=== PATIENT | female | born 1950 | race Caucasian/White ===

== ENCOUNTER 2016-07-06 14:47 | Inpatient (IN) | payer MEDICARE, MEDICAID ==
--- NOTE | 2016-07-06 17:25 | RAD ---
HISTORY: Cough, refusing to eat or drink COMPARISONS: May 22, 2016 VIEWS:1: Single frontal portable view of the chest at 5:07 PM FINDINGS: LINES AND TUBES: CUE WORKER shunt tubing is noted along the right CARDIOMEDIASTINAL SILHOUETTE: The cardiomediastinal silhouette is normal for portable technique. PLEURA: The costophrenic angles are sharp. No pleural abnormalities are noted. LUNG PARENCHYMA: There is patchy alveolar opacification of the right mid and lower lung and left lower lung ABDOMEN: The upper abdomen is clear. There is no subphrenic gas. BONES AND SOFT TISSUES: Soft tissue calcifications are noted in the breasts IMPRESSION: PATCHY BILATERAL AIRSPACE DISEASE SUGGESTIVE OF BILATERAL CONSOLIDATION VERSUS PULMONARY ALVEOLAR EDEMA
[2016-07-06 17:47] LABS: Hematocrit 39 % (35-47); Mean Corpuscular HGB Conc 34 g/dl (31-36); Mean Corpuscular Hemoglobin 32 pg (27-31); Mean Corpuscular Volume 97 fL (80-97); Mean Platelet Volume 9 um3 (7.4-10.4); Red Cell Distribution Width 15 % (10.5-15); White Blood Count 10.3 10^3/ul (3.5-10.8)
[2016-07-06 18:51] LABS: Albumin 3.3 g/dL (3.2-5.2); BUN/Creatinine Ratio 22.5 (8-20); C Reactive Protein 165.43 mg/L (< 5.00); Calcium 9.5 mg/dL (8.6-10.3); EGFR African American 63.1 (>60); Globulin 4.5 g/dL (2-4); Potassium 4.2 mmol/L (3.5-5.0); Total Bilirubin 0.3 mg/dL (0.2-1.0); Total Protein 7.8 g/dL (6.4-8.9)
[2016-07-06 20:18] LABS: Troponin I 0.01 ng/mL (<0.04)
[2016-07-06] MEDS ORDERED: NS 0.9% 1000 ML* 1,000 ML IV SCH (21:30)
[2016-07-06] MEDS ORDERED: Senna TAB PO PRN (21:30)
[2016-07-06] MEDS ORDERED: diPHENhydraMINE PO* 25 MG PO PRN (21:30)
[2016-07-06] MEDS ORDERED: Acetaminophen TAB* 325 MG PO PRN (21:30)
[2016-07-06] MEDS ORDERED: Levofloxacin 500 MG IVPREMIX(* 500 MG/100 ML BAG IVPB ONE (22:00)
--- NOTE | 2016-07-06 22:48 | ED ---
Rupesh Rand Aidan, scribed for Miguel Meyer MD on 07/06/16 at 1741 . 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 Her account executive healthcare reports her being less responsive than normal. Additionally, she has congestion, a productive cough, and mild facial inflammation that began early this morning. No other symptoms. Pt is developmentally delayed. - History Of Current Complaint Chief Complaint: EDGeneral Time Seen by Provider: 07/06/16 16:57 Hx Obtained From: Family/Manager Recruitment - animal caretaker supervisor Onset/Duration: Sudden Onset, Lasting Days, Still Present Timing: Constant, Hours Severity Currently: Moderate Severity Initially: Moderate Location: Negative - refusal to eat or drink Aggravating Factor(s): unknown Alleviating Factor(s): unknown Associated Signs And Symptoms: Positive: Cough - productive, Other - congestion , and mild facial swelling - Allergies/Home Medications Allergies/Adverse Reactions: Allergies Allergy/AdvReac Type Severity Reaction Status Date / Time Carbamazepine [From Tegretol] Allergy Unknown Verified 07/06/16 14:53 Reaction Details Phenytoin [From Dilantin] Allergy Unknown Verified 07/06/16 14:53 Reaction Details PMH/Surg Hx/FS Hx/Imm Hx Cardiovascular History: Reports: Hx Hypertension, Other Cardiovascular Problems/ Disorders - TITLE INVESTIGATOR Shunt Respiratory History: Reports: Hx Pneumonia GI History: Reports: Hx Gastroesophageal Reflux Disease History: Reports: Hx Chronic Renal Failure - stage 3 Comment Only: Other Problems/Disorders - hx bilateral hydronephrosis Musculoskeletal History: Reports: Other Musculoskeletal History - seizure Sensory History: Reports: Hx Cataracts, Hx Vision Problem Opthamlomology History: Reports: Hx Cataracts, Hx Vision Problem Neurological History: Reports: Hx Developmental Delay, Hx Seizures, Other Neuro Impairments/Disorders - Parkinson's Disease Denies: Hx Dementia, Hx Headaches, Hx Migraine, Hx Nerve Disease, Hx Spinal Cord Injury, Hx Transient Ischemic Attacks (TIA) Psychiatric History: Reports: Hx Anxiety, Hx Post Traumatic Stress Disorder Comment Only: Other Psychiatric Issues/Disorders - developmental delay - Surgical History Surgery Procedure, Year, and Place: TITLE INVESTIGATOR SHUNT - Immunization History Date of Tetanus Vaccine: Up to Date Infectious Disease History: No Infectious Disease History: Denies: Hx Clostridium Difficile, Hx Hepatitis, Hx Human Immunodeficiency Virus (HIV), Hx of Known/Suspected MRSA, Hx Shingles, Hx Tuberculosis, Hx Known/ Suspected VRE, Hx Known/Suspected VRSA, History Other Infectious Disease, Traveled Outside the [place] in Last 30 Days - Family History Known Family History: Negative: Diabetes - Social History Occupation: Disabled Lives: Assisted Living Alcohol Use: None Substance Use Type: Reports: None Smoking Status (MU): Never Smoked Tobacco Review of Systems Constitutional: Other - refusal to eat or drink, mild facial swelling Eyes: Negative ENT: Other - congestion Cardiovascular: Negative Positive: Cough Gastrointestinal: Negative Genitourinary: Negative Musculoskeletal: Negative Skin: Negative Neurological: Negative Psychological: Normal All Other Systems Reviewed And Are Negative: Yes Physical Exam Triage Information Reviewed: Yes Vital Signs On Initial Exam: Initial Vitals Temp Pulse Resp BP Pulse Ox 96 F 72 16 153/66 90 07/06/16 14:47 07/06/16 14:47 07/06/16 14:47 07/06/16 14:47 07/06/16 14:47 Vital Signs Reviewed: Yes Appearance: Positive: Well-Appearing, No Pain Distress Skin: Positive: Warm, Skin Color Reflects Adequate Perfusion, Dry Head/Face: Positive: Normal Head/Face Inspection Eyes: Positive: Normal ENT: Positive: Normal ENT inspection Respiratory/Lung Sounds: Positive: Breath Sounds Present. Negative: Clear to Auscultation - harsh upper respiratory sounds in lungs bilaterally Cardiovascular: Positive: RRR Abdomen Description: Positive: Nontender, Soft Bowel Sounds: Positive: Present Musculoskeletal: Positive: Normal Neurological: Positive: Normal Psychiatric: Positive: Normal, Affect/Mood Appropriate Diagnostics - Vital Signs Vital Signs Temp Pulse Resp BP Pulse Ox 07/06/16 14:47 96 F 72 16 153/66 90 - Laboratory Lab Results: Lab Results 07/06/16 07/06/16 07/06/16 Range/Units 17:26 17:26 17:26 WBC 10.3 (3.5-10.8) 10^3/ul RBC 4.00 (4.0-5.4) 10^6/ul Hgb 13.0 (12.0-16.0) g/dl Hct 39 (35-47) % MCV 97 (80-97) fL MCH 32 H (27-31) pg MCHC 34 (31-36) g/dl RDW 15 (10.5-15) % Plt Count 111 L (150-450) 10^3/ul MPV 9 (7.4-10.4) um3 Neut % (Auto) 73.0 (38-83) % Lymph % (Auto) 9.9 L (25-47) % Gaines % (Auto) 14.2 H (1-9) % Eos % (Auto) 2.6 (0-6) % Baso % (Auto) 0.3 (0-2) % Absolute Neuts (auto) 7.5 (1.5-7.7) 10^3/ul Absolute Lymphs (auto) 1.0 (1.0-4.8) 10^3/ul Absolute Monos (auto) 1.5 H (0-0.8) 10^3/ul Absolute Eos (auto) 0.3 (0-0.6) 10^3/ul Absolute Basos (auto) 0 (0-0.2) 10^3/ul Absolute Nucleated RBC 0.01 10^3/ul Nucleated RBC % 0 Sodium 131 L (133-145) mmol/L Potassium 4.2 (3.5-5.0) mmol/L Chloride 95 L (101-111) mmol/L Carbon Dioxide 29 (22-32) mmol/L Anion Gap 7 (2-11) mmol/L BUN 25 H (6-24) mg/dL Creatinine 1.11 H (0.51-0.95) mg/dL Est GFR ( Amer) 63.1 (>60) Est GFR (Non-Af Amer) 49.0 (>60) BUN/Creatinine Ratio 22.5 H (8-20) Glucose 91 (70-100) mg/dL Calcium 9.5 (8.6-10.3) mg/dL Total Bilirubin 0.30 (0.2-1.0) mg/dL AST 13 (13-39) U/L ALT 13 (7-52) U/L Alkaline Phosphatase 124 H (34-104) U/L Troponin I 0.01 (<0.04) ng/mL C-Reactive Protein 165.43 H (< 5.00) mg/L B-Natriuretic Peptide 92 ( - 100) pg/mL Total Protein 7.8 (6.4-8.9) g/dL Albumin 3.3 (3.2-5.2) g/dL Globulin 4.5 H (2-4) g/dL Albumin/Globulin Ratio 0.7 L (1-3) Procalcitonin (<0.6) ng/mL Valproic Acid 26.0 L (50-100) mcg/mL 07/06/16 Range/Units 17:26 WBC (3.5-10.8) 10^3/ul RBC (4.0-5.4) 10^6/ul Hgb (12.0-16.0) g/dl Hct (35-47) % MCV (80-97) fL MCH (27-31) pg MCHC (31-36) g/dl RDW (10.5-15) % Plt Count (150-450) 10^3/ul MPV (7.4-10.4) um3 Neut % (Auto) (38-83) % Lymph % (Auto) (25-47) % Gaines % (Auto) (1-9) % Eos % (Auto) (0-6) % Baso % (Auto) (0-2) % Absolute Neuts (auto) (1.5-7.7) 10^3/ul Absolute Lymphs (auto) (1.0-4.8) 10^3/ul Absolute Monos (auto) (0-0.8) 10^3/ul Absolute Eos (auto) (0-0.6) 10^3/ul Absolute Basos (auto) (0-0.2) 10^3/ul Absolute Nucleated RBC 10^3/ul Nucleated RBC % Sodium (133-145) mmol/L Potassium (3.5-5.0) mmol/L Chloride (101-111) mmol/L Carbon Dioxide (22-32) mmol/L Anion Gap (2-11) mmol/L BUN (6-24) mg/dL Creatinine (0.51-0.95) mg/dL Est GFR ( Amer) (>60) Est GFR (Non-Af Amer) (>60) BUN/Creatinine Ratio (8-20) Glucose (70-100) mg/dL Calcium (8.6-10.3) mg/dL Total Bilirubin (0.2-1.0) mg/dL AST (13-39) U/L ALT (7-52) U/L Alkaline Phosphatase (34-104) U/L Troponin I (<0.04) ng/mL C-Reactive Protein (< 5.00) mg/L B-Natriuretic Peptide ( - 100) pg/mL Total Protein (6.4-8.9) g/dL Albumin (3.2-5.2) g/dL Globulin (2-4) g/dL Albumin/Globulin Ratio (1-3) Procalcitonin 0.1 (<0.6) ng/mL Valproic Acid (50-100) mcg/mL Result Diagrams: 07/06/16 17:26 07/06/16 17:26 Lab Statement: Any lab studies that have been ordered have been reviewed, and results considered in the medical decision making process. - Radiology CHEST XR Xray Interpretation: Positive (See Comments) - IMPRESSION: PATCHY BILATERAL AIRSPACE DISEASE SUGGESTIVE OF BILATERAL CONSOLIDATION VERSUS PULMONARY ALVEOLAR EDEMA Radiology Interpretation Completed By: Radiologist Complex Multi-Symp Course/Dx Assessment/Plan: The patient is developmentally disabled. She refuses to eat or drink. Other symptoms include a productive cough and congestion. She is very difficult to evaluate but her CXR is clearly abnormal and her SPO2 is marginal. The hospitalists have been contacted for admission. - Diagnoses Provider Diagnoses: Pneumonia Discharge - Discharge Plan Condition: Fair Disposition: ADMITTED TO [facility] documentation as recorded by the Rupesh lyles Aidan accurately reflects the service I personally performed and the decisions made by me, Miguel Meyer MD.
[2016-07-06] MEDS: Heparin VIAL(*) 5000 UNITS/ML VIAL (FIVE THOUSAND) SUBCUT SCH (23:00)
[2016-07-06] MEDS: Divalproex Sprinkle CAP* 125 MG PO SCH (23:00)
[2016-07-06] MEDS ORDERED: Docusate CAP* 100 MG PO PRN (23:14)
--- NOTE | 2016-07-06 23:28 | HP ---
HISTORY AND PHYSICAL: DATE OF ADMISSION: 07/06/16 PRIMARY CARE PROVIDER: Shelby Wilson NP CHIEF COMPLAINT: Refusing to eat or drink. HISTORY OF PRESENT ILLNESS: Ms. Armando is a 65-year-old female with a history of severe mental retardation, seizure disorder, GERD, hypertension, and chronic kidney disease who presents to the emergency room after she refused to eat and drink on the day of admission. The staff member from her [facility] that is with her states that the patient essentially refused to eat or drink anything on the day of admission. She also noted that she sound congested. The patient has been coughing and perhaps bringing up a scant amount of mucus though the patient appears to be swallowing this back down. The patient is reportedly close to her baseline in term of her level of alertness and activity. No reported fevers have been documented. PAST MEDICAL HISTORY: 1. Mental retardation. 2. Seizure disorder. 3. GERD. 4. Osteoporosis. 5. History of CLAIMS EXAMINER shunt. 6. Hypertension. 7. CKD. 8. Glaucoma. MEDICATIONS: 1. Benadryl 25 mg p.o. q.6 hours p.r.n. itching. 2. Amlodipine 5 mg p.o. daily. 3. Senna/docusate 1 tab p.o. b.i.d. p.r.n. constipation. 4. Psyllium 1 packet p.o. b.i.d. 5. Multivitamin 1 tab p.o. daily. 6. Xalatan 1 drop to the right eye q.h.s. 7. Famotidine 20 mg p.o. daily. 8. Cosopt 1 drop to both eyes b.i.d. 9. Depakote sprinkles 125 mg p.o. b.i.d. 10. Alphagan P 1 drop to both eyes b.i.d. 11. Aspirin 81 mg p.o. daily. 12. Tylenol 650 mg p.o. q.4 hours p.r.n. pain. ALLERGIES: DILANTIN and TEGRETOL FAMILY HISTORY: Unobtainable. SOCIAL HISTORY: Unobtainable. REVIEW OF SYSTEMS: Unobtainable as the patient is nonverbal. PHYSICAL EXAMINATION GENERAL: The patient is a well-developed, middle-aged female, who is lying in the bed, in no acute distress. VITAL SIGNS: Blood pressure 153/66, pulse 72, respirations 16, temp 96, O2 sat 98% on room air. HEENT: Right cornea is somewhat opacified. Left pupil is round. Extraocular muscles are intact. Oropharynx is clear. Oral mucosa is moist. NECK: There is no submandibular, cervical, or supraclavicular adenopathy. Thyroid is not enlarged. No thyroid nodules are noted. PULMONARY: There are diffuse rhonchi in all lung borrego. CARDIAC: Normal S1, S2. Regular rate and rhythm. I do not appreciate any murmurs. There is no lower extremity edema. ABDOMEN: Bowel sounds present. Abdomen is soft, nontender, nondistended. MUSCULOSKELETAL: There is no cyanosis or clubbing of the digits. There is still active range of motion of all 4 extremities. SKIN: Warm and dry. I do not appreciate any rashes. NEURO: The patient does attempt to hit at me when I am palpating her abdomen. Additionally, when irritated by my exam, she bites at her hand. PSYCH: The patient is alert. I am unable to assess her orientation. LABORATORY DATA: Sodium 131, potassium 4.2, chloride 95, CO2 29, BUN 25, creatinine 1.11, glucose 91, calcium 9.5, albumin 0.3, AST 13, ALT 13, alk phos 124, troponin 0.01. CRP 165.43, BNP 92, albumin 3.3. WBC 10.3, hemoglobin 13.0 , hematocrit 39, platelets 111. Valproic acid level 26. Chest x-ray: Patchy bilateral airspace disease suggestive of bilateral consolidation versus pulmonary alveolar edema. ASSESSMENT AND PLAN: Ms. Armando is a 65-year-old female with history of severe mental retardation, seizure disorder, hypertension, and chronic kidney disease who presents to the emergency room with refusal to eat and drink and with congested respirations and cough. 1. Pneumonia. The patient likely has bilateral pneumonia. Congestive heart failure is a consideration; however, her BNP is normal. This seems to make congestive heart failure much less likely. I will go ahead and send a procalcitonin level, which may be another test to suggest infection over pulmonary edema. The patient unfortunately is unable to provide a sputum sample as she is noncooperative with this. I will go ahead and set a legionella and Strep pneumo urinary antigens. Blood cultures have been sent. I will go ahead and start the patient on Levaquin 500 mg IV daily, though we will need to monitor this closely given her renal function. If the patient is able to bring up a sputum sample or if it appears that she is needing NT suctioning, we will go ahead and order sputum culture at that time. I will go ahead and give the patient 1 L of normal saline. Given the concern for pneumonia ; however, we will watch her respiratory status closely for worsening. 2. Hypertension. The patient's blood pressure is under fair control. I will continue on her home dose of amlodipine and monitor her pressure. 3. Seizure disorder. I will go ahead and continue the patient on her usual dose of Depakote sprinkles. I will obtain a valproic acid level tomorrow morning, which will be a true trough level. 4. Stage 3 chronic kidney disease. The patient's creatinine has fluctuated from 1 to 2.6 over the course of the last year or so. Currently, her creatinine is better than it has been most recently. We will go ahead and follow this. Again, we will watch with the Levaquin 500 mg daily. 5. Gastroesophageal reflux disease. I will go ahead and continue her Pepcid. 6. Glaucoma. I will continue the patient's home eyedrops. 7. DVT prophylaxis. According to the Adult Thrombosis Prophylaxis Risk Factor Assessment Guide, the patient has a total risk factor score of 3 making her high risk. She will be placed on heparin 5000 units subcutaneous q.8 hours. 8. Code status is full. The patient's legal guardian is listed to be Jos Armando, although this will need to be confirmed before any significant decisions are made. TIME SPENT: 55 minutes were spent admitting this patient. CC: Shelby Wilson NP* [id number]/CPS #: [id number] MTDD
[2016-07-07] MEDS: Heparin VIAL(*) 5000 UNITS/ML VIAL (FIVE THOUSAND) SUBCUT SCH ×3 (05:53→22:13)
[2016-07-07 08:59] LABS: Hematocrit 37 % (35-47); Hemoglobin 12.4 g/dl (12.0-16.0); Mean Corpuscular HGB Conc 34 g/dl (31-36); Mean Corpuscular Hemoglobin 32 pg (27-31); Mean Corpuscular Volume 96 fL (80-97); Mean Platelet Volume 9 um3 (7.4-10.4); Red Blood Count 3.82 10^6/ul (4.0-5.4); Red Cell Distribution Width 15 % (10.5-15)
[2016-07-07] MEDS ORDERED: Dorzolamide/Timolol OPTH (NF) 10 ML BOT BOTH EYES SCH (09:00)
[2016-07-07] MEDS: amLODIPine TAB* 5 MG PO SCH (09:01)
[2016-07-07] MEDS: Aspirin Low Dose CHEW TAB* 81 MG PO SCH (09:02)
[2016-07-07] MEDS: Psyllium PAK PO SCH ×2 (09:02→22:13)
[2016-07-07] MEDS: Famotidine TAB* 20 MG PO SCH (09:02)
[2016-07-07] MEDS: Multivitamins/Minerals TAB PO SCH (09:02)
[2016-07-07 09:13] LABS: BUN/Creatinine Ratio 19.6 (8-20); Calcium 9.4 mg/dL (8.6-10.3); EGFR African American 62.4 (>60); EGFR Non-African American 48.5 (>60)
[2016-07-07] MEDS: Divalproex Sprinkle CAP* 125 MG PO SCH ×2 (09:13→22:13)
[2016-07-07 11:07] LABS: Potassium 4.7 mmol/L (3.5-5.0)
--- NOTE | 2016-07-07 11:14 | PN ---
Subjective Date of Service: 07/07/16 Interval History: Mr. Armando is unable to offer complaint but appears in NAD. Objective Active Medications: Acetaminophen (Tylenol Tab*) 650 mg PO Q4H PRN Amlodipine Besylate (Norvasc Tab*) 5 mg PO DAILY MYESHA Aspirin (Aspirin Low Dose Tab*) 81 mg PO DAILY MYESHA Brimonidine Tartrate (Alphagan 0.2%) 1 drop BOTH EYES BID MYESHA Diphenhydramine HCl (Benadryl Po*) 25 mg PO Q6H PRN Divalproex Sodium (Depakote Sprinkle Cap*) 125 mg PO BID MYESHA Docusate Sodium (Colace Cap*) 100 mg PO BID PRN Dorzolamide/Timolol (Cosopt (Nf)) 1 drop BOTH EYES BID MYESHA Famotidine (Pepcid Tab*) 20 mg PO QAM MYESHA Heparin Sodium (Porcine) (Heparin Vial(*)) 5,000 units SUBCUT Q8HR MYESHA Levofloxacin/Dextrose (Levaquin 250 Mg Ivpremx(*)) 250 mg in 50 mls @ 50 mls/ hr IVPB Q24H MYESHA Latanoprost (Xalatan 0.005%*) 1 drop RIGHT EYE QPM MYESHA Multivitamins/Minerals (Theragran/Minerals Tab*) 1 tab PO DAILY MYESHA Psyllium Hydrophilic Mucilloid (Metamucil Kailash*) 1 pkt PO BID MYESHA Senna (Senokot Tab*) 1 tab PO BID PRN Oxygen Devices in Use Now: Nasal Cannula Appearance: Female lying in bed in NAD Respiratory: Symmetrical Chest Expansion and Respiratory Effort, - - rhonchi vs referred upper airway congestion Cardiovascular: NL Sounds; No Murmurs; No JVD, No Edema Abdominal: NL Sounds; No Tenderness; No Distention Skin: No Rash or Ulcers Neurological: - - sleeping, withdraws to stimulus Result Diagrams: 07/07/16 08:35 07/07/16 08:35 Additional Lab and Data: Lab Results 07/06/16 07/06/16 07/06/16 Range/Units 17:26 17:26 17:26 WBC 10.3 (3.5-10.8) 10^3/ul RBC 4.00 (4.0-5.4) 10^6/ul Hgb 13.0 (12.0-16.0) g/dl Hct 39 (35-47) % MCV 97 (80-97) fL MCH 32 H (27-31) pg MCHC 34 (31-36) g/dl RDW 15 (10.5-15) % Plt Count 111 L (150-450) 10^3/ul MPV 9 (7.4-10.4) um3 Neut % (Auto) 73.0 (38-83) % Lymph % (Auto) 9.9 L (25-47) % Wirt % (Auto) 14.2 H (1-9) % Eos % (Auto) 2.6 (0-6) % Baso % (Auto) 0.3 (0-2) % Absolute Neuts (auto) 7.5 (1.5-7.7) 10^3/ul Absolute Lymphs (auto) 1.0 (1.0-4.8) 10^3/ul Absolute Monos (auto) 1.5 H (0-0.8) 10^3/ul Absolute Eos (auto) 0.3 (0-0.6) 10^3/ul Absolute Basos (auto) 0 (0-0.2) 10^3/ul Absolute Nucleated RBC 0.01 10^3/ul Nucleated RBC % 0 Sodium 131 L (133-145) mmol/L Potassium 4.2 (3.5-5.0) mmol/L Chloride 95 L (101-111) mmol/L Carbon Dioxide 29 (22-32) mmol/L Anion Gap 7 (2-11) mmol/L BUN 25 H (6-24) mg/dL Creatinine 1.11 H (0.51-0.95) mg/dL Est GFR ( Amer) 63.1 (>60) Est GFR (Non-Af Amer) 49.0 (>60) BUN/Creatinine Ratio 22.5 H (8-20) Glucose 91 (70-100) mg/dL Calcium 9.5 (8.6-10.3) mg/dL Total Bilirubin 0.30 (0.2-1.0) mg/dL AST 13 (13-39) U/L ALT 13 (7-52) U/L Alkaline Phosphatase 124 H (34-104) U/L Troponin I 0.01 (<0.04) ng/mL C-Reactive Protein 165.43 H (< 5.00) mg/L B-Natriuretic Peptide 92 ( - 100) pg/mL Total Protein 7.8 (6.4-8.9) g/dL Albumin 3.3 (3.2-5.2) g/dL Globulin 4.5 H (2-4) g/dL Albumin/Globulin Ratio 0.7 L (1-3) Procalcitonin (<0.6) ng/mL Valproic Acid 26.0 L (50-100) mcg/mL 07/06/16 Range/Units 17:26 WBC (3.5-10.8) 10^3/ul RBC (4.0-5.4) 10^6/ul Hgb (12.0-16.0) g/dl Hct (35-47) % MCV (80-97) fL MCH (27-31) pg MCHC (31-36) g/dl RDW (10.5-15) % Plt Count (150-450) 10^3/ul MPV (7.4-10.4) um3 Neut % (Auto) (38-83) % Lymph % (Auto) (25-47) % Wirt % (Auto) (1-9) % Eos % (Auto) (0-6) % Baso % (Auto) (0-2) % Absolute Neuts (auto) (1.5-7.7) 10^3/ul Absolute Lymphs (auto) (1.0-4.8) 10^3/ul Absolute Monos (auto) (0-0.8) 10^3/ul Absolute Eos (auto) (0-0.6) 10^3/ul Absolute Basos (auto) (0-0.2) 10^3/ul Absolute Nucleated RBC 10^3/ul Nucleated RBC % Sodium (133-145) mmol/L Potassium (3.5-5.0) mmol/L Chloride (101-111) mmol/L Carbon Dioxide (22-32) mmol/L Anion Gap (2-11) mmol/L BUN (6-24) mg/dL Creatinine (0.51-0.95) mg/dL Est GFR ( Amer) (>60) Est GFR (Non-Af Amer) (>60) BUN/Creatinine Ratio (8-20) Glucose (70-100) mg/dL Calcium (8.6-10.3) mg/dL Total Bilirubin (0.2-1.0) mg/dL AST (13-39) U/L ALT (7-52) U/L Alkaline Phosphatase (34-104) U/L Troponin I (<0.04) ng/mL C-Reactive Protein (< 5.00) mg/L B-Natriuretic Peptide ( - 100) pg/mL Total Protein (6.4-8.9) g/dL Albumin (3.2-5.2) g/dL Globulin (2-4) g/dL Albumin/Globulin Ratio (1-3) Procalcitonin 0.1 (<0.6) ng/mL Valproic Acid (50-100) mcg/mL Assess/Plan/Problems-Billing Assessment: Ms. Armando is a 65 yo female with a PMH of mental retardation who was admitted on 07/06/16 with refusal to eat and suspected pneumonia. - Patient Problems (1) Altered mental status Comment: Suspect secondary to pneumonia. Treatment as per below. House staff reports that at baseline patient typically grunts and makes noises, points at staff, and ambulates with assistance. She requires assistance to eat. (2) Pneumonia Comment: Chest xray and behavioral changes concerning for pneumonia. No leukocytosis, afebrile. Continue levaquin. (3) Seizure disorder Comment: Continue depakote sprinkles. (4) HTN (hypertension) Comment: SBP 100-160. Continue amlodipine. (5) CKD (chronic kidney disease) Comment: Stage 2. Stable. (6) DVT prophylaxis Comment: SQ heparin (7) Full code status Status and Disposition: Inpatient with expected LOS > 2 days.
[2016-07-07] MEDS: Latanoprost 0.005%* 2.5 ml BTL RIGHT EYE SCH (17:15)
[2016-07-07] MEDS: CMC:Dorzolamide/Timolol OPTH (NF) 10 ML BOT BOTH EYES SCH (22:12)
[2016-07-07] MEDS: Levofloxacin 250 MG IVPREMX(*) 250 MG/50 ML BAG IVPB SCH (23:21)
[2016-07-08] MEDS: Heparin VIAL(*) 5000 UNITS/ML VIAL (FIVE THOUSAND) SUBCUT SCH ×3 (06:10→21:18)
[2016-07-08 06:32] LABS: Hematocrit 36 % (35-47); Hemoglobin 12.4 g/dl (12.0-16.0); Mean Corpuscular HGB Conc 34 g/dl (31-36); Mean Corpuscular Hemoglobin 33 pg (27-31); Mean Corpuscular Volume 96 fL (80-97); Mean Platelet Volume 9 um3 (7.4-10.4); Red Blood Count 3.77 10^6/ul (4.0-5.4); Red Cell Distribution Width 15 % (10.5-15); White Blood Count 10.5 10^3/ul (3.5-10.8)
[2016-07-08 06:46] LABS: BUN/Creatinine Ratio 15.3 (8-20); Calcium 9.8 mg/dL (8.6-10.3); EGFR African American 44.5 (>60); EGFR Non-African American 34.6 (>60); Potassium 4.1 mmol/L (3.5-5.0)
--- NOTE | 2016-07-08 07:57 | PN ---
Subjective Date of Service: 07/08/16 Interval History: Ms. Armando is not able to offer complaint but appears in no acute distress. Objective Active Medications: Acetaminophen (Tylenol Tab*) 650 mg PO Q4H PRN Amlodipine Besylate (Norvasc Tab*) 5 mg PO DAILY MYESHA Aspirin (Aspirin Low Dose Tab*) 81 mg PO DAILY MYESHA Brimonidine Tartrate (Alphagan 0.2%) 1 drop BOTH EYES BID MYESHA Diphenhydramine HCl (Benadryl Po*) 25 mg PO Q6H PRN Divalproex Sodium (Depakote Sprinkle Cap*) 125 mg PO BID MYESHA Docusate Sodium (Colace Cap*) 100 mg PO BID PRN Dorzolamide/Timolol (Cosopt (Nf)) 1 drop BOTH EYES BID MYESHA Famotidine (Pepcid Tab*) 20 mg PO QAM MYESHA Heparin Sodium (Porcine) (Heparin Vial(*)) 5,000 units SUBCUT Q8HR MYESHA Levofloxacin/Dextrose (Levaquin 250 Mg Ivpremx(*)) 250 mg in 50 mls @ 50 mls/ hr IVPB Q24H MYESHA Latanoprost (Xalatan 0.005%*) 1 drop RIGHT EYE QPM MYESHA Multivitamins/Minerals (Theragran/Minerals Tab*) 1 tab PO DAILY MYESHA Psyllium Hydrophilic Mucilloid (Metamucil Kailash*) 1 pkt PO BID MYESHA Senna (Senokot Tab*) 1 tab PO BID PRN Vital Signs 07/07/16 07/07/16 07/07/16 11:32 15:10 20:00 Temperature 96.9 F 97.4 F Pulse Rate 82 112 Respiratory 18 20 20 Rate Blood Pressure 104/61 129/72 (mmHg) O2 Sat by Pulse 94 96 Oximetry 07/07/16 23:26 Temperature 97.7 F Pulse Rate 101 Respiratory 20 Rate Blood Pressure 135/80 (mmHg) O2 Sat by Pulse 96 Oximetry Oxygen Devices in Use Now: None Appearance: Female lying in bed in NAD Respiratory: Symmetrical Chest Expansion and Respiratory Effort, - - Coarse rhonchi bilaterally Cardiovascular: NL Sounds; No Murmurs; No JVD, No Edema Abdominal: NL Sounds; No Tenderness; No Distention Extremities: No Edema Skin: No Rash or Ulcers Neurological: - - Alert, witdraws to stimulus, arms and legs contracted, nonverbal Result Diagrams: 07/08/16 05:53 07/08/16 05:53 Additional Lab and Data: Lab Results 07/06/16 07/06/16 07/06/16 Range/Units 17:26 17:26 17:26 WBC 10.3 (3.5-10.8) 10^3/ul RBC 4.00 (4.0-5.4) 10^6/ul Hgb 13.0 (12.0-16.0) g/dl Hct 39 (35-47) % MCV 97 (80-97) fL MCH 32 H (27-31) pg MCHC 34 (31-36) g/dl RDW 15 (10.5-15) % Plt Count 111 L (150-450) 10^3/ul MPV 9 (7.4-10.4) um3 Neut % (Auto) 73.0 (38-83) % Lymph % (Auto) 9.9 L (25-47) % Woods % (Auto) 14.2 H (1-9) % Eos % (Auto) 2.6 (0-6) % Baso % (Auto) 0.3 (0-2) % Absolute Neuts (auto) 7.5 (1.5-7.7) 10^3/ul Absolute Lymphs (auto) 1.0 (1.0-4.8) 10^3/ul Absolute Monos (auto) 1.5 H (0-0.8) 10^3/ul Absolute Eos (auto) 0.3 (0-0.6) 10^3/ul Absolute Basos (auto) 0 (0-0.2) 10^3/ul Absolute Nucleated RBC 0.01 10^3/ul Nucleated RBC % 0 Sodium 131 L (133-145) mmol/L Potassium 4.2 (3.5-5.0) mmol/L Chloride 95 L (101-111) mmol/L Carbon Dioxide 29 (22-32) mmol/L Anion Gap 7 (2-11) mmol/L BUN 25 H (6-24) mg/dL Creatinine 1.11 H (0.51-0.95) mg/dL Est GFR ( Amer) 63.1 (>60) Est GFR (Non-Af Amer) 49.0 (>60) BUN/Creatinine Ratio 22.5 H (8-20) Glucose 91 (70-100) mg/dL Calcium 9.5 (8.6-10.3) mg/dL Total Bilirubin 0.30 (0.2-1.0) mg/dL AST 13 (13-39) U/L ALT 13 (7-52) U/L Alkaline Phosphatase 124 H (34-104) U/L Troponin I 0.01 (<0.04) ng/mL C-Reactive Protein 165.43 H (< 5.00) mg/L B-Natriuretic Peptide 92 ( - 100) pg/mL Total Protein 7.8 (6.4-8.9) g/dL Albumin 3.3 (3.2-5.2) g/dL Globulin 4.5 H (2-4) g/dL Albumin/Globulin Ratio 0.7 L (1-3) Procalcitonin (<0.6) ng/mL Valproic Acid 26.0 L (50-100) mcg/mL 12//16 Range/Units 17:26 WBC (3.5-10.8) 10^3/ul RBC (4.0-5.4) 10^6/ul Hgb (12.0-16.0) g/dl Hct (35-47) % MCV (80-97) fL MCH (27-31) pg MCHC (31-36) g/dl RDW (10.5-15) % Plt Count (150-450) 10^3/ul MPV (7.4-10.4) um3 Neut % (Auto) (38-83) % Lymph % (Auto) (25-47) % Woods % (Auto) (1-9) % Eos % (Auto) (0-6) % Baso % (Auto) (0-2) % Absolute Neuts (auto) (1.5-7.7) 10^3/ul Absolute Lymphs (auto) (1.0-4.8) 10^3/ul Absolute Monos (auto) (0-0.8) 10^3/ul Absolute Eos (auto) (0-0.6) 10^3/ul Absolute Basos (auto) (0-0.2) 10^3/ul Absolute Nucleated RBC 10^3/ul Nucleated RBC % Sodium (133-145) mmol/L Potassium (3.5-5.0) mmol/L Chloride (101-111) mmol/L Carbon Dioxide (22-32) mmol/L Anion Gap (2-11) mmol/L BUN (6-24) mg/dL Creatinine (0.51-0.95) mg/dL Est GFR ( Amer) (>60) Est GFR (Non-Af Amer) (>60) BUN/Creatinine Ratio (8-20) Glucose (70-100) mg/dL Calcium (8.6-10.3) mg/dL Total Bilirubin (0.2-1.0) mg/dL AST (13-39) U/L ALT (7-52) U/L Alkaline Phosphatase (34-104) U/L Troponin I (<0.04) ng/mL C-Reactive Protein (< 5.00) mg/L B-Natriuretic Peptide ( - 100) pg/mL Total Protein (6.4-8.9) g/dL Albumin (3.2-5.2) g/dL Globulin (2-4) g/dL Albumin/Globulin Ratio (1-3) Procalcitonin 0.1 (<0.6) ng/mL Valproic Acid (50-100) mcg/mL Assess/Plan/Problems-Billing Assessment: Ms. Armando is a 65 yo female with a PMH of mental retardation who was admitted on 07/06/16 with refusal to eat and suspected pneumonia. - Patient Problems (1) Altered mental status Comment: Patient seems more alert today but not back to baseline. House staff reports that at baseline patient typically grunts and makes noises, points at staff, and ambulates with assistance. She requires assistance to eat. Suspect secondary to pneumonia. Treatment as per below. (2) Pneumonia Comment: Chest xray and behavioral changes concerning for pneumonia. No leukocytosis, afebrile. Continue levaquin. (3) Seizure disorder Comment: Continue depakote sprinkles. (4) HTN (hypertension) Comment: SBP 100-160. Continue amlodipine. (5) CKD (chronic kidney disease) Comment: Stage 2. Stable. (6) DVT prophylaxis Comment: SQ heparin (7) Full code status Status and Disposition: Inpatient with expected LOS > 2 days.
[2016-07-08] MEDS: CMC:Dorzolamide/Timolol OPTH (NF) 10 ML BOT BOTH EYES SCH ×2 (09:03→21:16)
[2016-07-08] MEDS: Multivitamins/Minerals TAB PO SCH (09:04)
[2016-07-08] MEDS: Famotidine TAB* 20 MG PO SCH (09:04)
[2016-07-08] MEDS: Divalproex Sprinkle CAP* 125 MG PO SCH ×2 (09:04→21:16)
[2016-07-08] MEDS: amLODIPine TAB* 5 MG PO SCH (09:04)
[2016-07-08] MEDS: Aspirin Low Dose CHEW TAB* 81 MG PO SCH (09:04)
[2016-07-08] MEDS: Psyllium PAK PO SCH ×2 (09:05→21:16)
[2016-07-08] MEDS ORDERED: Albuterol/Ipratropium NEB.SOL* Albuterol 2.5 MG/Ipratropium 0.5 MG 3 ML INH PRN (12:12)
[2016-07-08] MEDS: Latanoprost 0.005%* 2.5 ml BTL RIGHT EYE SCH (17:09)
[2016-07-08] MEDS: Levofloxacin 250 MG IVPREMX(*) 250 MG/50 ML BAG IVPB SCH (21:18)
[2016-07-09] MEDS: Heparin VIAL(*) 5000 UNITS/ML VIAL (FIVE THOUSAND) SUBCUT SCH ×3 (06:03→22:34)
--- NOTE | 2016-07-09 08:21 | PN ---
Subjective Date of Service: 07/09/16 Interval History: Ms. Armando is unable to offer complaint but she is in no acute distress and took a bite of breakfast. However on returning a couple of hours later patient is much less responsive and more rhoncherous. Objective Active Medications: Acetaminophen (Tylenol Tab*) 650 mg PO Q4H PRN Albuterol/Ipratropium (Duoneb Neb.Erendiar*) 1 neb INH Q4H PRN Amlodipine Besylate (Norvasc Tab*) 5 mg PO DAILY MYESHA Aspirin (Aspirin Low Dose Tab*) 81 mg PO DAILY MYESHA Brimonidine Tartrate (Alphagan 0.2%) 1 drop BOTH EYES BID MYESHA Diphenhydramine HCl (Benadryl Po*) 25 mg PO Q6H PRN Divalproex Sodium (Depakote Sprinkle Cap*) 125 mg PO BID MYESHA Docusate Sodium (Colace Cap*) 100 mg PO BID PRN Dorzolamide/Timolol (Cosopt (Nf)) 1 drop BOTH EYES BID MYESHA Famotidine (Pepcid Tab*) 20 mg PO QAM MYESHA Heparin Sodium (Porcine) (Heparin Vial(*)) 5,000 units SUBCUT Q8HR MYESHA Levofloxacin/Dextrose (Levaquin 250 Mg Ivpremx(*)) 250 mg in 50 mls @ 50 mls/ hr IVPB Q24H MYESHA Latanoprost (Xalatan 0.005%*) 1 drop RIGHT EYE QPM MYESHA Multivitamins/Minerals (Theragran/Minerals Tab*) 1 tab PO DAILY MYESHA Psyllium Hydrophilic Mucilloid (Metamucil Kailash*) 1 pkt PO BID MYESHA Senna (Senokot Tab*) 1 tab PO BID PRN Vital Signs 07/08/16 07/08/16 07/08/16 12:31 15:06 16:35 Temperature 96.5 F 98.4 F Pulse Rate 78 84 Respiratory 18 16 Rate Blood Pressure 88/53 (mmHg) O2 Sat by Pulse 93 93 Oximetry 07/08/16 07/08/16 07/08/16 19:55 19:58 20:00 Temperature Pulse Rate 80 Respiratory 20 Rate Blood Pressure 130/78 (mmHg) O2 Sat by Pulse 98 94 Oximetry 07/08/16 07/08/16 07/08/16 20:19 23:36 23:37 Temperature 97.2 F 94.6 F Pulse Rate 80 83 Respiratory 16 20 Rate Blood Pressure 138/72 139/74 (mmHg) O2 Sat by Pulse 94 100 Oximetry 07/08/16 07/09/16 07/09/16 23:41 03:05 03:34 Temperature 97.5 F 96.5 F Pulse Rate 75 Respiratory Rate Blood Pressure (mmHg) O2 Sat by Pulse 91 Oximetry 07/09/16 07/09/16 03:37 06:58 Temperature 96.5 F 96.5 F Pulse Rate Respiratory Rate Blood Pressure (mmHg) O2 Sat by Pulse Oximetry Oxygen Devices in Use Now: Nasal Cannula Appearance: Female lying in bed in NAD Eyes: No Scleral Icterus Respiratory: Symmetrical Chest Expansion and Respiratory Effort, Clear to Auscultation Cardiovascular: NL Sounds; No Murmurs; No JVD, No Edema Abdominal: NL Sounds; No Tenderness; No Distention Extremities: No Edema Skin: No Rash or Ulcers Neurological: - - Alert, nonverbal, taking po intake, extremities contracted Nutrition: Taking PO's Result Diagrams: 07/08/16 05:53 07/08/16 05:53 Additional Lab and Data: Lab Results 07/06/16 07/06/16 07/06/16 Range/Units 17:26 17:26 17:26 WBC 10.3 (3.5-10.8) 10^3/ul RBC 4.00 (4.0-5.4) 10^6/ul Hgb 13.0 (12.0-16.0) g/dl Hct 39 (35-47) % MCV 97 (80-97) fL MCH 32 H (27-31) pg MCHC 34 (31-36) g/dl RDW 15 (10.5-15) % Plt Count 111 L (150-450) 10^3/ul MPV 9 (7.4-10.4) um3 Neut % (Auto) 73.0 (38-83) % Lymph % (Auto) 9.9 L (25-47) % [place] % (Auto) 14.2 H (1-9) % Eos % (Auto) 2.6 (0-6) % Baso % (Auto) 0.3 (0-2) % Absolute Neuts (auto) 7.5 (1.5-7.7) 10^3/ul Absolute Lymphs (auto) 1.0 (1.0-4.8) 10^3/ul Absolute Monos (auto) 1.5 H (0-0.8) 10^3/ul Absolute Eos (auto) 0.3 (0-0.6) 10^3/ul Absolute Basos (auto) 0 (0-0.2) 10^3/ul Absolute Nucleated RBC 0.01 10^3/ul Nucleated RBC % 0 Sodium 131 L (133-145) mmol/L Potassium 4.2 (3.5-5.0) mmol/L Chloride 95 L (101-111) mmol/L Carbon Dioxide 29 (22-32) mmol/L Anion Gap 7 (2-11) mmol/L BUN 25 H (6-24) mg/dL Creatinine 1.11 H (0.51-0.95) mg/dL Est GFR ( Amer) 63.1 (>60) Est GFR (Non-Af Amer) 49.0 (>60) BUN/Creatinine Ratio 22.5 H (8-20) Glucose 91 (70-100) mg/dL Calcium 9.5 (8.6-10.3) mg/dL Total Bilirubin 0.30 (0.2-1.0) mg/dL AST 13 (13-39) U/L ALT 13 (7-52) U/L Alkaline Phosphatase 124 H (34-104) U/L Troponin I 0.01 (<0.04) ng/mL C-Reactive Protein 165.43 H (< 5.00) mg/L B-Natriuretic Peptide 92 ( - 100) pg/mL Total Protein 7.8 (6.4-8.9) g/dL Albumin 3.3 (3.2-5.2) g/dL Globulin 4.5 H (2-4) g/dL Albumin/Globulin Ratio 0.7 L (1-3) Procalcitonin (<0.6) ng/mL Valproic Acid 26.0 L (50-100) mcg/mL 07/06/ Range/Units 17:26 WBC (3.5-10.8) 10^3/ul RBC (4.0-5.4) 10^6/ul Hgb (12.0-16.0) g/dl Hct (35-47) % MCV (80-97) fL MCH (27-31) pg MCHC (31-36) g/dl RDW (10.5-15) % Plt Count (150-450) 10^3/ul MPV (7.4-10.4) um3 Neut % (Auto) (38-83) % Lymph % (Auto) (25-47) % [place] % (Auto) (1-9) % Eos % (Auto) (0-6) % Baso % (Auto) (0-2) % Absolute Neuts (auto) (1.5-7.7) 10^3/ul Absolute Lymphs (auto) (1.0-4.8) 10^3/ul Absolute Monos (auto) (0-0.8) 10^3/ul Absolute Eos (auto) (0-0.6) 10^3/ul Absolute Basos (auto) (0-0.2) 10^3/ul Absolute Nucleated RBC 10^3/ul Nucleated RBC % Sodium (133-145) mmol/L Potassium (3.5-5.0) mmol/L Chloride (101-111) mmol/L Carbon Dioxide (22-32) mmol/L Anion Gap (2-11) mmol/L BUN (6-24) mg/dL Creatinine (0.51-0.95) mg/dL Est GFR ( Amer) (>60) Est GFR (Non-Af Amer) (>60) BUN/Creatinine Ratio (8-20) Glucose (70-100) mg/dL Calcium (8.6-10.3) mg/dL Total Bilirubin (0.2-1.0) mg/dL AST (13-39) U/L ALT (7-52) U/L Alkaline Phosphatase (34-104) U/L Troponin I (<0.04) ng/mL C-Reactive Protein (< 5.00) mg/L B-Natriuretic Peptide ( - 100) pg/mL Total Protein (6.4-8.9) g/dL Albumin (3.2-5.2) g/dL Globulin (2-4) g/dL Albumin/Globulin Ratio (1-3) Procalcitonin 0.1 (<0.6) ng/mL Valproic Acid (50-100) mcg/mL Assess/Plan/Problems-Billing Assessment: Ms. Armando is a 65 yo female with a PMH of mental retardation who was admitted on 07/06/16 with refusal to eat and suspected pneumonia. - Patient Problems (1) Altered mental status Comment: Patient initially more alert but now is now less responsive and not able to take oral intake. Concern for recurrent aspiration. Add flagyl to levaquin. NT suction as needed. Duonebs prn. NPO until able to assess swallow with speech therapy. House staff reports that at baseline patient typically grunts and makes noises, points at staff, and ambulates with assistance. She requires assistance to eat. Suspect secondary to pneumonia. Treatment as per below. (2) Pneumonia Comment: Recheck labs now. Add flagyl to levaquin. Oxygen requirements remain at 4 L NC. (3) Seizure disorder Comment: Switch to valproic acid IV. (4) HTN (hypertension) Comment: SBP 100-160. Hold amlodipine. (5) CKD (chronic kidney disease) Comment: Stage 2. Stable. (6) DVT prophylaxis Comment: SQ heparin (7) Full code status Status and Disposition: Inpatient with expected LOS > 2 days. Plan for palliative care and social welfare clerk consult for consideration of establishment of DNR with caregivers and the [facility].
[2016-07-09] MEDS: Aspirin Low Dose CHEW TAB* 81 MG PO SCH (11:02)
[2016-07-09] MEDS: amLODIPine TAB* 5 MG PO SCH (11:02)
[2016-07-09] MEDS: Psyllium PAK PO SCH (11:03)
[2016-07-09] MEDS: Famotidine TAB* 20 MG PO SCH (11:03)
[2016-07-09] MEDS: Divalproex Sprinkle CAP* 125 MG PO SCH (11:03)
[2016-07-09] MEDS: Multivitamins/Minerals TAB PO SCH (11:03)
[2016-07-09] MEDS: CMC:Dorzolamide/Timolol OPTH (NF) 10 ML BOT BOTH EYES SCH ×2 (11:11→22:34)
[2016-07-09] MEDS ORDERED: metroNIDAZOLE IV 500 MG/100ML* 500 MG/100 ML BAG IVPB SCH (12:00)
[2016-07-09] MEDS ORDERED: Valproic Acid IV(*) 100 MG/ML 5 ML VIAL (500 MG) IVPB SCH (12:00)
[2016-07-09 13:24] LABS: Hematocrit 38 % (35-47); Hemoglobin 12.8 g/dl (12.0-16.0); Mean Corpuscular HGB Conc 34 g/dl (31-36); Mean Corpuscular Hemoglobin 32 pg (27-31); Mean Corpuscular Volume 96 fL (80-97); Mean Platelet Volume 7 um3 (7.4-10.4); Red Blood Count 3.96 10^6/ul (4.0-5.4); Red Cell Distribution Width 15 % (10.5-15); White Blood Count 9.3 10^3/ul (3.5-10.8)
[2016-07-09] MEDS: Pantoprazole IV* 40 MG IV SCH (13:35)
[2016-07-09] MEDS: NS 0.9% IVPB SCH ×2 (13:36→22:34)
[2016-07-09] MEDS: VALPROIC ACID IVPB SCH ×2 (13:36→22:34)
[2016-07-09 13:40] LABS: BUN/Creatinine Ratio 17.5 (8-20); C Reactive Protein 200.32 mg/L (< 5.00); Calcium 10.3 mg/dL (8.6-10.3); EGFR African American 38.3 (>60); EGFR Non-African American 29.8 (>60); Potassium 3.8 mmol/L (3.5-5.0)
[2016-07-09] MEDS: metroNIDAZOLE IV 500 MG/100ML* 500 MG/100 ML BAG IVPB SCH (15:15)
[2016-07-09] MEDS: Latanoprost 0.005%* 2.5 ml BTL RIGHT EYE SCH (18:05)
[2016-07-10] MEDS: Levofloxacin 250 MG IVPREMX(*) 250 MG/50 ML BAG IVPB SCH ×2 (00:01→23:46)
[2016-07-10] MEDS: metroNIDAZOLE IV 500 MG/100ML* 500 MG/100 ML BAG IVPB SCH ×2 (04:45→15:10)
[2016-07-10] MEDS: Heparin VIAL(*) 5000 UNITS/ML VIAL (FIVE THOUSAND) SUBCUT SCH ×3 (04:47→23:18)
[2016-07-10 06:20] LABS: Hematocrit 37 % (35-47); Hemoglobin 12.1 g/dl (12.0-16.0); Mean Corpuscular HGB Conc 33 g/dl (31-36); Mean Corpuscular Hemoglobin 32 pg (27-31); Mean Corpuscular Volume 97 fL (80-97); Mean Platelet Volume 8 um3 (7.4-10.4); Red Blood Count 3.76 10^6/ul (4.0-5.4); Red Cell Distribution Width 15 % (10.5-15); White Blood Count 9.1 10^3/ul (3.5-10.8)
--- NOTE | 2016-07-10 06:27 | PN ---
Subjective Date of Service: 07/10/16 Interval History: Ms. Armando is non-verbal but appears to be in no acute distress. Objective Active Medications: Albuterol/Ipratropium (Duoneb Neb.Erendira*) 1 neb INH Q4H PRN Amlodipine Besylate (Norvasc Tab*) 5 mg PO DAILY MYESHA Brimonidine Tartrate (Alphagan 0.2%) 1 drop BOTH EYES BID MYESHA Dorzolamide/Timolol (Cosopt (Nf)) 1 drop BOTH EYES BID MYESHA Heparin Sodium (Porcine) (Heparin Vial(*)) 5,000 units SUBCUT Q8HR MYESHA Levofloxacin/Dextrose (Levaquin 250 Mg Ivpremx(*)) 250 mg in 50 mls @ 50 mls/ hr IVPB Q24H MYESHA Valproic Acid 125 mg/ Sodium (Chloride) 101.25 mls @ 202.5 mls/hr IVPB BID MYESHA Metronidazole/Sodium Chloride (Flagyl 500 Mg Ivpb*) 500 mg in 100 mls @ 100 mls /hr IVPB Q12H MYESHA Lactated Ringer's (Lactated Ringers 1000 Ml Bag*) 1,000 mls @ 75 mls/hr IV PER RATE MYESHA Latanoprost (Xalatan 0.005%*) 1 drop RIGHT EYE QPM MYESHA Pantoprazole Sodium (Protonix Iv*) 40 mg IV Q24H [facility] Vital Signs 07/09/16 07/09/16 07/09/16 06:58 07:31 08:00 Temperature 96.5 F 95.9 F Pulse Rate 77 Respiratory 16 16 Rate Blood Pressure 129/76 (mmHg) O2 Sat by Pulse 95 Oximetry 07/09/16 07/09/16 07/09/16 08:48 11:27 15:26 Temperature 97.8 F Pulse Rate 79 81 Respiratory 16 16 Rate Blood Pressure 149/73 (mmHg) O2 Sat by Pulse 95 97 Oximetry 07/09/16 07/09/16 07/09/16 20:00 22:40 23:35 Temperature 96.2 F Pulse Rate 81 75 Respiratory 16 20 22 Rate Blood Pressure 147/81 (mmHg) O2 Sat by Pulse 97 100 Oximetry 07/10/16 01:26 Temperature Pulse Rate Respiratory Rate Blood Pressure (mmHg) O2 Sat by Pulse 96 Oximetry Oxygen Devices in Use Now: Simple Face Mask Appearance: Female lying in bed in NAD Respiratory: Symmetrical Chest Expansion and Respiratory Effort, - - Coarse rhonchi bilaterally Cardiovascular: NL Sounds; No Murmurs; No JVD, No Edema Abdominal: NL Sounds; No Tenderness; No Distention Extremities: No Edema Skin: No Rash or Ulcers Neurological: - - Nonverbal, withdraws to stimulus, less interactive this morning, spontaneously moves all extremities, otherwise contracted Nutrition: Taking PO's Result Diagrams: 07/10/16 05:53 07/10/16 05:53 Additional Lab and Data: Lab Results 07/06/16 07/06/16 07/06/16 Range/Units 17:26 17:26 17:26 WBC 10.3 (3.5-10.8) 10^3/ul RBC 4.00 (4.0-5.4) 10^6/ul Hgb 13.0 (12.0-16.0) g/dl Hct 39 (35-47) % MCV 97 (80-97) fL MCH 32 H (27-31) pg MCHC 34 (31-36) g/dl RDW 15 (10.5-15) % Plt Count 111 L (150-450) 10^3/ul MPV 9 (7.4-10.4) um3 Neut % (Auto) 73.0 (38-83) % Lymph % (Auto) 9.9 L (25-47) % Early % (Auto) 14.2 H (1-9) % Eos % (Auto) 2.6 (0-6) % Baso % (Auto) 0.3 (0-2) % Absolute Neuts (auto) 7.5 (1.5-7.7) 10^3/ul Absolute Lymphs (auto) 1.0 (1.0-4.8) 10^3/ul Absolute Monos (auto) 1.5 H (0-0.8) 10^3/ul Absolute Eos (auto) 0.3 (0-0.6) 10^3/ul Absolute Basos (auto) 0 (0-0.2) 10^3/ul Absolute Nucleated RBC 0.01 10^3/ul Nucleated RBC % 0 Sodium 131 L (133-145) mmol/L Potassium 4.2 (3.5-5.0) mmol/L Chloride 95 L (101-111) mmol/L Carbon Dioxide 29 (22-32) mmol/L Anion Gap 7 (2-11) mmol/L BUN 25 H (6-24) mg/dL Creatinine 1.11 H (0.51-0.95) mg/dL Est GFR ( Amer) 63.1 (>60) Est GFR (Non-Af Amer) 49.0 (>60) BUN/Creatinine Ratio 22.5 H (8-20) Glucose 91 (70-100) mg/dL Calcium 9.5 (8.6-10.3) mg/dL Total Bilirubin 0.30 (0.2-1.0) mg/dL AST 13 (13-39) U/L ALT 13 (7-52) U/L Alkaline Phosphatase 124 H (34-104) U/L Troponin I 0.01 (<0.04) ng/mL C-Reactive Protein 165.43 H (< 5.00) mg/L B-Natriuretic Peptide 92 ( - 100) pg/mL Total Protein 7.8 (6.4-8.9) g/dL Albumin 3.3 (3.2-5.2) g/dL Globulin 4.5 H (2-4) g/dL Albumin/Globulin Ratio 0.7 L (1-3) Procalcitonin (<0.6) ng/mL Valproic Acid 26.0 L (50-100) mcg/mL 12/26/16 Range/Units 17:26 WBC (3.5-10.8) 10^3/ul RBC (4.0-5.4) 10^6/ul Hgb (12.0-16.0) g/dl Hct (35-47) % MCV (80-97) fL MCH (27-31) pg MCHC (31-36) g/dl RDW (10.5-15) % Plt Count (150-450) 10^3/ul MPV (7.4-10.4) um3 Neut % (Auto) (38-83) % Lymph % (Auto) (25-47) % Early % (Auto) (1-9) % Eos % (Auto) (0-6) % Baso % (Auto) (0-2) % Absolute Neuts (auto) (1.5-7.7) 10^3/ul Absolute Lymphs (auto) (1.0-4.8) 10^3/ul Absolute Monos (auto) (0-0.8) 10^3/ul Absolute Eos (auto) (0-0.6) 10^3/ul Absolute Basos (auto) (0-0.2) 10^3/ul Absolute Nucleated RBC 10^3/ul Nucleated RBC % Sodium (133-145) mmol/L Potassium (3.5-5.0) mmol/L Chloride (101-111) mmol/L Carbon Dioxide (22-32) mmol/L Anion Gap (2-11) mmol/L BUN (6-24) mg/dL Creatinine (0.51-0.95) mg/dL Est GFR ( Amer) (>60) Est GFR (Non-Af Amer) (>60) BUN/Creatinine Ratio (8-20) Glucose (70-100) mg/dL Calcium (8.6-10.3) mg/dL Total Bilirubin (0.2-1.0) mg/dL AST (13-39) U/L ALT (7-52) U/L Alkaline Phosphatase (34-104) U/L Troponin I (<0.04) ng/mL C-Reactive Protein (< 5.00) mg/L B-Natriuretic Peptide ( - 100) pg/mL Total Protein (6.4-8.9) g/dL Albumin (3.2-5.2) g/dL Globulin (2-4) g/dL Albumin/Globulin Ratio (1-3) Procalcitonin 0.1 (<0.6) ng/mL Valproic Acid (50-100) mcg/mL Assess/Plan/Problems-Billing Assessment: Ms. Armando is a 65 yo female with a PMH of mental retardation who was admitted on 07/06/16 with refusal to eat and suspected pneumonia. - Patient Problems (1) Altered mental status Comment: Intermittently more awake but not able to eat or take meds consistently. Concern for recurrent aspiration. NPO until able to assess swallow with speech therapy. House staff reports that at baseline patient typically grunts and makes noises, points at staff, and ambulates with assistance. She requires assistance to eat. (2) Pneumonia Comment: Continue flagyl and levaquin. Oxygen requirements remain at 4 L NC. (3) Dysphagia Comment: Swallow eval when patient more alert. (4) Seizure disorder Comment: Continue valproic acid IV. (5) HTN (hypertension) Comment: SBP 100-160. Hold amlodipine. (6) CKD (chronic kidney disease) Comment: Stage 2. Stable. (7) DVT prophylaxis Comment: SQ heparin (8) Full code status Status and Disposition: Inpatient with expected LOS > 2 days. Patient not responding well to treatment for aspiration pneumonia, poor to no oral intake. Plan for palliative care and social media project manager consult for consideration of establishment of DNR and overall goals of care with caregivers and the [facility].
[2016-07-10 06:34] LABS: BUN/Creatinine Ratio 19.4 (8-20); Calcium 9.8 mg/dL (8.6-10.3); EGFR African American 42.9 (>60); EGFR Non-African American 33.4 (>60); Potassium 3.6 mmol/L (3.5-5.0)
[2016-07-10] MEDS: amLODIPine TAB* 5 MG PO SCH (07:45)
[2016-07-10] MEDS: CMC:Dorzolamide/Timolol OPTH (NF) 10 ML BOT BOTH EYES SCH ×2 (08:10→23:17)
[2016-07-10] MEDS: VALPROIC ACID IVPB SCH ×2 (08:13→23:14)
[2016-07-10] MEDS: NS 0.9% IVPB SCH ×2 (08:13→23:14)
[2016-07-10] MEDS: Pantoprazole IV* 40 MG IV SCH (11:31)
[2016-07-10] MEDS: Latanoprost 0.005%* 2.5 ml BTL RIGHT EYE SCH (18:24)
[2016-07-11] MEDS: metroNIDAZOLE IV 500 MG/100ML* 500 MG/100 ML BAG IVPB SCH (03:08)
[2016-07-11] MEDS: Heparin VIAL(*) 5000 UNITS/ML VIAL (FIVE THOUSAND) SUBCUT SCH ×3 (05:37→21:20)
[2016-07-11 06:15] LABS: Hematocrit 36 % (35-47); Mean Corpuscular HGB Conc 34 g/dl (31-36); Mean Corpuscular Hemoglobin 32 pg (27-31); Mean Corpuscular Volume 96 fL (80-97); Mean Platelet Volume 8 um3 (7.4-10.4); Red Blood Count 3.72 10^6/ul (4.0-5.4); Red Cell Distribution Width 15 % (10.5-15); White Blood Count 12.7 10^3/ul (3.5-10.8)
[2016-07-11 06:42] LABS: BUN/Creatinine Ratio 20.7 (8-20); C Reactive Protein 258.37 mg/L (< 5.00); Calcium 9.7 mg/dL (8.6-10.3); EGFR African American 50.3 (>60); EGFR Non-African American 39.1 (>60); Potassium 3.6 mmol/L (3.5-5.0)
[2016-07-11] MEDS: NS 0.9% IVPB SCH ×2 (07:38→21:20)
[2016-07-11] MEDS: VALPROIC ACID IVPB SCH ×2 (07:38→21:20)
[2016-07-11] MEDS: CMC:Dorzolamide/Timolol OPTH (NF) 10 ML BOT BOTH EYES SCH ×2 (07:38→21:20)
[2016-07-11] MEDS ORDERED: Piperac/Tazob 3.375 gm in NS* 3.375 GM/100 ML BAG IVPB ONE (10:00)
[2016-07-11] MEDS ORDERED: Vancomycin(*) 750 MG in NS 0.9% 250 ML* 250 ML IVPB ONE (10:30)
--- NOTE | 2016-07-11 11:43 | PN ---
Subjective Date of Service: 07/11/16 Interval History: Ms. Armando is nonverbal and not able to offer complaint. She appears in no acute distress. Objective Active Medications: Albuterol/Ipratropium (Duoneb Neb.Erendira*) 1 neb INH Q4H PRN Brimonidine Tartrate (Alphagan 0.2%) 1 drop BOTH EYES BID MYESHA Dorzolamide/Timolol (Cosopt (Nf)) 1 drop BOTH EYES BID MYESHA Heparin Sodium (Porcine) (Heparin Vial(*)) 5,000 units SUBCUT Q8HR MYESHA Valproic Acid 125 mg/ Sodium (Chloride) 101.25 mls @ 202.5 mls/hr IVPB BID MYESHA Lactated Ringer's (Lactated Ringers 1000 Ml Bag*) 1,000 mls @ 75 mls/hr IV PER RATE MYESHA Vancomycin HCl 750 mg/ Sodium (Chloride) 250 mls @ 166.667 mls/hr IVPB ONCE ONE Latanoprost (Xalatan 0.005%*) 1 drop RIGHT EYE QPM MYESHA Pantoprazole Sodium (Protonix Iv*) 40 mg IV Q24H [facility] Vital Signs 07/10/16 07/10/16 07/10/16 15:55 19:36 19:41 Temperature 97.2 F 97.5 F Pulse Rate 93 107 Respiratory 20 16 Rate Blood Pressure 148/83 149/86 (mmHg) O2 Sat by Pulse Oximetry 07/10/16 07/10/16 07/10/16 20:00 20:59 23:54 Temperature Pulse Rate 92 82 Respiratory 20 20 20 Rate Blood Pressure 146/88 (mmHg) O2 Sat by Pulse 96 93 98 Oximetry 07/11/16 07/11/16 07/11/16 00:28 04:01 04:07 Temperature 97.1 F 96.4 F Pulse Rate 74 Respiratory 20 Rate Blood Pressure 134/81 (mmHg) O2 Sat by Pulse 96 Oximetry 07/11/16 07/11/16 07/11/16 07:32 07:41 08:00 Temperature 94.9 F Pulse Rate 66 Respiratory 16 16 Rate Blood Pressure 153/82 (mmHg) O2 Sat by Pulse 96 95 Oximetry 07/11/16 07/11/16 09:22 09:45 Temperature 96.5 F Pulse Rate 77 Respiratory 20 Rate Blood Pressure (mmHg) O2 Sat by Pulse 92 Oximetry Oxygen Devices in Use Now: Simple Face Mask Appearance: Thin female lying in bed in NAD Respiratory: Symmetrical Chest Expansion and Respiratory Effort, - - Coarse rhonchi bilaterally Cardiovascular: NL Sounds; No Murmurs; No JVD, No Edema Abdominal: NL Sounds; No Tenderness; No Distention Extremities: No Edema Skin: No Rash or Ulcers Neurological: NL Muscle Strength and Tone, - - Alert, withdraws and fights to stimulus, no facial asymmetry or focal deficit Result Diagrams: 07/11/16 05:43 07/11/16 05:43 Additional Lab and Data: Lab Results 07/06/16 07/06/16 07/06/16 Range/Units 17:26 17:26 17:26 WBC 10.3 (3.5-10.8) 10^3/ul RBC 4.00 (4.0-5.4) 10^6/ul Hgb 13.0 (12.0-16.0) g/dl Hct 39 (35-47) % MCV 97 (80-97) fL MCH 32 H (27-31) pg MCHC 34 (31-36) g/dl RDW 15 (10.5-15) % Plt Count 111 L (150-450) 10^3/ul MPV 9 (7.4-10.4) um3 Neut % (Auto) 73.0 (38-83) % Lymph % (Auto) 9.9 L (25-47) % [place] % (Auto) 14.2 H (1-9) % Eos % (Auto) 2.6 (0-6) % Baso % (Auto) 0.3 (0-2) % Absolute Neuts (auto) 7.5 (1.5-7.7) 10^3/ul Absolute Lymphs (auto) 1.0 (1.0-4.8) 10^3/ul Absolute Monos (auto) 1.5 H (0-0.8) 10^3/ul Absolute Eos (auto) 0.3 (0-0.6) 10^3/ul Absolute Basos (auto) 0 (0-0.2) 10^3/ul Absolute Nucleated RBC 0.01 10^3/ul Nucleated RBC % 0 Sodium 131 L (133-145) mmol/L Potassium 4.2 (3.5-5.0) mmol/L Chloride 95 L (101-111) mmol/L Carbon Dioxide 29 (22-32) mmol/L Anion Gap 7 (2-11) mmol/L BUN 25 H (6-24) mg/dL Creatinine 1.11 H (0.51-0.95) mg/dL Est GFR ( Amer) 63.1 (>60) Est GFR (Non-Af Amer) 49.0 (>60) BUN/Creatinine Ratio 22.5 H (8-20) Glucose 91 (70-100) mg/dL Calcium 9.5 (8.6-10.3) mg/dL Total Bilirubin 0.30 (0.2-1.0) mg/dL AST 13 (13-39) U/L ALT 13 (7-52) U/L Alkaline Phosphatase 124 H (34-104) U/L Troponin I 0.01 (<0.04) ng/mL C-Reactive Protein 165.43 H (< 5.00) mg/L B-Natriuretic Peptide 92 ( - 100) pg/mL Total Protein 7.8 (6.4-8.9) g/dL Albumin 3.3 (3.2-5.2) g/dL Globulin 4.5 H (2-4) g/dL Albumin/Globulin Ratio 0.7 L (1-3) Procalcitonin (<0.6) ng/mL Valproic Acid 26.0 L (50-100) mcg/mL //16 Range/Units 17:26 WBC (3.5-10.8) 10^3/ul RBC (4.0-5.4) 10^6/ul Hgb (12.0-16.0) g/dl Hct (35-47) % MCV (80-97) fL MCH (27-31) pg MCHC (31-36) g/dl RDW (10.5-15) % Plt Count (150-450) 10^3/ul MPV (7.4-10.4) um3 Neut % (Auto) (38-83) % Lymph % (Auto) (25-47) % [place] % (Auto) (1-9) % Eos % (Auto) (0-6) % Baso % (Auto) (0-2) % Absolute Neuts (auto) (1.5-7.7) 10^3/ul Absolute Lymphs (auto) (1.0-4.8) 10^3/ul Absolute Monos (auto) (0-0.8) 10^3/ul Absolute Eos (auto) (0-0.6) 10^3/ul Absolute Basos (auto) (0-0.2) 10^3/ul Absolute Nucleated RBC 10^3/ul Nucleated RBC % Sodium (133-145) mmol/L Potassium (3.5-5.0) mmol/L Chloride (101-111) mmol/L Carbon Dioxide (22-32) mmol/L Anion Gap (2-11) mmol/L BUN (6-24) mg/dL Creatinine (0.51-0.95) mg/dL Est GFR ( Amer) (>60) Est GFR (Non-Af Amer) (>60) BUN/Creatinine Ratio (8-20) Glucose (70-100) mg/dL Calcium (8.6-10.3) mg/dL Total Bilirubin (0.2-1.0) mg/dL AST (13-39) U/L ALT (7-52) U/L Alkaline Phosphatase (34-104) U/L Troponin I (<0.04) ng/mL C-Reactive Protein (< 5.00) mg/L B-Natriuretic Peptide ( - 100) pg/mL Total Protein (6.4-8.9) g/dL Albumin (3.2-5.2) g/dL Globulin (2-4) g/dL Albumin/Globulin Ratio (1-3) Procalcitonin 0.1 (<0.6) ng/mL Valproic Acid (50-100) mcg/mL Assess/Plan/Problems-Billing Assessment: Ms. Armando is a 65 yo female with a PMH of mental retardation who was admitted on 07/06/16 with refusal to eat and suspected pneumonia. - Patient Problems (1) Altered mental status Comment: Intermittently more awake but not able to eat or take meds. Concern for recurrent aspiration given that patient worsened immediately after eating 2 days ago. NPO until able to assess swallow with speech therapy. House staff reports that at baseline patient typically grunts and makes noises, points at staff, and ambulates with assistance. She requires assistance to eat. Also report that she has been declining in terms of independence and mobility. (2) Pneumonia Comment: New leukocytosis and worsening CRP. Switch to vanco/zosyn. Oxygen requirements range from 4-10 L NC. (3) Dysphagia Comment: Swallow eval when and if patient more alert. Attempted to place NG tube x 2 today with nursing staff. Will seeks assistance from ICU charge nurse to try to place again. If unable to place will ask GI MD to try in AM. Pt fighting and punching to avoid procedure. I do not believe that patient will tolerate NG tube as she becomes agitated and pulls and all lines/tubing. She has been noted to repeatedly remove oxygen mask despite having hands in mitts. She is also not a good candidate for PEG as PEG will not prevent aspiration of secretions. Plan for GI consult for specialty recommendations. (4) Seizure disorder Comment: Continue valproic acid IV. (5) HTN (hypertension) Comment: SBP 100-160. Hold amlodipine. (6) CKD (chronic kidney disease) Comment: Stage 2. Stable. (7) DVT prophylaxis Comment: SQ heparin (8) Full code status Status and Disposition: Inpatient with expected LOS > 2 days. Patient not responding well to treatment for aspiration pneumonia, poor to no oral intake. Plan for palliative care and psychiatric social worker consult for consideration of establishment of DNR and question of providing artificial nutrition with caregivers and the State [facility].
[2016-07-11] MEDS: NS 0.9% 1000 ML* 1,000 ML IV SCH (11:54)
[2016-07-11] MEDS: Pantoprazole IV* 40 MG IV SCH (12:22)
[2016-07-11] MEDS ORDERED: Vancomycin per Pharmacy* NOTE FOLLOW UP PRN (13:01)
[2016-07-11] MEDS: Piperac/Tazob 3.375 gm in NS* 3.375 GM/100 ML BAG IVPB SCH ×2 (14:04→22:27)
--- NOTE | 2016-07-11 14:20 | PN ---
Progress Note - Progress Note Note: ICU charge nurse at bedside for third attempt at placing NG tube today. Pt agitated during procedure, immobilized by second RN for safety. Bleeding noted from nares and oropharynx, suctioned with good effect. Plan for GI consult tomorrow for fourth attempt at NG tube placement.
[2016-07-11] MEDS: Latanoprost 0.005%* 2.5 ml BTL RIGHT EYE SCH (17:28)
[2016-07-12] MEDS ORDERED: Morphine INJ* 2 MG/ML 1 ML CARPUJECT IV PRN (02:23)
[2016-07-12] MEDS ORDERED: Morphine INJ* 2 MG/ML 1 ML CARPUJECT ONE (02:29)
--- NOTE | 2016-07-12 05:09 | PN ---
Progress Note - Progress Note Note: Paged by RN for concern for worsening discomfort and respiratory distress. Morphine 1 mg IV started. Repeat CXR showed slight improvement. On exam mild respiratory distress with coarse rhonchi b/l. Recommend continuing current course including oxymask. If she deteriorates would recommend transfer to ICU with vapotherm - not at that point currently.
[2016-07-12] MEDS: Heparin VIAL(*) 5000 UNITS/ML VIAL (FIVE THOUSAND) SUBCUT SCH ×2 (05:44→12:36)
[2016-07-12] MEDS: Piperac/Tazob 3.375 gm in NS* 3.375 GM/100 ML BAG IVPB SCH ×2 (05:44→12:36)
--- NOTE | 2016-07-12 08:22 | PN ---
Subjective Date of Service: 07/12/16 Interval History: Ms. Armando is nonverbal and unable to offer complaint. She appears in no acute distress. Objective Active Medications: Albuterol/Ipratropium (Duoneb Neb.Erendira*) 1 neb INH Q4H PRN Brimonidine Tartrate (Alphagan 0.2%) 1 drop BOTH EYES BID MYESHA Dorzolamide/Timolol (Cosopt (Nf)) 1 drop BOTH EYES BID MYESHA Heparin Sodium (Porcine) (Heparin Vial(*)) 5,000 units SUBCUT Q8HR MYESHA Valproic Acid 125 mg/ Sodium (Chloride) 101.25 mls @ 202.5 mls/hr IVPB BID MYESHA Sodium Chloride (Ns 0.9% 1000 Ml*) 1,000 mls @ 100 mls/hr IV PER RATE MYESHA Piperacillin Sod/Tazobactam Sod (Zosyn 3.375 Gm In Ns Premix*) 3.375 gm in 100 mls @ 25 mls/hr IVPB Q8H MYESHA Vancomycin HCl 750 mg/ Sodium (Chloride) 250 mls @ 166.667 mls/hr IVPB Q24H MYESHA Latanoprost (Xalatan 0.005%*) 1 drop RIGHT EYE QPM MYESHA Morphine Sulfate (Morphine Inj (Syringe)*) 1 mg IV Q4H PRN Pantoprazole Sodium (Protonix Iv*) 40 mg IV Q24H MYESHA Pharmacy Consult (Vancomycin Per Pharmacy*) 1 note FOLLOW UP . PRN Pharmacy Profile Note (Vancomycin Trough Check) 1 note FOLLOW UP 0930 ONE Vital Signs 07/11/16 07/11/16 07/11/16 09:22 09:45 11:00 Temperature 96.5 F Pulse Rate 77 Respiratory 20 Rate Blood Pressure (mmHg) O2 Sat by Pulse 92 91 Oximetry 07/11/16 07/11/16 07/11/16 11:25 16:11 16:21 Temperature 99.3 F Pulse Rate 102 85 Respiratory 24 20 Rate Blood Pressure 122/72 150/76 (mmHg) O2 Sat by Pulse 92 Oximetry 07/11/16 07/11/16 07/11/16 19:00 20:00 20:28 Temperature 99.5 F Pulse Rate 97 Respiratory 18 18 Rate Blood Pressure (mmHg) O2 Sat by Pulse 92 91 Oximetry 07/11/16 07/12/16 07/12/16 23:46 00:11 02:52 Temperature 98.5 F Pulse Rate 93 Respiratory 18 24 Rate Blood Pressure 144/80 (mmHg) O2 Sat by Pulse 94 Oximetry 07/12/16 07/12/16 07/12/16 03:52 04:17 04:25 Temperature 98 F Pulse Rate 85 Respiratory 20 18 Rate Blood Pressure 134/74 (mmHg) O2 Sat by Pulse 92 Oximetry 07/12/16 07/12/16 04:46 07:55 Temperature 98.5 F 96.9 F Pulse Rate Respiratory Rate Blood Pressure (mmHg) O2 Sat by Pulse Oximetry Oxygen Devices in Use Now: Simple Face Mask Appearance: Thin female lying in bed in NAD Respiratory: Symmetrical Chest Expansion and Respiratory Effort, - - Coarse rhonchi bilaterally Cardiovascular: NL Sounds; No Murmurs; No JVD, No Edema Abdominal: NL Sounds; No Tenderness; No Distention Extremities: No Edema Skin: No Rash or Ulcers Neurological: - - Sleeping most of day, withdraws and becomes agitated with stimuli, moves all extremities, no focal deficit observed Result Diagrams: 07/12/16 08:26 07/12/16 08:26 Additional Lab and Data: Lab Results 07/06/16 07/06/16 07/06/16 Range/Units 17:26 17:26 17:26 WBC 10.3 (3.5-10.8) 10^3/ul RBC 4.00 (4.0-5.4) 10^6/ul Hgb 13.0 (12.0-16.0) g/dl Hct 39 (35-47) % MCV 97 (80-97) fL MCH 32 H (27-31) pg MCHC 34 (31-36) g/dl RDW 15 (10.5-15) % Plt Count 111 L (150-450) 10^3/ul MPV 9 (7.4-10.4) um3 Neut % (Auto) 73.0 (38-83) % Lymph % (Auto) 9.9 L (25-47) % [place] % (Auto) 14.2 H (1-9) % Eos % (Auto) 2.6 (0-6) % Baso % (Auto) 0.3 (0-2) % Absolute Neuts (auto) 7.5 (1.5-7.7) 10^3/ul Absolute Lymphs (auto) 1.0 (1.0-4.8) 10^3/ul Absolute Monos (auto) 1.5 H (0-0.8) 10^3/ul Absolute Eos (auto) 0.3 (0-0.6) 10^3/ul Absolute Basos (auto) 0 (0-0.2) 10^3/ul Absolute Nucleated RBC 0.01 10^3/ul Nucleated RBC % 0 Sodium 131 L (133-145) mmol/L Potassium 4.2 (3.5-5.0) mmol/L Chloride 95 L (101-111) mmol/L Carbon Dioxide 29 (22-32) mmol/L Anion Gap 7 (2-11) mmol/L BUN 25 H (6-24) mg/dL Creatinine 1.11 H (0.51-0.95) mg/dL Est GFR ( Amer) 63.1 (>60) Est GFR (Non-Af Amer) 49.0 (>60) BUN/Creatinine Ratio 22.5 H (8-20) Glucose 91 (70-100) mg/dL Calcium 9.5 (8.6-10.3) mg/dL Total Bilirubin 0.30 (0.2-1.0) mg/dL AST 13 (13-39) U/L ALT 13 (7-52) U/L Alkaline Phosphatase 124 H (34-104) U/L Troponin I 0.01 (<0.04) ng/mL C-Reactive Protein 165.43 H (< 5.00) mg/L B-Natriuretic Peptide 92 ( - 100) pg/mL Total Protein 7.8 (6.4-8.9) g/dL Albumin 3.3 (3.2-5.2) g/dL Globulin 4.5 H (2-4) g/dL Albumin/Globulin Ratio 0.7 L (1-3) Procalcitonin (<0.6) ng/mL Valproic Acid 26.0 L (50-100) mcg/mL 07/06/ Range/Units 17:26 WBC (3.5-10.8) 10^3/ul RBC (4.0-5.4) 10^6/ul Hgb (12.0-16.0) g/dl Hct (35-47) % MCV (80-97) fL MCH (27-31) pg MCHC (31-36) g/dl RDW (10.5-15) % Plt Count (150-450) 10^3/ul MPV (7.4-10.4) um3 Neut % (Auto) (38-83) % Lymph % (Auto) (25-47) % [place] % (Auto) (1-9) % Eos % (Auto) (0-6) % Baso % (Auto) (0-2) % Absolute Neuts (auto) (1.5-7.7) 10^3/ul Absolute Lymphs (auto) (1.0-4.8) 10^3/ul Absolute Monos (auto) (0-0.8) 10^3/ul Absolute Eos (auto) (0-0.6) 10^3/ul Absolute Basos (auto) (0-0.2) 10^3/ul Absolute Nucleated RBC 10^3/ul Nucleated RBC % Sodium (133-145) mmol/L Potassium (3.5-5.0) mmol/L Chloride (101-111) mmol/L Carbon Dioxide (22-32) mmol/L Anion Gap (2-11) mmol/L BUN (6-24) mg/dL Creatinine (0.51-0.95) mg/dL Est GFR ( Amer) (>60) Est GFR (Non-Af Amer) (>60) BUN/Creatinine Ratio (8-20) Glucose (70-100) mg/dL Calcium (8.6-10.3) mg/dL Total Bilirubin (0.2-1.0) mg/dL AST (13-39) U/L ALT (7-52) U/L Alkaline Phosphatase (34-104) U/L Troponin I (<0.04) ng/mL C-Reactive Protein (< 5.00) mg/L B-Natriuretic Peptide ( - 100) pg/mL Total Protein (6.4-8.9) g/dL Albumin (3.2-5.2) g/dL Globulin (2-4) g/dL Albumin/Globulin Ratio (1-3) Procalcitonin 0.1 (<0.6) ng/mL Valproic Acid (50-100) mcg/mL Assess/Plan/Problems-Billing Assessment: Ms. Armando is a 65 yo female with a PMH of mental retardation who was admitted on 07/06/16 with refusal to eat and suspected pneumonia. - Patient Problems (1) Altered mental status Comment: No improvement. House staff reports that at baseline patient typically grunts and makes noises, points at staff, and ambulates with assistance. She requires assistance to eat. Also report that she has been declining in terms of independence and mobility. (2) Pneumonia Comment: Despite maximizing antibiotics, patient continues to deteriorate. Pt's O2 needs started at 15 L face mask and then decreased to 3L by the end of the day. Question if patient is having intermittent mucous plugging given variability in O2 requirements. WBC and CRP continue to rise. Procalcitonin unexpectedly < 0.1 on 07/06, recheck. Patient's prognosis is very poor. Continue vanco/zosyn. Add solumedrol and azithromycin. (3) Acute kidney failure Comment: Despite IVF, patient renal function declined today. Check echo. Follow labs closely. Continue IVF but at lower rate given cxray findings. Dose all medications renally. (4) Dysphagia Comment: Swallow eval when and if patient more alert. I suspect that patient's deterioration is related to recurrent aspiration. (5) Malnutrition Comment: Pre-albumin 6, indicating significant protein-calorie deficits. Attempted NG tube x 3 yesterday unsuccessfully. GI consulted, to see by 07/13/16 to assist with NG tube placement and feeding recommendations. (6) Seizure disorder Comment: Continue valproic acid IV. (7) HTN (hypertension) Comment: SBP 100-160. Hold amlodipine. (8) DVT prophylaxis Comment: SQ heparin (9) Full code status Status and Disposition: Inpatient with expected LOS > 2 days. Patient not responding well to treatment for aspiration pneumonia, poor to no oral intake. Plan for palliative care and mental health social worker consult for consideration of establishment of DNR and question of providing artificial nutrition with caregivers and the State [facility].
[2016-07-12] MEDS: VALPROIC ACID IVPB SCH ×2 (08:25→23:10)
[2016-07-12] MEDS: NS 0.9% IVPB SCH ×2 (08:25→23:10)
[2016-07-12] MEDS: CMC:Dorzolamide/Timolol OPTH (NF) 10 ML BOT BOTH EYES SCH ×2 (08:26→23:32)
[2016-07-12 08:35] LABS: Hematocrit 37 % (35-47); Hemoglobin 12.2 g/dl (12.0-16.0); Mean Corpuscular HGB Conc 33 g/dl (31-36); Mean Corpuscular Hemoglobin 32 pg (27-31); Mean Corpuscular Volume 97 fL (80-97); Mean Platelet Volume 7 um3 (7.4-10.4); Red Blood Count 3.78 10^6/ul (4.0-5.4); Red Cell Distribution Width 15 % (10.5-15); White Blood Count 13.1 10^3/ul (3.5-10.8)
[2016-07-12 08:50] LABS: BUN/Creatinine Ratio 18.9 (8-20); Calcium 9.5 mg/dL (8.6-10.3); EGFR African American 40.2 (>60); EGFR Non-African American 31.2 (>60); Potassium 3.7 mmol/L (3.5-5.0)
[2016-07-12] MEDS: Vancomycin(*) 750 MG in NS 0.9% 250 ML* 250 ML IVPB SCH (10:53)
[2016-07-12] MEDS: Pantoprazole IV* 40 MG IV SCH (11:21)
--- NOTE | 2016-07-12 12:20 | RAD ---
INDICATION: Hypoxia COMPARISON: Most recent chest x-ray for comparison is dated July 06, 2016 TECHNIQUE: Single AP portable view of the chest was obtained. FINDINGS: Image quality is compromised due to the relative inferiority of a portable chest x-ray. Again seen is a right ventricular peritoneal shunt with the distal tip terminating in the right upper quadrant. Similar the previous chest x-ray there is cardiomegaly. Patchy densities are seen overlying the lungs with engorgement and indistinction of the pulmonary arteries. The costophrenic angles appear adequately defined but the degree of upper right positioning is questionable. Visualized bones are normal for the patient's age. IMPRESSION: Chest x-ray findings are most consistent with cardiogenic pulmonary edema slightly worse when compared to the July 06, 2016 chest x-ray.
[2016-07-12] MEDS: methylPREDNISolone 125 MG* 2 ML VIAL IV SCH (16:44)
[2016-07-12] MEDS: NS 0.9% 1000 ML* 1,000 ML IV SCH (17:06)
[2016-07-12] MEDS: Latanoprost 0.005%* 2.5 ml BTL RIGHT EYE SCH (17:07)
--- NOTE | 2016-07-12 17:10 | PN ---
Hospitalist Progress Note . HOSPITALIST SUPERVISORY NOTE: Reviewed Case with JEREMÍAS Hannah. I saw Ms. Armando yesterday and again today. Patient is a 65 yo woman with intellectual disability, CKD, seizure disorder and GERD who presented to [facility] with refusal to eat and was dx'd with bilateral pneumonia on 07/06/16. Patient has been on broad spectrum abx and IVF for several days. She is failing to meaningfully improve. Poorly cooperating with feeding -- essentially no input x 5 days. CXR today shows bilateral pulmonary edema Oxygen requirement has varied between 15L and (currently) 3L NC. WBC recently increased Steroids added today for anti-inflammatory benefit NGT attempted x 3 without success -- patient does not cooperate and, indeed, resists these efforts. GI consulted for assistance -- will see patient by 07/13/16. Albumin preserved at admission; pre-albumin very low recently. I agree with the assessment and plan articulated by JEREMÍAS Hannah and would emphasize these points: 1. GI consulted to facilitate enteral nutrition or advise on nutrition strategy. 2. Assess cardiac output with ECHO in AM. 3. Decrease IVF to 75 cc/hr. Change to D5 1/2 NS given CXR findings. 4. Agree with IV Steroids 5. Add Azithromycin for atypical coverage 6. Reorder speech/swallow evaluation if patient can participate. 7. Agree with beginning discussions suze with involved decision makers regarding poor prognosis and the establishment of care parameters and goals if situation becomes futile and patient steadily declines despite best efforts of medical team.
[2016-07-12] MEDS: Azithromycin IV(*) 500 MG in NS 0.9% 250 ML* 250 ML IVPB SCH (17:51)
[2016-07-12] MEDS: D5W 1/2 NS 1000 ML BAG* 1,000 ML IV SCH (17:51)
--- NOTE | 2016-07-12 20:54 | CONS ---
CONSULTATION REPORT: DATE OF CONSULT: 07/12/16 REASON FOR CONSULTATION: Consideration for feeding tube placement. HISTORY OF PRESENT ILLNESS: Ms. Armando is a 65-year-old woman with a history of severe mental retardation and a seizure disorder. She was admitted on for what would appear to be an aspiration pneumonia as well as the refusal to eat. The patient has been treated with antibiotics and supplemental oxygen. She has been refusing to eat reported by the nurses. Attempts at NG tube placement was performed by nursing staff and the patient was not cooperative with her shaking her head and refusing to allow an NG tube placement. In the last 24 hours, the patient's respiratory status has declined as well. She has had poor FiO2 and is now on 15 L on facemask. She is on vancomycin and Zosyn. PHYSICAL EXAMINATION: The patient is poorly responsive, somewhat tachypneic, lying in bed with oxygenated face mask. She is not pale. Cardiac exam reveals a tachycardic rate. Abdomen does not appear to demonstrate any tenderness or mass. Temperature is 96.9 rectally. IMPRESSION: A 65-year-old woman with severe mental retardation with probable aspiration pneumonia with deteriorating respiratory status and refusal for NG tube placement. Her current respiratory status is a contraindication to trying to place another NG tube especially with the physiologic stress that would do. Also ethically, I am not quite comfortable restraining the patient which would be required to put an NG tube. A PEG tube placement was also contemplated although again given her refusal to eat, the ethics of that would be questionable. Additionally, PEG tube insertion has inherent surgical risks such as aspiration, hemorrhage. Given her tendency to pull out tubes, she would likely need to be restrained for several weeks to prevent her from pulling out the PEG tube which could cause peritonitis. Certainly given her current respiratory status, she would not be able to handle conscious sedation or general anesthesia for that to be done. At this point, I will keep her n.p.o. as you are doing IV fluids and try to control the pneumonia. If that stabilizes , then we can reassess nutritional support. [id number]/[facility] #: [id number] RYLIE
[2016-07-13] MEDS: Heparin VIAL(*) 5000 UNITS/ML VIAL (FIVE THOUSAND) SUBCUT SCH ×3 (00:15→13:56)
[2016-07-13] MEDS: Piperac/Tazob 3.375 gm in NS* 3.375 GM/100 ML BAG IVPB SCH ×3 (00:16→13:56)
[2016-07-13 06:10] LABS: Hematocrit 33 % (35-47); Hemoglobin 11.1 g/dl (12.0-16.0); Mean Corpuscular HGB Conc 33 g/dl (31-36); Mean Corpuscular Hemoglobin 32 pg (27-31); Mean Corpuscular Volume 97 fL (80-97); Mean Platelet Volume 7 um3 (7.4-10.4); Red Blood Count 3.46 10^6/ul (4.0-5.4); Red Cell Distribution Width 15 % (10.5-15); White Blood Count 8.6 10^3/ul (3.5-10.8)
[2016-07-13 06:38] LABS: BUN/Creatinine Ratio 22.1 (8-20); C Reactive Protein 184.21 mg/L (< 5.00); Calcium 9.2 mg/dL (8.6-10.3); EGFR African American 43.2 (>60); EGFR Non-African American 33.6 (>60); Potassium 3.5 mmol/L (3.5-5.0)
[2016-07-13] MEDS: methylPREDNISolone 125 MG* 2 ML VIAL IV SCH (07:21)
[2016-07-13] MEDS: CMC:Dorzolamide/Timolol OPTH (NF) 10 ML BOT BOTH EYES SCH ×2 (07:21→22:48)
[2016-07-13] MEDS: NS 0.9% IVPB SCH ×2 (07:21→22:48)
[2016-07-13] MEDS: VALPROIC ACID IVPB SCH ×2 (07:21→22:48)
[2016-07-13] MEDS: Pantoprazole IV* 40 MG IV SCH (10:06)
[2016-07-13] MEDS: Vancomycin(*) 750 MG in NS 0.9% 250 ML* 250 ML IVPB SCH (10:06)
--- NOTE | 2016-07-13 10:33 | CONSULT ---
Palliative / Hospice Consult Ordering Provider: Huma Hannah - Subjective Code Status: Full Code Advance Directives Location: No Advance Directives - History or Present Illness History or Present Illness: Darby Armando is a 65 yo woman with PMH severe MR, seizure d/o, osteoporosis, [employer] shunt, GERD, CKD, HTn, glaucoma who was admitted 07/07 after refusing food and drink and was diagnosed with steven pneumonia, likely from aspiration. She has been treated with IV antbx and has continued to have little to no PO intake, was non-cooperative with NG tube placement, and has at times had high O2 needs ( up to 15LPM), prompting a palliative care consult for input on goals and plans. Her behavior has not been at baseline, she has been less interactive than usual. Pt is currently full code status. If her O2 needs continue to increase she may need ICU placement for vapotherm or even intubation, though she is not at that point currently. GI has been consulted regarding her nutritional status. At the time of my bedside evaluation, pt was alert, appeared distressed as evidenced by mild agitation, moving around in bed, shaking her head back and forth, and an anxious facial expression. Her hands are in mitts to deter her from pulling out IV lines. She is wearing an oxymask for oxygenation but is trying to push it off her face. My attempts to soothe her were unsuccessful. No [facility] aides are at the bedside. Lab Values: Abnormal Lab Results 07/12/16 07/13/16 07/13/16 08:26 05:15 05:15 WBC 8.6 RBC 3.46 L Hgb 11.1 L Hct 33 L MCV 97 MCH 32 H MCHC 33 RDW 15 Plt Count 203 MPV 7 L Neut % (Auto) 91.3 H Lymph % (Auto) 6.8 L [place] % (Auto) 1.7 Eos % (Auto) 0 Baso % (Auto) 0.2 Absolute Neuts (auto) 7.8 H Absolute Lymphs (auto) 0.6 L Absolute Monos (auto) 0.1 Absolute Eos (auto) 0 Absolute Basos (auto) 0 Absolute Nucleated RBC 0 Nucleated RBC % 0 Sodium 144 Potassium 3.5 Chloride 109 Carbon Dioxide 25 Anion Gap 10 BUN 34 H Creatinine 1.54 H Est GFR ( Amer) 43.2 Est GFR (Non-Af Amer) 33.6 BUN/Creatinine Ratio 22.1 H Glucose 134 H Calcium 9.2 C-Reactive Protein 184.21 H Procalcitonin 0.5 Laboratory Last Values WBC 8.6 10^3/ul (3.5-10.8) 07/13/16 05:15 RBC 3.46 10^6/ul (4.0-5.4) L 07/13/16 05:15 Hgb 11.1 g/dl (12.0-16.0) L 07/13/16 05:15 Hct 33 % (35-47) L 07/13/16 05:15 MCV 97 fL (80-97) 07/13/16 05:15 MCH 32 pg (27-31) H 07/13/16 05:15 MCHC 33 g/dl (31-36) 07/13/16 05:15 RDW 15 % (10.5-15) 07/13/16 05:15 Plt Count 203 10^3/ul (150-450) 07/13/16 05:15 MPV 7 um3 (7.4-10.4) L 07/13/16 05:15 Neut % (Auto) 91.3 % (38-83) H 07/13/16 05:15 Lymph % (Auto) 6.8 % (25-47) L 07/13/16 05:15 [place] % (Auto) 1.7 % (1-9) 07/13/16 05:15 Eos % (Auto) 0 % (0-6) 07/13/16 05:15 Baso % (Auto) 0.2 % (0-2) 07/13/16 05:15 Absolute Neuts (auto) 7.8 10^3/ul (1.5-7.7) H 07/13/16 05:15 Absolute Lymphs (auto) 0.6 10^3/ul (1.0-4.8) L 07/13/16 05:15 Absolute Monos (auto) 0.1 10^3/ul (0-0.8) 07/13/16 05:15 Absolute Eos (auto) 0 10^3/ul (0-0.6) 07/13/16 05:15 Absolute Basos (auto) 0 10^3/ul (0-0.2) 07/13/16 05:15 Absolute Nucleated RBC 0 10^3/ul 07/13/16 05:15 Nucleated RBC % 0 07/13/16 05:15 Sodium 144 mmol/L (133-145) 07/13/16 05:15 Potassium 3.5 mmol/L (3.5-5.0) 07/13/16 05:15 Chloride 109 mmol/L (101-111) 07/13/16 05:15 Carbon Dioxide 25 mmol/L (22-32) 07/13/16 05:15 Anion Gap 10 mmol/L (2-11) 07/13/16 05:15 BUN 34 mg/dL (6-24) H 07/13/16 05:15 Creatinine 1.54 mg/dL (0.51-0.95) H 07/13/16 05:15 Est GFR ( Amer) 43.2 (>60) 07/13/16 05:15 Est GFR (Non-Af Amer) 33.6 (>60) 07/13/16 05:15 BUN/Creatinine Ratio 22.1 (8-20) H 07/13/16 05:15 Glucose 134 mg/dL (70-100) H 07/13/16 05:15 POC Glucose (mg/dL) 97 mg/dL (74-106) 07/12/16 07:47 Calcium 9.2 mg/dL (8.6-10.3) 07/13/16 05:15 Total Bilirubin 0.30 mg/dL (0.2-1.0) 07/06/16 17:26 AST 13 U/L (13-39) 07/06/16 17:26 ALT 13 U/L (7-52) 07/06/16 17:26 Alkaline Phosphatase 124 U/L (34-104) H 07/06/16 17:26 Troponin I 0.01 ng/mL (<0.04) 07/06/16 17:26 C-Reactive Protein 184.21 mg/L (< 5.00) H 07/13/16 05:15 B-Natriuretic Peptide 107 pg/mL (-100) H 07/12/16 08:26 Total Protein 7.8 g/dL (6.4-8.9) 07/06/16 17:26 Albumin 3.3 g/dL (3.2-5.2) 07/06/16 17:26 Globulin 4.5 g/dL (2-4) H 07/06/16 17:26 Albumin/Globulin Ratio 0.7 (1-3) L 07/06/16 17:26 Prealbumin 6 mg/dL (18-38) L 07/10/16 05:53 Procalcitonin 0.5 ng/mL (<0.6) 07/12/16 08:26 Valproic Acid 22.0 mcg/mL (50-100) L 07/07/16 08:35 Influenza A (Rapid) Negative (Negative) 07/06/16 22:33 Influenza B (Rapid) Negative (Negative) 07/06/16 22:33 - Objective Active Medications: Albuterol/Ipratropium (Duoneb Neb.Erendira*) 1 neb INH Q4H PRN PRN Reason: SOB/WHEEZING Last Admin: 07/08/16 12:28 Dose: 1 neb Brimonidine Tartrate (Alphagan 0.2%) 1 drop BOTH EYES BID [facility] Last Admin: 07/13/16 07:21 Dose: 1 drop Dorzolamide/Timolol (Cosopt (Nf)) 1 drop BOTH EYES BID MYESHA PRN Reason: Protocol Last Admin: 07/13/16 07:21 Dose: 1 drop Heparin Sodium (Porcine) (Heparin Vial(*)) 5,000 units SUBCUT Q8HR [facility] Last Admin: 07/13/16 05:17 Dose: 5,000 units Valproic Acid 125 mg/ Sodium (Chloride) 101.25 mls @ 202.5 mls/hr IVPB BID [facility] Last Admin: 07/13/16 07:21 Dose: 202.5 mls/hr Piperacillin Sod/Tazobactam Sod (Zosyn 3.375 Gm In Ns Premix*) 3.375 gm in 100 mls @ 25 mls/hr IVPB Q8H [facility] Last Admin: 07/13/16 05:17 Dose: 25 mls/hr Vancomycin HCl 750 mg/ Sodium (Chloride) 250 mls @ 166.667 mls/hr IVPB Q24H [facility] Last Admin: 07/13/16 10:06 Dose: 166.667 mls/hr Azithromycin 500 mg/ Sodium (Chloride) 250 mls @ 250 mls/hr IVPB Q24H [facility] Last Admin: 07/12/16 17:51 Dose: 250 mls/hr Dextrose/Sodium Chloride (D5w 1/2 Ns 1000 Ml Bag*) 1,000 mls @ 75 mls/hr IV PER RATE [facility] Last Admin: 07/12/16 17:51 Dose: 75 mls/hr Latanoprost (Xalatan 0.005%*) 1 drop RIGHT EYE QPM [facility] Last Admin: 07/12/16 17:07 Dose: 1 drop Methylprednisolone Sodium Succinate (Solu-Medrol*) 60 mg IV DAILY [facility] Last Admin: 07/13/16 07:21 Dose: 60 mg Morphine Sulfate (Morphine Inj (Syringe)*) 1 mg IV Q4H PRN PRN Reason: PAIN - MILD Last Admin: 07/12/16 02:52 Dose: 1 mg Pantoprazole Sodium (Protonix Iv*) 40 mg IV Q24H [facility] Last Admin: 07/13/16 10:06 Dose: 40 mg Pharmacy Consult (Vancomycin Per Pharmacy*) 1 note FOLLOW UP . PRN PRN Reason: PER PROTOCOL Pharmacy Profile Note (Vancomycin Trough Check) 1 note FOLLOW UP 929 ONE Stop: 07/14/16 09:31 Vital Signs: Vital Signs: Temp Pulse Resp BP Pulse Ox 97.1 F 63 22 142/55 94 07/13/16 08:10 07/13/16 08:58 07/13/16 09:27 07/13/16 07:37 07/13/16 08:58 Patient Weight: Weight 92 lb 1.6 oz Intake and Output: Intake & Output 07/11/16 07/12/16 07/13/16 07/14/16 06:59 06:59 06:59 06:59 Intake Total 1984.5 4052 1156 Output Total 2950 1800 2020 Balance -965.5 2252 -864 Weight 92 lb 1.6 oz Intake: IV Fluids 1382.5 3494 585 ABX - LEVOFLOXACIN 50 ABX - ZOSYN 100 115 D5W 1/2 NS 263 LR 604 126 NS (0.9%) 3268 92 depacon 728.5 115 IVPB 602 558 571 ABX - FLAGYL 100 ABX - VANCOMYCIN 250 265 ABX - ZOSYN 201 LR 400 NS (0.9%) 207 depacon 102 101 105 Oral 0 0 0 Output: Urine 200 0 Haile 2750 1800 2000 Residual 20 16 Fr 20 Other: # Bowel Movements 0 0 0 Estimated Stool Amount Small ADLs: Meal Record Start: 07/06/16 22: 04 Freq: DAILY@0900,1400,1800 Status: Active Document 07/07/16 09:00 [id number] (Rec: 07/07/16 09:22 [id number] MED-C09) Document 07/07/16 13:48 [id number] (Rec: 07/07/16 13:48 [id number] MED-C09) Document 07/07/16 18:00 [id number] (Rec: 07/07/16 21:36 [id number] MED-C09) Document 07/08/16 08:49 [id number] (Rec: 07/08/16 08:53 [id number] MED-C09) Document 07/08/16 14:00 [id number] (Rec: 07/08/16 14:15 [id number] MED-C09) Document 07/08/16 18:00 [id number] (Rec: 07/08/16 20:24 [id number] MED-C11) Document 07/09/16 08:48 [id number] (Rec: 07/09/16 08:48 [id number] MED-C11) Document 07/09/16 13:25 [id number] (Rec: 07/09/16 13:25 [id number] MED-C11) Document 07/09/16 18:00 [id number] (Rec: 07/09/16 21:21 TRJ1070 MED-C09) Document 07/10/16 09:00 [id number] (Rec: 07/10/16 09:57 [id number] MED-C11) Document 07/10/16 14:00 [id number] (Rec: 07/10/16 14:22 [id number] MED-C11) Document 07/10/16 18:00 [id number] (Rec: 07/10/16 18:43 [id number] MED-C11) Document 07/11/16 09:00 [id number] (Rec: 07/11/16 09:15 BGS0544 MED-C11) Document 07/11/16 14:00 BTR4399 (Rec: 07/11/16 14:05 [id number] MED-C09) Document 07/11/16 18:00 NHE0639 (Rec: 07/11/16 18:08 [id number] MED-C11) Document 07/12/16 09:00 [id number] (Rec: 07/12/16 09:05 ONO2508 MED-C09) Document 07/12/16 13:12 MEZ1465 (Rec: 07/12/16 13:13 [id number] MED-C09) Document 07/12/16 18:00 IYE0688 (Rec: 07/12/16 18:36 [id number] MED-C09) Document 07/13/16 09:00 [id number] (Rec: 07/13/16 09:36 [id number] MED-C11) Intake and Output Start: 07/06/16 22: 04 Freq: DAILY@0600,1400,2200 Status: Active Document 07/07/16 06:00 [id number] (Rec: 07/07/16 06:02 [id number] MED-C26) Document 07/07/16 13:48 [id number] (Rec: 07/07/16 13:48 [id number] MED-C09) Document 07/07/16 22:00 PZK0494 (Rec: 07/07/16 22:33 UWH0491 MED-C09) Document 07/08/16 05:28 [id number] (Rec: 07/08/16 05:28 AFW0627 MED-C26) Document 07/08/16 09:50 [id number] (Rec: 07/08/16 09:50 [id number] MED-C09) Document 07/08/16 22:00 [id number] (Rec: 07/08/16 22:18 FOK1182 MED-C11) Document 07/09/16 06:00 MKI8351 (Rec: 07/09/16 06:10 PQA1741 MED-C26) Document 07/09/16 12:03 DDI6994 (Rec: 07/09/16 12:03 [id number] MED-C11) Document 07/09/16 22:00 VBW6197 (Rec: 07/09/16 22:42 [id number] MED-C09) Document 07/10/16 05:42 TSL1433 (Rec: 07/10/16 05:42 [id number] MED-C26) Document 07/10/16 10:59 [id number] (Rec: 07/10/16 10:59 TUW1096 MED-C11) Document 12/30/16 22:00 [id number] (Rec: 07/10/16 22:06 PSJ1029 MED-C09) Document 07/11/16 06:00 [id number] (Rec: 07/11/16 06:39 [id number] MEDL-C01) Document 07/11/16 14:00 [id number] (Rec: 07/11/16 14:47 TUA1289 MED-C09) Document 07/11/16 22:00 [id number] (Rec: 07/11/16 22:11 [id number] MED-C11) Document 07/12/16 06:00 [id number] (Rec: 07/12/16 06:09 [id number] MEDL-C01) Document 07/12/16 09:45 [id number] (Rec: 07/12/16 09:46 [id number] MED-C09) Document 07/12/16 21:04 [id number] (Rec: 07/12/16 21:05 IOR0975 MED-C09) Document 07/13/16 06:00 [id number] (Rec: 07/13/16 06:05 [id number] MEDL-C01) General Impression: Middle aged woman who appears older than chronological age, lying in bed in mild emotional distress. Eyes: No Scleral Icterus Cardiovascular: NL Sounds; No Murmurs; No JVD, RRR, No Edema Respiratory: - - Rhonchi throughout anterior chest Extremities: No Edema Neurological: - - Assessment Assessment: 65 yo woman with PMH severe MR admitted with aspiration pneumonia, refusing food and drink. She may be turning the corner towards improvement at this point but that remains to be seen. Much will depend on whether she is able to safely eat and drink, and whether she chooses again to take PO. She is a poor candidate for feeding tube as she would have to be in restraints to be able to maintain it and this is ethically repugnant. As is often seen in this population of the aging, severely mentally retarded, if pt survives this acute she will likely continue to be at risk for recurrent aspiration, subsequent pneumonia and hospitalization. In my opinion, the most compassionate approach at this time would be to give a Do Not Resuscitate/Do Not Intubate order, and allow pleasure feedings taking appropriate precautions as determined by speech pathology, despite the risk of aspiration. This would presumedly allow her to return to her home at the [facility] and enjoy her familiar surroundings and friends for the best quality of life available to her. If, either during this admission or in the future, she experiences a terminal event she could be kept comfortable and allowed to with dignity. Heroic measures such as CPR and intubation would not likely provide more benefit than risk at this point. - Plan Consult Plan (MU): Palliative Plan: Will not plan to continue to follow pt but will be happy to see her again if asked. Thank you for the referral. - Time On Unit Date of Evaluation: 07/13/16 Hospice Consult Time in: 10:10 Hospice Consult Time Out: 10:35 Hospice Consult Time Total: 25
[2016-07-13 11:12] LABS: Albumin 2.5 g/dL (3.2-5.2)
--- NOTE | 2016-07-13 13:40 | PN ---
Subjective Date of Service: 07/13/16 Interval History: Patient seen and examined at bedside. Ms. Armando is nonverbal and unable to offer complaint. Pt appears to be comfortable and in no acute distress at this time. Per NSG staff Pt continues to refuse to eat. Family History: Unchanged from Admission Social History: Unchanged from Admission Past Medical History: Unchanged from Admission Objective Active Medications: Albuterol/Ipratropium (Duoneb Neb.Erendira*) 1 neb INH Q4H PRN Reason: SOB/WHEEZING Brimonidine Tartrate (Alphagan 0.2%) 1 drop BOTH EYES BID MYESHA Dorzolamide/Timolol (Cosopt (Nf)) 1 drop BOTH EYES BID MYESHA Reason: Protocol Heparin Sodium (Porcine) (Heparin Vial(*)) 5,000 units SUBCUT Q8HR [facility] Valproic Acid 125 mg/ Sodium (Chloride) 101.25 mls @ 202.5 mls/hr IVPB BID MYESHA Piperacillin Sod/Tazobactam Sod (Zosyn 3.375 Gm In Ns Premix*) 3.375 gm in 100 mls @ 25 mls/hr IVPB Q8H [facility] Vancomycin HCl 750 mg/ Sodium (Chloride) 250 mls @ 166.667 mls/hr IVPB Q24H [facility] Azithromycin 500 mg/ Sodium (Chloride) 250 mls @ 250 mls/hr IVPB Q24H [facility] Dextrose/Sodium Chloride (D5w 1/2 Ns 1000 Ml Bag*) 1,000 mls @ 75 mls/hr IV PER RATE [facility] Latanoprost (Xalatan 0.005%*) 1 drop RIGHT EYE QPM MYES[facility] Methylprednisolone Sodium Succinate (Solu-Medrol*) 60 mg IV DAILY MYES[facility] Morphine Sulfate (Morphine Inj (Syringe)*) 1 mg IV Q4H PRN Reason: PAIN - MILD Pantoprazole Sodium (Protonix Iv*) 40 mg IV Q24H [facility] Pharmacy Consult (Vancomycin Per Pharmacy*) 1 note FOLLOW UP . PRN Reason: PER PROTOCOL Pharmacy Profile Note (Vancomycin Trough Check) 1 note FOLLOW UP 09 ONEStop: 07/14/16 09:31 Vital Signs 07/12/16 07/12/16 07/12/16 15:51 15:59 20:00 Temperature 97.4 F Pulse Rate 74 Respiratory 20 20 Rate Blood Pressure 130/62 (mmHg) O2 Sat by Pulse 96 96 Oximetry 07/13/16 07/13/16 07/13/16 00:14 00:54 01:50 Temperature 97.8 F Pulse Rate 70 83 Respiratory 20 20 Rate Blood Pressure 152/69 (mmHg) O2 Sat by Pulse 96 93 Oximetry 07/13/16 07/13/16 07/13/16 07:37 08:10 08:58 Temperature 97.1 F Pulse Rate 63 63 Respiratory 16 22 Rate Blood Pressure 142/55 (mmHg) O2 Sat by Pulse 99 94 Oximetry 07/13/16 09:27 Temperature Pulse Rate Respiratory 22 Rate Blood Pressure (mmHg) O2 Sat by Pulse Oximetry Oxygen Devices in Use Now: Simple Face Mask Appearance: NAD, laying in bed. Eyes: No Scleral Icterus, PERRLA Respiratory: Symmetrical Chest Expansion and Respiratory Effort, - - Rhonchi Cardiovascular: NL Sounds; No Murmurs; No JVD, RRR Abdominal: NL Sounds; No Tenderness; No Distention Extremities: No Edema Skin: No Rash or Ulcers Neurological: - - Sleeping most of the day, withdraws and becomes agitiates with stimuli. Able to move all extremities. Lines/Tubes/Other Access: Clean, Dry and Intact Peripheral IV - site benign. Result Diagrams: 07/13/16 05:15 07/13/16 05:15 Assess/Plan/Problems-Billing Assessment: Ms. Armando is a 65 yo female with a PMH of mental retardation who was admitted on 07/06/16 with refusal to eat and suspected pneumonia. - Patient Problems (1) Altered mental status Code(s): R41.82 - ALTERED MENTAL STATUS, UNSPECIFIED SNOMED Code(s): 454864583 Comment: No improvement. House staff reports that at baseline patient typically grunts and makes noises, points at staff, and ambulates with assistance. She requires assistance to eat. Also report that she has been declining in terms of independence and mobility. (2) Pneumonia Code(s): J18.9 - PNEUMONIA, UNSPECIFIED ORGANISM SNOMED Code(s): 764756956 Comment: Despite maximizing antibiotics, patient continues to deteriorate. Pt 's O2 needs started at 15 L face mask and then decreased to 3L by the end of the day. Today, Pt has needed 2-3L via Oximask. Question if patient is having intermittent mucous plugging given variability in O2 requirements. WBC and CRP continue to rise. Procalcitonin unexpectedly < 0.1 on 07/06, recheck 07/12 0.5. Patient's prognosis is very poor. Continue vanco, zosyn, solumedrol and azithromycin. (3) Acute kidney injury Code(s): N17.9 - ACUTE KIDNEY FAILURE, UNSPECIFIED SNOMED Code(s): 30381869 Comment: on CKD3. Renal function is slowly improving. Will continue to follow labs closely. Continue IVF. All medications will be dosed renally. Echo pending. (4) Dysphagia Code(s): R13.10 - DYSPHAGIA, UNSPECIFIED SNOMED Code(s): 39409454 Comment: Swallow eval when and if patient more alert. I suspect that patient 's deterioration is related to recurrent aspiration. (5) Malnutrition Code(s): E46 - UNSPECIFIED PROTEIN-CALORIE MALNUTRITION SNOMED Code(s): 4081532 Comment: Pre-albumin 6, indicating significant protein-calorie deficits. Attempted NG tube x 3 unsuccessfully. GI consulted, they feel that her current respiratory status is a contraindictaion for NG tube placement and feeding are not recommended at this time. (6) Seizure disorder Code(s): G40.909 - EPILEPSY, UNSP, NOT INTRACTABLE, WITHOUT STATUS EPILEPTICUS SNOMED Code(s): 240637572 Comment: Continue valproic acid IV. (7) HTN (hypertension) Code(s): I10 - ESSENTIAL (PRIMARY) HYPERTENSION SNOMED Code(s): 51034669 Comment: SBP 100-160. Hold amlodipine. (8) DVT prophylaxis Code(s): TZZ8081 - SNOMED Code(s): 588069998 Comment: SQ heparin (9) Full code status Code(s): Z78.9 - OTHER SPECIFIED HEALTH STATUS SNOMED Code(s): 475583560 Status and Disposition: Inpatient with expected LOS > 2 days. Patient not responding well to treatment for aspiration pneumonia, poor to no oral intake. Plan for palliative care and clinical social worker consult for consideration of establishment of DNR and question of providing artificial nutrition with caregivers and the [facility].
[2016-07-13] MEDS: Azithromycin IV(*) 500 MG in NS 0.9% 250 ML* 250 ML IVPB SCH ×2 (17:34→18:31)
[2016-07-13] MEDS: Latanoprost 0.005%* 2.5 ml BTL RIGHT EYE SCH (18:31)
[2016-07-13] MEDS: D5W 1/2 NS 1000 ML BAG* 1,000 ML IV SCH (21:46)
[2016-07-14 04:57] LABS: EGFR African American 47.1 (>60); EGFR Non-African American 36.6 (>60)
[2016-07-14] MEDS: Heparin VIAL(*) 5000 UNITS/ML VIAL (FIVE THOUSAND) SUBCUT SCH ×4 (05:44→22:49)
[2016-07-14] MEDS: Piperac/Tazob 3.375 gm in NS* 3.375 GM/100 ML BAG IVPB SCH ×4 (05:44→22:49)
[2016-07-14] MEDS ORDERED: Vancomycin Trough Check NOTE FOLLOW UP ONE (09:30)
[2016-07-14] MEDS: VALPROIC ACID IVPB SCH ×2 (09:56→21:57)
[2016-07-14] MEDS: NS 0.9% IVPB SCH ×2 (09:56→21:57)
[2016-07-14] MEDS: CMC:Dorzolamide/Timolol OPTH (NF) 10 ML BOT BOTH EYES SCH ×2 (09:57→21:57)
[2016-07-14] MEDS: methylPREDNISolone 125 MG* 2 ML VIAL IV SCH (10:00)
[2016-07-14] MEDS: Vancomycin(*) 750 MG in NS 0.9% 250 ML* 250 ML IVPB SCH (10:50)
--- NOTE | 2016-07-14 11:41 | PN ---
Subjective Date of Service: 07/14/16 Interval History: Patient seen and examined at bedside. Pt is non-verbal and unable to communicate her needs. Pt appears to be comfortable at this time and in no acute distress. Per NS staff, Pt was able to eat some applesauce earlier today without difficulty. Pt is more alert today, but continues to get agitated when she is touched. Pt has a moist cough. Family History: Unchanged from Admission Social History: Unchanged from Admission Past Medical History: Unchanged from Admission Objective Active Medications: Albuterol/Ipratropium (Duoneb Neb.Erendira*) 1 neb INH Q4H PRN Reason: SOB/WHEEZING Brimonidine Tartrate (Alphagan 0.2%) 1 drop BOTH EYES BID MYES[facility] Dorzolamide/Timolol (Cosopt (Nf)) 1 drop BOTH EYES BID MYESHA Reason: Protocol Heparin Sodium (Porcine) (Heparin Vial(*)) 5,000 units SUBCUT Q8HR [facility] Valproic Acid 125 mg/ Sodium (Chloride) 101.25 mls @ 202.5 mls/hr IVPB BID MY[facility] Piperacillin Sod/Tazobactam Sod (Zosyn 3.375 Gm In Ns Premix*) 3.375 gm in 100 mls @ 25 mls/hr IVPB Q8H [facility] Vancomycin HCl 750 mg/ Sodium (Chloride) 250 mls @ 166.667 mls/hr IVPB Q24H [facility] Dextrose/Sodium Chloride (D5w 1/2 Ns 1000 Ml Bag*) 1,000 mls @ 75 mls/hr IV PER RATE MYES[facility] Azithromycin 500 mg/ Sodium (Chloride) 250 mls @ 250 mls/hr IVPB 1830 MYESHA Dextrose 1,000 ml/ Amino Acids 1,000 ml/ Fat Emulsion Intravenous 500 ml/ Sodium Chloride 100 meq/ Potassium Chloride 50 meq/ Potassium Phosphate 15 mmole / Calcium Gluconate 15 meq/ Magnesium Sulfate 10 meq/ Multivitamins 10 ml/ Trace Metals 1 ml/Phytonadione / Sodium Acetate / Insulin Human Regular / Famotidine / Nutrition ( Parenteral) 2,600.721 mls @ 108.422 mls/hr IV 1700 MYESHA Latanoprost (Xalatan 0.005%*) 1 drop RIGHT EYE QPM [facility] Methylprednisolone Sodium Succinate (Solu-Medrol*) 60 mg IV DAILY [facility] Morphine Sulfate (Morphine Inj (Syringe)*) 1 mg IV Q4H PRN Reason: PAIN - MILD Pantoprazole Sodium (Protonix Iv*) 40 mg IV Q24H [facility] Pharmacy Consult (Vancomycin Per Pharmacy*) 1 note FOLLOW UP . PRN Vital Signs 07/13/16 07/13/16 07/13/16 16:14 20:00 23:58 Temperature Pulse Rate 68 51 Respiratory 24 24 20 Rate Blood Pressure 148/67 139/66 (mmHg) O2 Sat by Pulse 95 99 99 Oximetry 07/14/16 07/14/16 07/14/16 00:04 03:36 07:41 Temperature 98.5 F 97.2 F Pulse Rate 57 56 Respiratory 20 15 Rate Blood Pressure 144/59 (mmHg) O2 Sat by Pulse 91 Oximetry 07/14/16 11:12 Temperature Pulse Rate Respiratory 20 Rate Blood Pressure (mmHg) O2 Sat by Pulse Oximetry Oxygen Devices in Use Now: Simple Face Mask Appearance: NAD, laying in bed. Neck: NL Appearance and Movements; NL JVP, Trachea Midline Respiratory: Symmetrical Chest Expansion and Respiratory Effort, - - Lung sounds with rhonchi throughout Cardiovascular: NL Sounds; No Murmurs; No JVD, RRR Abdominal: NL Sounds; No Tenderness; No Distention Extremities: No Edema Skin: No Rash or Ulcers Neurological: - - Non-verbal. Lines/Tubes/Other Access: Clean, Dry and Intact Peripheral IV - site benign. Result Diagrams: 07/13/16 05:15 07/14/16 04:36 Assess/Plan/Problems-Billing Assessment: Ms. Armando is a 65 yo female with a PMH of mental retardation who was admitted on 07/06/16 with refusal to eat and suspected pneumonia. - Patient Problems (1) Altered mental status Code(s): R41.82 - ALTERED MENTAL STATUS, UNSPECIFIED SNOMED Code(s): 539635475 Comment: Pt with slow improvement, more alert today. House staff reports that at baseline patient typically grunts and makes noises, points at staff, and ambulates with assistance. She requires assistance to eat. Also report that she has been declining in terms of independence and mobility. (2) Pneumonia Code(s): J18.9 - PNEUMONIA, UNSPECIFIED ORGANISM SNOMED Code(s): 322093617 Comment: Despite maximizing antibiotics, patient continues to deteriorate. Pt 's O2 are improving, Pt needing 2-3L via Oximask. Question if patient is having intermittent mucous plugging given variability in O2 requirements. WBC and CRP improving. Procalcitonin unexpectedly < 0.1 on 07/06, recheck 07/12 0.5. Patient's prognosis is very poor. Continue vanco, zosyn, solumedrol and azithromycin. Will ask Pulmonology to consult on the Pt. (3) Acute kidney injury Code(s): N17.9 - ACUTE KIDNEY FAILURE, UNSPECIFIED SNOMED Code(s): 47840965 Comment: on CKD3. Renal function is slowly improving. Will continue to follow labs closely. Continue IVF. All medications will be dosed renally. Echo pending. (4) Dysphagia Code(s): R13.10 - DYSPHAGIA, UNSPECIFIED SNOMED Code(s): 87441822 Comment: Swallow eval completed yesterday, Pt will need a video swallow study. Video swallow study pending for later today. Plan to start PPN later today, if Pt is unable to take PO. I suspect that patient's deterioration is related to recurrent aspiration. (5) Malnutrition Code(s): E46 - UNSPECIFIED PROTEIN-CALORIE MALNUTRITION SNOMED Code(s): 9945334 Comment: Pre-albumin 6, indicating significant protein-calorie deficits. Attempted NG tube x 3 unsuccessfully. GI consulted, they feel that her current respiratory status is a contraindictaion for NG tube placement and feeding are not recommended at this time. Will start PPN later today, if Pt is unable to pass swallow eval today. (6) Seizure disorder Code(s): G40.909 - EPILEPSY, UNSP, NOT INTRACTABLE, WITHOUT STATUS EPILEPTICUS SNOMED Code(s): 533581777 Comment: Continue valproic acid IV. (7) HTN (hypertension) Code(s): I10 - ESSENTIAL (PRIMARY) HYPERTENSION SNOMED Code(s): 10468387 Comment: SBP 100-160. Hold amlodipine. (8) DVT prophylaxis Code(s): CMI7981 - SNOMED Code(s): 187215005 Comment: SQ heparin (9) Full code status Code(s): Z78.9 - OTHER SPECIFIED HEALTH STATUS SNOMED Code(s): 664229051 Status and Disposition: Inpatient with expected LOS > 2 days. Patient not responding well to treatment for aspiration pneumonia, poor to no oral intake. Plan for palliative care and social insurance specialist consult for consideration of establishment of DNR and question of providing artificial nutrition with caregivers and the State of [place].
[2016-07-14] MEDS: Pantoprazole IV* 40 MG IV SCH (12:48)
--- NOTE | 2016-07-14 13:58 | RAD ---
HISTORY: Pneumonia, evaluate for aspiration COMPARISONS: None TECHNIQUE: A videofluoroscopic evaluation of swallow was performed in conjunction with speech therapy. Barium laced liquids of varying consistency were administered under fluoroscopic observation. Total fluoroscopy time is 20 seconds. FINDINGS: ORAL PHASE: Normal transfer PHARYNGEAL PHASE: Normal propulsion ASPIRATION/PENETRATION: There is no aspiration or penetration. OTHER FINDINGS: None. IMPRESSION: NO ASPIRATION OR PENETRATION.. PLEASE SEE THE SPEECH THERAPIST REPORT FOR FURTHER INFORMATION CPT II Codes: 6045F
--- NOTE | 2016-07-14 15:47 | ECHO ---
Patient: NERIS VERDE [facility] Rec#: [id number] : 1950 Date: 07/14/2016 Age: 65y Height: 149.86 cm / 59.0 in Weight: 41.73 kg / 92.0 lbs Sex: F BSA: 1.33 Room#: 404 Admit Date#: 07/06/2016 Type: Inpatient Referring: Ihsan Dao MD Reading: Dain Williamson MD Robotype Operator: Shelby Tristan RDCS CC: Shelby Wilson NP Transthoracic Echocardiogram Indication: CHF BP: 144/59 HR: 59 Rhythm: Bradycardia Findings History: Severe mental retardation,seizure disorder,GERD,s/p SUPPLIER MANAGER shunt placement,HTN,CKD,osteporosis. Technical Comments: The study quality is good. Completed at 1500. Left Ventricle: The left ventricular chamber size is normal. There is no left ventricular hypertrophy. Global left ventricular wall motion and contractility are within normal limits. There is normal left ventricular systolic function. The estimated ejection fraction is 60-65%. The patient was unable to perform a Valsalva maneuver. Left Atrium: The left atrial chamber size is normal. Right Ventricle: The right ventricular cavity size is normal. The right ventricular global systolic function is normal. Right Atrium: The right atrial cavity size is normal. Aortic Valve: The aortic valve is trileaflet. There is mild to moderate aortic regurgitation. There is no evidence of aortic stenosis. Mitral Valve: The mitral valve leaflets are mildly thickened. There is mild to moderate mitral regurgitation. The mitral regurgitant jet is eccentric. There is no evidence of mitral stenosis. Tricuspid Valve: The tricuspid valve leaflets are normal. There is mild tricuspid regurgitation. There is evidence of mild pulmonary hypertension. There is no tricuspid stenosis. Pulmonic Valve: The pulmonic valve appears normal. There is mild pulmonic regurgitation. There is no pulmonic stenosis. Pericardium: The pericardium appears normal. Aorta: There is no dilatation of the ascending aorta. There is no dilatation of the aortic arch. There is no dilation of the aortic root. Pulmonary Artery: The main pulmonary artery appears normal. Venous: The venous system is not well visualized. Conclusions There is normal left ventricular systolic function. The estimated ejection fraction is 60-65%. There is mild tricuspid regurgitation. There is evidence of mild pulmonary hypertension. There is mild to moderate aortic regurgitation, at most. There is mild to moderate mitral regurgitation, at most. No reports of prior studies offered for comparison. Measurements Name Value Normal Range RVIDd (AP) 2D 1.5 cm (0.9 - 2.6) RVDdMajor (2D) 2.4 cm (2.2 - 4.4) RAd ISD 4CH 4.4 cm (3.4 - 4.9) RA (A4C)W 2.8 cm (2.9 - 4.6) IVSd (2D) 1 cm (0.6 - 1) LVPWd (2D) 0.8 cm (0.6 - 1) LVIDd (2D) 3.3 cm (3.6 - 5.4) LVIDs (2D) 1.9 cm - LV FS (2D) 42 % (25 - 45) Aortic Annulus 1.6 cm (1.4 - 2.6) Ao root diameter (2D) 3.2 cm (2.1 - 3.5) Ascending Ao 3 cm (2.1 - 3.4) Aortic arch 1.8 cm (1.8 - 3.4) LA dimension (AP) 2D 2.3 cm (2.3 - 3.8) LAd ISD 4CH 4.4 cm (2.9 - 5.3) LA ISD 4CH W 3.1 cm (2.5 - 4.5) Name Value Normal Range LA ESV SP 4CH (A/L) 36 ml - LA ESV SP 2CH (A/L) 23 ml - LA ESV BP (A/L) 30 ml - LA ESV BP (A/L) index 22.68 ml/m2 - LA ESV SP 4CH (MOD) 36 ml - LA ESV SP 2CH (MOD) 22 ml - Name Value Normal Range MV E-wave Vmax 1 m/sec - MV deceleration time 148 msec - MV A-wave Vmax 0.8 m/sec - MV E:A ratio 1 ratio - LV septal e' Vmax 0.07 m/sec - LV lateral e' Vmax 0.09 m/sec - LV E:e' septal ratio 14.29 ratio - LV E:e' lateral ratio 11.11 ratio - Name Value Normal Range AV Vmax 1.2 m/sec - AV VTI 30.9 cm - AV peak gradient 5.42 mmHg - AV mean gradient 2.38 mmHg - LVOT Vmax 1 m/sec - LVOT VTI 24.1 cm - LVOT peak gradient 3.71 mmHg - LVOT mean gradient 1.63 mmHg - AR PHT 400 msec - AR peak gradient 89.82 mmHg - Name Value Normal Range TR Vmax 3 m/sec - TR peak gradient 36 mmHg - RAP 8 mmHg - RVSP 44 mmHg - Name Value Normal Range PV Vmax 0.7 m/sec - PV peak gradient 1.83 mmHg -
[2016-07-14] MEDS ORDERED: [UNRECOGNIZED DRUG - OTHER] IV SCH ×12 (17:00)
[2016-07-14] MEDS ORDERED: D10W IV SCH ×12 (17:00)
[2016-07-14] MEDS ORDERED: AMINO ACID INFUSION IV SCH ×12 (17:00)
[2016-07-14] MEDS ORDERED: TPN IV SCH ×12 (17:00)
[2016-07-14] MEDS: Azithromycin IV(*) 500 MG in NS 0.9% 250 ML* 250 ML IVPB SCH (17:15)
[2016-07-14] MEDS: D5W 1/2 NS 1000 ML BAG* 1,000 ML IV SCH (17:15)
[2016-07-14] MEDS: Latanoprost 0.005%* 2.5 ml BTL RIGHT EYE SCH (17:15)
--- NOTE | 2016-07-14 19:18 | PN ---
Hospitalist Progress Note Pt was able to pass a swallowing eval today and is tolerating a pureed diet with honey thick liquids. Will hold on starting PPN at this time. Had a long discussion over the phone with Pt's brother Jos Armando, he would like to move forward with making his sister a DNR/DNI. Paper work completed to proceed forward with getting approval for making Ms. Armando a DNR/ DNI.
--- NOTE | 2016-07-14 23:25 | CONS ---
PULMONARY CONSULTATION REPORT: DATE OF CONSULT: 07/14/16 CONSULTATION REQUESTED BY: Lorraine Robertson NP REASON FOR CONSULTATION: Evaluation of hypoxemia and aspiration pneumonia. HISTORY OF PRESENT ILLNESS: The patient is a 65-year-old female with severe mental retardation, seizure disorder, who was brought in to the emergency room for evaluation of refusal to eat or drink. The patient is not able to provide any history given her mental status. History was obtained from the patient's caregiver, review of medical records, and inpatient care team. As per records, the patient was refusing to eat and drink prior to the admission. The patient also appeared to be congested. The patient has been coughing and bringing up scant amounts of mucus. No fevers have been documented in the [facility]. The patient otherwise did not have any altered mental status that has changed from her baseline. Pulmonary consultation was requested for recommendations regarding hypoxemia and management of aspiration pneumonia. The patient during her current hospitalization has required high FiO2 up to 15 L/min. Her O2 status has been fluctuant. This morning, she has been needing 3 L of O2 supplementation. She has also been requiring significant suctioning. The patient when examined by me was having suctioning performed at bedside with thick secretions being suctioned out. The patient has been refusing NG tube placements and has not been cooperative to feeding. She did have swallow evaluation today and video fluoroscopy did not demonstrate acute aspiration. She is currently being maintained on IV hydration and some fluids and some oral feeds. She tolerated feeds last night. O2 requirements have improved since admission. GI consultation was also requested for possible PEG tube placement, which was not considered given the patient's underlying condition. A palliative care consultation was also noted. PAST MEDICAL HISTORY: 1. Mental retardation. 2. Seizure disorder. 3. GERD. 4. Osteoporosis. 5. History of FIELD HEALTH OFFICER shunt. 6. Hypertension. 7. CKD. 8. Glaucoma. MEDICATIONS: 1. Benadryl. 2. Amlodipine. 3. Senna/docusate. 4. Psyllium. 5. Multivitamin. 6. Xalatan. 7. Famotidine. 8. Cosopt. 9. Depakote. 10. Alphagan. 11. Aspirin. 12. Tylenol. ALLERGIES: DILANTIN and TEGRETOL. FAMILY HISTORY: Noncontributory to current complaint. SOCIAL HISTORY: Unobtainable. REVIEW OF SYSTEMS: Unobtainable as the patient is nonverbal. PHYSICAL EXAM: General: The patient in bed, in no apparent distress. She is severely contracted. Vital Signs: Temperature 96.8, pulse 62 beats per minute , respiratory rate 16 per minute, O2 sat 93% on 3 L, blood pressure 172/65. HEENT: Pupils equal, reactive to light, mucous membranes moist. Neck: Supple. Respiratory: Scattered rhonchi bilaterally. Cardiovascular: S1, S2 present. Regular. No murmurs, gallops, or rubs. Abdomen: Soft, nontender, nondistended. Bowel sounds present. Musculoskeletal: Normal range of motion. Skin: No rash, no cyanosis. Neurologic: Limited due to the patient's inability to cooperate. DIAGNOSTIC STUDIES/LAB DATA: WBC count 8.6, hemoglobin 11.1, hematocrit 33.0, platelets count 203. Sodium 144, potassium 3.5, chloride 109, bicarb 25, BUN 36, creatinine 1.43, CRP 184.21, BNP 107, procalcitonin 0.5. A chest x-ray was personally reviewed by me. Bilateral airspace opacities and poor inspiratory effort. IMPRESSION AND RECOMMENDATION: 65-year-old female with severe mental retardation, admitted with failure to thrive and suspected pneumonia. The patient with difficulty clearing secretions due to absence of strong cough reflex. Suspect thick mucus secretions and mucus plugging resulting in hypoxemia. Video fluoroscopy did not reveal acute aspiration; however, given her underlying condition, she is definitely at high risk for aspiration pneumonia. Continue with broad spectrum antibiotics. Continue with O2 supplementation. Would recommend Mucomyst and bronchodilators to help thin secretions. The patient will benefit from deep suctioning and chest PTs. She is cooperative. I agree with palliative care consultation. Thank you for allowing me to participate in the care of your patient. Will follow up with you. [id number]/[facility] #: [id number] MTDD
[2016-07-15] MEDS: Heparin VIAL(*) 5000 UNITS/ML VIAL (FIVE THOUSAND) SUBCUT SCH ×3 (05:26→23:02)
[2016-07-15] MEDS: Piperac/Tazob 3.375 gm in NS* 3.375 GM/100 ML BAG IVPB SCH ×3 (05:27→23:34)
[2016-07-15 08:01] LABS: Hematocrit 31 % (35-47); Hemoglobin 10.3 g/dl (12.0-16.0); Mean Corpuscular HGB Conc 33 g/dl (31-36); Mean Corpuscular Hemoglobin 32 pg (27-31); Mean Corpuscular Volume 97 fL (80-97); Mean Platelet Volume 8 um3 (7.4-10.4); Red Cell Distribution Width 15 % (10.5-15); White Blood Count 8.9 10^3/ul (3.5-10.8)
[2016-07-15 08:27] LABS: BUN/Creatinine Ratio 25.2 (8-20); C Reactive Protein 41.88 mg/L (< 5.00); Calcium 8.7 mg/dL (8.6-10.3); EGFR Non-African American 43.6 (>60); Potassium 2.8 mmol/L (3.5-5.0)
--- NOTE | 2016-07-15 08:33 | PN ---
Subjective Date of Service: 07/15/16 Interval History: Patient seen and examined at bedside. Pt is non-verbal and unable to communicate. Pt is alert and awake in bed, she appears to be comfortable, but gets agitated when touched. Per NSG staff Pt had a low temperature overnight and was placed under the bairhugger. Pt was able to tolerate dinner. Family History: Unchanged from Admission Social History: Unchanged from Admission Past Medical History: Unchanged from Admission Objective Active Medications: Albuterol/Ipratropium (Duoneb Neb.Erendira*) 1 neb INH Q4H PRN Reason: SOB/WHEEZING Brimonidine Tartrate (Alphagan 0.2%) 1 drop BOTH EYES BID MYESHA Dorzolamide/Timolol (Cosopt (Nf)) 1 drop BOTH EYES BID MYESHA Heparin Sodium (Porcine) (Heparin Vial(*)) 5,000 units SUBCUT Q8HR MYESHA Valproic Acid 125 mg/ Sodium (Chloride) 101.25 mls @ 202.5 mls/hr IVPB BID MYESHA Piperacillin Sod/Tazobactam Sod (Zosyn 3.375 Gm In Ns Premix*) 3.375 gm in 100 mls @ 25 mls/hr IVPB Q8H MYESHA Vancomycin HCl 750 mg/ Sodium (Chloride) 250 mls @ 166.667 mls/hr IVPB Q24H MYESHA Dextrose/Sodium Chloride (D5w 1/2 Ns 1000 Ml Bag*) 1,000 mls @ 75 mls/hr IV PER RATE MYESHA Azithromycin 500 mg/ Sodium (Chloride) 250 mls @ 250 mls/hr IVPB 1830 MYESHA Latanoprost (Xalatan 0.005%*) 1 drop RIGHT EYE QPM MYESHA Methylprednisolone Sodium Succinate (Solu-Medrol*) 60 mg IV DAILY MYESHA Morphine Sulfate (Morphine Inj (Syringe)*) 1 mg IV Q4H PRN Reason: PAIN - MILD Pantoprazole Sodium (Protonix Iv*) 40 mg IV Q24H MYESHA Pharmacy Consult (Vancomycin Per Pharmacy*) 1 note FOLLOW UP . PRN Vital Signs 07/14/16 07/14/16 07/14/16 11:12 15:30 15:52 Temperature 96.0 F 96.8 F Pulse Rate 62 Respiratory 20 16 Rate Blood Pressure 172/65 (mmHg) O2 Sat by Pulse Oximetry 07/14/16 07/14/16 07/14/16 18:32 20:00 23:10 Temperature Pulse Rate 70 Respiratory 18 20 Rate Blood Pressure (mmHg) O2 Sat by Pulse 91 91 94 Oximetry 07/15/16 07/15/16 07/15/16 01:17 01:40 07:23 Temperature 95.2 F Pulse Rate 50 50 48 Respiratory 20 16 22 Rate Blood Pressure 150/57 140/85 (mmHg) O2 Sat by Pulse 95 98 Oximetry 07/15/16 08:02 Temperature 97.4 F Pulse Rate Respiratory Rate Blood Pressure (mmHg) O2 Sat by Pulse Oximetry Oxygen Devices in Use Now: Simple Face Mask Appearance: NAD, laying in bed. Eyes: No Scleral Icterus, PERRLA Ears/Nose/Mouth/Throat: NL Teeth, Lips, Gums, Mucous Membranes Moist Neck: NL Appearance and Movements; NL JVP, Trachea Midline Respiratory: Symmetrical Chest Expansion and Respiratory Effort, - - Rhonchi throughout Cardiovascular: NL Sounds; No Murmurs; No JVD, RRR Abdominal: NL Sounds; No Tenderness; No Distention - Bowel sounds present. Extremities: No Edema Neurological: - - Alert and Non-verbal. Lines/Tubes/Other Access: Clean, Dry and Intact Peripheral IV - site benign. Nutrition: Taking PO's Result Diagrams: 07/15/16 06:54 07/14/16 04:36 Additional Lab and Data: Assess/Plan/Problems-Billing Assessment: Ms. Armando is a 65 yo female with a PMH of mental retardation who was admitted on 07/06/16 with refusal to eat and suspected pneumonia. - Patient Problems (1) Altered mental status Code(s): R41.82 - ALTERED MENTAL STATUS, UNSPECIFIED SNOMED Code(s): 547920597 Comment: Pt with slow improvement, more alert today. House staff reports that at baseline patient typically grunts and makes noises, points at staff, and ambulates with assistance. She requires assistance to eat. Also report that she has been declining in terms of independence and mobility. (2) Pneumonia Code(s): J18.9 - PNEUMONIA, UNSPECIFIED ORGANISM SNOMED Code(s): 222087424 Comment: Despite maximizing antibiotics, patient continues to deteriorate. Pt 's O2 are improving, Pt needing 2-3L via Oximask. Suspect patient is having intermittent mucous plugging given variability in O2 requirements. WBC and CRP improving. Procalcitonin unexpectedly < 0.1 on 07/06, recheck 07/12 0.5. Patient's prognosis is very poor. Continue vanco, zosyn, solumedrol and azithromycin. Appreciate Pulmonology input. Will start Mucomyst, NT suctioning and chest PT. (3) Acute kidney injury Code(s): N17.9 - ACUTE KIDNEY FAILURE, UNSPECIFIED SNOMED Code(s): 02574695 Comment: on CKD3. Renal function is slowly improving. Will continue to follow labs closely. Continue IVF. All medications will be dosed renally. Echo shows EF 60-65%, and mild pulmonary HTN. (4) Dysphagia Code(s): R13.10 - DYSPHAGIA, UNSPECIFIED SNOMED Code(s): 17660281 Comment: Video swallow study completed 07/14. Pt able to pass swallow eval, will need pureed - honey thick liquids. (5) Malnutrition Code(s): E46 - UNSPECIFIED PROTEIN-CALORIE MALNUTRITION SNOMED Code(s): 5878182 Comment: Pre-albumin 6, indicating significant protein-calorie deficits. GI consulted, they feel that her current respiratory status is a contraindictaion for NG tube placement and feeding are not recommended at this time. Pt is able to pass swallow yesterday and is able to eat. (6) Seizure disorder Code(s): G40.909 - EPILEPSY, UNSP, NOT INTRACTABLE, WITHOUT STATUS EPILEPTICUS SNOMED Code(s): 727424741 Comment: Continue valproic acid IV. (7) HTN (hypertension) Code(s): I10 - ESSENTIAL (PRIMARY) HYPERTENSION SNOMED Code(s): 45492100 Comment: SBP 100-160. Hold amlodipine. (8) DVT prophylaxis Code(s): BEI8405 - SNOMED Code(s): 587290415 Comment: SQ heparin (9) Full code status Code(s): Z78.9 - OTHER SPECIFIED HEALTH STATUS SNOMED Code(s): 274055737 Status and Disposition: Inpatient with expected LOS > 2 days. Patient not responding well to treatment for aspiration pneumonia, poor to no oral intake. Plan for palliative care and social media editor consult for consideration of establishment of DNR and question of providing artificial nutrition with caregivers and the [facility].
[2016-07-15] MEDS: methylPREDNISolone 125 MG* 2 ML VIAL IV SCH (09:48)
[2016-07-15] MEDS: VALPROIC ACID IVPB SCH ×2 (09:49→22:43)
[2016-07-15] MEDS: CMC:Dorzolamide/Timolol OPTH (NF) 10 ML BOT BOTH EYES SCH ×2 (09:49→22:54)
[2016-07-15] MEDS: NS 0.9% IVPB SCH ×2 (09:49→22:43)
[2016-07-15] MEDS: Pantoprazole IV* 40 MG IV SCH (11:01)
[2016-07-15] MEDS: Vancomycin(*) 750 MG in NS 0.9% 250 ML* 250 ML IVPB SCH (11:01)
[2016-07-15 11:40] LABS: Magnesium 1.7 mg/dL (1.9-2.7)
[2016-07-15] MEDS ORDERED: Magnesium Sulfate 2 GM IV* 2 GM/50 ML BAG IVPB ONE (12:46)
[2016-07-15] MEDS: [UNRECOGNIZED DRUG - OTHER] INH SCH ×2 (14:34→19:53)
[2016-07-15] MEDS: Albuterol 2.5 MG/3 ML NEB.SOL* (0.083%) INH SCH ×2 (14:34→19:52)
[2016-07-15] MEDS: KCL 20 MEQ/100 ML IVPREMIX* 20 MEQ/100 ML BAG IV SCH ×3 (15:24→22:28)
[2016-07-15] MEDS ORDERED: NS 0.9% 250 ML* 250 ML ONE (17:31)
[2016-07-15] MEDS: Latanoprost 0.005%* 2.5 ml BTL RIGHT EYE SCH (17:36)
--- NOTE | 2016-07-15 18:29 | PN ---
Progress Note - Progress Note Note: Pulm consult f/u note 07/15/15. Pt seen and examined at bedside. Pt is non- verbal. No acute events o/n. Active Medications Generic Name Dose Route Start Last Admin Trade Name Freq PRN Reason Stop Dose Admin Acetylcysteine 400 mg 07/15/16 13:00 07/15/16 14:34 Mucomyst Inhalation Erendira* INH 400 mg [id number] AWAKE MYESHA Administration Albuterol 2.5 mg 07/15/16 13:00 07/15/16 14:34 Ventolin 2.5 Mg/3 Ml Neb.Erendira* INH 2.5 mg [id number] AWAKE MYESHA Administration Albuterol/Ipratropium 1 neb 07/08/16 12:12 07/08/16 12:28 Duoneb Neb.Erendira* INH 1 neb Q4H PRN Administration SOB/WHEEZING Brimonidine Tartrate 1 drop 07/07/16 09:00 07/15/16 09:49 Alphagan 0.2% BOTH EYES 1 drop BID MYESHA Administration Dorzolamide/Timolol 1 drop 07/07/16 21:00 07/15/16 09:49 Cosopt (Nf) BOTH EYES 1 drop BID MYESHA Administration Protocol Heparin Sodium (Porcine) 5,000 units 07/06/16 22:00 07/15/16 15:25 Heparin Vial(*) SUBCUT 5,000 units Q8HR MYESHA Administration Valproic Acid 125 mg/ Sodium 101.25 mls @ 202.5 mls/hr 07/09/16 12:00 09:49 Chloride IVPB 202.5 mls/hr BID MYESHA Administration Piperacillin Sod/Tazobactam Sod 3.375 gm in 100 mls @ 25 mls/hr 07/11/16 14: 00 07/15/16 15:25 Zosyn 3.375 Gm In Ns Premix* IVPB 25 mls/hr Q8H MYESHA Administration Vancomycin HCl 750 mg/ Sodium 250 mls @ 166.667 mls/hr 07/12/16 10:00 11:01 Chloride IVPB 166.667 mls/hr Q24H MYESHA Administration Dextrose/Sodium Chloride 1,000 mls @ 75 mls/hr 07/12/16 18:00 07/14/16 17:15 D5w 1/2 Ns 1000 Ml Bag* IV 75 mls/hr PER RATE MYESHA Administration Azithromycin 500 mg/ Sodium 250 mls @ 250 mls/hr 07/13/16 18:30 07/14/16 17: 15 Chloride IVPB 250 mls/hr 1830 MYESHA Administration Potassium Chloride 20 meq in 100 mls @ 50 mls/hr 07/15/16 12:00 07/15/16 17: 33 Potassium Chloride 20 Meq/100 Ml Ivpremix* IV 07/15/16 19:59 50 mls/hr Q2H MYESHA Administration Latanoprost 1 drop 07/07/16 18:00 07/15/16 17:36 Xalatan 0.005%* RIGHT EYE Not Given QPM MYESHA Methylprednisolone Sodium Succinate 60 mg 07/12/16 15:53 07/15/16 09:48 Solu-Medrol* IV 60 mg DAILY MYESHA Administration Morphine Sulfate 1 mg 07/12/16 02:23 07/12/16 02:52 Morphine Inj (Syringe)* IV 1 mg Q4H PRN Administration PAIN - MILD Pantoprazole Sodium 40 mg 07/09/16 12:00 07/15/16 11:01 Protonix Iv* IV 40 mg Q24H MYESHA Administration Pharmacy Consult 1 note 07/11/16 13:01 Vancomycin Per Pharmacy* FOLLOW UP . PRN PER PROTOCOL Vital Signs Temp Pulse Resp BP Pulse Ox 97.8 F 57 20 157/78 99 07/15/16 15:56 07/15/16 15:56 07/15/16 15:56 07/15/16 15:56 07/15/16 15:56 Gen: Pt in NAD HEENT: No Scleral Icterus, PERRLA, Mucous Membranes Moist Neck: NL Appearance and Movements; NL JVP, Trachea Midline Respiratory: Symmetrical Chest Expansion and Respiratory Effort, Rhonchi throughout Cardiovascular: NL Sounds; No Murmurs; No JVD, RRR Abdominal: NL Sounds; No Tenderness; No Distention, Bowel sounds present. Extremities: No Edema Neurological: Alert and Non-verbal. Laboratory Results - last 24 hr 07/15/16 07/15/16 06:54 06:54 WBC 8.9 RBC 3.20 L Hgb 10.3 L Hct 31 L MCV 97 MCH 32 H MCHC 33 RDW 15 Plt Count 251 MPV 8 Neut % (Auto) 70.9 Lymph % (Auto) 16.6 L Greene % (Auto) 12.2 H Eos % (Auto) 0.1 Baso % (Auto) 0.2 Absolute Neuts (auto) 6.3 Absolute Lymphs (auto) 1.5 Absolute Monos (auto) 1.1 H Absolute Eos (auto) 0 Absolute Basos (auto) 0 Absolute Nucleated RBC 0 Nucleated RBC % 0 Sodium 143 Potassium 2.8 L Chloride 112 H Carbon Dioxide 25 Anion Gap 6 BUN 31 H Creatinine 1.23 H Est GFR ( Amer) 56.0 Est GFR (Non-Af Amer) 43.6 BUN/Creatinine Ratio 25.2 H Glucose 104 H Calcium 8.7 Magnesium 1.7 L C-Reactive Protein 41.88 H Pt is a 65 yo female with a PMH of mental retardation who was admitted on with refusal to eat and suspected pneumonia. Pt being treated for hypoxic resp failure likely secondary to aspiration, mucus plugging in setting of poor cough reflux and decreased ability in clearing secretions Other issue that was being addressed is poor oral intake and inability to maintain nutritional status Pts O2 requirements are improved even though she is still needing O2 supplementation Given her underlying condition she continues to be at risk for future deterioration Agressive measures like Intubation or bronchoscopy will be temporary only and would only cause harm and prolong suffering in her case In my opinion given her cognitive disability to follow instructions and lack of cooperation with therapy it would be ongoing challenge to maintain stable resp status and she definitely is at high risk for worsening pulmonary status and recurrence of resp failure even though she appears to be improved slightly at this time Goal should be to continue with conservative and comfort measures and avoid aggressive measures like intubation and mechanical ventilation Dileep/w Cheryl Pardo
[2016-07-15] MEDS: Acetylcysteine ORAL SOL* 200 MG/ML VIAL INH SCH (20:12)
[2016-07-15] MEDS: Azithromycin IV(*) 500 MG in NS 0.9% 250 ML* 250 ML IVPB SCH (20:39)
[2016-07-15] MEDS ORDERED: KCL 20 MEQ/100 ML IVPREMIX* 20 MEQ/100 ML BAG ONE (22:25)
[2016-07-16] MEDS: Acetylcysteine ORAL SOL* 200 MG/ML VIAL INH SCH ×4 (00:26→19:18)
[2016-07-16] MEDS: Albuterol 2.5 MG/3 ML NEB.SOL* (0.083%) INH SCH ×4 (00:26→19:18)
[2016-07-16] MEDS ORDERED: KCL 20 MEQ/100 ML IVPREMIX* 20 MEQ/100 ML BAG ONE (00:54)
[2016-07-16] MEDS: KCL 20 MEQ/100 ML IVPREMIX* 20 MEQ/100 ML BAG IV SCH (00:55)
[2016-07-16] MEDS: Piperac/Tazob 3.375 gm in NS* 3.375 GM/100 ML BAG IVPB SCH ×3 (05:53→23:26)
[2016-07-16] MEDS: Heparin VIAL(*) 5000 UNITS/ML VIAL (FIVE THOUSAND) SUBCUT SCH ×3 (05:53→20:48)
[2016-07-16 07:03] LABS: BUN/Creatinine Ratio 20.2 (8-20); Calcium 6.9 mg/dL (8.6-10.3); EGFR Non-African American 52.9 (>60); Potassium 3.5 mmol/L (3.5-5.0)
--- NOTE | 2016-07-16 07:44 | PN ---
Subjective Date of Service: 07/16/16 Interval History: Patient seen and examined at bedside. Per NSG staff Pt has been eating well. Pt was noted to have bradycardia by NS staff this morning. Pt is non-verbal and unable to communicate her needs. She is signing this morning that she is hungry. Family History: Unchanged from Admission Social History: Unchanged from Admission Past Medical History: Unchanged from Admission Objective Active Medications: Acetylcysteine (Mucomyst Erendira*) 400 mg INH [id number] AWAKE [facility] Albuterol (Ventolin 2.5 Mg/3 Ml Neb.Erendira*) 2.5 mg INH [id number] AWAKE [facility] Albuterol/Ipratropium (Duoneb Neb.Erendira*) 1 neb INH Q4H PRN Reason: SOB/WHEEZING Brimonidine Tartrate (Alphagan 0.2%) 1 drop BOTH EYES BID [facility] Dorzolamide/Timolol (Cosopt (Nf)) 1 drop BOTH EYES BID [facility] Reason: Protocol Heparin Sodium (Porcine) (Heparin Vial(*)) 5,000 units SUBCUT Q8HR [facility] Valproic Acid 125 mg/ Sodium (Chloride) 101.25 mls @ 202.5 mls/hr IVPB BID [facility] Piperacillin Sod/Tazobactam Sod (Zosyn 3.375 Gm In Ns Premix*) 3.375 gm in 100 mls @ 25 mls/hr IVPB Q8H [facility] Vancomycin HCl 750 mg/ Sodium (Chloride) 250 mls @ 166.667 mls/hr IVPB Q24H [facility] Dextrose/Sodium Chloride (D5w 1/2 Ns 1000 Ml Bag*) 1,000 mls @ 75 mls/hr IV PER RATE [facility] Azithromycin 500 mg/ Sodium (Chloride) 250 mls @ 250 mls/hr IVPB 1830 [facility] Latanoprost (Xalatan 0.005%*) 1 drop RIGHT EYE QPM [facility] Methylprednisolone Sodium Succinate (Solu-Medrol*) 60 mg IV DAILY [facility] Morphine Sulfate (Morphine Inj (Syringe)*) 1 mg IV Q4H PRN Reason: PAIN - MILD Pantoprazole Sodium (Protonix Iv*) 40 mg IV Q24H [facility] Pharmacy Consult (Vancomycin Per Pharmacy*) 1 note FOLLOW UP . PRNL Vital Signs 07/15/16 07/15/16 07/15/16 08:00 08:02 11:30 Temperature 97.4 F 97.6 F Pulse Rate Respiratory 20 Rate Blood Pressure (mmHg) O2 Sat by Pulse 94 Oximetry 07/15/16 07/15/16 07/15/16 12:30 14:36 14:45 Temperature 97.1 F Pulse Rate 55 62 Respiratory 22 22 Rate Blood Pressure (mmHg) O2 Sat by Pulse 100 95 Oximetry 07/15/16 07/15/16 07/15/16 15:56 20:00 23:17 Temperature 97.8 F Pulse Rate 57 96 49 Respiratory 20 18 15 Rate Blood Pressure 157/78 (mmHg) O2 Sat by Pulse 99 95 100 Oximetry 07/16/16 07/16/16 07/16/16 00:22 07:00 07:32 Temperature 97.7 F 96.1 F Pulse Rate 48 37 Respiratory 15 16 Rate Blood Pressure 160/75 143/64 143/64 (mmHg) O2 Sat by Pulse 96 99 Oximetry Oxygen Devices in Use Now: Simple Face Mask - 4L Appearance: NAD, laying in bed. Ears/Nose/Mouth/Throat: Mucous Membranes Moist Neck: NL Appearance and Movements; NL JVP, Trachea Midline Respiratory: Symmetrical Chest Expansion and Respiratory Effort, - - Lung sounds with rhonchi throughout. Cardiovascular: NL Sounds; No Murmurs; No JVD, RRR Abdominal: NL Sounds; No Tenderness; No Distention Extremities: No Edema Skin: No Rash or Ulcers Neurological: - - Non-verbal Lines/Tubes/Other Access: Clean, Dry and Intact Peripheral IV - site benign. Nutrition: Taking PO's Result Diagrams: 07/15/16 06:54 07/16/16 06:03 Additional Lab and Data: Assess/Plan/Problems-Billing Assessment: Ms. Armando is a 65 yo female with a PMH of mental retardation who was admitted on 07/06/16 with refusal to eat and suspected pneumonia. - Patient Problems (1) Altered mental status Code(s): R41.82 - ALTERED MENTAL STATUS, UNSPECIFIED SNOMED Code(s): 825226115 Comment: Pt with slow improvement, more alert today. House staff reports that at baseline patient typically grunts and makes noises, points at staff, and ambulates with assistance. She requires assistance to eat. Also report that she has been declining in terms of independence and mobility. (2) Pneumonia Code(s): J18.9 - PNEUMONIA, UNSPECIFIED ORGANISM SNOMED Code(s): 806381690 Comment: Despite maximizing antibiotics, patient continues to deteriorate. PT has hypoxic respiratory failure. Pt's O2 are improving, Pt needing 2-4L via Oximask. Suspect patient is having intermittent mucous plugging given variability in O2 requirements. WBC and CRP improving. Patient's prognosis is very poor. Continue vanco, zosyn, solumedrol and azithromycin. Appreciate Pulmonology input. Continue Mucomyst, NT suctioning and chest PT. (3) Acute kidney injury Code(s): N17.9 - ACUTE KIDNEY FAILURE, UNSPECIFIED SNOMED Code(s): 93043921 Comment: on CKD3. Renal function is slowly improving. Will continue to follow labs closely. Continue IVF. All medications will be dosed renally. Echo shows EF 60-65%, and mild pulmonary HTN. (4) Dysphagia Code(s): R13.10 - DYSPHAGIA, UNSPECIFIED SNOMED Code(s): 94301079 Comment: Video swallow study completed 07/14. Pt able to pass swallow eval, will need pureed food - honey thick liquids. (5) Malnutrition Code(s): E46 - UNSPECIFIED PROTEIN-CALORIE MALNUTRITION SNOMED Code(s): 5682562 Comment: Pre-albumin 6, indicating significant protein-calorie deficits. GI consulted, they feel that her current respiratory status is a contraindictaion for NG tube placement and feeding are not recommended at this time. Pt is able to pass swallow study and is able to eat. (6) Seizure disorder Code(s): G40.909 - EPILEPSY, UNSP, NOT INTRACTABLE, WITHOUT STATUS EPILEPTICUS SNOMED Code(s): 886727016 Comment: Continue valproic acid IV. (7) HTN (hypertension) Code(s): I10 - ESSENTIAL (PRIMARY) HYPERTENSION SNOMED Code(s): 92251738 Comment: SBP 100-160. Hold amlodipine. (8) DVT prophylaxis Code(s): QYD8837 - SNOMED Code(s): 781293629 Comment: SQ heparin (9) Full code status Code(s): Z78.9 - OTHER SPECIFIED HEALTH STATUS SNOMED Code(s): 892806678 Status and Disposition: Inpatient with expected LOS > 2 days. Patient not responding well to treatment for aspiration pneumonia, poor to no oral intake. Plan for palliative care and manager social consult for consideration of establishment of DNR and question of providing artificial nutrition with caregivers and the State of [place].
[2016-07-16] MEDS ORDERED: NS 0.9% 250 ML* 250 ML ONE (09:05)
[2016-07-16] MEDS ORDERED: NS 0.9% 100 ML* 100 ML ONE (09:05)
[2016-07-16] MEDS: CMC:Dorzolamide/Timolol OPTH (NF) 10 ML BOT BOTH EYES SCH ×2 (09:12→20:46)
[2016-07-16] MEDS: methylPREDNISolone 125 MG* 2 ML VIAL IV SCH (09:12)
[2016-07-16] MEDS: VALPROIC ACID IVPB SCH ×2 (09:13→20:45)
[2016-07-16] MEDS: NS 0.9% IVPB SCH ×2 (09:13→20:45)
[2016-07-16] MEDS: Vancomycin(*) 750 MG in NS 0.9% 250 ML* 250 ML IVPB SCH (09:13)
[2016-07-16] MEDS: Pantoprazole IV* 40 MG IV SCH (11:29)
[2016-07-16] MEDS: D5W 1/2 NS 1000 ML BAG* 1,000 ML IV SCH (11:30)
[2016-07-16] MEDS ORDERED: Vancomycin(*) 1,000 MG in NS 0.9% 250 ML* 250 ML IVPB SCH ×2 (11:33→21:00)
[2016-07-16] MEDS: Azithromycin IV(*) 500 MG in NS 0.9% 250 ML* 250 ML IVPB SCH (18:37)
[2016-07-16] MEDS ORDERED: D5W 1/2 NS 1000 ML BAG* 1,000 ML IV SCH (20:06)
[2016-07-16] MEDS: Latanoprost 0.005%* 2.5 ml BTL RIGHT EYE SCH (20:45)
[2016-07-17] MEDS: Albuterol 2.5 MG/3 ML NEB.SOL* (0.083%) INH SCH ×4 (01:11→19:12)
[2016-07-17] MEDS: Acetylcysteine ORAL SOL* 200 MG/ML VIAL INH SCH ×4 (01:11→19:12)
[2016-07-17] MEDS: Piperac/Tazob 3.375 gm in NS* 3.375 GM/100 ML BAG IVPB SCH ×2 (05:10→15:01)
[2016-07-17] MEDS: Heparin VIAL(*) 5000 UNITS/ML VIAL (FIVE THOUSAND) SUBCUT SCH ×3 (05:11→20:17)
[2016-07-17 06:38] LABS: Hematocrit 31 % (35-47); Hemoglobin 9.9 g/dl (12.0-16.0); Mean Corpuscular HGB Conc 32 g/dl (31-36); Mean Corpuscular Hemoglobin 32 pg (27-31); Mean Corpuscular Volume 98 fL (80-97); Mean Platelet Volume 8 um3 (7.4-10.4); Red Blood Count 3.14 10^6/ul (4.0-5.4); Red Cell Distribution Width 15 % (10.5-15)
[2016-07-17 06:52] LABS: BUN/Creatinine Ratio 15.4 (8-20); Calcium 8.3 mg/dL (8.6-10.3); EGFR Non-African American 52.9 (>60); Potassium 3.1 mmol/L (3.5-5.0)
--- NOTE | 2016-07-17 08:46 | PN ---
Subjective Date of Service: 07/17/16 Interval History: Patient seen and examined at bedside. Pt is non-verbal and unable to communicate needs. Pt appears to be comfortable in bed. Pt continues to be bradycardic with rate in the 40's. Pt continues to require O2 via Oximask. Family History: Unchanged from Admission Social History: Unchanged from Admission Past Medical History: Unchanged from Admission Objective Active Medications: Acetylcysteine (Mucomyst Erendira*) 400 mg INH [id number] AWAKE [facility] Albuterol (Ventolin 2.5 Mg/3 Ml Neb.Erendira*) 2.5 mg INH [id number] AWAKE [facility] Albuterol/Ipratropium (Duoneb Neb.Erendira*) 1 neb INH Q4H PRN Reason: SOB/WHEEZING Brimonidine Tartrate (Alphagan 0.2%) 1 drop BOTH EYES BID MY[facility] Heparin Sodium (Porcine) (Heparin Vial(*)) 5,000 units SUBCUT Q8HR [facility] Valproic Acid 125 mg/ Sodium (Chloride) 101.25 mls @ 202.5 mls/hr IVPB BID [facility] Piperacillin Sod/Tazobactam Sod (Zosyn 3.375 Gm In Ns Premix*) 3.375 gm in 100 mls @ 25 mls/hr IVPB Q8H [facility] Azithromycin 500 mg/ Sodium (Chloride) 250 mls @ 250 mls/hr IVPB 1830 [facility] Vancomycin HCl 1,000 mg/ (Sodium Chloride) 250 mls @ 166.667 mls/hr IVPB Q24H [facility] Latanoprost (Xalatan 0.005%*) 1 drop RIGHT EYE QPM [facility] Methylprednisolone Sodium Succinate (Solu-Medrol*) 60 mg IV DAILY [facility] Morphine Sulfate (Morphine Inj (Syringe)*) 1 mg IV Q4H PRN Reason: PAIN - MILD Pantoprazole Sodium (Protonix Iv*) 40 mg IV Q24H [facility] Pharmacy Consult (Vancomycin Per Pharmacy*) 1 note FOLLOW UP . Reason: PER PROTOCOL Pharmacy Profile Note (Vancomycin Trough Check) 1 note FOLLOW UP ONCE ONE Stop : 07/18/16 20:31 Vital Signs 07/16/16 07/16/16 07/16/16 13:59 15:14 15:20 Temperature 97.9 F Pulse Rate 58 62 Respiratory 22 16 Rate Blood Pressure 148/72 (mmHg) O2 Sat by Pulse 100 98 Oximetry 07/16/16 07/16/16 07/16/16 19:39 20:00 20:40 Temperature Pulse Rate 67 70 49 Respiratory 22 20 20 Rate Blood Pressure 137/67 (mmHg) O2 Sat by Pulse 96 98 100 Oximetry 07/16/16 07/16/16 07/17/16 20:50 21:40 01:05 Temperature 96.7 F 96 F Pulse Rate 114 Respiratory 22 20 Rate Blood Pressure (mmHg) O2 Sat by Pulse 94 98 Oximetry 07/17/16 07/17/16 07/17/16 01:23 07:19 07:30 Temperature Pulse Rate 41 49 Respiratory 16 16 Rate Blood Pressure 178/84 180/112 (mmHg) O2 Sat by Pulse 94 100 Oximetry 07/17/16 08:33 Temperature 97.3 F Pulse Rate Respiratory Rate Blood Pressure 148/62 (mmHg) O2 Sat by Pulse Oximetry Oxygen Devices in Use Now: Simple Face Mask - 2-4L Appearance: NAD, laying in bed. Ears/Nose/Mouth/Throat: Mucous Membranes Moist Neck: NL Appearance and Movements; NL JVP, Trachea Midline Respiratory: Symmetrical Chest Expansion and Respiratory Effort, - - Lung sounds with rhonchi throughout. Cardiovascular: RRR - , shreya Abdominal: NL Sounds; No Tenderness; No Distention Extremities: No Edema Skin: No Rash or Ulcers Neurological: - - Non-verbal Lines/Tubes/Other Access: Clean, Dry and Intact Peripheral IV - x 2 site benign. Nutrition: Taking PO's Result Diagrams: 07/17/16 05:33 07/17/16 05:33 Additional Lab and Data: Assess/Plan/Problems-Billing Assessment: Ms. Armando is a 65 yo female with a PMH of mental retardation who was admitted on 07/06/16 with refusal to eat and suspected pneumonia. - Patient Problems (1) Pneumonia Code(s): J18.9 - PNEUMONIA, UNSPECIFIED ORGANISM SNOMED Code(s): 367411003 Comment: Patient continues to have slow improvement. Pt with hypoxic respiratory failure, requiring O2 supplements. Pt's O2 sats are improving, Pt needing 2-4L via Oximask. Suspect patient is having intermittent mucous plugging given variability in O2 requirements. Patient's prognosis is very poor. Will discontinue ABX. Continue solumedrol. Appreciate Pulmonology input. Continue Mucomyst, NT suctioning and chest PT. (2) Bradycardia Code(s): R00.1 - BRADYCARDIA, UNSPECIFIED SNOMED Code(s): 89550833 Comment: HR high 30's to 50's since yesterday. Will stop Timolol eye drops and see if this helps. (3) Electrolyte abnormality Code(s): E87.8 - OTH DISORDERS OF ELECTROLYTE AND FLUID BALANCE, NEC SNOMED Code(s): 678669482 Comment: - Hypokalemia / received replacement on 07/15, resolved yesterday. Pt again with K 3.1, will give replacement today. - Hypomagnesium / received replacement on 07/15, resolved yesterday. Will recheck again today since she is hypokalemic, as replace if needed. - Recheck labs in the AM. (4) Acute kidney injury Code(s): N17.9 - ACUTE KIDNEY FAILURE, UNSPECIFIED SNOMED Code(s): 35274933 Comment: on CKD3. Renal function stable. Will continue to follow labs closely. All medications will be dosed renally. Echo shows EF 60-65%, and mild pulmonary HTN. (5) Altered mental status Code(s): R41.82 - ALTERED MENTAL STATUS, UNSPECIFIED SNOMED Code(s): 955461027 Comment: Pt with slow improvement, continues to be more alert. House staff reports that at baseline patient typically grunts and makes noises, points at staff, and ambulates with assistance. She requires assistance to eat. Also report that she has been declining in terms of independence and mobility. (6) Dysphagia Code(s): R13.10 - DYSPHAGIA, UNSPECIFIED SNOMED Code(s): 47091969 Comment: Video swallow study completed 07/14. Pt able to pass swallow eval, will need pureed food - honey thick liquids. (7) Malnutrition Code(s): E46 - UNSPECIFIED PROTEIN-CALORIE MALNUTRITION SNOMED Code(s): 3654323 Comment: Pre-albumin 6, indicating significant protein-calorie deficits. GI consulted, they feel that her current respiratory status is a contraindictaion for NG tube placement and feeding are not recommended at this time. Pt is able to pass swallow study and is able to eat. (8) Seizure disorder Code(s): G40.909 - EPILEPSY, UNSP, NOT INTRACTABLE, WITHOUT STATUS EPILEPTICUS SNOMED Code(s): 466869823 Comment: Switch valproic acid IV to depakote sprinkles. (9) HTN (hypertension) Code(s): I10 - ESSENTIAL (PRIMARY) HYPERTENSION SNOMED Code(s): 99374922 Comment: SBP 100-160. Resume amlodipine. (10) DVT prophylaxis Code(s): UHL1713 - SNOMED Code(s): 483574392 Comment: SQ heparin (11) Full code status Code(s): Z78.9 - OTHER SPECIFIED HEALTH STATUS SNOMED Code(s): 411350672 Status and Disposition: Inpatient with expected LOS > 2 days. Patient not responding well to treatment for aspiration pneumonia, poor to no oral intake. Plan for palliative care and social insurance specialist consult for consideration of establishment of DNR and question of providing artificial nutrition with caregivers and the State of [place].
[2016-07-17] MEDS: NS 0.9% IVPB SCH (09:21)
[2016-07-17] MEDS: VALPROIC ACID IVPB SCH (09:21)
[2016-07-17] MEDS: methylPREDNISolone 125 MG* 2 ML VIAL IV SCH (09:21)
[2016-07-17 10:07] LABS: Magnesium 1.8 mg/dL (1.9-2.7)
[2016-07-17] MEDS: KCL 20 MEQ/100 ML IVPREMIX* 20 MEQ/100 ML BAG IV SCH ×3 (10:31→20:13)
[2016-07-17] MEDS ORDERED: Magnesium Sulfate 2 GM IV* 2 GM/50 ML BAG IVPB ONE (10:38)
[2016-07-17] MEDS: Pantoprazole IV* 40 MG IV SCH (13:04)
[2016-07-17] MEDS: Latanoprost 0.005%* 2.5 ml BTL RIGHT EYE SCH (17:24)
[2016-07-17] MEDS ORDERED: KCL 20 MEQ/100 ML IVPREMIX* 20 MEQ/100 ML BAG ONE (19:57)
[2016-07-17] MEDS: Divalproex Sprinkle CAP* 125 MG PO SCH (20:17)
[2016-07-18] MEDS: Albuterol 2.5 MG/3 ML NEB.SOL* (0.083%) INH SCH ×4 (01:00→19:29)
[2016-07-18] MEDS: Acetylcysteine ORAL SOL* 200 MG/ML VIAL INH SCH ×4 (01:00→19:29)
[2016-07-18] MEDS: Heparin VIAL(*) 5000 UNITS/ML VIAL (FIVE THOUSAND) SUBCUT SCH ×3 (06:33→21:01)
[2016-07-18 09:16] LABS: BUN/Creatinine Ratio 12.9 (8-20); Calcium 9.1 mg/dL (8.6-10.3); EGFR African American 70.3 (>60); EGFR Non-African American 54.7 (>60); Magnesium 2.2 mg/dL (1.9-2.7); Potassium 3.6 mmol/L (3.5-5.0)
[2016-07-18] MEDS: amLODIPine TAB* 5 MG PO SCH (09:39)
[2016-07-18] MEDS: methylPREDNISolone 125 MG* 2 ML VIAL IV SCH (09:39)
[2016-07-18] MEDS: Famotidine TAB* 20 MG PO SCH (09:39)
[2016-07-18] MEDS: Divalproex Sprinkle CAP* 125 MG PO SCH ×2 (09:40→20:59)
--- NOTE | 2016-07-18 16:39 | PN ---
Subjective Date of Service: 07/18/16 Interval History: Non verbal Nursing noted patient eating more today 93% on RA with facemask off Family History: Unchanged from Admission Social History: Unchanged from Admission Past Medical History: Unchanged from Admission Objective Active Medications: Acetylcysteine (Mucomyst Erendira*) 400 mg INH [id number] AWAKE [facility] Last Admin: 07/18/16 14:11 Dose: 400 mg Albuterol (Ventolin 2.5 Mg/3 Ml Neb.Erendira*) 2.5 mg INH RT.[id number] AWAKE [facility] Last Admin: 07/18/16 14:11 Dose: 2.5 mg Albuterol/Ipratropium (Duoneb Neb.Erendira*) 1 neb INH Q4H PRN PRN Reason: SOB/WHEEZING Last Admin: 07/08/16 12:28 Dose: 1 neb Amlodipine Besylate (Norvasc Tab*) 5 mg PO DAILY [facility] Last Admin: 07/18/16 09:39 Dose: 5 mg Brimonidine Tartrate (Alphagan 0.2%) 1 drop BOTH EYES BID [facility] Last Admin: 07/18/16 09:39 Dose: 1 drop Divalproex Sodium (Depakote Sprinkle Cap*) 125 mg PO BID [facility] Last Admin: 07/18/16 09:40 Dose: 125 mg Famotidine (Pepcid Tab*) 20 mg PO DAILY [facility] Last Admin: 07/18/16 09:39 Dose: 20 mg Heparin Sodium (Porcine) (Heparin Vial(*)) 5,000 units SUBCUT Q8HR [facility] Last Admin: 07/18/16 15:04 Dose: 5,000 units Latanoprost (Xalatan 0.005%*) 1 drop RIGHT EYE QPM [facility] Last Admin: 07/17/16 17:24 Dose: 1 drop Methylprednisolone Sodium Succinate (Solu-Medrol*) 60 mg IV DAILY [facility] Last Admin: 07/18/16 09:39 Dose: 60 mg Vital Signs 07/17/16 07/17/16 07/17/16 19:13 20:00 23:54 Temperature 97.0 F Pulse Rate 57 55 Respiratory 22 20 20 Rate Blood Pressure 152/66 (mmHg) O2 Sat by Pulse 95 97 99 Oximetry 07/18/16 07/18/16 07/18/16 07:26 08:00 08:32 Temperature 97.0 F Pulse Rate 51 57 Respiratory 16 20 20 Rate Blood Pressure 180/74 (mmHg) O2 Sat by Pulse 100 98 97 Oximetry 07/18/16 07/18/16 14:17 15:10 Temperature Pulse Rate 57 53 Respiratory 20 20 Rate Blood Pressure 115/70 (mmHg) O2 Sat by Pulse 97 98 Oximetry Oxygen Devices in Use Now: None - 93%RA Appearance: lying flat, NAD Eyes: No Scleral Icterus Ears/Nose/Mouth/Throat: Mucous Membranes Moist Neck: NL Appearance and Movements; NL JVP Respiratory: Symmetrical Chest Expansion and Respiratory Effort, - - diffuse rhonchi Cardiovascular: RRR Abdominal: NL Sounds; No Tenderness; No Distention, No Hepatosplenomegaly Extremities: No Edema Neurological: - - AOx0, non verbal Result Diagrams: 07/17/16 05:33 07/18/16 08:51 Additional Lab and Data: Assess/Plan/Problems-Billing Assessment: Ms. Armando is a 65 yo female with a PMH of mental retardation who was admitted on 07/06/16 with refusal to eat and suspected pneumonia. - Patient Problems (1) Pneumonia Comment: Improving slowly. Room air oxygenation 93% Patient's prognosis remains very poor. completed 7 days zosyn Continue solumedrol IV. Will need taper on discharge Appreciate Pulmonology input. Continue Mucomyst, NT suctioning and chest PT. (2) Bradycardia Comment: 50's for last 24 hrs. Improved with discontinuation of timolol eye drops and clinical improvement from PNA (3) Acute kidney injury Status: Resolved (4) Dysphagia Comment: Video swallow study completed 07/14. Pt able to pass swallow eval, will need pureed food - honey thick liquids. (5) Malnutrition Comment: Pre-albumin 6, indicating significant protein-calorie deficits. GI consulted and feel current respiratory status is a contraindictaion for NG tube placement and feeding are not recommended at this time. Pt is able to pass swallow study and is able to eat. Oral intake increasing (6) Seizure disorder Comment: Switch valproic acid IV to depakote sprinkles. (7) HTN (hypertension) Comment: c/w amlodipine. (8) DVT prophylaxis Comment: SQ heparin (9) DNR (do not resuscitate)
[2016-07-18] MEDS: Latanoprost 0.005%* 2.5 ml BTL RIGHT EYE SCH (18:15)
[2016-07-18] MEDS ORDERED: Vancomycin Trough Check NOTE FOLLOW UP ONE (20:30)
[2016-07-19] MEDS: Acetylcysteine ORAL SOL* 200 MG/ML VIAL INH SCH ×4 (01:00→21:09)
[2016-07-19] MEDS: Albuterol 2.5 MG/3 ML NEB.SOL* (0.083%) INH SCH ×4 (01:00→21:12)
[2016-07-19] MEDS: Heparin VIAL(*) 5000 UNITS/ML VIAL (FIVE THOUSAND) SUBCUT SCH ×3 (07:17→20:25)
[2016-07-19] MEDS: amLODIPine TAB* 5 MG PO SCH (08:54)
[2016-07-19] MEDS: Divalproex Sprinkle CAP* 125 MG PO SCH ×2 (08:54→20:33)
[2016-07-19] MEDS: Famotidine TAB* 20 MG PO SCH (08:54)
[2016-07-19] MEDS: methylPREDNISolone 125 MG* 2 ML VIAL IV SCH (08:58)
[2016-07-19] MEDS: Latanoprost 0.005%* 2.5 ml BTL RIGHT EYE SCH (17:36)
--- NOTE | 2016-07-19 18:22 | PN ---
Subjective Date of Service: 07/19/16 Interval History: Seen and examined On RA 99% Was noted to be bradycardic to the 30s today now resolved unable to make needs known Family History: Unchanged from Admission Social History: Unchanged from Admission Past Medical History: Unchanged from Admission Objective Active Medications: Acetylcysteine (Mucomyst Erendira*) 400 mg INH [id number] AWAKE [facility] Last Admin: 07/19/16 14:10 Dose: 400 mg Albuterol (Ventolin 2.5 Mg/3 Ml Neb.Erendira*) 2.5 mg INH [id number] AWAKE [facility] Last Admin: 07/19/16 14:10 Dose: 2.5 mg Albuterol/Ipratropium (Duoneb Neb.Erendira*) 1 neb INH Q4H PRN PRN Reason: SOB/WHEEZING Last Admin: 07/08/16 12:28 Dose: 1 neb Amlodipine Besylate (Norvasc Tab*) 5 mg PO DAILY [facility] Last Admin: 07/19/16 08:54 Dose: 5 mg Brimonidine Tartrate (Alphagan 0.2%) 1 drop BOTH EYES BID [facility] Last Admin: 07/19/16 08:59 Dose: 1 drop Divalproex Sodium (Depakote Sprinkle Cap*) 125 mg PO BID [facility] Last Admin: 07/19/16 08:54 Dose: 125 mg Famotidine (Pepcid Tab*) 20 mg PO DAILY [facility] Last Admin: 07/19/16 08:54 Dose: 20 mg Heparin Sodium (Porcine) (Heparin Vial(*)) 5,000 units SUBCUT Q8HR [facility] Last Admin: 07/19/16 13:48 Dose: 5,000 units Latanoprost (Xalatan 0.005%*) 1 drop RIGHT EYE QPM [facility] Last Admin: 07/19/16 17:36 Dose: 1 drop Vital Signs 07/18/16 07/18/16 07/18/16 19:30 20:00 23:36 Pulse Rate 62 55 Respiratory 22 20 Rate Blood Pressure 151/99 (mmHg) O2 Sat by Pulse 95 97 100 Oximetry 07/19/16 07/19/16 07/19/16 07:51 08:00 08:22 Pulse Rate 61 55 Respiratory 16 20 20 Rate Blood Pressure 163/74 (mmHg) O2 Sat by Pulse 100 94 100 Oximetry 07/19/16 07/19/16 14:13 15:30 Pulse Rate 44 57 Respiratory 20 20 Rate Blood Pressure 119/66 (mmHg) O2 Sat by Pulse 100 Oximetry Oxygen Devices in Use Now: None - 93%RA Appearance: lying flat, NAD Eyes: No Scleral Icterus, PERRLA Ears/Nose/Mouth/Throat: NL Teeth, Lips, Gums, Mucous Membranes Moist Neck: NL Appearance and Movements; NL JVP Respiratory: Symmetrical Chest Expansion and Respiratory Effort, - - rhonchi but improving Cardiovascular: RRR Extremities: No Edema Neurological: - - AOx0 Result Diagrams: 07/17/16 05:33 07/18/16 08:51 Additional Lab and Data: Assess/Plan/Problems-Billing Assessment: Ms. Armando is a 65 yo female with a PMH of mental retardation who was admitted on 07/06/16 with refusal to eat and suspected pneumonia. - Patient Problems (1) Pneumonia Comment: Improving slowly. Room air oxygenation 98% Patient's prognosis remains very poor. completed 7 days zosyn Continue solumedrol IV. Will need taper on discharge Appreciate Pulmonology input. Continue Mucomyst, NT suctioning and chest PT. (2) Bradycardia Comment: 50's for last 24 hrs with 1 episode to the 30s briefly. Improved with discontinuation of timolol eye drops and clinical improvement from PNA (3) Acute kidney injury Status: Resolved (4) Dysphagia Comment: Video swallow study completed 07/14. Pt able to pass swallow eval, will need pureed food - honey thick liquids. (5) Malnutrition Comment: Pre-albumin 6, indicating significant protein-calorie deficits. GI consulted and feel current respiratory status is a contraindictaion for NG tube placement and feeding are not recommended at this time. Pt is able to pass swallow study and is able to eat. Oral intake increasing (6) Seizure disorder Comment: Switch valproic acid IV to depakote sprinkles. (7) HTN (hypertension) Comment: c/w amlodipine. (8) DVT prophylaxis Comment: SQ heparin (9) DNR (do not resuscitate) Status and Disposition: .
[2016-07-20] MEDS: Albuterol 2.5 MG/3 ML NEB.SOL* (0.083%) INH SCH ×4 (01:00→20:15)
[2016-07-20] MEDS: Acetylcysteine ORAL SOL* 200 MG/ML VIAL INH SCH ×4 (01:00→20:14)
[2016-07-20] MEDS: Heparin VIAL(*) 5000 UNITS/ML VIAL (FIVE THOUSAND) SUBCUT SCH ×3 (05:09→20:07)
[2016-07-20 05:51] LABS: Hematocrit 36 % (35-47); Hemoglobin 11.9 g/dl (12.0-16.0); Mean Corpuscular HGB Conc 33 g/dl (31-36); Mean Corpuscular Hemoglobin 32 pg (27-31); Mean Corpuscular Volume 98 fL (80-97); Mean Platelet Volume 9 um3 (7.4-10.4); Red Blood Count 3.68 10^6/ul (4.0-5.4); Red Cell Distribution Width 15 % (10.5-15); White Blood Count 22.4 10^3/ul (3.5-10.8)
[2016-07-20 05:54] LABS: Comments Flag Yes
[2016-07-20 06:08] LABS: BUN/Creatinine Ratio 22.7 (8-20); Calcium 9.6 mg/dL (8.6-10.3); EGFR African American 51.6 (>60); EGFR Non-African American 40.1 (>60)
[2016-07-20] MEDS: Divalproex Sprinkle CAP* 125 MG PO SCH ×2 (09:38→20:10)
[2016-07-20] MEDS: amLODIPine TAB* 5 MG PO SCH (09:38)
[2016-07-20] MEDS: Famotidine TAB* 20 MG PO SCH (09:38)
--- NOTE | 2016-07-20 10:08 | CONSULT ---
Palliative / Hospice Consult - Subjective Code Status: DNR Advance Directives Location: No Advance Directives - History or Present Illness Lab Values: Abnormal Lab Results 07/20/16 07/20/16 04:55 04:55 WBC 22.4 H RBC 3.68 L Hgb 11.9 L Hct 36 MCV 98 H MCH 32 H MCHC 33 RDW 15 Plt Count 400 MPV 9 Neut % (Auto) 84.7 H Lymph % (Auto) 6.9 L [place] % (Auto) 7.9 Eos % (Auto) 0.1 Baso % (Auto) 0.4 Absolute Neuts (auto) 19.0 H Absolute Lymphs (auto) 1.6 Absolute Monos (auto) 1.8 H Absolute Eos (auto) 0 Absolute Basos (auto) 0.1 Absolute Nucleated RBC 0.01 Nucleated RBC % 0.1 Sodium 138 Potassium 4.0 Chloride 106 Carbon Dioxide 22 Anion Gap 10 BUN 30 H Creatinine 1.32 H Est GFR ( Amer) 51.6 Est GFR (Non-Af Amer) 40.1 BUN/Creatinine Ratio 22.7 H Glucose 71 Calcium 9.6 Laboratory Last Values WBC 22.4 10^3/ul (3.5-10.8) H 07/20/16 04:55 RBC 3.68 10^6/ul (4.0-5.4) L 07/20/16 04:55 Hgb 11.9 g/dl (12.0-16.0) L 07/20/16 04:55 Hct 36 % (35-47) 07/20/16 04:55 MCV 98 fL (80-97) H 07/20/16 04:55 MCH 32 pg (27-31) H 07/20/16 04:55 MCHC 33 g/dl (31-36) 07/20/16 04:55 RDW 15 % (10.5-15) 07/20/16 04:55 Plt Count 400 10^3/ul (150-450) 07/20/16 04:55 MPV 9 um3 (7.4-10.4) 07/20/16 04:55 Neut % (Auto) 84.7 % (38-83) H 07/20/16 04:55 Lymph % (Auto) 6.9 % (25-47) L 07/20/16 04:55 [place] % (Auto) 7.9 % (1-9) 07/20/16 04:55 Eos % (Auto) 0.1 % (0-6) 07/20/16 04:55 Baso % (Auto) 0.4 % (0-2) 07/20/16 04:55 Absolute Neuts (auto) 19.0 10^3/ul (1.5-7.7) H 07/20/16 04:55 Absolute Lymphs (auto) 1.6 10^3/ul (1.0-4.8) 07/20/16 04:55 Absolute Monos (auto) 1.8 10^3/ul (0-0.8) H 07/20/16 04:55 Absolute Eos (auto) 0 10^3/ul (0-0.6) 07/20/16 04:55 Absolute Basos (auto) 0.1 10^3/ul (0-0.2) 07/20/16 04:55 Absolute Nucleated RBC 0.01 10^3/ul 07/20/16 04:55 Nucleated RBC % 0.1 07/20/16 04:55 Sodium 138 mmol/L (133-145) 07/20/16 04:55 Potassium 4.0 mmol/L (3.5-5.0) 07/20/16 04:55 Chloride 106 mmol/L (101-111) 07/20/16 04:55 Carbon Dioxide 22 mmol/L (22-32) 07/20/16 04:55 Anion Gap 10 mmol/L (2-11) 07/20/16 04:55 BUN 30 mg/dL (6-24) H 07/20/16 04:55 Creatinine 1.32 mg/dL (0.51-0.95) H 07/20/16 04:55 Est GFR ( Amer) 51.6 (>60) 07/20/16 04:55 Est GFR (Non-Af Amer) 40.1 (>60) 07/20/16 04:55 BUN/Creatinine Ratio 22.7 (8-20) H 07/20/16 04:55 Glucose 71 mg/dL (70-100) 07/20/16 04:55 POC Glucose (mg/dL) 97 mg/dL (74-106) 07/12/16 07:47 Calcium 9.6 mg/dL (8.6-10.3) 07/20/16 04:55 Magnesium 2.2 mg/dL (1.9-2.7) 07/18/16 08:51 Total Bilirubin 0.30 mg/dL (0.2-1.0) 07/06/16 17:26 AST 13 U/L (13-39) 07/06/16 17:26 ALT 13 U/L (7-52) 07/06/16 17:26 Alkaline Phosphatase 124 U/L (34-104) H 07/06/16 17:26 Troponin I 0.01 ng/mL (<0.04) 07/06/16 17:26 C-Reactive Protein 41.88 mg/L (< 5.00) H 07/15/16 06:54 B-Natriuretic Peptide 107 pg/mL (-100) H 07/12/16 08:26 Total Protein 7.8 g/dL (6.4-8.9) 07/06/16 17:26 Albumin 2.5 g/dL (3.2-5.2) L 07/13/16 05:15 Globulin 4.5 g/dL (2-4) H 07/06/16 17:26 Albumin/Globulin Ratio 0.7 (1-3) L 07/06/16 17:26 Prealbumin 6 mg/dL (18-38) L 07/10/16 05:53 Procalcitonin 0.5 ng/mL (<0.6) 07/12/16 08:26 Vancomycin Trough 25.9 mcg/mL 07/16/16 13:58 Valproic Acid 22.0 mcg/mL (50-100) L 07/07/16 08:35 Influenza A (Rapid) Negative (Negative) 07/06/16 22:33 Influenza B (Rapid) Negative (Negative) 07/06/16 22:33 - Objective Active Medications: Acetylcysteine (Mucomyst Erendira*) 400 mg INH [id number] AWAKE MYESHA Last Admin: 07/20/16 07:04 Dose: 400 mg Albuterol (Ventolin 2.5 Mg/3 Ml Neb.Erendira*) 2.5 mg INH [id number] AWAKE MYESHA Last Admin: 07/20/16 07:04 Dose: 2.5 mg Albuterol/Ipratropium (Duoneb Neb.Erendira*) 1 neb INH Q4H PRN PRN Reason: SOB/WHEEZING Last Admin: 07/08/16 12:28 Dose: 1 neb Amlodipine Besylate (Norvasc Tab*) 5 mg PO DAILY [facility] Last Admin: 07/20/16 09:38 Dose: 5 mg Brimonidine Tartrate (Alphagan 0.2%) 1 drop BOTH EYES BID [facility] Last Admin: 07/20/16 09:38 Dose: 1 drop Divalproex Sodium (Depakote Sprinkle Cap*) 125 mg PO BID [facility] Last Admin: 07/20/16 09:38 Dose: 125 mg Famotidine (Pepcid Tab*) 20 mg PO DAILY [facility] Last Admin: 07/20/16 09:38 Dose: 20 mg Heparin Sodium (Porcine) (Heparin Vial(*)) 5,000 units SUBCUT Q8HR [facility] Last Admin: 07/20/16 05:09 Dose: 5,000 units Latanoprost (Xalatan 0.005%*) 1 drop RIGHT EYE QPM [facility] Last Admin: 07/19/16 17:36 Dose: 1 drop Vital Signs: Vital Signs: Temp Pulse Resp BP Pulse Ox 97.1 F 77 18 126/92 97 07/20/16 03:46 07/20/16 07:39 07/20/16 07:39 07/20/16 07:39 07/20/16 07:08 Patient Weight: Weight 41.776 kg Intake and Output: Intake & Output 07/18/16 07/19/16 07/20/16 07/21/16 06:59 06:59 06:59 06:59 Intake Total 200 240 210 0 Output Total 1 Balance 199 240 210 0 Intake: IV Fluids 100 0 D5W 1/2 NS 0 KCL in Sterile Water 100 NS (0.9%) 0 Oral 100 240 210 0 Output: Straight Cath 1 Other: Estimated Void Medium Large Small # Bowel Movements 1 1 1 Estimated Stool Amount Small Small Small # Voids 1 1 0 ADLs: Meal Record Start: 07/06/16 22: 04 Freq: DAILY@0900,1400,1800 Status: Active Document 07/07/16 09:00 [id number] (Rec: 07/07/16 09:22 LVU5835 MED-C09) Document 12/27/16 13:48 RAG0769 (Rec: 07/07/16 13:48 LCW0998 MED-C09) Document 07/07/16 18:00 FIB9774 (Rec: 07/07/16 21:36 BYT4390 MED-C09) Document 07/08/16 08:49 NUR0021 (Rec: 07/08/16 08:53 MCS1084 MED-C09) Document 07/08/16 14:00 CEB6696 (Rec: 07/08/16 14:15 LUP0237 MED-C09) Document 07/08/16 18:00 PDK5425 (Rec: 07/08/16 20:24 OZV8316 MED-C11) Document 07/09/16 08:48 XHW8686 (Rec: 07/09/16 08:48 ICG7922 MED-C11) Document 07/09/16 13:25 CBV5034 (Rec: 07/09/16 13:25 TUS9468 MED-C11) Document 07/09/16 18:00 KXG1461 (Rec: 07/09/16 21:21 KLS8522 MED-C09) Document 07/10/16 09:00 LLQ1446 (Rec: 07/10/16 09:57 NLE6139 MED-C11) Document 07/10/16 14:00 DTG2215 (Rec: 07/10/16 14:22 AIK7854 MED-C11) Document 07/10/16 18:00 SFI1552 (Rec: 07/10/16 18:43 WDK0464 MED-C11) Document 07/11/16 09:00 GWE6399 (Rec: 07/11/16 09:15 RYI5358 MED-C11) Document 07/11/16 14:00 EMG8719 (Rec: 07/11/16 14:05 UVH6240 MED-C09) Document 07/11/16 18:00 UJN1205 (Rec: 07/11/16 18:08 SZE9731 MED-C11) Document 07/12/16 09:00 TRE3687 (Rec: 07/12/16 09:05 VNF4699 MED-C09) Document 07/12/16 13:12 EOF9950 (Rec: 07/12/16 13:13 WMQ5994 MED-C09) Document 07/12/16 18:00 XQL7899 (Rec: 07/12/16 18:36 QEA3598 MED-C09) Document 07/13/16 09:00 AOZ3762 (Rec: 07/13/16 09:36 DCK7265 MED-C11) Document 07/13/16 14:00 KDX4298 (Rec: 07/13/16 14:16 TZE5993 MED-C11) Document 07/13/16 18:00 XLE0706 (Rec: 07/13/16 22:43 LIV5055 MED-C11) Document 07/14/16 08:23 YGT8709 (Rec: 07/14/16 08:23 GUN1427 MED-C11) Document 07/14/16 13:36 MCI0376 (Rec: 07/14/16 13:37 ZPV8253 MED-C09) Document 07/14/16 18:17 SIX5239 (Rec: 07/14/16 18:17 OFO8252 MED-L05) Document 07/15/16 09:00 IYH1515 (Rec: 07/15/16 10:53 VUU8580 MED-C11) Document 07/15/16 13:52 QQB0616 (Rec: 07/15/16 13:52 LTU2660 MED-C11) Document 07/15/16 18:00 XIE4058 (Rec: 07/15/16 18:29 ZTM7604 MED-C09) Document 07/16/16 09:00 CWT4608 (Rec: 07/16/16 09:10 UFH3555 MED-C09) Document 07/16/16 14:00 RRR4888 (Rec: 07/16/16 14:19 GFT3602 MED-C11) Document 07/16/16 17:26 RPN5889 (Rec: 07/16/16 17:26 SOD5628 MED-C11) Document 07/17/16 09:00 IDH3852 (Rec: 07/17/16 10:06 JEP6448 MED-C09) Document 07/17/16 14:00 VAS8267 (Rec: 07/17/16 14:38 SND1462 MED-C11) Document 07/17/16 17:58 RRV4353 (Rec: 07/17/16 18:10 IKP2302 MED-C11) Document 07/18/16 09:00 NNT5687 (Rec: 07/18/16 09:20 YFF0928 MED-C09) Document 07/18/16 13:09 QNG9899 (Rec: 07/18/16 13:10 IVI8579 MED-C09) Document 07/18/16 18:00 OYK0830 (Rec: 07/18/16 18:12 OHN7095 MED-C04) Document 07/19/16 09:00 JKJ9437 (Rec: 07/19/16 09:08 DOH3667 MED-C11) Document 07/19/16 12:31 DFD3129 (Rec: 07/19/16 12:31 UXW4091 MED-C11) Document 07/19/16 18:00 ZMK8316 (Rec: 07/19/16 20:02 PIV2968 MED-C11) Document 07/20/16 08:38 IBW5887 (Rec: 07/20/16 08:38 QVS0663 MED-C09) Intake and Output Start: 07/06/16 22: 04 Freq: DAILY@0600,1400,2200 Status: Active Document 07/07/16 06:00 TEU7298 (Rec: 07/07/16 06:02 SND7993 MED-C26) Document 07/07/16 13:48 TZG3816 (Rec: 07/07/16 13:48 SNQ3401 MED-C09) Document 07/07/16 22:00 VCW7188 (Rec: 07/07/16 22:33 DRG4646 MED-C09) Document 07/08/16 05:28 CEA8002 (Rec: 07/08/16 05:28 VHP9656 MED-C26) Document 07/08/16 09:50 DKK6599 (Rec: 07/08/16 09:50 OQE6145 MED-C09) Document 07/08/16 22:00 BKG9671 (Rec: 07/08/16 22:18 TVL0293 MED-C11) Document 07/09/16 06:00 JTS2204 (Rec: 07/09/16 06:10 RYO7774 MED-C26) Document 07/09/16 12:03 OCH1238 (Rec: 07/09/16 12:03 LGP7022 MED-C11) Document 07/09/16 22:00 VPU0376 (Rec: 07/09/16 22:42 XIA5562 MED-C09) Document 07/10/16 05:42 AWB0773 (Rec: 07/10/16 05:42 LRG6837 MED-C26) Document 07/10/16 10:59 SNG4948 (Rec: 07/10/16 10:59 LHX3608 MED-C11) Document 07/10/16 22:00 GBA9128 (Rec: 07/10/16 22:06 TCK9076 MED-C09) Document 07/11/16 06:00 UXA4210 (Rec: 07/11/16 06:39 KLG6698 MEDL-C01) Document 07/11/16 14:00 ZTC7931 (Rec: 07/11/16 14:47 DLP8556 MED-C09) Document 07/11/16 22:00 LZU2541 (Rec: 07/11/16 22:11 FKY4820 MED-C11) Document 07/12/16 06:00 HQJ4799 (Rec: 07/12/16 06:09 VWN0174 MEDL-C01) Document 07/12/16 09:45 UEX5744 (Rec: 07/12/16 09:46 RBC9704 MED-C09) Document 07/12/16 21:04 MRG7276 (Rec: 07/12/16 21:05 SWI6567 MED-C09) Document 07/13/16 06:00 UXD3021 (Rec: 07/13/16 06:05 JPT1456 MEDL-C01) Document 07/13/16 10:42 VZU1291 (Rec: 07/13/16 10:43 JIX5383 MED-C11) Document 07/13/16 22:00 CZE9535 (Rec: 07/13/16 22:45 EFF5173 MED-C11) Document 07/14/16 06:00 VTW3561 (Rec: 07/14/16 06:06 GHN6320 MEDL-C01) Document 07/14/16 08:48 XZH0132 (Rec: 07/14/16 08:48 CYM0426 MED-C11) Document 07/14/16 22:00 FVT2392 (Rec: 07/14/16 22:05 VBI6000 MED-C11) Document 07/15/16 06:00 MIT1652 (Rec: 07/15/16 06:02 YYY2823 MEDL-C01) Document 07/15/16 13:53 VER6092 (Rec: 07/15/16 13:53 WTA9566 MED-C11) Document 07/15/16 21:40 SYC6226 (Rec: 07/15/16 21:40 ZJP1770 MED-C09) Document 07/16/16 05:21 ZNY1625 (Rec: 07/16/16 05:24 CKW5962 MED-C42) Document 07/16/16 14:00 ROI8699 (Rec: 07/16/16 14:19 UDF8624 MED-C11) Document 07/16/16 22:00 OFR4327 (Rec: 07/16/16 22:38 AMR7151 MEDL-C01) Document 07/17/16 06:00 YSK7602 (Rec: 07/17/16 06:23 LGY7540 MEDL-C01) Document 07/17/16 14:00 YKE4073 (Rec: 07/17/16 14:38 YCQ0038 MED-C11) Document 07/17/16 22:00 ITN4546 (Rec: 07/18/16 04:15 SFL0735 MED-C13) Document 07/18/16 06:00 CLQ0772 (Rec: 07/18/16 06:28 EXC9713 MEDL-C01) Document 07/18/16 10:27 FKX3524 (Rec: 07/18/16 10:28 XON2078 MED-C09) Document 07/18/16 22:00 AEU8874 (Rec: 07/18/16 22:45 SNG8894 MED-C04) Document 07/19/16 04:41 KVR7059 (Rec: 07/19/16 04:41 ROG7611 MED-C04) Document 07/19/16 10:28 FRR4658 (Rec: 07/19/16 10:29 QCH3577 MED-C11) Document 07/19/16 22:00 ANA4142 (Rec: 07/19/16 22:30 EBM7807 MED-C11) Document 07/20/16 06:00 GSC6917 (Rec: 07/20/16 06:00 DKQ9708 MED-C26) Eyes: No Scleral Icterus, PERRLA Ears/Nose/Mouth/Throat: NL Teeth, Lips, Gums, Mucous Membranes Moist Neck: NL Appearance and Movements; NL JVP Cardiovascular: RRR Abdominal: NL Sounds; No Tenderness; No Distention, No Hepatosplenomegaly Extremities: No Edema Neurological: - - AOx0
[2016-07-20] MEDS: Latanoprost 0.005%* 2.5 ml BTL RIGHT EYE SCH (18:36)
[2016-07-21] MEDS: Acetylcysteine ORAL SOL* 200 MG/ML VIAL INH SCH ×2 (01:52→08:34)
[2016-07-21] MEDS: Albuterol 2.5 MG/3 ML NEB.SOL* (0.083%) INH SCH ×2 (01:53→08:34)
[2016-07-21] MEDS: Heparin VIAL(*) 5000 UNITS/ML VIAL (FIVE THOUSAND) SUBCUT SCH (06:30)
--- NOTE | 2016-07-21 09:58 | DS ---
CC: Shelby Wilson NP DISCHARGE SUMMARY: DATE OF ADMISSION: 07/06/16 DATE OF DISCHARGE: 07/20/16 PRIMARY CARE PROVIDER: Shelby Wilson NP. PRIMARY DIAGNOSIS: Pneumonia. SECONDARY DIAGNOSES: Include 1. History of seizure disorder. 2. Severe intellectual disability. 3. GERD. 4. Osteoporosis. 5. Hypertension. 6. CKD. 7. Glaucoma. 8. DNR status. 9. Bradycardia. 10. Acute kidney injury. 11. Dysphagia. 12. Malnutrition. MEDICATIONS AT DISCHARGE: Resume all prior medications and orders: EXCEPT - cox catheter has been discontinued 1. Levaquin 750 mg daily for 7 additional days. 2. Alphagan 0.2% one drop both eyes twice daily. 3. Tylenol 650 mg every 4 hours as needed for pain or fever. 4. Senna-docusate one tab twice daily as needed for constipation. 5. Benadryl 25 mg every 6 hours as needed for sleep or pruritus. 6. Depakote sprinkles 125 mg twice daily. 7. Cosopt one drop both eyes twice daily. 8. Amlodipine 5 mg daily. 9. Metamucil one packet twice daily. 10. Multivitamin one tab daily. 11. Aspirin 81 mg daily. 12. Latanoprost 0.005% one drop right eye in the evening. 13. Pepcid 20 mg daily. 14. Albuterol ipratropium nebulizer inhaled every 4 hours as needed for shortness of breath or wheezing. CONSULTATIONS OBTAINED DURING THE HOSPITAL STAY: Gastroenterology, Pulmonology. PERTINENT IMAGING PERFORMED DURING HOSPITAL STAY: 1. Chest x-ray on presentation: Patchy bilateral airspace disease suggestive of bilateral consolidation versus pulmonary alveolar edema. 2. Chest x-ray performed 6 days later. Impression: Chest x-ray findings are most consistent with cardiac pulmonary edema, slightly worse when compared to July 06, 2016. 3. Radio fluoroscopic swallow evaluation. Impression: No aspiration on penetration. DIET ON DISCHARGE: Includes a regular diet with pureed texture and honey thickened liquids. HISTORY OF PRESENT ILLNESS AND HOSPITAL COURSE: This is a 65-year-old female with past medical history as outlined in the history of present illness. On the day of admission, she presented to the hospital with anorexia as well as audible pulmonary congestion and cough. There was concern for pneumonia based on admission chest x- ray and symptoms. She was notably hypothermic on the through the . She was treated with 7 days of Zosyn. She now developed a leukocytosis prior to discharge; however, developed leukocytosis in the middle of her hospital stay, around the of the New Year as well as on the day of discharge in the absence of other abnormal vital signs. She was treated with up to 7 liters OxiMask during the course of her hospital stay, was sating 96% on room air on the day of discharge. She was noted to desaturate upon getting up to the chair into the high 70s, although not witnessed by this author. In the setting of desaturation with movement, it was recommended that she maintain 3 liters nasal cannula at all times, to be reevaluated at followups for continued need of oxygen supplemental therapy. Her appetite increased, although it was certainly not voracious on the day of discharge. She was seen by Gastroenterology who declined to place a feeding tube as they did not think it was indicated at that time. In conjunction with social work and her care providers, the patient was made DNR , but not DNI, during the course of this hospital stay. In the setting up increased leukocytosis on the day of discharge in the absence of fever or hypothermia, and in the setting of improving respiratory function, the patient will be discharged with 7 additional days of Levaquin. No other changes to the patient's home medications. The patient is at great risk for recurrent pneumonia. Her prognosis remains guarded. [id number]/[facility] #: [id number] MTDD
[2016-07-21] MEDS: amLODIPine TAB* 5 MG PO SCH (10:20)
[2016-07-21] MEDS: Divalproex Sprinkle CAP* 125 MG PO SCH (10:21)
[2016-07-21] MEDS: Famotidine TAB* 20 MG PO SCH (10:21)
[2016-07-21 10:24] VITALS: BP 142/73
== END 2016-07-21 11:10 | DRG 177 ==
LOC: ED 14:47 → MED 21:27 → OBSVTOIN 07-07 09:16
PROVIDERS: ADMIT Hospitalist; ATTEND Internal Medicine
DX: J69.0 Pneumonitis due to inhalation of food and vomit (principal); J96.91 Respiratory failure, unspecified with hypoxia; N17.9 Acute kidney failure, unspecified; E46 Unspecified protein-calorie malnutrition; G20 Parkinson's disease; R13.10 Dysphagia, unspecified; I27.2 Other secondary pulmonary hypertension; E83.42 Hypomagnesemia; R68.0 Hypothermia, not associated with low environmental temperature; D72.829 Elevated white blood cell count, unspecified; Z66 Do not resuscitate; G40.909 Epilepsy, unspecified, not intractable, without status epilepticus; F79 Unspecified intellectual disabilities; K21.9 Gastro-esophageal reflux disease without esophagitis; M81.0 Age-related osteoporosis without current pathological fracture; I12.9 Hypertensive chronic kidney disease with stage 1 through stage 4 chronic kidney disease, or unspecified chronic kidney disease; H40.9 Unspecified glaucoma; R00.1 Bradycardia, unspecified; Z79.82 Long term (current) use of aspirin; Z88.8 Allergy status to other drugs, medicaments and biological substances; N18.3 Chronic kidney disease, stage 3 (moderate); F41.9 Anxiety disorder, unspecified; F43.10 Post-traumatic stress disorder, unspecified; H26.9 Unspecified cataract; R45.1 Restlessness and agitation; E87.6 Hypokalemia; R62.7 Adult failure to thrive
CPT/HCPCS: 36415; 71010; 74230; 80048; 80053; 80164; 80202; 82040; 82565; 83735; 83880; 84134; 84145; 84484; 84520; 85025; 85027; 86140; 87040; 87502; 87641; 87899; 93306; 94640; 94667; 94668; 94760; A9270-GY; G0378; G8996-GN-CL; G8996-GN-CN; G8997-GN-CL; G8998-GN-CL; G8998-GN-CN; J0456; J0610; J1644; J1956; J2270; J2543; J2930; J3370; J3475; J3480

== ENCOUNTER 2016-07-28 17:50 | Observation (INO) | payer MEDICARE, MEDICAID ==
[2016-07-28 20:15] LABS: Hematocrit 32 % (35-47); Hemoglobin 10.5 g/dl (12.0-16.0); Mean Corpuscular HGB Conc 33 g/dl (31-36); Mean Corpuscular Hemoglobin 33 pg (27-31); Mean Corpuscular Volume 99 fL (80-97); Mean Platelet Volume 10 um3 (7.4-10.4); Red Blood Count 3.17 10^6/ul (4.0-5.4); Red Cell Distribution Width 15 % (10.5-15); White Blood Count 10.5 10^3/ul (3.5-10.8)
[2016-07-28 20:18] LABS: Add Diff/Slide Review? Slide Review Added; Comments Flag Yes
[2016-07-28 20:27] LABS: BUN/Creatinine Ratio 17.6 (8-20); Calcium 9.2 mg/dL (8.6-10.3); EGFR African American 35.6 (>60); EGFR Non-African American 27.7 (>60); Globulin 4.3 g/dL (2-4); Potassium 3.2 mmol/L (3.5-5.0); Total Bilirubin 0.3 mg/dL (0.2-1.0); Total Protein 7.3 g/dL (6.4-8.9)
--- NOTE | 2016-07-28 20:29 | RAD ---
INDICATION: Chest pain COMPARISON: Multiple previous chest x-rays, most recently dated July 12, 2016. TECHNIQUE: Single AP portable view of the chest was obtained. FINDINGS: Image quality is compromised due to the relative inferiority of a portable chest x-ray. Unchanged from the previous radiograph is a ventriculoperitoneal shunt overlying the right hemithorax terminating in the right upper abdomen. The heart is mildly enlarged similar to the previous radiograph. The pulmonary vasculature appears to be indistinct and mildly engorged. The lungs are grossly clear. There is no evidence of a large pleural effusion. Visualized bones are normal for the patient's age. IMPRESSION: Chest x-ray findings are consistent with cardiogenic pulmonary edema similar in appearance to the most recent chest x-ray dated July 12, 2016.
[2016-07-28 20:30] LABS: Troponin I 0.02 ng/mL (<0.04)
[2016-07-28] MEDS ORDERED: Ondansetron INJ* 2 MG/ML VIAL IV PRN (22:09)
[2016-07-28] MEDS ORDERED: Acetaminophen TAB* 325 MG PO PRN (22:09)
[2016-07-28] MEDS ORDERED: NS 0.9% 1000 ML* 1,000 ML IV SCH (22:15)
[2016-07-28] MEDS ORDERED: Albuterol/Ipratropium NEB.SOL* Albuterol 2.5 MG/Ipratropium 0.5 MG 3 ML INH PRN (22:16)
[2016-07-28] MEDS ORDERED: diPHENhydraMINE PO* 25 MG PO PRN (22:16)
[2016-07-28] MEDS ORDERED: Senna/Docusate (NF) TAB PO PRN (22:16)
[2016-07-28] MEDS ORDERED: Senna TAB PO PRN (22:22)
[2016-07-28] MEDS ORDERED: Docusate CAP* 100 MG PO PRN (22:22)
[2016-07-28] MEDS ORDERED: Potassium Chloride LIQUID* 20 MEQ PACKET PO ONE (22:26)
[2016-07-28] MEDS ORDERED: Levofloxacin 500 MG IVPREMIX(* 500 MG/100 ML BAG IVPB SCH (23:00)
[2016-07-28] MEDS ORDERED: metroNIDAZOLE IV 500 MG/100ML* 500 MG/100 ML BAG IVPB SCH (23:00)
[2016-07-29] MEDS: Clindamycin 600 MG IVPREMIX(* 600 MG/50 ML SDV IV SCH ×2 (00:18→06:19)
[2016-07-29] MEDS: Lactobacillus Acidophilu (GG)* 1 CAP CAP PO SCH ×2 (00:22→10:12)
--- NOTE | 2016-07-29 01:51 | HP ---
HISTORY AND PHYSICAL: DATE OF ADMISSION: 07/28/16 PRIMARY CARE PROVIDER: FRANSISCO Tolliver ATTENDING PHYSICIAN WHILE IN THE HOSPITAL: Phan Ellis MD * (Report dictated by Kelby Walker NP) CHIEF COMPLAINT: Unresponsive. HISTORY OF PRESENT ILLNESS: I would like to preface this report by saying that the patient had a significant amount of underlying intellectual development delay. She is really unable to give much history. Most of the H and P was in discussion with the patient's aide who is there for the event. Ms. Armando is a 65-year-old female patient. She has significant intellectual delay. She has a history of seizures, GERD, osteoporosis, hypertension, CKD, glaucoma, history of bradycardia, malnutrition, and dysphagia. She comes in today. She was eating lunch and the aide does state that she was off her oxygen. The aide said that she was doing fine and at the beginning of lunch, she was at her baseline, she was acting her normal self, and the aide had stepped away to care to another issue and when she came back, the patient was on the ground. She had vomited and there were staff members surrounding her and they initiated CPR. By the time she got to the ER, she was back to her baseline. The aide said that to her knowledge, there has been no reports of nausea, vomiting, or diarrhea. No cough. There has been no obvious signs of tachypnea, shortness of breath, and no fevers. But there was concerns because she was unresponsive. They started CPR and the hospitalist service was asked to evaluate for admission. It was also noted that she appeared to be in a little bit of worsening emtuv-ly-wcqobrb kidney failure. In addition to this, the chest x- ray was concerning for possible worsening fluid on the left lung. The hospital service was asked to evaluate for admission. PAST MEDICAL HISTORY: She has had: 1. History of seizures. 2. GERD. 3. Osteoporosis. 4. Hypertension. 5. CKD. 6. Glaucoma. 7. Bradycardia. 8. Malnutrition. 9. Aphagia. 10. Intellectual developmental delay. PAST SURGICAL HISTORY: She has had a [employer] shunt. HOME MEDICATIONS: Include: 1. Depakote 125 mg p.o. b.i.d. 2. Alphagan 1 drop both eyes b.i.d. 3. Aspirin 81 mg daily. 4. DuoNeb 1 neb inhale every 4 hours as needed. 5. Tylenol 650 mg p.o. every 4 hours as needed. 6. Senna 1 tablet p.o. b.i.d. as needed. 7. Metamucil 1 pack p.o. b.i.d. 8. Multivitamin 1 tablet daily. 9. Latanoprost 1 drop right eye q.p.m. 10. Pepcid 20 mg daily. 11. Cosopt 1 drop both eyes b.i.d. 12. Benadryl 25 mg p.o. every 6 hours as needed. 13. Norvasc 5 mg daily. ALLERGIES TO MEDICATIONS: Include: 1. TEGRETOL. 2. DILANTIN. FAMILY HISTORY: Unable to be obtained. SOCIAL HISTORY: Unable to be obtained. REVIEW OF SYSTEMS: Unable to be obtained because of the patient's underlying intellectual developmental delay. PHYSICAL EXAMINATION GENERAL: At this time, Mrs. Armando is a 65-year-old female patient. She does not appear to be in any acute distress. She is sitting in the ER stretcher. VITAL SIGNS: Blood pressure 134/74, pulse 80, respirations 16, O2 sat 91% and her O2 sat now is 94%, and temperature is 96.6. HEENT: Head is atraumatic. Eyes: Sclerae is anicteric and not pale. NECK: Supple. Throat: Oral mucosa appears to be moist. No oropharyngeal erythema. LUNGS: She had crackles noted in the left upper lobe. She had equal diaphragmatic expansion. HEART: Sounds S1 and S2. Regular rate and rhythm. No murmurs, rubs, or gallops. ABDOMEN: Soft, flat, and nontender. Bowel sounds present. EXTREMITIES: She is contracted, but she is moving all 4 extremities grossly. Distal CSM checks are intact. Pulses are 2+ throughout. No peripheral edema. NEUROLOGIC: She is alert to herself only. She has no gross focal deficits. No fascial drooping. SKIN: Intact. DIAGNOSTIC STUDIES/LAB DATA: Labs today reveal WBC of 10.5, RBC of 3.17, hemoglobin 10.5, hematocrit 32, and platelet count 265. INR 1.30 and PTT of 30.4. Sodium 132, potassium 3.2, chloride 96, bicarb 28, BUN 32, creatinine 1.82 and baseline of 1.3, glucose 90, lactic 3.0, and calcium 9.2. Total bili 0.3, AST 30, ALT 19, and alkaline phos 111. CK of 21 and CK-MB 2.5. Troponin 0.02. BMP 48. Albumin 3.0. She had a chest x-ray obtained today and on my review, the patient does appear to have on the chest x-ray that appears to be possible fluid patchiness on the left upper lobe. Radiology read as chest x-ray findings consistent with cardiogenic pulmonary edema similar to appearance of most recent x-ray on July 12. Old medical records reviewed. ASSESSMENT AND PLAN: Ms. Armando is a 65-year-old female patient coming into the ER today with complaints of altered mental status, question of syncope. She will be admitted on observation status for: 1. Syncope: I suspect that probably what happened here is she was offered O2. She probably became hypoxic and may have fainted and then became unresponsive and CPR was initiated. I do think minimally though she should be placed on telemetry. I will repeat her troponin now. This will be a 3-hour troponin and we will go ahead and check orthostatics and she needs to be on the O2 at all times. 2. Question of pulmonary edema on chest x-ray: Again, she may have aspirated.I am going to put her on clindamycin. I have ordered a probiotic and we will continue with these antibiotics for at least a total of 10 days. I know she was just on antibiotics, but again she did vomit during this episode and she may have certainly aspirated causing today's chest x-rays findings. She is not hypoxic. We will continue to monitor her. 3. History of intellectual developmental delay: Continue supportive care. 4. Hypokalemia: Will go ahead and replace this. 5. Seizures: She will be on seizure precautions. 6. Gastroesophageal reflux disease: Continue PPI therapy. 7. Osteoporosis: Continue meds as prescribed. 8. Hypertension: Continue her amlodipine. 9. Chronic kidney disease, obobv-xi-dclkkbe renal failure: We are going to go head and check a FENa. In addition to this, we will go ahead and place her on normal saline at 75 per L. 10. Glaucoma: Continue meds as prescribed. 11. History of bradycardia: She will be on telemetry. Her heart rate is stable now. 12. Malnutrition and dysphagia: She can follow with her primary. Will continue with a regular diet and a honey-thickened diet and pureed diet. 13. DVT prophylaxis: She will be placed on heparin subcu. 14. Code status: She is a DNR. 15. Fluids, electrolytes, and nutrition: Again, we will go ahead and put her on a honey-thickened diet and pureed diet. TIME SPENT: Time spent on the admission was approximately 60 minutes; greater than half the time was spent [id number] with the patient obtaining my history and physical, the other half time is spent going over the plan of care with the patient and implementing plan of care. I discussed the plan of care with my attending, Dr. Ellis. He is in agreement. KELBY WALKER NP CC: Shelby Wilson, FRANSISCO * [id number]/[facility] #: [id number] MTDDileep
[2016-07-29 04:46] LABS: Hematocrit 28 % (35-47); Hemoglobin 9.7 g/dl (12.0-16.0); Mean Corpuscular HGB Conc 35 g/dl (31-36); Mean Corpuscular Hemoglobin 33 pg (27-31); Mean Corpuscular Volume 97 fL (80-97); Mean Platelet Volume 9 um3 (7.4-10.4); Red Blood Count 2.89 10^6/ul (4.0-5.4); Red Cell Distribution Width 15 % (10.5-15)
[2016-07-29 05:02] LABS: EGFR African American 43.5 (>60); EGFR Non-African American 33.9 (>60); Potassium 4.1 mmol/L (3.5-5.0)
[2016-07-29 05:04] LABS: Troponin I 0.01 ng/mL (<0.04)
[2016-07-29] MEDS ORDERED: Heparin VIAL(*) 5000 UNITS/ML VIAL (FIVE THOUSAND) SUBCUT SCH (06:00)
[2016-07-29] MEDS ORDERED: Famotidine TAB* 20 MG PO SCH (09:00)
[2016-07-29] MEDS ORDERED: Psyllium PAK PO SCH (09:00)
[2016-07-29] MEDS ORDERED: Multivitamins/Minerals TAB PO SCH (09:00)
[2016-07-29] MEDS ORDERED: Aspirin Low Dose CHEW TAB* 81 MG PO SCH (09:00)
[2016-07-29] MEDS ORDERED: Divalproex Sprinkle CAP* 125 MG PO SCH (09:00)
[2016-07-29] MEDS ORDERED: amLODIPine TAB* 5 MG PO SCH (09:00)
[2016-07-29] MEDS ORDERED: CMCS: Dorzolamide/Timolol OPTH (NF) 10 ML BOT BOTH EYES SCH (09:00)
[2016-07-29 12:59] VITALS: BP 93/51
--- NOTE | 2016-07-29 13:07 | PN ---
Subjective Date of Service: 07/29/16 Interval History: Patient seen and examined at bedside. Per Sandra and Tobi, [facility] staff members, patient is at her baseline. Nursing reports she ate her breakfast without difficulty. No increased oxygen needs. I spoke with Margo at the [facility], who feels that the patient did not have a syncopal episode, but rather she had a choking episode. She reports that she is ready to receive the patient back today. I also reported that we have not yet obtained a UA due to patient incontinence but reported that there is little suspicion for UTI; she agrees. Case also reviewed with Dr. Charles. Family History: Unchanged from Admission Social History: Unchanged from Admission Past Medical History: Unchanged from Admission Objective Active Medications: Acetaminophen (Tylenol Tab*) 650 mg PO Q4H PRN PRN Reason: FEVER/PAIN Albuterol/Ipratropium (Duoneb Neb.Erendira*) 1 neb INH Q4H PRN PRN Reason: SOB/WHEEZING Amlodipine Besylate (Norvasc Tab*) 5 mg PO DAILY [facility] Last Admin: 07/29/16 10:13 Dose: 5 mg Aspirin (Aspirin Low Dose Tab*) 81 mg PO DAILY [facility] Last Admin: 07/29/16 10:13 Dose: 81 mg Brimonidine Tartrate (Alphagan 0.2%) 1 drop BOTH EYES BID [facility] Last Admin: 07/29/16 10:14 Dose: 1 drop Diphenhydramine HCl (Benadryl Po*) 25 mg PO Q6H PRN PRN Reason: ITCHING Divalproex Sodium (Depakote Sprinkle Cap*) 125 mg PO BID [facility] Last Admin: 07/29/16 10:13 Dose: 125 mg Docusate Sodium (Colace Cap*) 100 mg PO BID PRN PRN Reason: CONSTIPATION Dorzolamide/Timolol (Cosopt (Nf)) 1 drop BOTH EYES BID [facility] PRN Reason: Protocol Last Admin: 07/29/16 10:14 Dose: 1 drop Famotidine (Pepcid Tab*) 20 mg PO QAM [facility] Last Admin: 07/29/16 10:13 Dose: 20 mg Heparin Sodium (Porcine) (Heparin Vial(*)) 5,000 units SUBCUT Q8HR [facility] Last Admin: 07/29/16 06:16 Dose: 5,000 units Sodium Chloride (Ns 0.9% 1000 Ml*) 1,000 mls @ 100 mls/hr IV PER RATE [facility] Last Admin: 07/28/16 23:40 Dose: 100 mls/hr Clindamycin HCl/Dextrose (Cleocin 600 Mg Ivpremix(*) Sdv) 600 mg in 50 mls @ 100 mls/hr IV Q8H [facility] Last Admin: 07/29/16 06:19 Dose: 100 mls/hr Lactobacillus Rhamnosus (Culturelle*) 1 cap PO BID [facility] Last Admin: 07/29/16 10:12 Dose: 1 cap Latanoprost (Xalatan 0.005%*) 1 drop RIGHT EYE QPM [facility] Multivitamins/Minerals (Theragran/Minerals Tab*) 1 tab PO DAILY [facility] Last Admin: 07/29/16 10:13 Dose: 1 tab Ondansetron HCl (Zofran Inj*) 4 mg IV Q6H PRN PRN Reason: NAUSEA Psyllium Hydrophilic Mucilloid (Metamucil Kailash*) 1 pkt PO BID [facility] Last Admin: 07/29/16 10:11 Dose: 1 pkt Senna (Senokot Tab*) 1 tab PO BID PRN PRN Reason: CONSTIPATION Vital Signs 07/28/16 07/28/16 07/29/16 22:30 23:49 04:27 Temperature 97.4 F 98.2 F Pulse Rate 79 81 85 Respiratory 20 16 Rate Blood Pressure 126/90 149/56 131/71 (mmHg) O2 Sat by Pulse 100 100 100 Oximetry 07/29/16 07/29/16 07/29/16 04:38 07:49 07:52 Temperature 98.1 F Pulse Rate 82 80 Respiratory 16 Rate Blood Pressure 116/64 (mmHg) O2 Sat by Pulse 97 97 Oximetry 07/29/16 07/29/16 09:10 12:03 Temperature 98.4 F Pulse Rate 76 Respiratory 16 Rate Blood Pressure 93/51 (mmHg) O2 Sat by Pulse 98 98 Oximetry Oxygen Devices in Use Now: None - 97%RA Appearance: Lying in bed, intermittently sleeping, in NAD Ears/Nose/Mouth/Throat: Mucous Membranes Moist Neck: NL Appearance and Movements; NL JVP, Trachea Midline Respiratory: Symmetrical Chest Expansion and Respiratory Effort, Clear to Auscultation - scattered rhonchi throughout, coarse breath sounds Cardiovascular: NL Sounds; No Murmurs; No JVD, RRR Abdominal: NL Sounds; No Tenderness; No Distention Extremities: No Edema Neurological: - - Alert, oriented x 0 Lines/Tubes/Other Access: Clean, Dry and Intact Peripheral IV Nutrition: Taking PO's Result Diagrams: 07/29/16 04:31 07/29/16 04:32 Microbiology and Other Data: Microbiology 07/28/16 22:50 Nasal Screen MRSA (PCR)(PIEDAD) - Final Nasal Mrsa Negative Assess/Plan/Problems-Billing Assessment: Ms. Armando is a 65 yo female with a PMH of mental retardation who was admitted on 07/28/16 after what appears to be a choking/aspiration episode. - Patient Problems (1) Choking episode Code(s): R09.89 - OTH SYMPTOMS AND SIGNS INVOLVING THE CIRC AND RESP SYSTEMS Comment: - Questionable aspiration at mealtime - pt has been afebrile, no leukocytosis or hypoxia, 97% RA - Unclear picture of the precipitating event - it appears the patient may have choked, and CPR was performed, even though she is DNR and apparently had a pulse. - Obtain speech eval prior to discharge - Discussed the patient with Margo at [facility] [place], who witnessed the event. She feels the patient choked, given that the patient responded positively once she cleared her airway and received O2. She is ready to receive the patient. - Discussed plan with Margo to send home Augmentin prescription in the event that patient shows s/s of developing pneumonia; she will start Rx if patient becomes symptomatic. (2) Acute kidney failure Comment: - Acute on chronic - Suspect pre-renal causes, unable to calculate FENa at this time - Avoid nephrotoxic medications - Renally dose medications (3) CKD (chronic kidney disease) Code(s): N18.9 - CHRONIC KIDNEY DISEASE, UNSPECIFIED Comment: - With acute kidney injury, now improving. - History of Stage 2 CKD (4) Seizure disorder Code(s): G40.909 - EPILEPSY, UNSP, NOT INTRACTABLE, WITHOUT STATUS EPILEPTICUS Comment: - Stable, continue Depakote sprinkles. - Seizure precautions (5) HTN (hypertension) Code(s): I10 - ESSENTIAL (PRIMARY) HYPERTENSION Comment: - Normotensive. Continue amlodipine. (6) DVT prophylaxis Code(s): HKQ4249 - Comment: - SQ heparin (7) DNR (do not resuscitate) Status and Disposition: OBV admit. D/c to home.
[2016-07-29] MEDS ORDERED: Latanoprost 0.005%* 2.5 ml BTL RIGHT EYE SCH (18:00)
--- NOTE | 2016-07-30 01:37 | DS ---
MEDICINE DISCHARGE SUMMARY: DATE OF ADMISSION: 07/28/16 DATE OF DISCHARGE: 07/29/16 PRIMARY CARE PHYSICIAN: Shelby Wilson NP PROVIDER: Júnior Amaya NP ATTENDING PHYSICIAN: Dr. Danika Erickson*(as dictated by Júnior Amaya NP). PRIMARY DISCHARGE DIAGNOSES: 1. Aspiration. 2. Question aspiration pneumonia. SECONDARY DISCHARGE DIAGNOSES: 1. History of seizures. 2. Gastroesophageal reflux disease. 3. Osteoporosis. 4. Hypertension. 5. Chronic kidney disease. 6. Glaucoma. 7. Bradycardia. 8. Malnutrition. 9. Aphagia. 10. Intellectual development delay. 11. History of WAX BLENDER shunt. MEDICATIONS AT DISCHARGE: 1. Depakote Sprinkle 125 mg b.i.d. 2. Alphagan eyedrops 1 drop both eyes b.i.d. 3. Aspirin 81 mg daily. 4. DuoNeb 1 nebulizer q.4 hours p.r.n. 5. Tylenol 650 mg q.4 hours p.r.n. 6. Senna-S 1 tab b.i.d. p.r.n. 7. Psyllium 1 packet b.i.d. 8. Multivitamin 1 tab daily. 9. Latanoprost 0.005% one drop right eye q.p.m. 10. Famotidine 20 mg q.a.m. 11. Cosopt eyedrops 1 drop both eyes b.i.d. 12. Benadryl 25 mg q.6 hours p.r.n. 13. Amlodipine 5 mg daily. 14. Augmentin 500 mg b.i.d. This is a new medication. I did discuss this medication with Margo at the [facility], who will hold off on utilizing when the patient shows signs and symptoms of pneumonia. DIAGNOSTIC TESTING DURING PATIENT'S STAY: Chest x-ray. Impression: Chest x- ray findings are consistent with cardiogenic pulmonary edema similar in appearance to the most recent chest x-ray dated 07/12/16. HOSPITAL COURSE OF STAY: For full details, please refer to the H and P provided by Kelby Walker. In summary, Ms. Armando is a 65-year-old female with a past medical history as stated above, who presented to the ED for evaluation of an unresponsive episode at the [facility]. Per the H and P, it was reported that the patient was eating lunch and her aide had stepped away to care for another patient or attend to an issue and when she came back, the patient was on the ground. It was noted that the patient had vomited and apparently the staff had initiated CPR, although the [facility] staff told her that the patient did have a pulse during this whole time. It also appears that the patient had hypoxic episode at time, but then rebounded and returned to her baseline by the time she got to the ER. The patient was initially admitted for what was thought to be syncope; however, in discussion with Margo at the [facility], it appears that the patient may have had a hypoxic episode secondary to choking, which is what she feels may have happened as she was there yesterday. It does not appear to have been a syncopal episode. The patient did respond when her airway was attended to and she was able to receive oxygen. In any case, the patient had no fevers while she was here. No further episodes of syncope. Her telemetry shows sinus rhythm in the 70s and 80s with no arrhythmias. We were unable to obtain full orthostatic vital signs as the patient does not stand; however, with position changes, there was no significant change to her blood pressure or heart rate. The patient was able to tolerate breakfast here in the hospital with supervision; however, given the concern expressed by the [facility] staff that she may have aspirated again, I did order a speech evaluation in order to ensure that the patient is safe with her current dietary recommendations and it was recommended that the patient maintain her current baseline diet of pureed, solids, and honey- thickened liquids. No new concerns were expressed. The patient was recently here earlier this month and in late June for pneumonia and this was a consistent finding with her previous admission. A barium swallow was done during her previous admission back on July 14, which showed no aspiration or penetration. In regards to the cardiogenic pulmonary edema seen on the x-ray, this is unchanged from the previous x-ray or looks to be roughly unchanged by my own review. Additionally, the patient does not have an elevated BNP, does not have increased oxygen needs, and shows no increased work of breathing. Her blood pressures are relatively soft and I am hesitant to start her on diuretics at this time. Additionally, there is no major change to her respiratory function. She recently had an echocardiogram following the previous x-ray that showed this pulmonary edema and appearance from her echocardiogram from July 13 that the patient has normal systolic function with an EF of 60% to 65%. The echo also showed mild pulmonary hypertension, mild tricuspid regurgitation, and [id number] aortic regurgitation and mitral regurgitation. Again, the patient is at her baseline, is tolerating pureed and honey-thickened solids and liquids respectively. The patient has been afebrile and shows no signs of leukocytosis. I did review the signs and symptoms of fever, cough, increased work of breathing, increased respiratory rate, tachycardia, changes in mental status, lethargy with the [facility] staff in the event that the patient does start to develop a pneumonia following this most recent choking event. They were able to verbalize understanding of this. This was also written down for discharge instructions in the event that she starts to show signs and symptoms of pneumonia, they have been instructed to fill her Augmentin prescription and to start that medication as soon as possible and follow up with the patient's PCP. Her Augmentin has been renally dosed as her creatinine clearance was 23 when calculated with a Cockroft-Gault formula. Again, the patient's case was reviewed with Margo, who is one of the workers at the [facility] in charge of her care as well as with Dr. Mica Charles and they were both in agreement with the current plan. CONCERNS AT DISCHARGE: The patient will be discharged to the [facility] on 07/29/16 with the plan to follow up with her PCP within the next 7 to 10 days. DIET: Continue regular diet with pureed, solids, and honey-thickened liquids. ACTIVITY: As tolerated. CONDITION: Stable. DISPOSITION: To home. TIME SPENT: Time spent on this discharge was approximately 45 minutes. Again, this is only a brief summary of the patient's hospital course of stay. For full details, please refer to the full H and P and medical record. If you have any further questions, please feel free to contact me at [phone]. JÚNIOR AMAYA NP CC: Shelby Wilson NP; Dr. Mica Charles, [employer] Consultant of the [facility] * [id number]/[facility] #: [id number] RYLIE
== END 2016-07-29 15:15 ==
LOC: ED 17:50 → MEDTELE 22:06
PROVIDERS: ADMIT Internal Medicine; ATTEND Internal Medicine
DX: T17.920A Food in respiratory tract, part unspecified causing asphyxiation, initial encounter (principal); X58.XXXA Exposure to other specified factors, initial encounter; Y92.129 Unspecified place in nursing home as the place of occurrence of the external cause; F81.9 Developmental disorder of scholastic skills, unspecified; E87.6 Hypokalemia; N17.9 Acute kidney failure, unspecified; G40.909 Epilepsy, unspecified, not intractable, without status epilepticus; K21.9 Gastro-esophageal reflux disease without esophagitis; I12.9 Hypertensive chronic kidney disease with stage 1 through stage 4 chronic kidney disease, or unspecified chronic kidney disease; N18.9 Chronic kidney disease, unspecified; R13.10 Dysphagia, unspecified; M81.0 Age-related osteoporosis without current pathological fracture; E46 Unspecified protein-calorie malnutrition; R13.0 Aphagia; Z79.82 Long term (current) use of aspirin; Z79.899 Other long term (current) drug therapy; Z88.8 Allergy status to other drugs, medicaments and biological substances; J81.1 Chronic pulmonary edema
CPT/HCPCS: 36415; 71010; 80048; 80053; 82550; 82553; 83605; 83874; 83880; 84484; 85025; 85610; 85730; 87040; 87641; 94760; 96361; 96372; 96374; 99283; A9270-GY; G0378; G8996-GN-CL; G8997-GN-CL; G8998-GN-CL; J1644

== ENCOUNTER 2016-08-26 14:10 | Inpatient (IN) | payer MEDICARE, MEDICAID ==
[2016-08-26] MEDS ORDERED: NS 0.9% 1000 ML* 1,000 ML IV SCH ×2 (15:45→18:00)
[2016-08-26 16:08] LABS: Hematocrit 34 % (35-47); Hemoglobin 11.6 g/dl (12.0-16.0); Mean Corpuscular HGB Conc 34 g/dl (31-36); Mean Corpuscular Hemoglobin 34 pg (27-31); Mean Corpuscular Volume 98 fL (80-97); Mean Platelet Volume 10 um3 (7.4-10.4); Red Blood Count 3.46 10^6/ul (4.0-5.4); Red Cell Distribution Width 16 % (10.5-15); White Blood Count 10.4 10^3/ul (3.5-10.8)
[2016-08-26 16:12] LABS: Comments Flag Yes
[2016-08-26 16:26] LABS: Ammonia 46 mol/L (16-53)
--- NOTE | 2016-08-26 16:26 | RAD ---
INDICATION: Altered mental status COMPARISON: July 28, 2016 TECHNIQUE: An AP portable view obtained at 1600 hours is submitted. FINDINGS: Bones/Soft Tissues: There are no acute bony findings. Cardiomediastinal: The cardiomediastinal silhouette is normal. Lungs: There is mild interstitial prominence perhaps related to interstitial edema. There is mild interval improvement. There is more focal interstitial change in the left lung base. Left basilar infiltrate is not excluded. Pleura: There are no pleural effusions. There is resolution of pleural fluid in the minor fissure on the right. Other: None IMPRESSION: SUSPECT MILD INTERSTITIAL EDEMA WITH INTERVAL IMPROVEMENT
[2016-08-26 16:28] LABS: Albumin 3.3 g/dL (3.2-5.2); BUN/Creatinine Ratio 18.4 (8-20); C Reactive Protein 72.99 mg/L (< 5.00); EGFR African American 25.4 (>60); EGFR Non-African American 19.8 (>60); Globulin 4.6 g/dL (2-4); Potassium 3.8 mmol/L (3.5-5.0); Total Bilirubin 0.3 mg/dL (0.2-1.0); Total Protein 7.9 g/dL (6.4-8.9)
[2016-08-26 16:31] LABS: B Type Natriuretic Peptide 84 pg/mL
[2016-08-26 16:59] LABS: TSH (Thyroid Stimulating Horm) 3.63 mcIU/mL (0.34-5.60)
[2016-08-26] MEDS ORDERED: Senna TAB PO PRN (17:52)
[2016-08-26] MEDS ORDERED: Albuterol HFA INHALER* 8 gm MDI INH PRN (17:52)
--- NOTE | 2016-08-26 17:56 | ED ---
Monet Rand Janilya, scribed for Leon Littlejohn MD on 08/26/16 at 1527 . Altered Mental Status - HPI Summary HPI Summary: A 65 y/o female was brought to [facility] by her caregiver c/o a "slow decline" for the past couple months. Normally, the pt used to be more active. She used to ambulate a few months ago, but recently, she has been spending more time sitting. Pt's caregiver states that also in the past couple days, pt has gotten progressively unresponsive to stimuli. In addition, the caregiver reports lack of appetite and low temperature of 95 F. A few days ago, pt has tried to induce regurgitation with no success. PMHx pneumonia, AMS - History Of Current Complaint Chief Complaint: EDAltMentalStatus Stated Complaint: BRUISING ON LT SIDE/LOW TEMP Time Seen by Provider: 08/26/16 15:21 Hx Obtained From: Family/Electrical Maintenance Supervisor Hx From Patient Unobtainable Due To: Altered Mental Status Timing: Constant, Lasting Weeks Severity Initially: Moderate Severity Currently: Moderate Aggravating Factor(s): Nothing Alleviating Factor(s): Nothing Associated Signs And Symptoms: Positive: Weakness - Risk Factors Cardiac Risk Factors: Negative CVA Risk Factor: Negative - Allergies/Home Medications Allergies/Adverse Reactions: Allergies Allergy/AdvReac Type Severity Reaction Status Date / Time Carbamazepine [From Tegretol] Allergy Unknown Verified 08/26/16 14:14 Reaction Details Phenytoin [From Dilantin] Allergy Unknown Verified 08/26/16 14:14 Reaction Details Home Medications: Home Medications Albuterol HFA INHALER* [Ventolin HFA Inhaler*] 1 puff INH Q6H PRN 08/26/16 [ History Confirmed 08/26/16] Nystatin TOP POWDER* 1 applic TOPICAL BID 08/26/16 [History Confirmed 08/26/16] PMH/Surg Hx/FS Hx/Imm Hx Cardiovascular History: Reports: Hx Hypertension, Other Cardiovascular Problems/ Disorders - ORDER PROCESSING CLERK 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 Respiratory History: Reports: Hx Pneumonia GI History: Reports: Hx Gastroesophageal Reflux Disease History: Reports: Hx Chronic Renal Failure - stage 3 Comment Only: Other Problems/Disorders - hx bilateral hydronephrosis Musculoskeletal History: Reports: Hx Osteoporosis, Other Musculoskeletal History - Contracted Sensory History: Reports: Hx Cataracts, Hx Glaucoma, Hx Vision Problem Opthamlomology History: Reports: Hx Cataracts, Hx Glaucoma, Hx Vision Problem Neurological History: Reports: Hx Developmental Delay, Hx Seizures, Other Neuro Impairments/Disorders - Parkinson's Disease Denies: Hx Dementia, Hx Headaches, Hx Migraine, Hx Nerve Disease, Hx Spinal Cord Injury, Hx Transient Ischemic Attacks (TIA) Psychiatric History: Reports: Hx Anxiety, Hx Post Traumatic Stress Disorder, Other Psychiatric Issues/Disorders - developmental delay - Surgical History Surgery Procedure, Year, and Place: ORDER PROCESSING CLERK SHUNT - Immunization History Date of Tetanus Vaccine: Up to Date Infectious Disease History: No Infectious Disease History: Reports: Hx of Known/Suspected MRSA Denies: Hx Clostridium Difficile, Hx Hepatitis, Hx Human Immunodeficiency Virus (HIV), Hx Shingles, Hx Tuberculosis, Hx Known/Suspected VRE, Hx Known/ Suspected VRSA, History Other Infectious Disease, Traveled Outside the [place] in Last 30 Days - Family History Known Family History: Positive: Unknown - The patient is a poor historian. Negative: Diabetes - Social History Alcohol Use: None Substance Use Type: Reports: None Smoking Status (MU): Never Smoked Tobacco Review of Systems Constitutional: Other - lack of appetite Negative: Fever - low temperature Positive: Decreased ROM Positive: Weakness All Other Systems Reviewed And Are Negative: Yes Physical Exam Triage Information Reviewed: Yes Vital Signs On Initial Exam: Initial Vitals Temp Pulse Resp BP Pulse Ox 95.0 F 51 18 121/60 99 08/26/16 14:14 08/26/16 14:14 08/26/16 14:14 08/26/16 14:14 08/26/16 14:14 Vital Signs Reviewed: Yes Appearance: Positive: Well-Appearing, No Pain Distress Skin: Positive: Warm, Skin Color Reflects Adequate Perfusion, Dry Head/Face: Positive: Normal Head/Face Inspection, Other - mucous membranes dry Eyes: Positive: EOMI, DEYA ENT: Positive: Normal ENT inspection Neck: Positive: Supple, Nontender Respiratory/Lung Sounds: Positive: Breath Sounds Present, Rhonchi - bilaterally Cardiovascular: Positive: RRR Abdomen Description: Positive: Nontender, Soft Bowel Sounds: Positive: Present Musculoskeletal: Positive: Normal, Strength/ROM Intact Neurological: Positive: Normal, Sensory/Motor Intact, Alert, Oriented to Person Place, Time Psychiatric: Positive: Other - Non-verbal, non-responsive to voice - [place] Coma Scale Coma Scale Total: 10 Diagnostics - Vital Signs Vital Signs Temp Pulse Resp BP Pulse Ox 08/26/16 14:14 95.0 F 51 18 121/60 99 - Laboratory Lab Results: Lab Results 08/26/16 08/26/16 08/26/16 Range/Units 15:56 15:56 15:56 WBC 10.4 (3.5-10.8) 10^3/ul RBC 3.46 L (4.0-5.4) 10^6/ul Hgb 11.6 L (12.0-16.0) g/dl Hct 34 L (35-47) % MCV 98 H (80-97) fL MCH 34 H (27-31) pg MCHC 34 (31-36) g/dl RDW 16 H (10.5-15) % Plt Count 43 L (150-450) 10^3/ul MPV 10 (7.4-10.4) um3 Neut % (Auto) 86.2 H (38-83) % Lymph % (Auto) 7.9 L (25-47) % [place] % (Auto) 3.8 (1-9) % Eos % (Auto) 1.6 (0-6) % Baso % (Auto) 0.5 (0-2) % Absolute Neuts (auto) 8.9 H (1.5-7.7) 10^3/ul Absolute Lymphs (auto) 0.8 L (1.0-4.8) 10^3/ul Absolute Monos (auto) 0.4 (0-0.8) 10^3/ul Absolute Eos (auto) 0.2 (0-0.6) 10^3/ul Absolute Basos (auto) 0.1 (0-0.2) 10^3/ul Absolute Nucleated RBC 0.02 10^3/ul Nucleated RBC % 0.2 INR (Anticoag Therapy) 1.02 (0.89-1.11) APTT 40.8 H (26.0-36.3) seconds Fibrinogen Pending D-Dimer, Quantitative Pending Sodium 130 L (133-145) mmol/L Potassium 3.8 (3.5-5.0) mmol/L Chloride 97 L (101-111) mmol/L Carbon Dioxide 24 (22-32) mmol/L Anion Gap 9 (2-11) mmol/L BUN 45 H (6-24) mg/dL Creatinine 2.44 H (0.51-0.95) mg/dL Est GFR ( Amer) 25.4 (>60) Est GFR (Non-Af Amer) 19.8 (>60) BUN/Creatinine Ratio 18.4 (8-20) Glucose 101 H (70-100) mg/dL Lactic Acid (0.5-2.0) mmol/L Calcium 10.0 (8.6-10.3) mg/dL Total Bilirubin 0.30 (0.2-1.0) mg/dL AST 12 L (13-39) U/L ALT 12 (7-52) U/L Alkaline Phosphatase 122 H (34-104) U/L Ammonia (16-53) mol/L Total Creatine Kinase 19 (10-223) U/L CK-MB (CK-2) 7.1 H (0.6-6.3) ng/mL Troponin I 0.00 (<0.04) ng/mL C-Reactive Protein 72.99 H (< 5.00) mg/L B-Natriuretic Peptide ( - 100) pg/mL Total Protein 7.9 (6.4-8.9) g/dL Albumin 3.3 (3.2-5.2) g/dL Globulin 4.6 H (2-4) g/dL Albumin/Globulin Ratio 0.7 L (1-3) Lipase 24 (11.0-82.0) U/L TSH 3.63 (0.34-5.60) mcIU/mL 08/26/16 08/26/16 Range/Units 15:56 15:56 WBC (3.5-10.8) 10^3/ul RBC (4.0-5.4) 10^6/ul Hgb (12.0-16.0) g/dl Hct (35-47) % MCV (80-97) fL MCH (27-31) pg MCHC (31-36) g/dl RDW (10.5-15) % Plt Count (150-450) 10^3/ul MPV (7.4-10.4) um3 Neut % (Auto) (38-83) % Lymph % (Auto) (25-47) % [place] % (Auto) (1-9) % Eos % (Auto) (0-6) % Baso % (Auto) (0-2) % Absolute Neuts (auto) (1.5-7.7) 10^3/ul Absolute Lymphs (auto) (1.0-4.8) 10^3/ul Absolute Monos (auto) (0-0.8) 10^3/ul Absolute Eos (auto) (0-0.6) 10^3/ul Absolute Basos (auto) (0-0.2) 10^3/ul Absolute Nucleated RBC 10^3/ul Nucleated RBC % INR (Anticoag Therapy) (0.89-1.11) APTT (26.0-36.3) seconds Fibrinogen D-Dimer, Quantitative Sodium (133-145) mmol/L Potassium (3.5-5.0) mmol/L Chloride (101-111) mmol/L Carbon Dioxide (22-32) mmol/L Anion Gap (2-11) mmol/L BUN (6-24) mg/dL Creatinine (0.51-0.95) mg/dL Est GFR ( Amer) (>60) Est GFR (Non-Af Amer) (>60) BUN/Creatinine Ratio (8-20) Glucose (70-100) mg/dL Lactic Acid 1.8 (0.5-2.0) mmol/L Calcium (8.6-10.3) mg/dL Total Bilirubin (0.2-1.0) mg/dL AST (13-39) U/L ALT (7-52) U/L Alkaline Phosphatase (34-104) U/L Ammonia 46 (16-53) mol/L Total Creatine Kinase (10-223) U/L CK-MB (CK-2) (0.6-6.3) ng/mL Troponin I (<0.04) ng/mL C-Reactive Protein (< 5.00) mg/L B-Natriuretic Peptide 84 ( - 100) pg/mL Total Protein (6.4-8.9) g/dL Albumin (3.2-5.2) g/dL Globulin (2-4) g/dL Albumin/Globulin Ratio (1-3) Lipase (11.0-82.0) U/L TSH (0.34-5.60) mcIU/mL Result Diagrams: 08/26/16 15:56 08/26/16 15:56 Lab Statement: Any lab studies that have been ordered have been reviewed, and results considered in the medical decision making process. - Radiology CXR Xray Interpretation: Positive (See Comments) - IMPRESSION: SUSPECT MILD INTERSTITIAL EDEMA WITH INTERVAL IMPROVEMENT Radiology Interpretation Completed By: Radiologist - EKG 1431 Cardiac Rate: Bradycardia - 55 bpm EKG Rhythm: Sinus Bradycardia Ectopy: None Altered Mental Statu Course/Dx - Course Assessment/Plan: ADMIT HOSPITALIST STABLE. - Diagnoses Discharge Diagnoses: Altered mental state, Dehydration - Provider Notifications Discussed Care Of Patient With: Dr. Oliva (hospitalist) at 1706: agrees to evaluate pt for admission. Discharge - Discharge Plan Condition: Stable Disposition: ADMITTED TO [facility] Referrals: Shelby Babcock NP [Primary Care Provider] - The documentation as recorded by the Monet lyles Janilya accurately reflects the service I personally performed and the decisions made by me, Leon Littlejohn MD.
[2016-08-26 18:25] LABS: Urine Bacteria 1+ (Absent); Urine Bilirubin Negative (Negative); Urine Glucose Negative (Negative); Urine Nitrite Positive (Negative)
[2016-08-26] MEDS ORDERED: Docusate CAP* 100 MG PO PRN (18:27)
[2016-08-26 18:29] LABS: Fibrinogen 538 mg/dL (110.8-404.3)
[2016-08-26] MEDS: Latanoprost 0.005%* 2.5 ml BTL RIGHT EYE SCH (19:46)
[2016-08-26] MEDS: cefTRIAXone VIAL(*) 1,000 MG in NS 0.9% 50 ML* 50 ML IVPB SCH (19:46)
[2016-08-26] MEDS: metroNIDAZOLE IV 500 MG/100ML* 500 MG/100 ML BAG IVPB SCH (20:18)
[2016-08-26] MEDS: Divalproex Sprinkle CAP* 125 MG PO SCH (21:10)
[2016-08-26] MEDS: Nystatin TOP POWDER* 15 GM BTL TOPICAL SCH (21:10)
[2016-08-26] MEDS: Psyllium PAK PO SCH (21:11)
[2016-08-27] MEDS ORDERED: NS 0.9% 1000 ML* 1,000 ML IV ONE (00:15)
[2016-08-27] MEDS: NS 0.9% 1000 ML* 1,000 ML IV SCH ×2 (01:00→11:56)
[2016-08-27] MEDS: metroNIDAZOLE IV 500 MG/100ML* 500 MG/100 ML BAG IVPB SCH ×3 (03:38→19:44)
--- NOTE | 2016-08-27 04:07 | HP ---
HISTORY AND PHYSICAL: DATE OF ADMISSION: 08/26/16 PRIMARY CARE PROVIDER: Shelby Wilson NP. CHIEF COMPLAINT: Easy bruisability and generalized weakness. HISTORY OF PRESENT ILLNESS: Darby Armando is a 65-year-old female with a history of seizures and mental retardation who is a [facility] resident for most of her life and who was brought in to the hospital after the staff noted that she had multiple bruises on her back and her extremities that have been developing over the past couple of days. The patient also was noted to be less interactive and eating less. The patient was noted to have thrombocytopenia, which is a progression of thrombocytopenia that was noted on lab work on 08/21/16. The patient also has acute renal failure, most likely due to dehydration. She is going to be admitted to the medical floor. PAST MEDICAL HISTORY: 1. Mental retardation. 2. Seizure disorder. 3. Gastroesophageal reflux disease. 4. Osteoporosis. 5. History of [employer] shunt. 6. Hypertension. 7. Chronic kidney disease, stage III, with creatinine of 1.5 to 1.7 at baseline. 8. History of glaucoma in the right eye. 9. History of dysphagia. The patient is on modified diet of nectar-thick liquids and pureed solids. 10. History of bradycardia. 11. History of malnutrition. MEDICATIONS: Include: 1. Nystatin topical powder b.i.d. p.r.n. 2. Senna-S one tablet b.i.d. p.r.n. 3. Cosopt eye drops one drop to both eyes b.i.d. 4. Depakote sprinkles 125 mg b.i.d. 5. Alphagan eye drops 0.2%, one drop to both eyes b.i.d. 6. Albuterol inhaler one puff every 6 hours p.r.n. 7. Benadryl 25 mg every 6 hours p.r.n. 8. Metamucil pack, one packet b.i.d. 9. Multivitamin one tablet daily. 10. Xalatan eye drops 0.005%, one drop right eye q.p.m. 11. Pepcid 20 mg p.o. daily. 12. Aspirin 81 mg daily. 13. Amlodipine 5 mg daily. ALLERGIES: Include CARBAMAZEPINE and PHENYTOIN. FAMILY HISTORY: Unobtainable from this nonverbal patient. SOCIAL HISTORY: The patient is a [facility] resident. She has a history of mental retardation. As per camper assembler who is present in the patient's room, the patient apparently walked in the past, but she has not walked for at least several months now and she is wheelchair dependent. Her surrogate is her brother, Jos Armando. REVIEW OF SYSTEMS: Please see history of present illness. Otherwise unobtainable from the patient who is nonverbal. PHYSICAL EXAMINATION GENERAL: The patient is a 65-year-old female who is alert and awake. The patient is nonverbal. She cannot follow commands. VITAL SIGNS: Blood pressure of 150/98, heart rate of 59 and regular, respiratory rate 17, oxygen saturation 92% on room air, and temperature 95. HEENT: The right cornea is cloudy with poorly visualized pupil. The left pupil is round, reactive to light. Oropharynx clear. Mucosa moist. NECK: Supple. No JVD. No bruit bilaterally. RESPIRATORY: Scant rhonchi in bilateral upper lobe on auscultation. Otherwise clear. CARDIOVASCULAR: Regular rate and rhythm. No murmur. ABDOMEN: Slightly distended, tympanic to percussion. Soft, non-tender. Bowel sounds are present in all 4 quadrants. EXTREMITIES: There is no edema. +2 pulses bilaterally. No clubbing or cyanosis. NEUROLOGIC: The patient is nonverbal. She does not appear to have any focal neurological deficits. She moves all her extremities spontaneously. The face is symmetrical. SKIN: On evaluation of the skin, the patient has multiple ecchymotic areas that appear to be 1- to 2-days old. They are in the posterior right chest as well as scattered ecchymotic areas throughout her bilateral upper and lower extremities. There is no ecchymosis or petechiae noted on evaluation of the oropharynx. LABORATORY DATA AND STUDIES PERFORMED: Today shows lactic acid of 1.8, sodium 130, potassium 2.8, chloride 97, carbon dioxide 24, BUN 45, creatinine 2.44. Liver function tests were unremarkable apart from slight elevation of alkaline phosphatase at 122. C-reactive protein was 72. Troponin zero. TSH 3.6. CBC: White blood cell count 10.4, hemoglobin 11.6, hematocrit 34, and platelets 43. They appeared to have been lower on 08/21/16 at 82. Prior to that, the patient did not have thrombocytopenia in the recent past. The patient's coagulation studies showed fibrinogen level high at 538. D-dimer is pending at the time of dictation. PTT 40, INR 1.02. Portable chest x-ray was read by the radiologist as "suspect mild interstitial edema with interval improvement." EKG read by myself showed sinus bradycardia with a heart rate of less than 60 beats per minute and baseline motion artifact. There were no ischemic changes noted. ASSESSMENT AND PLAN: Darby Armando is a 65-year-old female with a history of chronic dysphagia, mental retardation, recurrent aspirations, status post [employer] shunt, and seizures who presents with poor appetite, decreased responsiveness, and easy bruisability. 1. The patient's easy bruisability is most likely due to thrombocytopenia. The patient was hospitalized twice in July 2016 and it may be HIT related. Her prolonged PTT was initially suggestive or made DIC possibility on differential, but subsequent fibrinogen level that was elevated most likely rules it out. At this point, antiplatelet antibodies were sent out from the lab. The patient is not going to be placed on heparin or heparin-related products. At this point, no obvious bleeding was noted. 2.In regards to the patient's history of recurrent aspiration; at this point, the patient does not appear to have an infiltrate, but she is hypothermic and thrombocytopenia which could be due to sepsis. At this point, blood cultures were obtained. Urinalysis is still pending. I will place her empirically on ceftriaxone and Flagyl. I will also place her on a modified diet with pureed solids and nectar-thick liquids, and obtain another swallow evaluation in the morning. 3.The patient's acute renal failure is most likely due to dehydration. Intravenous fluids are going to be instituted. 4.In regards to the patient's seizure disorder, her Depakote is going to be continued and Depakote level is going to be obtained from the ED labs today. 5.The patient's code status is do not resuscitate, but she is okay to be intubated. I attempted to contact the patient's brother, Jos, who is the healthcare proxy and I was unable to get in touch with him today. For the next 24 hours, her DNR is valid. 6.For DVT prophylaxis, the patient is going to be placed on sequential compression devices; and, due to thrombocytopenia, anticoagulation is contraindicated. TIME SPENT: Approximately 72 minutes were spent on admission of this patient, more than half that time was spent [id number] with the patient doing the evaluation and history and physical taking. CC: Shelby Wilson NP * [id number]/[facility] #: [id number] RYLIE
[2016-08-27 05:57] LABS: Hematocrit 30 % (35-47); Hemoglobin 10.1 g/dl (12.0-16.0); Mean Corpuscular HGB Conc 34 g/dl (31-36); Mean Corpuscular Hemoglobin 33 pg (27-31); Mean Corpuscular Volume 98 fL (80-97); Mean Platelet Volume 9 um3 (7.4-10.4); Red Blood Count 3.04 10^6/ul (4.0-5.4); Red Cell Distribution Width 16 % (10.5-15); White Blood Count 13.1 10^3/ul (3.5-10.8)
[2016-08-27 05:58] LABS: Comments Flag Yes
[2016-08-27 06:09] LABS: BUN/Creatinine Ratio 18.1 (8-20); Calcium 8.7 mg/dL (8.6-10.3); EGFR African American 28.5 (>60); EGFR Non-African American 22.1 (>60)
[2016-08-27] MEDS ORDERED: Aspirin Low Dose CHEW TAB* 81 MG PO SCH (09:00)
[2016-08-27 09:17] LABS: Total Bilirubin 0.2 mg/dL (0.2-1.0)
[2016-08-27] MEDS: Divalproex Sprinkle CAP* 125 MG PO SCH ×2 (09:34→20:20)
[2016-08-27] MEDS: Multivitamins/Minerals TAB PO SCH (09:38)
[2016-08-27] MEDS: Famotidine TAB* 20 MG PO SCH (09:38)
[2016-08-27] MEDS: Nystatin TOP POWDER* 15 GM BTL TOPICAL SCH ×2 (09:39→20:21)
[2016-08-27] MEDS: Psyllium PAK PO SCH ×2 (09:39→20:22)
--- NOTE | 2016-08-27 09:58 | CONSULT ---
Consultation - Reason for Consultation Reason for Consultation: thrombocytopenia Ordering Provider: Paz Castellon Chief Complaint: bruising History of Present Illness: History obtained from chart review and speaking with aide from Lalit 65 yo F w PMH of seizures and severe developmental delay presenting with bruising. This is the third hospitalization in one month for Darby. She was most recently discharged on July 29 after a questionable aspiration event. She was discharged with a prescription for Augmentin to be taken only if she showed signs/symptoms of PNA. According to the aide it was never used and it is not on her MAR. On discharge she had normal platelets. Labs were done as an outpatient on the 21 of August for unclear reasons. This revealed a platelet count of 82k with a normal hemoglobin but rising renal function. Around the same time she was noted to have increased bruising on her left side. This progressed and so she was brought to the ER. Per the aide she is also less responsive and refusing to eat. She was hypothermic and hypotensive on admission and started on fluids and flagyl to cover aspiration PNA. Her urinalysis returned today abnormal and antibiotics for this were started. On admission she was noted to have leukocytosis with a left shift, mild anemia ( though close to her baseline) and marked thrombocytopenia at 43 which has fallen to 32 this am. She is also in acute on chronic renal failure. We are being consulted for the thrombocytopenia and for a question of HIT. Allergies/Medications Medication: Home Medications Medication Instructions Recorded Confirmed Type Brimonidine 0.2 % * [Alphagan P 1 drop BOTH EYES BID 05/17/14 08/26/16 History 0.2% *] Aspirin Low Dose CHEW TAB* 81 mg PO DAILY 06/30/15 08/26/16 History [Aspirin Low Dose TAB*] Latanoprost 0.005% OPTH (NF) 1 drop RIGHT EYE QPM 06/30/15 08/26/16 History [Xalatan 0.005% OPTH*] Divalproex Sprinkle CAP* [Depakote 125 mg PO BID 08/19/15 08/26/16 History Sprinkle CAP*] Multivitamins/Minerals TAB* 1 tab PO DAILY 08/19/15 08/26/16 History [Theragran/minerals TAB*] Psyllium KAILASH* [Metamucil KAILASH*] 1 pkt PO BID 01/14/16 08/26/16 History Famotidine TAB* [Pepcid 20 MG TAB*] 20 mg PO QAM 02/13/16 08/26/16 History Sennosides-Docusate Sodium 1 tab PO BID PRN 02/13/16 08/26/16 History [Senna-S 8.6-50 mg] diPHENhydraMINE PO* [Benadryl PO*] 25 mg PO Q6H PRN 02/13/16 08/26/16 History Dorzolamide/Timolol OPTH (NF) 1 drop BOTH EYES BID 07/06/16 08/26/16 History [Cosopt (NF)] amLODIPine TAB* [Norvasc TAB*] 5 mg PO DAILY 07/06/16 08/26/16 History Albuterol HFA INHALER* [Ventolin 1 puff INH Q6H PRN 08/26/16 08/26/16 History HFA Inhaler*] Nystatin TOP POWDER* 1 applic TOPICAL BID 08/26/16 08/26/16 History Albuterol (Ventolin Hfa Inhaler*) 1 puff INH Q6H PRN PRN Reason: SHORTNESS OF BREATH Brimonidine Tartrate (Alphagan 0.2%) 1 drop BOTH EYES BID [facility] Last Admin: 08/27/16 09:37 Dose: 1 drop Divalproex Sodium (Depakote Sprinkle Cap*) 125 mg PO BID [facility] Last Admin: 08/27/16 09:34 Dose: Not Given Docusate Sodium (Colace Cap*) 100 mg PO BID PRN PRN Reason: CONSTIPATION Famotidine (Pepcid Tab*) 20 mg PO QAM [facility] Last Admin: 08/27/16 09:38 Dose: Not Given Ceftriaxone Sodium 1,000 mg/ (Sodium Chloride) 50 mls @ 200 mls/hr IVPB Q24H [facility] Last Admin: 08/26/16 19:46 Dose: 200 mls/hr Metronidazole/Sodium Chloride (Flagyl 500 Mg Ivpb*) 500 mg in 100 mls @ 100 mls /hr IVPB Q8H [facility] Last Admin: 08/27/16 03:38 Dose: 100 mls/hr Sodium Chloride (Ns 0.9% 1000 Ml*) 1,000 mls @ 200 mls/hr IV PER RATE [facility] Last Admin: 08/27/16 01:00 Dose: 200 mls/hr Latanoprost (Xalatan 0.005%*) 1 drop RIGHT EYE QPM [facility] Last Admin: 08/26/16 19:46 Dose: 1 drop Multivitamins/Minerals (Theragran/Minerals Tab*) 1 tab PO DAILY [facility] Last Admin: 08/27/16 09:38 Dose: Not Given Nystatin (Nystatin Top Powder*) 1 applic TOPICAL BID [facility] Last Admin: 08/27/16 09:39 Dose: 1 applic Psyllium Hydrophilic Mucilloid (Metamucil Kailash*) 1 pkt PO BID [facility] Last Admin: 08/27/16 09:39 Dose: Not Given Senna (Senokot Tab*) 1 tab PO BID PRN PRN Reason: CONSTIPATION Allergies/Adverse Reactions: Allergies Allergy/AdvReac Type Severity Reaction Status Date / Time Carbamazepine [From Tegretol] Allergy Unknown Verified 08/26/16 14:14 Reaction Details Phenytoin [From Dilantin] Allergy Unknown Verified 08/26/16 14:14 Reaction Details History - Past Medical History Other History: seizures. [employer] shunt. developmental delay. aspiration PNAs. CKD. osteoporosis - Family History Other Family History: unable to provide - Social History Other Social History: lives at [facility], full care Review of Systems - Review of Systems General Comments: unable to provide Physical Exam - Physical Exam Physical Examination: Vital Signs Temp Pulse Resp BP Pulse Ox 97.6 F 98 18 103/62 94 08/27/16 07:33 08/27/16 07:33 08/27/16 07:33 08/27/16 07:33 08/27/16 07:33 nonverbal, sitting up in NAD will not open eyes op appears dry rhonchorous bs s1 s2 nl soft, no obvious tenderness contracted with no edema scattered ecchymoses, mainly left flank Results - Lab Results Lab Results: 08/27/16 08/27/16 05:42 05:42 WBC 13.1 H RBC 3.04 L Hgb 10.1 L Hct 30 L MCV 98 H MCH 33 H MCHC 34 RDW 16 H Plt Count 32 L MPV 9 Neut % (Auto) 91.5 H Lymph % (Auto) 3.4 L Kaufman % (Auto) 4.2 Eos % (Auto) 0.7 Baso % (Auto) 0.2 Absolute Neuts (auto) 12.0 H Absolute Lymphs (auto) 0.5 L Absolute Monos (auto) 0.5 Absolute Eos (auto) 0.1 Absolute Basos (auto) 0 Absolute Nucleated RBC 0.01 Nucleated RBC % 0.1 Sodium 138 D Potassium 4.0 Chloride 108 Carbon Dioxide 20 L Anion Gap 10 BUN 40 H Creatinine 2.21 H Est GFR ( Amer) 28.5 Est GFR (Non-Af Amer) 22.1 BUN/Creatinine Ratio 18.1 Glucose 74 Calcium 8.7 Total Bilirubin 0.20 smear:toxic appearing granulations in left shifted neutrophils, no schistocytes , occ large platelets Assessment and Plan Impression: 65 yo F w CRI, seizures and severe developmental delay presenting with bruising and thrombocytopenia but found to be hypothermic and hypotensive with likely sepsis from a urinary tract infection. I suspect that her thrombocytopenia is from bone marrow suppression related to her infection. There are no schistocytes on smear nor is there elevated LDH, essentially ruling out TTP. Though HIT is a remote possibility, I think this is much less likely and with her marked thrombocytopenia I would not start arixtra. I would hold her aspirin until her platelet count is >75k, particularly with her renal insufficiency. Thank you for this consultation and we will continue to follow with you.
--- NOTE | 2016-08-27 11:23 | RAD ---
Indication: Assess for hydronephrosis. Comparison: January 24, 2016 renal ultrasound. Technique: Renal ultrasound. Report: 8.6 x 4.3 x 4.3 cm RIGHT kidney demonstrates normal cortical thickness and echogenicity. No focal renal lesions or conspicuous stones. Mild to moderate hydronephrosis is new compared with the prior exam. 7.2 x 3.5 x 4.1 cm moderately atrophic LEFT kidney demonstrates normal cortical echogenicity. No focal renal lesions or conspicuous stones. Moderate LEFT hydronephrosis is new compared with the prior exam. LEFT pleural effusion noted. IMPRESSION: Bilateral hydronephrosis new compared with the January 24, 2016 exam.
--- NOTE | 2016-08-27 12:47 | PN ---
Subjective Date of Service: 08/27/16 Interval History: Pt was noted to be more lethargic today. Objective Active Medications: Albuterol (Ventolin Hfa Inhaler*) 1 puff INH Q6H PRN PRN Reason: SHORTNESS OF BREATH Brimonidine Tartrate (Alphagan 0.2%) 1 drop BOTH EYES BID [facility] Last Admin: 08/27/16 09:37 Dose: 1 drop Divalproex Sodium (Depakote Sprinkle Cap*) 125 mg PO BID [facility] Last Admin: 08/27/16 09:34 Dose: Not Given Docusate Sodium (Colace Cap*) 100 mg PO BID PRN PRN Reason: CONSTIPATION Famotidine (Pepcid Tab*) 20 mg PO QAM [facility] Last Admin: 08/27/16 09:38 Dose: Not Given Ceftriaxone Sodium 1,000 mg/ (Sodium Chloride) 50 mls @ 200 mls/hr IVPB Q24H [facility] Last Admin: 08/26/16 19:46 Dose: 200 mls/hr Metronidazole/Sodium Chloride (Flagyl 500 Mg Ivpb*) 500 mg in 100 mls @ 100 mls /hr IVPB Q8H [facility] Last Admin: 08/27/16 11:56 Dose: 100 mls/hr Sodium Chloride (Ns 0.9% 1000 Ml*) 1,000 mls @ 200 mls/hr IV PER RATE [facility] Last Admin: 08/27/16 11:56 Dose: 200 mls/hr Latanoprost (Xalatan 0.005%*) 1 drop RIGHT EYE QPM [facility] Last Admin: 08/26/16 19:46 Dose: 1 drop Multivitamins/Minerals (Theragran/Minerals Tab*) 1 tab PO DAILY [facility] Last Admin: 08/27/16 09:38 Dose: Not Given Nystatin (Nystatin Top Powder*) 1 applic TOPICAL BID [facility] Last Admin: 08/27/16 09:39 Dose: 1 applic Psyllium Hydrophilic Mucilloid (Metamucil Kailash*) 1 pkt PO BID [facility] Last Admin: 08/27/16 09:39 Dose: Not Given Senna (Senokot Tab*) 1 tab PO BID PRN PRN Reason: CONSTIPATION Vital Signs 08/26/16 08/26/16 08/26/16 18:46 19:02 20:00 Temperature 95 F 94.7 F Pulse Rate 59 51 Respiratory 17 18 18 Rate Blood Pressure 150/98 139/92 (mmHg) O2 Sat by Pulse 95 Oximetry 08/26/16 08/26/16 08/26/16 21:50 22:14 23:45 Temperature 96.4 F Pulse Rate 62 Respiratory 18 20 Rate Blood Pressure 72/36 (mmHg) O2 Sat by Pulse 90 Oximetry 08/27/16 08/27/16 08/27/16 00:57 02:30 02:39 Temperature 100.8 F Pulse Rate 93 Respiratory 20 Rate Blood Pressure 92/52 82/40 (mmHg) O2 Sat by Pulse 94 Oximetry 08/27/16 08/27/16 08/27/16 03:21 04:18 05:20 Temperature 98.0 F 99.2 F Pulse Rate 104 88 105 Respiratory 24 22 20 Rate Blood Pressure 108/45 83/50 105/66 (mmHg) O2 Sat by Pulse 96 93 91 Oximetry 08/27/16 08/27/16 08/27/16 07:33 08:00 10:04 Temperature 97.6 F 96.4 F Pulse Rate 98 Respiratory 18 18 Rate Blood Pressure 103/62 (mmHg) O2 Sat by Pulse 94 Oximetry Oxygen Devices in Use Now: Nasal Cannula - at 3 l Appearance: 65 yo F, wakes up to voice, nonverbal, unable to follow commands Eyes: No Scleral Icterus, - - R cornea cloudy Ears/Nose/Mouth/Throat: NL Teeth, Lips, Gums, Mucous Membranes Moist Neck: NL Appearance and Movements; NL JVP, Trachea Midline Respiratory: Symmetrical Chest Expansion and Respiratory Effort, - - rhonchi at b/l upper lung borrego, strong cough Cardiovascular: NL Sounds; No Murmurs; No JVD, RRR Abdominal: NL Sounds; No Tenderness; No Distention Lymphatic: No Cervical Adenopathy Extremities: No Clubbing, Cyanosis, - - trace b/l arm edema Skin: No Nodules or Sclerosis, - - large area of ecchymoses on left upper back, scattered small eccymoses on extremities. Neurological: - - no focal weakness noted, nonverbal Result Diagrams: 08/27/16 05:42 08/27/16 05:42 Additional Lab and Data: Lab Results 08/26/16 08/26/16 08/26/16 Range/Units 15:56 15:56 15:56 WBC 10.4 (3.5-10.8) 10^3/ul RBC 3.46 L (4.0-5.4) 10^6/ul Hgb 11.6 L (12.0-16.0) g/dl Hct 34 L (35-47) % MCV 98 H (80-97) fL MCH 34 H (27-31) pg MCHC 34 (31-36) g/dl RDW 16 H (10.5-15) % Plt Count 43 L (150-450) 10^3/ul MPV 10 (7.4-10.4) um3 Neut % (Auto) 86.2 H (38-83) % Lymph % (Auto) 7.9 L (25-47) % Banks % (Auto) 3.8 (1-9) % Eos % (Auto) 1.6 (0-6) % Baso % (Auto) 0.5 (0-2) % Absolute Neuts (auto) 8.9 H (1.5-7.7) 10^3/ul Absolute Lymphs (auto) 0.8 L (1.0-4.8) 10^3/ul Absolute Monos (auto) 0.4 (0-0.8) 10^3/ul Absolute Eos (auto) 0.2 (0-0.6) 10^3/ul Absolute Basos (auto) 0.1 (0-0.2) 10^3/ul Absolute Nucleated RBC 0.02 10^3/ul Nucleated RBC % 0.2 INR (Anticoag Therapy) 1.02 (0.89-1.11) APTT 40.8 H (26.0-36.3) seconds Fibrinogen Pending D-Dimer, Quantitative Pending Sodium 130 L (133-145) mmol/L Potassium 3.8 (3.5-5.0) mmol/L Chloride 97 L (101-111) mmol/L Carbon Dioxide 24 (22-32) mmol/L Anion Gap 9 (2-11) mmol/L BUN 45 H (6-24) mg/dL Creatinine 2.44 H (0.51-0.95) mg/dL Est GFR ( Amer) 25.4 (>60) Est GFR (Non-Af Amer) 19.8 (>60) BUN/Creatinine Ratio 18.4 (8-20) Glucose 101 H (70-100) mg/dL Lactic Acid (0.5-2.0) mmol/L Calcium 10.0 (8.6-10.3) mg/dL Total Bilirubin 0.30 (0.2-1.0) mg/dL AST 12 L (13-39) U/L ALT 12 (7-52) U/L Alkaline Phosphatase 122 H (34-104) U/L Ammonia (16-53) mol/L Total Creatine Kinase 19 (10-223) U/L CK-MB (CK-2) 7.1 H (0.6-6.3) ng/mL Troponin I 0.00 (<0.04) ng/mL C-Reactive Protein 72.99 H (< 5.00) mg/L B-Natriuretic Peptide ( - 100) pg/mL Total Protein 7.9 (6.4-8.9) g/dL Albumin 3.3 (3.2-5.2) g/dL Globulin 4.6 H (2-4) g/dL Albumin/Globulin Ratio 0.7 L (1-3) Lipase 24 (11.0-82.0) U/L TSH 3.63 (0.34-5.60) mcIU/mL 08/26/16 08/26/16 Range/Units 15:56 15:56 WBC (3.5-10.8) 10^3/ul RBC (4.0-5.4) 10^6/ul Hgb (12.0-16.0) g/dl Hct (35-47) % MCV (80-97) fL MCH (27-31) pg MCHC (31-36) g/dl RDW (10.5-15) % Plt Count (150-450) 10^3/ul MPV (7.4-10.4) um3 Neut % (Auto) (38-83) % Lymph % (Auto) (25-47) % Banks % (Auto) (1-9) % Eos % (Auto) (0-6) % Baso % (Auto) (0-2) % Absolute Neuts (auto) (1.5-7.7) 10^3/ul Absolute Lymphs (auto) (1.0-4.8) 10^3/ul Absolute Monos (auto) (0-0.8) 10^3/ul Absolute Eos (auto) (0-0.6) 10^3/ul Absolute Basos (auto) (0-0.2) 10^3/ul Absolute Nucleated RBC 10^3/ul Nucleated RBC % INR (Anticoag Therapy) (0.89-1.11) APTT (26.0-36.3) seconds Fibrinogen D-Dimer, Quantitative Sodium (133-145) mmol/L Potassium (3.5-5.0) mmol/L Chloride (101-111) mmol/L Carbon Dioxide (22-32) mmol/L Anion Gap (2-11) mmol/L BUN (6-24) mg/dL Creatinine (0.51-0.95) mg/dL Est GFR ( Amer) (>60) Est GFR (Non-Af Amer) (>60) BUN/Creatinine Ratio (8-20) Glucose (70-100) mg/dL Lactic Acid 1.8 (0.5-2.0) mmol/L Calcium (8.6-10.3) mg/dL Total Bilirubin (0.2-1.0) mg/dL AST (13-39) U/L ALT (7-52) U/L Alkaline Phosphatase (34-104) U/L Ammonia 46 (16-53) mol/L Total Creatine Kinase (10-223) U/L CK-MB (CK-2) (0.6-6.3) ng/mL Troponin I (<0.04) ng/mL C-Reactive Protein (< 5.00) mg/L B-Natriuretic Peptide 84 ( - 100) pg/mL Total Protein (6.4-8.9) g/dL Albumin (3.2-5.2) g/dL Globulin (2-4) g/dL Albumin/Globulin Ratio (1-3) Lipase (11.0-82.0) U/L TSH (0.34-5.60) mcIU/mL Microbiology and Other Data: Microbiology 08/26/16 22:20 Nasal Screen MRSA (PCR)([facility]AD) - Final Nasal Mrsa Positive Assess/Plan/Problems-Billing Assessment: 65 yo F, [facility] resident , with h/o mental retardation, baseline dysphagia and recurrent aspirations, CKD stage 3, seizure disorder presents with decreased responsiveness and easy bruisability. Was noted to have UTI and thrombocytopenia - Patient Problems (1) UTI (urinary tract infection) Comment: Urine cx pending. H/o MRSA and Corynobacterium in 2016. Cont Ceftriaxone, will add Vancomycin for now. Severe Sepsis present on the day of admission. Pt met two Q SOFA criteria ( with decreased mentation and low SBP's) . (2) Dysphagia Comment: cont modified diet. Swallow eval pending cont Ceftriaxone and Flagyl for possible aspiration (3) Acute kidney failure Comment: Acute on chronic due to severe sepsis , dehydration and urinary retention. Pt was noted to have b/l hydronephrosis on US and Haile inserted yielded 800 ml post void residual on 08/27/16. improving. will repeat renal US in aM to confirm resolution of hydro. (4) Altered mental status Comment: suspect toxic metabolic encephalopathy due to severe sepsis. (5) Thrombocytopenia Comment: appreciate Dr. Mcneill's consult. suspect due to sepsis. PFT antibodies pending. No heparin products to be used Transfusion of PLTs indicated if bleeding noted. (6) DVT prophylaxis Comment: SCD's (7) DNR (do not resuscitate) Comment: But OK to intubate Status and Disposition: inpatient
[2016-08-27] MEDS ORDERED: Vancomycin per Pharmacy* NOTE FOLLOW UP PRN (13:32)
[2016-08-27] MEDS ORDERED: Vancomycin(*) 1,000 MG in NS 0.9% 250 ML* 250 ML IVPB ONE (14:00)
[2016-08-27] MEDS: cefTRIAXone VIAL(*) 1,000 MG in NS 0.9% 50 ML* 50 ML IVPB SCH (18:24)
[2016-08-27] MEDS: Latanoprost 0.005%* 2.5 ml BTL RIGHT EYE SCH (18:24)
[2016-08-28] MEDS: metroNIDAZOLE IV 500 MG/100ML* 500 MG/100 ML BAG IVPB SCH ×4 (03:17→19:43)
[2016-08-28] MEDS ORDERED: Vancomycin Random Level* NOTE FOLLOW UP ONE ×2 (06:00)
[2016-08-28 06:43] LABS: Comments Flag Yes; Hematocrit 31 % (35-47); Hemoglobin 10.2 g/dl (12.0-16.0); Mean Corpuscular HGB Conc 33 g/dl (31-36); Mean Corpuscular Hemoglobin 33 pg (27-31); Mean Corpuscular Volume 99 fL (80-97); Mean Platelet Volume 9 um3 (7.4-10.4); Red Blood Count 3.12 10^6/ul (4.0-5.4); Red Cell Distribution Width 16 % (10.5-15); White Blood Count 15.5 10^3/ul (3.5-10.8)
[2016-08-28 07:13] LABS: BUN/Creatinine Ratio 15.3 (8-20); Calcium 9.2 mg/dL (8.6-10.3); EGFR African American 32.7 (>60); EGFR Non-African American 25.4 (>60); Potassium 3.9 mmol/L (3.5-5.0)
[2016-08-28 07:14] LABS: Vancomycin Random 13.4 mcg/mL
[2016-08-28] MEDS: Nystatin TOP POWDER* 15 GM BTL TOPICAL SCH ×2 (08:45→19:52)
--- NOTE | 2016-08-28 09:08 | PN ---
Subjective Date of Service: 08/28/16 Interval History: Patient seen this morning. Nursing reports she refused her medications this morning. Also, was hypothermic again overnight so pinky black replaced. She is non-verbal, laying in bed, appears comfortable. Family History: Unchanged from Admission Social History: Unchanged from Admission Past Medical History: Unchanged from Admission Objective Active Medications: Albuterol (Ventolin Hfa Inhaler*) 1 puff INH Q6H PRN Brimonidine Tartrate (Alphagan 0.2%) 1 drop BOTH EYES BID MYESHA Divalproex Sodium (Depakote Sprinkle Cap*) 125 mg PO BID MYESHA Docusate Sodium (Colace Cap*) 100 mg PO BID PRN Famotidine (Pepcid Tab*) 20 mg PO QAM MYESHA Ceftriaxone Sodium 1,000 mg/ (Sodium Chloride) 50 mls @ 200 mls/hr IVPB Q24H MYESHA Metronidazole/Sodium Chloride (Flagyl 500 Mg Ivpb*) 500 mg in 100 mls @ 100 mls /hr IVPB Q8H MYESHA Sodium Chloride (Ns 0.9% 1000 Ml*) 1,000 mls @ 100 mls/hr IV PER RATE MYESHA Vancomycin HCl 1,000 mg/ (Sodium Chloride) 250 mls @ 166.667 mls/hr IVPB ONCE ONE Latanoprost (Xalatan 0.005%*) 1 drop RIGHT EYE QPM MYESHA Multivitamins/Minerals (Theragran/Minerals Tab*) 1 tab PO DAILY MYESHA Nystatin (Nystatin Top Powder*) 1 applic TOPICAL BID MYESHA Pharmacy Consult (Vancomycin Per Pharmacy*) 1 note FOLLOW UP . PRN Psyllium Hydrophilic Mucilloid (Metamucil Kailash*) 1 pkt PO BID MYESHA Senna (Senokot Tab*) 1 tab PO BID PRN Vital Signs 08/27/16 08/27/16 08/27/16 10:04 14:18 14:25 Temperature 96.4 F 96.3 F Pulse Rate 74 Respiratory 16 Rate Blood Pressure 98/56 (mmHg) O2 Sat by Pulse 100 Oximetry 08/27/16 08/27/16 08/27/16 19:31 20:00 20:34 Temperature 96.8 F Pulse Rate 75 Respiratory 16 16 Rate Blood Pressure 121/56 (mmHg) O2 Sat by Pulse 98 Oximetry 08/28/16 08/28/16 08/28/16 00:10 01:12 04:21 Temperature 97.9 F 97.2 F Pulse Rate 73 85 Respiratory 16 16 Rate Blood Pressure 119/60 115/73 (mmHg) O2 Sat by Pulse 92 93 Oximetry 08/28/16 07:36 Temperature 95.9 F Pulse Rate 85 Respiratory 18 Rate Blood Pressure 136/71 (mmHg) O2 Sat by Pulse 93 Oximetry Oxygen Devices in Use Now: None Appearance: Middle-aged, F, laying in bed in NAD, pinky hugger in place Eyes: No Scleral Icterus Ears/Nose/Mouth/Throat: - - Dry MM Neck: NL Appearance and Movements; NL JVP Respiratory: Symmetrical Chest Expansion and Respiratory Effort, - - Rattling transmitted from upper airways, lungs appear relatively clear Cardiovascular: NL Sounds; No Murmurs; No JVD, RRR Abdominal: NL Sounds; No Tenderness; No Distention Lymphatic: No Cervical Adenopathy Extremities: No Edema Skin: - - Scattered ecchymoses Neurological: - - Alert, non-verbal Result Diagrams: 08/28/16 06:17 08/28/16 06:18 Assess/Plan/Problems-Billing Assessment: 65 yo F, [facility] resident , with h/o mental retardation, baseline dysphagia and recurrent aspirations, CKD stage 3, seizure disorder presents with decreased responsiveness and easy bruisability. Was noted to have UTI and thrombocytopenia - Patient Problems (1) UTI (urinary tract infection) Current Visit: No Comment: Urine cx growing E. Coli. H/o MRSA and Corynobacterium in 2016. Continue Vanc/CTX/Flagyl for now with WBC trending up and persistent hypothermia. Monitor culture data. (2) Acute kidney failure Current Visit: No Comment: Acute on chronic due to severe sepsis, dehydration and urinary retention. Pt was noted to have b/l hydronephrosis on US and Haile inserted yielded 800 ml post void residual on 08/27/16. Continues to improve, repeat renal US pending. (3) Dysphagia Current Visit: No Comment: cont modified diet. Swallow eval pending (patient declined on 08/27) cont Ceftriaxone and Flagyl for possible aspiration (4) Thrombocytopenia Current Visit: Yes Comment: appreciate Dr. Mcneill's consult. suspect due to sepsis. PFT antibodies pending. No heparin products to be used Transfusion of PLTs indicated if bleeding noted. (5) Altered mental status Current Visit: No Comment: suspect toxic metabolic encephalopathy due to severe sepsis. (6) DVT prophylaxis Current Visit: No Comment: SCD's (7) DNR (do not resuscitate) Current Visit: No Comment: But OK to intubate Status and Disposition: inpatient
[2016-08-28] MEDS ORDERED: Vancomycin(*) 1,000 MG in NS 0.9% 250 ML* 250 ML IVPB ONE (10:30)
--- NOTE | 2016-08-28 11:05 | RAD ---
Indication: Limited renal ultrasound suggested to assess for decrease in hydronephrosis. Comparison: August 27, 2016 Technique: Renal ultrasound. Report: 8.7 x 4.4 x 4.0 cm RIGHT kidney. 7.1 x 3.9 x 4.0 cm LEFT kidney. Resolution of bilateral hydronephrosis compared with the exam of one day prior. 1.1 cm cortical medullary cyst at the superior pole of the LEFT kidney noted. IMPRESSION: Resolution of bilateral hydronephrosis compared with the exam of one day prior.
[2016-08-28] MEDS: Divalproex Sprinkle CAP* 125 MG PO SCH (11:13)
[2016-08-28] MEDS: Psyllium PAK PO SCH ×2 (11:14→21:42)
[2016-08-28] MEDS: Multivitamins/Minerals TAB PO SCH (11:14)
[2016-08-28] MEDS: Famotidine TAB* 20 MG PO SCH (11:14)
[2016-08-28] MEDS: NS 0.9% 1000 ML* 1,000 ML IV SCH (16:26)
[2016-08-28 17:40] LABS: Heparin PF4 Ab Reactivity 6 % (<20); Heparin PF4 Antibody Interp Negative (Negative)
[2016-08-28] MEDS: Latanoprost 0.005%* 2.5 ml BTL RIGHT EYE SCH (18:26)
[2016-08-28] MEDS: cefTRIAXone VIAL(*) 1,000 MG in NS 0.9% 50 ML* 50 ML IVPB SCH (18:26)
[2016-08-28] MEDS: NS 0.9% IVPB SCH (21:20)
[2016-08-28] MEDS: VALPROIC ACID IVPB SCH (21:20)
[2016-08-29] MEDS: metroNIDAZOLE IV 500 MG/100ML* 500 MG/100 ML BAG IVPB SCH ×3 (03:16→20:17)
[2016-08-29] MEDS: NS 0.9% 1000 ML* 1,000 ML IV SCH (05:10)
[2016-08-29 07:34] LABS: Hematocrit 29 % (35-47); Hemoglobin 9.7 g/dl (12.0-16.0); Mean Corpuscular HGB Conc 34 g/dl (31-36); Mean Corpuscular Hemoglobin 33 pg (27-31); Mean Corpuscular Volume 99 fL (80-97); Mean Platelet Volume 9 um3 (7.4-10.4); Red Blood Count 2.92 10^6/ul (4.0-5.4); Red Cell Distribution Width 16 % (10.5-15); White Blood Count 11.6 10^3/ul (3.5-10.8)
[2016-08-29 07:35] LABS: Comments Flag Yes
[2016-08-29 07:47] LABS: BUN/Creatinine Ratio 12.7 (8-20); Calcium 9.1 mg/dL (8.6-10.3); EGFR African American 29.9 (>60); EGFR Non-African American 23.2 (>60); Potassium 3.8 mmol/L (3.5-5.0)
[2016-08-29 08:03] LABS: Vancomycin Random 21.5 mcg/mL
--- NOTE | 2016-08-29 09:36 | PN ---
Subjective Date of Service: 08/29/16 Interval History: Patient seen this morning. Was hypoxic and now is on oxymask. Still somewhat lethargic today although opens eyes to voice. Has not been eating. Family History: Unchanged from Admission Social History: Unchanged from Admission Past Medical History: Unchanged from Admission Objective Active Medications: Albuterol (Ventolin Hfa Inhaler*) 1 puff INH Q6H PRN Brimonidine Tartrate (Alphagan 0.2%) 1 drop BOTH EYES BID MYESHA Docusate Sodium (Colace Cap*) 100 mg PO BID PRN Famotidine (Pepcid Tab*) 20 mg PO QAM MYESHA Ceftriaxone Sodium 1,000 mg/ (Sodium Chloride) 50 mls @ 200 mls/hr IVPB Q24H MYESHA Metronidazole/Sodium Chloride (Flagyl 500 Mg Ivpb*) 500 mg in 100 mls @ 100 mls /hr IVPB Q8H MYESHA Sodium Chloride (Ns 0.9% 1000 Ml*) 1,000 mls @ 100 mls/hr IV PER RATE MYESHA Valproic Acid 125 mg/ Sodium (Chloride) 101.25 mls @ 210 mls/hr IVPB BID MYESHA Latanoprost (Xalatan 0.005%*) 1 drop RIGHT EYE QPM MYESHA Multivitamins/Minerals (Theragran/Minerals Tab*) 1 tab PO DAILY MYESHA Nystatin (Nystatin Top Powder*) 1 applic TOPICAL BID MYESHA Psyllium Hydrophilic Mucilloid (Metamucil Kailash*) 1 pkt PO BID MYESHA Senna (Senokot Tab*) 1 tab PO BID PRN Vital Signs 08/28/16 08/28/16 08/28/16 11:47 15:37 19:33 Temperature 97.7 F 98.6 F 97.5 F Pulse Rate 94 84 Respiratory 20 21 Rate Blood Pressure 124/55 127/65 (mmHg) O2 Sat by Pulse 92 91 Oximetry 08/28/16 08/28/16 08/29/16 20:00 23:50 00:25 Temperature 97.3 F Pulse Rate 61 Respiratory 21 16 Rate Blood Pressure 95/58 115/60 (mmHg) O2 Sat by Pulse 96 Oximetry 08/29/16 08/29/16 08/29/16 03:24 03:49 08:34 Temperature 98.2 F 97.8 F 97.0 F Pulse Rate 82 94 Respiratory 16 22 Rate Blood Pressure 118/67 125/62 (mmHg) O2 Sat by Pulse 90 89 Oximetry Oxygen Devices in Use Now: Simple Face Mask Appearance: Middle-aged, F, laying in bed in NAD Eyes: No Scleral Icterus Ears/Nose/Mouth/Throat: - - Dry MM Neck: NL Appearance and Movements; NL JVP Respiratory: Symmetrical Chest Expansion and Respiratory Effort, - - Ronchorus throughout, difficult to tell what is transmitted from upper airways Cardiovascular: NL Sounds; No Murmurs; No JVD, RRR Abdominal: NL Sounds; No Tenderness; No Distention Lymphatic: No Cervical Adenopathy Extremities: - - Mild hand edema Neurological: - - Lethargic, opens eyes to voice, resists movement Result Diagrams: 08/29/16 07:08 08/29/16 07:08 Assess/Plan/Problems-Billing Assessment: 65 yo F, [facility] resident , with h/o mental retardation, baseline dysphagia and recurrent aspirations, CKD stage 3, seizure disorder presents with decreased responsiveness and easy bruisability. Was noted to have UTI and thrombocytopenia - Patient Problems (1) UTI (urinary tract infection) Current Visit: No Comment: Urine cx growing E. Coli. Continue CTX. Monitor culture data. (2) Acute kidney failure Current Visit: No Comment: Acute on chronic due to severe sepsis, dehydration and urinary retention. Pt was noted to have b/l hydronephrosis on US and Haile inserted yielded 800 ml post void residual on 08/27/16, repeat US shows resolution of hydro Creatinine up a bit today, continue to monitor. Continue IVF at 100 cc/hr, will switch to LR (3) Dysphagia Current Visit: No Comment: Cough, hypoxia. Cont modified diet. Swallow eval pending (patient continues to decline) cont Ceftriaxone and Flagyl for possible aspiration Will get CXR, monitor O2 closely, check flu swab (4) Thrombocytopenia Current Visit: Yes Comment: Appreciate Dr. Silva's consult, platelets improving suspect due to sepsis. PFT antibodies negative No heparin products to be used Transfusion of PLTs indicated if bleeding noted. (5) Altered mental status Current Visit: No Comment: suspect toxic metabolic encephalopathy due to severe sepsis. Very slow to improve. Has not been taking much PO. Patient has been hospitalized multiple times this year already for recurrent PNA, now UTI. Consider PC consult if this persists. (6) DVT prophylaxis Current Visit: No Comment: SCD's (7) DNR (do not resuscitate) Current Visit: No Comment: But OK to intubate Status and Disposition: inpatient
--- NOTE | 2016-08-29 10:10 | RAD ---
HISTORY: Hypoxia COMPARISONS: August 26, 2016 VIEWS:1: Single frontal portable view of the chest at 9:50 AM FINDINGS: LINES AND TUBES: AP shunt tubing is noted overlying the right hemithorax and hemiabdomen CARDIOMEDIASTINAL SILHOUETTE: The cardiomediastinal silhouette is normal for portable technique. PLEURA: The costophrenic angles are sharp. No pleural abnormalities are noted. LUNG PARENCHYMA: There is progressive confluent alveolar opacification of the lower lungs bilaterally ABDOMEN: The upper abdomen is clear. There is no subphrenic gas. BONES AND SOFT TISSUES: No bone or soft tissue abnormalities are noted. IMPRESSION: PROGRESSIVE BIBASILAR CONSOLIDATION
[2016-08-29] MEDS ORDERED: NS 0.9% 100 ML* 100 ML ONE (10:31)
[2016-08-29] MEDS: Famotidine TAB* 20 MG PO SCH (10:33)
[2016-08-29] MEDS: Psyllium PAK PO SCH ×2 (10:33→20:22)
[2016-08-29] MEDS: Multivitamins/Minerals TAB PO SCH (10:33)
[2016-08-29] MEDS: NS 0.9% IVPB SCH ×2 (10:44→21:31)
[2016-08-29] MEDS: VALPROIC ACID IVPB SCH ×2 (10:44→21:31)
[2016-08-29] MEDS: Nystatin TOP POWDER* 15 GM BTL TOPICAL SCH ×2 (10:44→20:22)
[2016-08-29] MEDS ORDERED: Vancomycin(*) 750 MG in NS 0.9% 250 ML* 250 ML IVPB SCH (12:00)
[2016-08-29] MEDS: cefTRIAXone VIAL(*) 1,000 MG in NS 0.9% 50 ML* 50 ML IVPB SCH (17:52)
[2016-08-29] MEDS: Latanoprost 0.005%* 2.5 ml BTL RIGHT EYE SCH (17:52)
[2016-08-30] MEDS: metroNIDAZOLE IV 500 MG/100ML* 500 MG/100 ML BAG IVPB SCH ×3 (03:09→19:57)
[2016-08-30 06:58] LABS: Hematocrit 32 % (35-47); Hemoglobin 10.4 g/dl (12.0-16.0); Mean Corpuscular HGB Conc 33 g/dl (31-36); Mean Corpuscular Hemoglobin 33 pg (27-31); Mean Corpuscular Volume 100 fL (80-97); Mean Platelet Volume 8 um3 (7.4-10.4); Red Blood Count 3.15 10^6/ul (4.0-5.4); Red Cell Distribution Width 16 % (10.5-15)
[2016-08-30 07:04] LABS: Comments Flag Yes
[2016-08-30 07:12] LABS: BUN/Creatinine Ratio 13.5 (8-20); Calcium 9.1 mg/dL (8.6-10.3); EGFR African American 33.3 (>60); EGFR Non-African American 25.9 (>60); Potassium 3.6 mmol/L (3.5-5.0)
--- NOTE | 2016-08-30 09:18 | PN ---
Subjective Date of Service: 08/30/16 Interval History: Patient seen this morning. Laying in bed, appears comfortable, breathing seems easier and quieter. More combative today which is closer to her baseline. Family History: Unchanged from Admission Social History: Unchanged from Admission Past Medical History: Unchanged from Admission Objective Active Medications: Albuterol (Ventolin Hfa Inhaler*) 1 puff INH Q6H PRN Brimonidine Tartrate (Alphagan 0.2%) 1 drop BOTH EYES BID MYESHA Docusate Sodium (Colace Cap*) 100 mg PO BID PRN Famotidine (Pepcid Tab*) 20 mg PO QAM MYESHA Ceftriaxone Sodium 1,000 mg/ (Sodium Chloride) 50 mls @ 200 mls/hr IVPB Q24H MYESHA Metronidazole/Sodium Chloride (Flagyl 500 Mg Ivpb*) 500 mg in 100 mls @ 100 mls /hr IVPB Q8H MYESHA Valproic Acid 125 mg/ Sodium (Chloride) 101.25 mls @ 210 mls/hr IVPB BID MYESHA Lactated Ringer's (Lactated Ringers 1000 Ml Bag*) 1,000 mls @ 75 mls/hr IV PER RATE MYESHA Latanoprost (Xalatan 0.005%*) 1 drop RIGHT EYE QPM MYESHA Multivitamins/Minerals (Theragran/Minerals Tab*) 1 tab PO DAILY MYESHA Nystatin (Nystatin Top Powder*) 1 applic TOPICAL BID MYESHA Psyllium Hydrophilic Mucilloid (Metamucil Kailash*) 1 pkt PO BID MYESHA Senna (Senokot Tab*) 1 tab PO BID PRN Vital Signs 08/29/16 08/29/16 08/29/16 11:37 15:30 15:39 Temperature 96.2 F 98.6 F Pulse Rate 65 73 Respiratory 18 12 Rate Blood Pressure 114/60 113/64 (mmHg) O2 Sat by Pulse 99 Oximetry 08/29/16 08/29/16 08/29/16 19:00 19:19 20:00 Temperature 98.2 F Pulse Rate 88 Respiratory 16 16 Rate Blood Pressure 134/62 (mmHg) O2 Sat by Pulse 94 Oximetry 08/29/16 08/30/16 23:09 04:48 Temperature 96.6 F Pulse Rate 73 88 Respiratory 14 20 Rate Blood Pressure 124/68 (mmHg) O2 Sat by Pulse 100 97 Oximetry Oxygen Devices in Use Now: Simple Face Mask Appearance: Middle-aged, F, laying in bed in NAD Eyes: No Scleral Icterus Ears/Nose/Mouth/Throat: - - Dry MM Neck: NL Appearance and Movements; NL JVP Respiratory: Symmetrical Chest Expansion and Respiratory Effort, - - Less ronchorous, inspiratory sounds are clear Cardiovascular: NL Sounds; No Murmurs; No JVD Abdominal: NL Sounds; No Tenderness; No Distention Lymphatic: No Cervical Adenopathy Extremities: - - Improvment in hand edema Neurological: - - Responds to voice, combative to movement Result Diagrams: 08/30/16 06:17 08/30/16 06:17 Microbiology and Other Data: Assess/Plan/Problems-Billing Assessment: 65 yo F, [facility] resident , with h/o mental retardation, baseline dysphagia and recurrent aspirations, CKD stage 3, seizure disorder presents with decreased responsiveness and easy bruisability. Was noted to have UTI and thrombocytopenia, ?component of aspiration PNA as well - Patient Problems (1) UTI (urinary tract infection) Current Visit: No Comment: Urine cx growing E. Coli. Continue CTX (Day 5) (2) Acute kidney failure Current Visit: No Comment: Acute on chronic due to severe sepsis, dehydration and urinary retention. Pt was noted to have b/l hydronephrosis on US and Haile inserted yielded 800 ml post void residual on 08/27/16, repeat US shows resolution of hydro Creatinine down a bit today, continue LR (3) Dysphagia Current Visit: No Comment: Cough, hypoxia. Cont modified diet. Swallow eval pending (patient continues to decline) CXR seemed a bit worse with progressive infiltrates, cont Ceftriaxone and Flagyl for possible aspiration Flu -ve (4) Thrombocytopenia Current Visit: Yes Comment: Appreciate Dr. Silva's consult, platelets improving suspect due to sepsis. PFT antibodies negative No heparin products to be used Transfusion of PLTs indicated if bleeding noted. (5) Altered mental status Current Visit: No Comment: suspect toxic metabolic encephalopathy due to severe sepsis. Maybe showing some signs of improvement today. Has not been taking much PO. Patient has been hospitalized multiple times this year already for recurrent PNA, now UTI. Consider PC consult if this persists. (6) DVT prophylaxis Current Visit: No Comment: SCD's (7) DNR (do not resuscitate) Current Visit: No Comment: But OK to intubate Status and Disposition: inpatient
[2016-08-30] MEDS: Nystatin TOP POWDER* 15 GM BTL TOPICAL SCH ×2 (09:35→19:59)
[2016-08-30] MEDS: VALPROIC ACID IVPB SCH ×2 (09:35→21:30)
[2016-08-30] MEDS: NS 0.9% IVPB SCH ×2 (09:35→21:30)
[2016-08-30] MEDS: Multivitamins/Minerals TAB PO SCH (09:36)
[2016-08-30] MEDS: Famotidine TAB* 20 MG PO SCH (09:36)
[2016-08-30] MEDS: Psyllium PAK PO SCH ×2 (09:37→19:59)
[2016-08-30] MEDS: cefTRIAXone VIAL(*) 1,000 MG in NS 0.9% 50 ML* 50 ML IVPB SCH (17:59)
[2016-08-30] MEDS: Latanoprost 0.005%* 2.5 ml BTL RIGHT EYE SCH (17:59)
[2016-08-31] MEDS: metroNIDAZOLE IV 500 MG/100ML* 500 MG/100 ML BAG IVPB SCH ×3 (03:07→20:06)
[2016-08-31 07:45] LABS: BUN/Creatinine Ratio 14.2 (8-20); Calcium 9.1 mg/dL (8.6-10.3); EGFR African American 33.9 (>60); EGFR Non-African American 26.4 (>60); Potassium 3.5 mmol/L (3.5-5.0)
[2016-08-31] MEDS ORDERED: NS 0.9% 100 ML* 100 ML ONE (09:32)
--- NOTE | 2016-08-31 09:40 | PN ---
Subjective Date of Service: 08/31/16 Interval History: Patient seen this morning. Has required small amount of O2 on and off overnight. Also bairhugger. This morning she is awakens to voice. Is a bit combative but was cooperative when I gave her some food from a spoon. No fever or chills. Family History: Unchanged from Admission Social History: Unchanged from Admission Past Medical History: Unchanged from Admission Objective Active Medications: Albuterol (Ventolin Hfa Inhaler*) 1 puff INH Q6H PRN Brimonidine Tartrate (Alphagan 0.2%) 1 drop BOTH EYES BID MYESHA Docusate Sodium (Colace Cap*) 100 mg PO BID PRN Famotidine (Pepcid Tab*) 20 mg PO QAM MYESHA Ceftriaxone Sodium 1,000 mg/ (Sodium Chloride) 50 mls @ 200 mls/hr IVPB Q24H MYESHA Metronidazole/Sodium Chloride (Flagyl 500 Mg Ivpb*) 500 mg in 100 mls @ 100 mls /hr IVPB Q8H MYESHA Valproic Acid 125 mg/ Sodium (Chloride) 101.25 mls @ 210 mls/hr IVPB BID MYESHA Lactated Ringer's (Lactated Ringers 1000 Ml Bag*) 1,000 mls @ 75 mls/hr IV PER RATE MYESHA Latanoprost (Xalatan 0.005%*) 1 drop RIGHT EYE QPM MYESHA Multivitamins/Minerals (Theragran/Minerals Tab*) 1 tab PO DAILY MYESHA Nystatin (Nystatin Top Powder*) 1 applic TOPICAL BID MYESHA Psyllium Hydrophilic Mucilloid (Metamucil Kailash*) 1 pkt PO BID MYESHA Senna (Senokot Tab*) 1 tab PO BID PRN Vital Signs 08/30/16 08/30/16 08/30/16 15:08 20:00 23:20 Temperature 95.9 F 96.2 F Pulse Rate 71 72 Respiratory 20 16 15 Rate Blood Pressure 145/65 101/54 (mmHg) O2 Sat by Pulse 100 97 Oximetry 08/31/16 08/31/16 08/31/16 03:06 03:17 03:39 Temperature 99.8 F 99.2 F 99.2 F Pulse Rate 101 91 Respiratory Rate Blood Pressure 125/60 (mmHg) O2 Sat by Pulse Oximetry 08/31/16 08/31/16 08/31/16 04:27 04:46 08:06 Temperature 98.2 F 96.8 F Pulse Rate 84 75 71 Respiratory 18 14 Rate Blood Pressure 127/62 (mmHg) O2 Sat by Pulse 94 96 97 Oximetry Oxygen Devices in Use Now: None Appearance: Middle-aged, F, laying in bed in NAD Eyes: No Scleral Icterus Ears/Nose/Mouth/Throat: - - Dry MM Neck: NL Appearance and Movements; NL JVP Respiratory: Symmetrical Chest Expansion and Respiratory Effort, - - Improvement in ronchi Cardiovascular: NL Sounds; No Murmurs; No JVD, RRR Abdominal: NL Sounds; No Tenderness; No Distention Lymphatic: No Cervical Adenopathy Extremities: No Edema Neurological: - - Lethargic but awakens to voice, mildly combative Result Diagrams: 08/30/16 06:17 08/31/16 07:04 Microbiology and Other Data: Assess/Plan/Problems-Billing Assessment: 65 yo F, [facility] resident , with h/o mental retardation, baseline dysphagia and recurrent aspirations, CKD stage 3, seizure disorder presents with decreased responsiveness and easy bruisability. Was noted to have UTI and thrombocytopenia, ?component of aspiration PNA as well - Patient Problems (1) UTI (urinary tract infection) Current Visit: No Comment: Urine cx growing E. Coli. Continue CTX (Day 6) Still requiring bairhugger at times (2) Acute kidney failure Current Visit: No Comment: Acute on chronic due to severe sepsis, dehydration and urinary retention. Pt was noted to have b/l hydronephrosis on US and Haile inserted yielded 800 ml post void residual on 08/27/16, repeat US shows resolution of hydro Creatinine stable/slightly down, continue LR until PO picks up (3) Dysphagia Current Visit: No Comment: Cough, hypoxia. Cont modified diet. Swallow eval pending CXR seemed a bit worse with progressive infiltrates, cont Ceftriaxone and Flagyl for possible aspiration Flu -ve (4) Thrombocytopenia Current Visit: Yes Comment: Appreciate Dr. Silva's consult, platelets improving suspect due to sepsis. PFT antibodies negative No heparin products to be used Transfusion of PLTs indicated if bleeding noted. (5) Altered mental status Current Visit: No Comment: suspect toxic metabolic encephalopathy due to severe sepsis. Taking some PO this morning, hopefully this will continue. Patient has been hospitalized multiple times this year already for recurrent PNA , now UTI. Consider PC consult pending improvement in lethargy/PO intake. (6) DVT prophylaxis Current Visit: No Comment: SCD's (7) DNR (do not resuscitate) Current Visit: No Comment: But OK to intubate Status and Disposition: inpatient
[2016-08-31] MEDS: Psyllium PAK PO SCH ×2 (09:41→21:05)
[2016-08-31] MEDS: NS 0.9% IVPB SCH ×2 (09:41→22:18)
[2016-08-31] MEDS: VALPROIC ACID IVPB SCH ×2 (09:41→22:18)
[2016-08-31] MEDS: Famotidine TAB* 20 MG PO SCH (09:41)
[2016-08-31] MEDS: Multivitamins/Minerals TAB PO SCH (09:42)
[2016-08-31] MEDS: Nystatin TOP POWDER* 15 GM BTL TOPICAL SCH ×2 (10:29→21:05)
[2016-08-31] MEDS: Latanoprost 0.005%* 2.5 ml BTL RIGHT EYE SCH (18:11)
[2016-08-31] MEDS: cefTRIAXone VIAL(*) 1,000 MG in NS 0.9% 50 ML* 50 ML IVPB SCH (18:11)
[2016-09-01] MEDS: metroNIDAZOLE IV 500 MG/100ML* 500 MG/100 ML BAG IVPB SCH ×3 (03:22→19:40)
[2016-09-01 06:06] LABS: Hematocrit 27 % (35-47); Mean Corpuscular HGB Conc 34 g/dl (31-36); Mean Corpuscular Hemoglobin 34 pg (27-31); Mean Corpuscular Volume 99 fL (80-97); Mean Platelet Volume 8 um3 (7.4-10.4); Red Blood Count 2.68 10^6/ul (4.0-5.4); Red Cell Distribution Width 16 % (10.5-15); White Blood Count 7.6 10^3/ul (3.5-10.8)
[2016-09-01 06:25] LABS: BUN/Creatinine Ratio 13.4 (8-20); Calcium 8.6 mg/dL (8.6-10.3); EGFR Non-African American 29.6 (>60); Potassium 3.1 mmol/L (3.5-5.0)
[2016-09-01] MEDS: Famotidine TAB* 20 MG PO SCH (09:02)
[2016-09-01] MEDS: NS 0.9% IVPB SCH ×2 (09:12→22:05)
[2016-09-01] MEDS: VALPROIC ACID IVPB SCH ×2 (09:12→22:05)
[2016-09-01] MEDS: Nystatin TOP POWDER* 15 GM BTL TOPICAL SCH ×2 (09:16→22:08)
[2016-09-01] MEDS: Multivitamins/Minerals TAB PO SCH (09:16)
[2016-09-01] MEDS: Psyllium PAK PO SCH ×2 (09:16→21:44)
--- NOTE | 2016-09-01 09:44 | PN ---
Subjective Date of Service: 09/01/16 Interval History: Patient seen this morning. Was asleep, woke to touch and was thrashing in bed a bit. Did not eat much today. Seemed to do OK with PO yesterday AM but I'm not sure it was documented appropriately. Family History: Unchanged from Admission Social History: Unchanged from Admission Past Medical History: Unchanged from Admission Objective Active Medications: Albuterol (Ventolin Hfa Inhaler*) 1 puff INH Q6H PRN Brimonidine Tartrate (Alphagan 0.2%) 1 drop BOTH EYES BID MYESHA Docusate Sodium (Colace Cap*) 100 mg PO BID PRN Famotidine (Pepcid Tab*) 20 mg PO QAM MYESHA Ceftriaxone Sodium 1,000 mg/ (Sodium Chloride) 50 mls @ 200 mls/hr IVPB Q24H MYESHA Metronidazole/Sodium Chloride (Flagyl 500 Mg Ivpb*) 500 mg in 100 mls @ 100 mls /hr IVPB Q8H MYESHA Valproic Acid 125 mg/ Sodium (Chloride) 101.25 mls @ 210 mls/hr IVPB BID MYESHA Lactated Ringer's (Lactated Ringers 1000 Ml Bag*) 1,000 mls @ 75 mls/hr IV PER RATE MYESHA Latanoprost (Xalatan 0.005%*) 1 drop RIGHT EYE QPM MYESHA Multivitamins/Minerals (Theragran/Minerals Tab*) 1 tab PO DAILY MYESHA Nystatin (Nystatin Top Powder*) 1 applic TOPICAL BID MYESHA Psyllium Hydrophilic Mucilloid (Metamucil Kailash*) 1 pkt PO BID MYESHA Senna (Senokot Tab*) 1 tab PO BID PRN Vital Signs 08/31/16 08/31/16 08/31/16 09:50 15:35 15:50 Temperature 97.7 F 97.1 F Pulse Rate 73 75 Respiratory 21 20 Rate Blood Pressure 116/57 (mmHg) O2 Sat by Pulse 95 96 Oximetry 08/31/16 08/31/16 08/31/16 19:27 20:00 23:31 Temperature 97.1 F 97.7 F Pulse Rate 69 Respiratory 18 16 Rate Blood Pressure 121/50 (mmHg) O2 Sat by Pulse 100 Oximetry 09/01/16 09/01/16 09/01/16 03:37 05:25 07:27 Temperature 97.9 F 97.2 F Pulse Rate 20 82 Respiratory 69 16 Rate Blood Pressure 127/70 (mmHg) O2 Sat by Pulse 92 97 Oximetry 09/01/16 08:20 Temperature Pulse Rate Respiratory 18 Rate Blood Pressure (mmHg) O2 Sat by Pulse Oximetry Oxygen Devices in Use Now: Nasal Cannula - 1L Appearance: Middle-aged, F, laying in bed in NAD Eyes: No Scleral Icterus Ears/Nose/Mouth/Throat: - - Dry MM Neck: NL Appearance and Movements; NL JVP Respiratory: Symmetrical Chest Expansion and Respiratory Effort, - - slightly diminshed in bases, otherwise clear Cardiovascular: NL Sounds; No Murmurs; No JVD, RRR Abdominal: NL Sounds; No Tenderness; No Distention Lymphatic: No Cervical Adenopathy Extremities: No Edema Neurological: - - Lethargic, mildly combative when attempt movement Result Diagrams: 09/01/16 05:41 09/01/16 05:41 Microbiology and Other Data: Assess/Plan/Problems-Billing Assessment: 65 yo F, [facility] resident , with h/o mental retardation, baseline dysphagia and recurrent aspirations, CKD stage 3, seizure disorder presents with decreased responsiveness and easy bruisability. Was noted to have UTI and thrombocytopenia, ?component of aspiration PNA as well - Patient Problems (1) UTI (urinary tract infection) Current Visit: No Comment: Urine cx growing E. Coli. Continue CTX (Day 7) Off bairhugger (2) Acute kidney failure Current Visit: No Comment: Acute on chronic due to severe sepsis, dehydration and urinary retention. Pt was noted to have b/l hydronephrosis on US and Haile inserted yielded 800 ml post void residual on 08/27/16, repeat US shows resolution of hydro Creatinine trending down, continue LR until PO picks up (3) Dysphagia Current Visit: No Comment: Cough, hypoxia. Appreciate [facility] eval, cont modified diet. CXR seemed a bit worse with progressive infiltrates, cont Ceftriaxone and Flagyl for possible aspiration Flu -ve (4) Thrombocytopenia Current Visit: Yes Comment: Appreciate Dr. Silva's consult, platelets improving suspect due to sepsis. PFT antibodies negative No need to trend further (5) Altered mental status Current Visit: No Comment: suspect toxic metabolic encephalopathy due to severe sepsis. Still not taking PO consistently. Patient has been hospitalized multiple times this year already for recurrent PNA, now UTI. Consider PC consult pending improvement in lethargy/PO intake. (6) DVT prophylaxis Current Visit: No Comment: SCD's (7) DNR (do not resuscitate) Current Visit: No Comment: But OK to intubate Status and Disposition: inpatient
[2016-09-01] MEDS ORDERED: Vancomycin Trough Check NOTE FOLLOW UP ONE (12:00)
[2016-09-01] MEDS: KCL 20 MEQ/100 ML IVPREMIX* 20 MEQ/100 ML BAG IV SCH ×3 (14:25→23:47)
[2016-09-01 15:05] LABS: PCO2 Arterial 35 mmHg (35-45)
[2016-09-01] MEDS: Latanoprost 0.005%* 2.5 ml BTL RIGHT EYE SCH (17:52)
[2016-09-01] MEDS: cefTRIAXone VIAL(*) 1,000 MG in NS 0.9% 50 ML* 50 ML IVPB SCH (19:20)
--- NOTE | 2016-09-01 22:58 | CONS ---
PALLIATIVE CARE CONSULT REPORT: DATE OF CONSULT: 09/01/16 PRIMARY CARE PROVIDER: Shelby Wilson NP REQUESTING PHYSICIAN FOR CONSULT: Nam Mo MD HISTORY OF PRESENT ILLNESS: This is a 65-year-old female with a past medical history of recurrent aspiration with profound intellectual and developmental disability and CKD, who presented to the emergency room on the with weakness on admission. The patient was admitted on the , she was found to have thrombocytopenia, which was thought to have contributed to her significant amount of ecchymosis. She was seen by Hematology. She was also found to have urinary retention with urinary tract infection with worsening of her renal failure. The patient had a Haile placed. It did show that she had bilateral hydronephrosis. Her thrombocytopenia was thought to be secondary to her sepsis. Dr. Mo has been managing her with antibiotics. However, the concern with her presentation here is that she has been more lethargic with depressed mental status and not as interactive as she has been in the past and also now her unwillingness to eat any food. Yesterday, she was able to take in some p.o. However, prior to that, she was not taking any p.o. and today she was spitting out food the staff tried to feed her. According to the staff, she sleeps all day and night. She does wake to eat and will stay awake, but then goes back to sleep. I spoke with her primary, Shelby Wilson NP, who had seen her on the 21 of August. It did not feel like she was herself and told me that she was less responsive normally. She is very alert and gets agitated when she is examined. It seems that with her recurrent admissions, she continues to deteriorate and has not seemed to come back to her baseline cognitive state. I have put in a call to the [facility] staff to get more information regarding her nutritional status prior to this admission. I am waiting to hear back from them. It is also noted that she has not been ambulating over the past few months and seems to be more diminished in her mental status. On my encounter, the patient is awake and she seems slightly agitated but then falls back asleep easily, no verbal interaction and unable to follow any commands. PAST MEDICAL HISTORY: This is her fifth admission since January of 2016. In January of 2016, she was admitted for urinary tract infection, acute kidney injury. February of 2016, aspiration pneumonia and UTI. In July of 2016, she was admitted with aspiration pneumonia, was sent home, and is on chronic 3 L oxygen via nasal cannula for her chronic lung disease secondary to recurrent aspiration pneumonia. At that time, the patient was made DNR but has remained full intubation. She was again admitted in July 2016 for a choking event and now this admission. 1. CKD. 2. Chronic lung disease, on continuous oxygen 2 L. 3. Profound intellectual and developmental disability. 4. Seizure disorder. 5. GERD. 6. Osteoporosis. 7. 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 8. Hypertension. 9. History of glaucoma in the right eye. 10. History of dysphagia. The patient is on modified diet of nectar-thick liquids and pureed solids. 11. History of bradycardia. 12. History of malnutrition. MEDICATIONS: Inpatient hospitalization: 1. Albuterol 1 puff every 6 hours as needed. 2. Brimonidine 0.2% one drop both eyes. 3. Colace 100 mg p.o. b.i.d. p.r.n. 4. Famotidine 20 mg p.o. q.a.m. 5. Lactated Ringer's 75 mL an hour. 6. Latanoprost 1 drop right eye in the evening. 7. Multivitamin daily. 8. Nystatin topical powder twice a day to affected areas. 9. Metamucil 1 packet p.o. b.i.d. 10. Ceftriaxone 1 g daily. 11. Senna 1 tab p.o. b.i.d. 12. Valproic acid 125 mg IV b.i.d. 13. Flagyl 500 mg IV q.8 hours. ALLERGIES: CARBAMAZEPINE and PHENYTOIN. FAMILY HISTORY: Unable to obtain. SOCIAL HISTORY: As mentioned, the patient resides at [facility]'s residential home. No history of tobacco, alcohol, or illicit drug use. Her brother, Jos Armando, is her legal guardian, [phone]. She is wheelchair bound and has not ambulated for several months now. REVIEW OF SYSTEMS: Unable to obtain. PHYSICAL EXAM: Vitals: Temp 98.1, pulse rate 61, respiratory rate 16, oxygen saturation 97% on room air, blood pressure 122/64. General: The patient is sleeping, does awake to tactile and verbal stimuli and then falls asleep quickly. Frail female, who appears older than her stated age. HEENT: Neck supple. Oropharynx: Mucous membranes are moist. Pupils are equal and reactive. Cardiac: Regular rate and rhythm. No murmurs, rubs, or gallops. Respiratory: Diminished breath sounds, bilateral rhonchi. No increased work of breathing. Abdomen: Soft, nontender. Extremities: No clubbing, cyanosis, or edema. +1 DPs. Neurologic: Unable to follow any commands. LABORATORY DATA: White count 7.6, hemoglobin 9, hematocrit 27, platelets 129. Sodium 144, potassium 3.1, chloride 114, bicarb 22, BUN 23, creatinine 1.72, albumin on admission was 3.3, ammonia 46. TSH 3.63. Valproic acid is 30. Flu was negative. Urine culture positive for E. coli. ASSESSMENT AND PLAN: This is a 65-year-old female with past medical history of profound intellectual disability with recurrent admissions for urinary tract infections with chronic kidney disease and recurrent aspiration pneumonia, who presents to the emergency room and has been admitted for the fifth time since January of 2016 for altered mental status, found to have urinary retention, urinary tract infection, and acute on chronic kidney injury. Palliative care consultation services were requested for her failure to improve in her mental status and cognition, to be alert enough to be back to her baseline per the staff and to also have willingness to take any p.o. Her p.o. intake has been minimal to zero. It appears only yesterday on the was when she took any p.o. at all and now the staff states that she spits it out. It is a question if it is intentional or not. Her primary care had felt that she has deteriorated over the past few months. I spoke with her brother, Jos Armando, who is her legal guardian. He was under the impression that the patient was a DNR/DNI. He does not want her to go through intubation and he has noticed decline with her as well. He has seen her recently. He could not give me the exact date but it has been in the past year. He stated that he was going to get his commercial real estate attorney involved as he was upset that the objection for her intubation had happened as he was unaware of this. I am still waiting to get more information based back on the [facility]'s response to her nutritional intake at home and if she has been deteriorating prior to this admission. I am concerned about her continued deterioration and not really ever getting back to her baseline over these past several months with her CKD, her recurrent aspiration, her recurrent urinary tract infections, and urinary retention, and her limited ability to take p.o. appears that she is deteriorating and DNR/DNI would be an extraordinary burden for her and would not reverse any of these comorbidities. The question remains that the patient has significant amount of weight loss and decline in her mental status that she may even be an eligible candidate for hospice is not clear at this time though. I do think revisiting her advance care planning for her DNR/DNI is appropriate and I have put in a consult to Mahsa from Social Work to help facilitate this as well. Thank you for this consultation. I will follow along with you. PATIENT TIME: Greater than 100 minutes was spent doing this consultation, more than half the time was spent in direct patient contact. CC: Shelby Wilson NP* [id number]/[facility] #: [id number] RYLIE
[2016-09-02] MEDS: metroNIDAZOLE IV 500 MG/100ML* 500 MG/100 ML BAG IVPB SCH (04:22)
[2016-09-02 06:46] LABS: BUN/Creatinine Ratio 12.3 (8-20); Calcium 8.8 mg/dL (8.6-10.3); EGFR Non-African American 35.7 (>60); Potassium 3.7 mmol/L (3.5-5.0)
[2016-09-02] MEDS: Psyllium PAK PO SCH ×2 (08:20→21:36)
[2016-09-02] MEDS: Multivitamins/Minerals TAB PO SCH (08:20)
[2016-09-02] MEDS: Famotidine TAB* 20 MG PO SCH (08:22)
[2016-09-02] MEDS: VALPROIC ACID IVPB SCH ×2 (08:27→21:36)
[2016-09-02] MEDS: Nystatin TOP POWDER* 15 GM BTL TOPICAL SCH ×3 (08:27→23:10)
[2016-09-02] MEDS: NS 0.9% IVPB SCH ×2 (08:27→21:36)
--- NOTE | 2016-09-02 09:50 | PN ---
Subjective Date of Service: 09/02/16 Interval History: Patient seen this morning. Much more alert than previous days. Had about 10 bites of food so far this morning. Seems closer to her baseline. Family History: Unchanged from Admission Social History: Unchanged from Admission Past Medical History: Unchanged from Admission Objective Active Medications: Albuterol (Ventolin Hfa Inhaler*) 1 puff INH Q6H PRN Brimonidine Tartrate (Alphagan 0.2%) 1 drop BOTH EYES BID MYESHA Docusate Sodium (Colace Cap*) 100 mg PO BID PRN Famotidine (Pepcid Tab*) 20 mg PO QAM MYESHA Valproic Acid 125 mg/ Sodium (Chloride) 101.25 mls @ 210 mls/hr IVPB BID MYESHA Lactated Ringer's (Lactated Ringers 1000 Ml Bag*) 1,000 mls @ 75 mls/hr IV PER RATE MYESHA Latanoprost (Xalatan 0.005%*) 1 drop RIGHT EYE QPM MYESHA Multivitamins/Minerals (Theragran/Minerals Tab*) 1 tab PO DAILY MYESHA Nystatin (Nystatin Top Powder*) 1 applic TOPICAL BID MYESHA Psyllium Hydrophilic Mucilloid (Metamucil Kailash*) 1 pkt PO BID MYESHA Senna (Senokot Tab*) 1 tab PO BID PRN Vital Signs 09/01/16 09/01/16 09/01/16 17:03 20:00 23:57 Temperature 98.1 F 97.9 F Pulse Rate 61 63 Respiratory 16 16 15 Rate Blood Pressure 122/64 120/96 (mmHg) O2 Sat by Pulse 97 98 Oximetry 09/02/16 09/02/16 09/02/16 04:40 07:28 07:59 Temperature 97.6 F Pulse Rate 70 69 Respiratory 18 18 16 Rate Blood Pressure 138/70 (mmHg) O2 Sat by Pulse 95 98 Oximetry Oxygen Devices in Use Now: None Appearance: Middle-aged, F, laying in bed in NAD Eyes: No Scleral Icterus Ears/Nose/Mouth/Throat: - - Dry MM Neck: NL Appearance and Movements; NL JVP Respiratory: Symmetrical Chest Expansion and Respiratory Effort, Clear to Auscultation Cardiovascular: NL Sounds; No Murmurs; No JVD, RRR Abdominal: NL Sounds; No Tenderness; No Distention Lymphatic: No Cervical Adenopathy Extremities: No Edema Neurological: - - Non-verbal, alert, restless Result Diagrams: 09/01/16 05:41 09/02/16 05:33 Additional Lab and Data: Lab Results 08/26/16 08/26/16 08/26/16 Range/Units 15:56 15:56 15:56 WBC 10.4 (3.5-10.8) 10^3/ul RBC 3.46 L (4.0-5.4) 10^6/ul Hgb 11.6 L (12.0-16.0) g/dl Hct 34 L (35-47) % MCV 98 H (80-97) fL MCH 34 H (27-31) pg MCHC 34 (31-36) g/dl RDW 16 H (10.5-15) % Plt Count 43 L (150-450) 10^3/ul MPV 10 (7.4-10.4) um3 Neut % (Auto) 86.2 H (38-83) % Lymph % (Auto) 7.9 L (25-47) % [place] % (Auto) 3.8 (1-9) % Eos % (Auto) 1.6 (0-6) % Baso % (Auto) 0.5 (0-2) % Absolute Neuts (auto) 8.9 H (1.5-7.7) 10^3/ul Absolute Lymphs (auto) 0.8 L (1.0-4.8) 10^3/ul Absolute Monos (auto) 0.4 (0-0.8) 10^3/ul Absolute Eos (auto) 0.2 (0-0.6) 10^3/ul Absolute Basos (auto) 0.1 (0-0.2) 10^3/ul Absolute Nucleated RBC 0.02 10^3/ul Nucleated RBC % 0.2 INR (Anticoag Therapy) 1.02 (0.89-1.11) APTT 40.8 H (26.0-36.3) seconds Fibrinogen Pending D-Dimer, Quantitative Pending Sodium 130 L (133-145) mmol/L Potassium 3.8 (3.5-5.0) mmol/L Chloride 97 L (101-111) mmol/L Carbon Dioxide 24 (22-32) mmol/L Anion Gap 9 (2-11) mmol/L BUN 45 H (6-24) mg/dL Creatinine 2.44 H (0.51-0.95) mg/dL Est GFR ( Amer) 25.4 (>60) Est GFR (Non-Af Amer) 19.8 (>60) BUN/Creatinine Ratio 18.4 (8-20) Glucose 101 H (70-100) mg/dL Lactic Acid (0.5-2.0) mmol/L Calcium 10.0 (8.6-10.3) mg/dL Total Bilirubin 0.30 (0.2-1.0) mg/dL AST 12 L (13-39) U/L ALT 12 (7-52) U/L Alkaline Phosphatase 122 H (34-104) U/L Ammonia (16-53) mol/L Total Creatine Kinase 19 (10-223) U/L CK-MB (CK-2) 7.1 H (0.6-6.3) ng/mL Troponin I 0.00 (<0.04) ng/mL C-Reactive Protein 72.99 H (< 5.00) mg/L B-Natriuretic Peptide ( - 100) pg/mL Total Protein 7.9 (6.4-8.9) g/dL Albumin 3.3 (3.2-5.2) g/dL Globulin 4.6 H (2-4) g/dL Albumin/Globulin Ratio 0.7 L (1-3) Lipase 24 (11.0-82.0) U/L TSH 3.63 (0.34-5.60) mcIU/mL 08/26/16 08/26/16 Range/Units 15:56 15:56 WBC (3.5-10.8) 10^3/ul RBC (4.0-5.4) 10^6/ul Hgb (12.0-16.0) g/dl Hct (35-47) % MCV (80-97) fL MCH (27-31) pg MCHC (31-36) g/dl RDW (10.5-15) % Plt Count (150-450) 10^3/ul MPV (7.4-10.4) um3 Neut % (Auto) (38-83) % Lymph % (Auto) (25-47) % [place] % (Auto) (1-9) % Eos % (Auto) (0-6) % Baso % (Auto) (0-2) % Absolute Neuts (auto) (1.5-7.7) 10^3/ul Absolute Lymphs (auto) (1.0-4.8) 10^3/ul Absolute Monos (auto) (0-0.8) 10^3/ul Absolute Eos (auto) (0-0.6) 10^3/ul Absolute Basos (auto) (0-0.2) 10^3/ul Absolute Nucleated RBC 10^3/ul Nucleated RBC % INR (Anticoag Therapy) (0.89-1.11) APTT (26.0-36.3) seconds Fibrinogen D-Dimer, Quantitative Sodium (133-145) mmol/L Potassium (3.5-5.0) mmol/L Chloride (101-111) mmol/L Carbon Dioxide (22-32) mmol/L Anion Gap (2-11) mmol/L BUN (6-24) mg/dL Creatinine (0.51-0.95) mg/dL Est GFR ( Amer) (>60) Est GFR (Non-Af Amer) (>60) BUN/Creatinine Ratio (8-20) Glucose (70-100) mg/dL Lactic Acid 1.8 (0.5-2.0) mmol/L Calcium (8.6-10.3) mg/dL Total Bilirubin (0.2-1.0) mg/dL AST (13-39) U/L ALT (7-52) U/L Alkaline Phosphatase (34-104) U/L Ammonia 46 (16-53) mol/L Total Creatine Kinase (10-223) U/L CK-MB (CK-2) (0.6-6.3) ng/mL Troponin I (<0.04) ng/mL C-Reactive Protein (< 5.00) mg/L B-Natriuretic Peptide 84 ( - 100) pg/mL Total Protein (6.4-8.9) g/dL Albumin (3.2-5.2) g/dL Globulin (2-4) g/dL Albumin/Globulin Ratio (1-3) Lipase (11.0-82.0) U/L TSH (0.34-5.60) mcIU/mL Microbiology and Other Data: Assess/Plan/Problems-Billing Assessment: 65 yo F, [facility] resident , with h/o mental retardation, baseline dysphagia and recurrent aspirations, CKD stage 3, seizure disorder presents with decreased responsiveness and easy bruisability. Was noted to have UTI and thrombocytopenia, ?component of aspiration PNA as well - Patient Problems (1) UTI (urinary tract infection) Current Visit: No Comment: Urine cx growing E. Coli. Completed 7 days of CTX Off bairhugger (2) Acute kidney failure Current Visit: No Comment: Acute on chronic due to severe sepsis, dehydration and urinary retention. Pt was noted to have b/l hydronephrosis on US and Haile inserted yielded 800 ml post void residual on 08/27/16, repeat US shows resolution of hydro Creatinine trending down, will stop LR and see if patient is able to take more PO (3) Dysphagia Current Visit: No Comment: Cough, hypoxia. Appreciate [employer]CTURNIST PH[employer]ICIAN eval, cont modified diet. Completed 7 days of Ceftriaxone and Flagyl for aspiration PNA Flu -ve (4) Thrombocytopenia Current Visit: Yes Comment: Appreciate Dr. Silva's consult, platelets improving suspect due to sepsis. PFT antibodies negative No need to trend further (5) Altered mental status Current Visit: No Comment: suspect toxic metabolic encephalopathy due to severe sepsis, hopefully improving. Patient has been hospitalized multiple times this year already for recurrent PNA, now UTI. Appreciate Palliative Care consult. May possibly qualify for hospice. (6) DVT prophylaxis Current Visit: No Comment: SCD's (7) DNR (do not resuscitate) Current Visit: No Comment: Appreciate PC consult. Will speak with brother today to discuss DNI. Status and Disposition: inpatient
[2016-09-02] MEDS: Latanoprost 0.005%* 2.5 ml BTL RIGHT EYE SCH (17:30)
[2016-09-03] MEDS: VALPROIC ACID IVPB SCH ×2 (08:53→21:16)
[2016-09-03] MEDS: Multivitamins/Minerals TAB PO SCH (08:53)
[2016-09-03] MEDS: NS 0.9% IVPB SCH ×2 (08:53→21:16)
[2016-09-03] MEDS: Psyllium PAK PO SCH ×2 (08:53→21:16)
[2016-09-03] MEDS: Famotidine TAB* 20 MG PO SCH (08:53)
[2016-09-03] MEDS: Nystatin TOP POWDER* 15 GM BTL TOPICAL SCH ×2 (08:55→21:12)
--- NOTE | 2016-09-03 09:09 | PN ---
Subjective Date of Service: 09/03/16 Interval History: Patient seen this morning. More alert, siting up in bed, eyes open. Rocking back and forth. Apparently has been spitting out food this morning but nursing was under the impression she did well with food last night but this is not documented in meal record. Called brother yesterday but could not get in touch with him, left VM, will try again today. Family History: Unchanged from Admission Social History: Unchanged from Admission Past Medical History: Unchanged from Admission Objective Active Medications: Albuterol (Ventolin Hfa Inhaler*) 1 puff INH Q6H PRN Brimonidine Tartrate (Alphagan 0.2%) 1 drop BOTH EYES BID MYESHA Docusate Sodium (Colace Cap*) 100 mg PO BID PRN Famotidine (Pepcid Tab*) 20 mg PO QAM MYESHA Valproic Acid 125 mg/ Sodium (Chloride) 101.25 mls @ 210 mls/hr IVPB BID MYESHA Latanoprost (Xalatan 0.005%*) 1 drop RIGHT EYE QPM MYESHA Multivitamins/Minerals (Theragran/Minerals Tab*) 1 tab PO DAILY MYESHA Nystatin (Nystatin Top Powder*) 1 applic TOPICAL BID MYESHA Psyllium Hydrophilic Mucilloid (Metamucil Kailash*) 1 pkt PO BID MYESHA Senna (Senokot Tab*) 1 tab PO BID PRN Vital Signs 09/02/16 09/02/16 09/02/16 15:00 15:24 16:00 Temperature 96.3 F Pulse Rate 59 55 Respiratory 12 Rate Blood Pressure 135/54 135/54 (mmHg) O2 Sat by Pulse 97 Oximetry 09/02/16 09/02/16 09/03/16 20:00 23:30 00:45 Temperature 97.2 F 96.3 F Pulse Rate 51 50 Respiratory 15 16 15 Rate Blood Pressure 101/48 103/58 (mmHg) O2 Sat by Pulse 98 98 Oximetry 09/03/16 09/03/16 09/03/16 04:01 04:27 05:03 Temperature 94.4 F Pulse Rate 51 47 Respiratory 16 Rate Blood Pressure 85/68 (mmHg) O2 Sat by Pulse 99 97 Oximetry 09/03/16 09/03/16 05:19 07:30 Temperature 97.3 F 96.6 F Pulse Rate 50 Respiratory 16 Rate Blood Pressure 105/70 121/70 (mmHg) O2 Sat by Pulse 97 Oximetry Oxygen Devices in Use Now: None Appearance: Middle-aged, F, laying in bed in NAD Eyes: No Scleral Icterus Ears/Nose/Mouth/Throat: Mucous Membranes Moist Neck: NL Appearance and Movements; NL JVP Respiratory: Symmetrical Chest Expansion and Respiratory Effort, Clear to Auscultation Cardiovascular: NL Sounds; No Murmurs; No JVD, RRR Abdominal: NL Sounds; No Tenderness; No Distention Lymphatic: No Cervical Adenopathy Extremities: No Edema Neurological: - - Alert, non-verbal Result Diagrams: 09/01/16 05:41 09/02/16 05:33 Additional Lab and Data: Lab Results 08/26/16 08/26/16 08/26/16 Range/Units 15:56 15:56 15:56 WBC 10.4 (3.5-10.8) 10^3/ul RBC 3.46 L (4.0-5.4) 10^6/ul Hgb 11.6 L (12.0-16.0) g/dl Hct 34 L (35-47) % MCV 98 H (80-97) fL MCH 34 H (27-31) pg MCHC 34 (31-36) g/dl RDW 16 H (10.5-15) % Plt Count 43 L (150-450) 10^3/ul MPV 10 (7.4-10.4) um3 Neut % (Auto) 86.2 H (38-83) % Lymph % (Auto) 7.9 L (25-47) % [place] % (Auto) 3.8 (1-9) % Eos % (Auto) 1.6 (0-6) % Baso % (Auto) 0.5 (0-2) % Absolute Neuts (auto) 8.9 H (1.5-7.7) 10^3/ul Absolute Lymphs (auto) 0.8 L (1.0-4.8) 10^3/ul Absolute Monos (auto) 0.4 (0-0.8) 10^3/ul Absolute Eos (auto) 0.2 (0-0.6) 10^3/ul Absolute Basos (auto) 0.1 (0-0.2) 10^3/ul Absolute Nucleated RBC 0.02 10^3/ul Nucleated RBC % 0.2 INR (Anticoag Therapy) 1.02 (0.89-1.11) APTT 40.8 H (26.0-36.3) seconds Fibrinogen Pending D-Dimer, Quantitative Pending Sodium 130 L (133-145) mmol/L Potassium 3.8 (3.5-5.0) mmol/L Chloride 97 L (101-111) mmol/L Carbon Dioxide 24 (22-32) mmol/L Anion Gap 9 (2-11) mmol/L BUN 45 H (6-24) mg/dL Creatinine 2.44 H (0.51-0.95) mg/dL Est GFR ( Amer) 25.4 (>60) Est GFR (Non-Af Amer) 19.8 (>60) BUN/Creatinine Ratio 18.4 (8-20) Glucose 101 H (70-100) mg/dL Lactic Acid (0.5-2.0) mmol/L Calcium 10.0 (8.6-10.3) mg/dL Total Bilirubin 0.30 (0.2-1.0) mg/dL AST 12 L (13-39) U/L ALT 12 (7-52) U/L Alkaline Phosphatase 122 H (34-104) U/L Ammonia (16-53) mol/L Total Creatine Kinase 19 (10-223) U/L CK-MB (CK-2) 7.1 H (0.6-6.3) ng/mL Troponin I 0.00 (<0.04) ng/mL C-Reactive Protein 72.99 H (< 5.00) mg/L B-Natriuretic Peptide ( - 100) pg/mL Total Protein 7.9 (6.4-8.9) g/dL Albumin 3.3 (3.2-5.2) g/dL Globulin 4.6 H (2-4) g/dL Albumin/Globulin Ratio 0.7 L (1-3) Lipase 24 (11.0-82.0) U/L TSH 3.63 (0.34-5.60) mcIU/mL 08/26/16 08/26/16 Range/Units 15:56 15:56 WBC (3.5-10.8) 10^3/ul RBC (4.0-5.4) 10^6/ul Hgb (12.0-16.0) g/dl Hct (35-47) % MCV (80-97) fL MCH (27-31) pg MCHC (31-36) g/dl RDW (10.5-15) % Plt Count (150-450) 10^3/ul MPV (7.4-10.4) um3 Neut % (Auto) (38-83) % Lymph % (Auto) (25-47) % [place] % (Auto) (1-9) % Eos % (Auto) (0-6) % Baso % (Auto) (0-2) % Absolute Neuts (auto) (1.5-7.7) 10^3/ul Absolute Lymphs (auto) (1.0-4.8) 10^3/ul Absolute Monos (auto) (0-0.8) 10^3/ul Absolute Eos (auto) (0-0.6) 10^3/ul Absolute Basos (auto) (0-0.2) 10^3/ul Absolute Nucleated RBC 10^3/ul Nucleated RBC % INR (Anticoag Therapy) (0.89-1.11) APTT (26.0-36.3) seconds Fibrinogen D-Dimer, Quantitative Sodium (133-145) mmol/L Potassium (3.5-5.0) mmol/L Chloride (101-111) mmol/L Carbon Dioxide (22-32) mmol/L Anion Gap (2-11) mmol/L BUN (6-24) mg/dL Creatinine (0.51-0.95) mg/dL Est GFR ( Amer) (>60) Est GFR (Non-Af Amer) (>60) BUN/Creatinine Ratio (8-20) Glucose (70-100) mg/dL Lactic Acid 1.8 (0.5-2.0) mmol/L Calcium (8.6-10.3) mg/dL Total Bilirubin (0.2-1.0) mg/dL AST (13-39) U/L ALT (7-52) U/L Alkaline Phosphatase (34-104) U/L Ammonia 46 (16-53) mol/L Total Creatine Kinase (10-223) U/L CK-MB (CK-2) (0.6-6.3) ng/mL Troponin I (<0.04) ng/mL C-Reactive Protein (< 5.00) mg/L B-Natriuretic Peptide 84 ( - 100) pg/mL Total Protein (6.4-8.9) g/dL Albumin (3.2-5.2) g/dL Globulin (2-4) g/dL Albumin/Globulin Ratio (1-3) Lipase (11.0-82.0) U/L TSH (0.34-5.60) mcIU/mL Microbiology and Other Data: Assess/Plan/Problems-Billing Assessment: 65 yo F, [facility] resident , with h/o mental retardation, baseline dysphagia and recurrent aspirations, CKD stage 3, seizure disorder presents with decreased responsiveness and easy bruisability. Was noted to have UTI and thrombocytopenia, ?component of aspiration PNA as well - Patient Problems (1) UTI (urinary tract infection) Current Visit: No Comment: Urine cx growing E. Coli. Completed 7 days of CTX (2) Acute kidney failure Current Visit: No Comment: Acute on chronic due to severe sepsis, dehydration and urinary retention. Pt was noted to have b/l hydronephrosis on US and Haile inserted yielded 800 ml post void residual on 08/27/16, repeat US shows resolution of hydro Creatinine trending down, off LR, BMP pending (3) Dysphagia Current Visit: No Comment: Cough, hypoxia. Appreciate [employer] PILOT eval, cont modified diet. Completed 7 days of Ceftriaxone and Flagyl for aspiration PNA Flu -ve (4) Thrombocytopenia Current Visit: Yes Comment: Appreciate Dr. Silva's consult, platelets improving suspect due to sepsis. PFT antibodies negative No need to trend further (5) Altered mental status Current Visit: No Comment: suspect toxic metabolic encephalopathy due to severe sepsis, seems to be improving although PO intake is not great. Patient has been hospitalized multiple times this year already for recurrent PNA, now UTI. Appreciate Palliative Care consult. May possibly qualify for hospice. (6) DVT prophylaxis Current Visit: No Comment: SCD's (7) DNR (do not resuscitate) Current Visit: No Comment: Appreciate PC consult. Will call brother again today to discuss DNI. Status and Disposition: inpatient
[2016-09-03 12:18] LABS: BUN/Creatinine Ratio 11.3 (8-20); Calcium 9.2 mg/dL (8.6-10.3); EGFR African American 47.5 (>60); EGFR Non-African American 36.9 (>60); Potassium 3.8 mmol/L (3.5-5.0)
--- NOTE | 2016-09-03 15:40 | PN ---
Progress Note - Progress Note Note: Palliative Care Follow up Note: Patient took in 10% of breakfast and 0% of lunch. On arrival patient awakes easily and shakes her head back and forth. I did attempt to feed her and she took a few bites. Have since asked the staff to try feeding her more. I spoke with Michael Armando, her legal guardian and he stated that he would not want her to have a feeding tube. I also spoke with Diego Sheth from [facility]. My concern with her decline over the past two months that she would not be a good candidate for intubation, with her significant decline in performance status she may not be able to be successfully extubated. Regarding the feeding tube, still awaiting to hear back more from the [facility] staff. If she is showing decline at home with poor intake then this may be her generalized decline with her comorbidities. If she is tolerating PO at home without significant weight loss then its possible that her lack of PO intake is related to her acute infections. However then it may be worthwhile pursuing a feeding tube. Once we have all appropriate information, I think having a meeting with [facility], [facility] and Michael Armando is appopriate to all come to a consensus in making the right decision on behalf of Darby.
[2016-09-03] MEDS: Latanoprost 0.005%* 2.5 ml BTL RIGHT EYE SCH (18:19)
[2016-09-04] MEDS: Nystatin TOP POWDER* 15 GM BTL TOPICAL SCH ×2 (07:14→21:10)
[2016-09-04] MEDS: NS 0.9% IVPB SCH ×2 (08:56→21:09)
[2016-09-04] MEDS: VALPROIC ACID IVPB SCH ×2 (08:56→21:09)
[2016-09-04] MEDS: Psyllium PAK PO SCH ×2 (10:01→21:09)
[2016-09-04] MEDS: Multivitamins/Minerals TAB PO SCH (10:01)
[2016-09-04] MEDS: Famotidine TAB* 20 MG PO SCH (10:01)
--- NOTE | 2016-09-04 17:08 | PN ---
Subjective Date of Service: 09/04/16 Interval History: Non-verbal, little interaction with examiner. Family History: Unchanged from Admission Social History: Unchanged from Admission Past Medical History: Unchanged from Admission Objective Active Medications: Albuterol (Ventolin Hfa Inhaler*) 1 puff INH Q6H PRN PRN Reason: SHORTNESS OF BREATH Brimonidine Tartrate (Alphagan 0.2%) 1 drop BOTH EYES BID [facility] Last Admin: 09/04/16 10:01 Dose: 1 drop Docusate Sodium (Colace Cap*) 100 mg PO BID PRN PRN Reason: CONSTIPATION Famotidine (Pepcid Tab*) 20 mg PO QAM [facility] Last Admin: 09/04/16 10:01 Dose: 20 mg Valproic Acid 125 mg/ Sodium (Chloride) 101.25 mls @ 210 mls/hr IVPB BID [facility] Last Admin: 09/04/16 08:56 Dose: 210 mls/hr Latanoprost (Xalatan 0.005%*) 1 drop RIGHT EYE QPM [facility] Last Admin: 09/03/16 18:19 Dose: 1 drop Multivitamins/Minerals (Theragran/Minerals Tab*) 1 tab PO DAILY [facility] Last Admin: 09/04/16 10:01 Dose: 1 tab Nystatin (Nystatin Top Powder*) 1 applic TOPICAL BID [facility] Last Admin: 09/04/16 07:14 Dose: Not Given Psyllium Hydrophilic Mucilloid (Metamucil Kailash*) 1 pkt PO BID [facility] Last Admin: 09/04/16 10:01 Dose: 1 pkt Senna (Senokot Tab*) 1 tab PO BID PRN PRN Reason: CONSTIPATION Vital Signs 09/03/16 09/03/16 09/03/16 17:30 20:00 23:42 Temperature 97.3 F 97.6 F Pulse Rate 61 55 Respiratory 16 16 16 Rate Blood Pressure 106/57 (mmHg) O2 Sat by Pulse 100 Oximetry 09/04/16 09/04/16 09/04/16 02:16 07:32 08:00 Temperature 96.6 F Pulse Rate 60 103 Respiratory 16 16 16 Rate Blood Pressure 106/61 (mmHg) O2 Sat by Pulse 99 Oximetry Oxygen Devices in Use Now: None Appearance: Initially she was lying quietly on her R side with her blanket over her head. I spoke to her and she startled. I uncovered her head and introduced myself. She started some rocking motions, did not speak or look at me. Eyes: No Scleral Icterus Ears/Nose/Mouth/Throat: Clear Oropharnyx, Mucous Membranes Moist Neck: NL Appearance and Movements; NL JVP, No Thyroid Enlargement, Masses Respiratory: Symmetrical Chest Expansion and Respiratory Effort, Clear to Auscultation Cardiovascular: NL Sounds; No Murmurs; No JVD, RRR, No Edema, - Skin: No Rash or Ulcers, No Nodules or Sclerosis, - Neurological: - - R hip and knee very flexed. Non-verbal. No tremor. Result Diagrams: 09/01/16 05:41 09/03/16 11:43 Additional Lab and Data: Lab Results 08/26/16 08/26/16 08/26/16 Range/Units 15:56 15:56 15:56 WBC 10.4 (3.5-10.8) 10^3/ul RBC 3.46 L (4.0-5.4) 10^6/ul Hgb 11.6 L (12.0-16.0) g/dl Hct 34 L (35-47) % MCV 98 H (80-97) fL MCH 34 H (27-31) pg MCHC 34 (31-36) g/dl RDW 16 H (10.5-15) % Plt Count 43 L (150-450) 10^3/ul MPV 10 (7.4-10.4) um3 Neut % (Auto) 86.2 H (38-83) % Lymph % (Auto) 7.9 L (25-47) % [place] % (Auto) 3.8 (1-9) % Eos % (Auto) 1.6 (0-6) % Baso % (Auto) 0.5 (0-2) % Absolute Neuts (auto) 8.9 H (1.5-7.7) 10^3/ul Absolute Lymphs (auto) 0.8 L (1.0-4.8) 10^3/ul Absolute Monos (auto) 0.4 (0-0.8) 10^3/ul Absolute Eos (auto) 0.2 (0-0.6) 10^3/ul Absolute Basos (auto) 0.1 (0-0.2) 10^3/ul Absolute Nucleated RBC 0.02 10^3/ul Nucleated RBC % 0.2 INR (Anticoag Therapy) 1.02 (0.89-1.11) APTT 40.8 H (26.0-36.3) seconds Fibrinogen Pending D-Dimer, Quantitative Pending Sodium 130 L (133-145) mmol/L Potassium 3.8 (3.5-5.0) mmol/L Chloride 97 L (101-111) mmol/L Carbon Dioxide 24 (22-32) mmol/L Anion Gap 9 (2-11) mmol/L BUN 45 H (6-24) mg/dL Creatinine 2.44 H (0.51-0.95) mg/dL Est GFR ( Amer) 25.4 (>60) Est GFR (Non-Af Amer) 19.8 (>60) BUN/Creatinine Ratio 18.4 (8-20) Glucose 101 H (70-100) mg/dL Lactic Acid (0.5-2.0) mmol/L Calcium 10.0 (8.6-10.3) mg/dL Total Bilirubin 0.30 (0.2-1.0) mg/dL AST 12 L (13-39) U/L ALT 12 (7-52) U/L Alkaline Phosphatase 122 H (34-104) U/L Ammonia (16-53) mol/L Total Creatine Kinase 19 (10-223) U/L CK-MB (CK-2) 7.1 H (0.6-6.3) ng/mL Troponin I 0.00 (<0.04) ng/mL C-Reactive Protein 72.99 H (< 5.00) mg/L B-Natriuretic Peptide ( - 100) pg/mL Total Protein 7.9 (6.4-8.9) g/dL Albumin 3.3 (3.2-5.2) g/dL Globulin 4.6 H (2-4) g/dL Albumin/Globulin Ratio 0.7 L (1-3) Lipase 24 (11.0-82.0) U/L TSH 3.63 (0.34-5.60) mcIU/mL 08/26/16 08/26/16 Range/Units 15:56 15:56 WBC (3.5-10.8) 10^3/ul RBC (4.0-5.4) 10^6/ul Hgb (12.0-16.0) g/dl Hct (35-47) % MCV (80-97) fL MCH (27-31) pg MCHC (31-36) g/dl RDW (10.5-15) % Plt Count (150-450) 10^3/ul MPV (7.4-10.4) um3 Neut % (Auto) (38-83) % Lymph % (Auto) (25-47) % [place] % (Auto) (1-9) % Eos % (Auto) (0-6) % Baso % (Auto) (0-2) % Absolute Neuts (auto) (1.5-7.7) 10^3/ul Absolute Lymphs (auto) (1.0-4.8) 10^3/ul Absolute Monos (auto) (0-0.8) 10^3/ul Absolute Eos (auto) (0-0.6) 10^3/ul Absolute Basos (auto) (0-0.2) 10^3/ul Absolute Nucleated RBC 10^3/ul Nucleated RBC % INR (Anticoag Therapy) (0.89-1.11) APTT (26.0-36.3) seconds Fibrinogen D-Dimer, Quantitative Sodium (133-145) mmol/L Potassium (3.5-5.0) mmol/L Chloride (101-111) mmol/L Carbon Dioxide (22-32) mmol/L Anion Gap (2-11) mmol/L BUN (6-24) mg/dL Creatinine (0.51-0.95) mg/dL Est GFR ( Amer) (>60) Est GFR (Non-Af Amer) (>60) BUN/Creatinine Ratio (8-20) Glucose (70-100) mg/dL Lactic Acid 1.8 (0.5-2.0) mmol/L Calcium (8.6-10.3) mg/dL Total Bilirubin (0.2-1.0) mg/dL AST (13-39) U/L ALT (7-52) U/L Alkaline Phosphatase (34-104) U/L Ammonia 46 (16-53) mol/L Total Creatine Kinase (10-223) U/L CK-MB (CK-2) (0.6-6.3) ng/mL Troponin I (<0.04) ng/mL C-Reactive Protein (< 5.00) mg/L B-Natriuretic Peptide 84 ( - 100) pg/mL Total Protein (6.4-8.9) g/dL Albumin (3.2-5.2) g/dL Globulin (2-4) g/dL Albumin/Globulin Ratio (1-3) Lipase (11.0-82.0) U/L TSH (0.34-5.60) mcIU/mL Microbiology and Other Data: Assess/Plan/Problems-Billing Assessment: 65 yo F, [facility] resident , with h/o mental retardation, baseline dysphagia and recurrent aspirations, CKD stage 3, seizure disorder presents with decreased responsiveness and easy bruisability. Was noted to have UTI and thrombocytopenia, ?component of aspiration PNA as well - Patient Problems (1) Mental retardation Current Visit: No Status: Chronic Code(s): F79 - UNSPECIFIED INTELLECTUAL DISABILITIES SNOMED Code(s): 18038958 Comment: Profoundly delayed. (2) HTN (hypertension) Current Visit: No Status: Chronic Priority: Medium Code(s): I10 - ESSENTIAL (PRIMARY) HYPERTENSION SNOMED Code(s): 52743818 Comment: Amlodipine d/c'd. (3) Malnutrition Current Visit: No Status: Acute Code(s): E46 - UNSPECIFIED PROTEIN-CALORIE MALNUTRITION SNOMED Code(s): 2750305 Comment: If her intake continues at about 10% or less for each meal, I don't think calorie counts would be needed. (4) TITLE I MATH TUTOR (ventriculoperitoneal) shunt status Current Visit: No Status: Chronic Comment: Shunt ending in left lateral ventricle noted CT scan 02/2015. (5) Seizure disorder Current Visit: No Status: Chronic Priority: Medium Code(s): G40.909 - EPILEPSY, UNSP, NOT INTRACTABLE, WITHOUT STATUS EPILEPTICUS SNOMED Code(s): 911447506 Comment: - Stable, continue IV valprooic acid. - Seizure precautions Status and Disposition: inpatient
[2016-09-04] MEDS: Latanoprost 0.005%* 2.5 ml BTL RIGHT EYE SCH (18:48)
[2016-09-05] MEDS: NS 0.9% IVPB SCH ×2 (09:18→20:28)
[2016-09-05] MEDS: VALPROIC ACID IVPB SCH ×2 (09:18→20:28)
[2016-09-05] MEDS: Nystatin TOP POWDER* 15 GM BTL TOPICAL SCH ×2 (09:18→20:40)
[2016-09-05] MEDS: Multivitamins/Minerals TAB PO SCH (09:18)
[2016-09-05] MEDS: Famotidine TAB* 20 MG PO SCH (09:18)
[2016-09-05] MEDS: Psyllium PAK PO SCH ×2 (09:18→20:33)
--- NOTE | 2016-09-05 13:52 | PN ---
Subjective Date of Service: 09/05/16 Interval History: Patient not able to make her needs known. Family History: Unchanged from Admission Social History: Unchanged from Admission Past Medical History: Unchanged from Admission Objective Active Medications: Albuterol (Ventolin Hfa Inhaler*) 1 puff INH Q6H PRN PRN Reason: SHORTNESS OF BREATH Brimonidine Tartrate (Alphagan 0.2%) 1 drop BOTH EYES BID [facility] Last Admin: 09/05/16 09:18 Dose: 1 drop Docusate Sodium (Colace Cap*) 100 mg PO BID PRN PRN Reason: CONSTIPATION Famotidine (Pepcid Tab*) 20 mg PO QAM [facility] Last Admin: 09/05/16 09:18 Dose: 20 mg Valproic Acid 125 mg/ Sodium (Chloride) 101.25 mls @ 210 mls/hr IVPB BID [facility] Last Admin: 09/05/16 09:18 Dose: 210 mls/hr Latanoprost (Xalatan 0.005%*) 1 drop RIGHT EYE QPM [facility] Last Admin: 09/04/16 18:48 Dose: Not Given Multivitamins/Minerals (Theragran/Minerals Tab*) 1 tab PO DAILY [facility] Last Admin: 09/05/16 09:18 Dose: 1 tab Nystatin (Nystatin Top Powder*) 1 applic TOPICAL BID [facility] Last Admin: 09/05/16 09:18 Dose: 1 applic Psyllium Hydrophilic Mucilloid (Metamucil Kailash*) 1 pkt PO BID [facility] Last Admin: 09/05/16 09:18 Dose: 1 pkt Senna (Senokot Tab*) 1 tab PO BID PRN PRN Reason: CONSTIPATION Vital Signs 09/04/16 09/04/16 09/04/16 15:30 21:51 23:42 Temperature 97.6 F Pulse Rate 65 67 Respiratory 16 16 16 Rate Blood Pressure 128/60 146/70 (mmHg) O2 Sat by Pulse 99 88 Oximetry 09/05/16 08:13 Temperature 97.3 F Pulse Rate 66 Respiratory 16 Rate Blood Pressure 138/80 (mmHg) O2 Sat by Pulse 100 Oximetry Oxygen Devices in Use Now: None Appearance: Alert, partly up in bed. She startles when awoken. Eyes: No Scleral Icterus Extremities: No Edema, No Clubbing, Cyanosis, - Skin: No Rash or Ulcers, No Nodules or Sclerosis, - Neurological: - - In position. Thrashes head and arms when awoken. Non- verbal. Brief eye contact. Result Diagrams: 09/01/16 05:41 09/03/16 11:43 Additional Lab and Data: Lab Results 08/26/16 08/26/16 08/26/16 Range/Units 15:56 15:56 15:56 WBC 10.4 (3.5-10.8) 10^3/ul RBC 3.46 L (4.0-5.4) 10^6/ul Hgb 11.6 L (12.0-16.0) g/dl Hct 34 L (35-47) % MCV 98 H (80-97) fL MCH 34 H (27-31) pg MCHC 34 (31-36) g/dl RDW 16 H (10.5-15) % Plt Count 43 L (150-450) 10^3/ul MPV 10 (7.4-10.4) um3 Neut % (Auto) 86.2 H (38-83) % Lymph % (Auto) 7.9 L (25-47) % [place] % (Auto) 3.8 (1-9) % Eos % (Auto) 1.6 (0-6) % Baso % (Auto) 0.5 (0-2) % Absolute Neuts (auto) 8.9 H (1.5-7.7) 10^3/ul Absolute Lymphs (auto) 0.8 L (1.0-4.8) 10^3/ul Absolute Monos (auto) 0.4 (0-0.8) 10^3/ul Absolute Eos (auto) 0.2 (0-0.6) 10^3/ul Absolute Basos (auto) 0.1 (0-0.2) 10^3/ul Absolute Nucleated RBC 0.02 10^3/ul Nucleated RBC % 0.2 INR (Anticoag Therapy) 1.02 (0.89-1.11) APTT 40.8 H (26.0-36.3) seconds Fibrinogen Pending D-Dimer, Quantitative Pending Sodium 130 L (133-145) mmol/L Potassium 3.8 (3.5-5.0) mmol/L Chloride 97 L (101-111) mmol/L Carbon Dioxide 24 (22-32) mmol/L Anion Gap 9 (2-11) mmol/L BUN 45 H (6-24) mg/dL Creatinine 2.44 H (0.51-0.95) mg/dL Est GFR ( Amer) 25.4 (>60) Est GFR (Non-Af Amer) 19.8 (>60) BUN/Creatinine Ratio 18.4 (8-20) Glucose 101 H (70-100) mg/dL Lactic Acid (0.5-2.0) mmol/L Calcium 10.0 (8.6-10.3) mg/dL Total Bilirubin 0.30 (0.2-1.0) mg/dL AST 12 L (13-39) U/L ALT 12 (7-52) U/L Alkaline Phosphatase 122 H (34-104) U/L Ammonia (16-53) mol/L Total Creatine Kinase 19 (10-223) U/L CK-MB (CK-2) 7.1 H (0.6-6.3) ng/mL Troponin I 0.00 (<0.04) ng/mL C-Reactive Protein 72.99 H (< 5.00) mg/L B-Natriuretic Peptide ( - 100) pg/mL Total Protein 7.9 (6.4-8.9) g/dL Albumin 3.3 (3.2-5.2) g/dL Globulin 4.6 H (2-4) g/dL Albumin/Globulin Ratio 0.7 L (1-3) Lipase 24 (11.0-82.0) U/L TSH 3.63 (0.34-5.60) mcIU/mL 08/26/16 08/26/16 Range/Units 15:56 15:56 WBC (3.5-10.8) 10^3/ul RBC (4.0-5.4) 10^6/ul Hgb (12.0-16.0) g/dl Hct (35-47) % MCV (80-97) fL MCH (27-31) pg MCHC (31-36) g/dl RDW (10.5-15) % Plt Count (150-450) 10^3/ul MPV (7.4-10.4) um3 Neut % (Auto) (38-83) % Lymph % (Auto) (25-47) % [place] % (Auto) (1-9) % Eos % (Auto) (0-6) % Baso % (Auto) (0-2) % Absolute Neuts (auto) (1.5-7.7) 10^3/ul Absolute Lymphs (auto) (1.0-4.8) 10^3/ul Absolute Monos (auto) (0-0.8) 10^3/ul Absolute Eos (auto) (0-0.6) 10^3/ul Absolute Basos (auto) (0-0.2) 10^3/ul Absolute Nucleated RBC 10^3/ul Nucleated RBC % INR (Anticoag Therapy) (0.89-1.11) APTT (26.0-36.3) seconds Fibrinogen D-Dimer, Quantitative Sodium (133-145) mmol/L Potassium (3.5-5.0) mmol/L Chloride (101-111) mmol/L Carbon Dioxide (22-32) mmol/L Anion Gap (2-11) mmol/L BUN (6-24) mg/dL Creatinine (0.51-0.95) mg/dL Est GFR ( Amer) (>60) Est GFR (Non-Af Amer) (>60) BUN/Creatinine Ratio (8-20) Glucose (70-100) mg/dL Lactic Acid 1.8 (0.5-2.0) mmol/L Calcium (8.6-10.3) mg/dL Total Bilirubin (0.2-1.0) mg/dL AST (13-39) U/L ALT (7-52) U/L Alkaline Phosphatase (34-104) U/L Ammonia 46 (16-53) mol/L Total Creatine Kinase (10-223) U/L CK-MB (CK-2) (0.6-6.3) ng/mL Troponin I (<0.04) ng/mL C-Reactive Protein (< 5.00) mg/L B-Natriuretic Peptide 84 ( - 100) pg/mL Total Protein (6.4-8.9) g/dL Albumin (3.2-5.2) g/dL Globulin (2-4) g/dL Albumin/Globulin Ratio (1-3) Lipase (11.0-82.0) U/L TSH (0.34-5.60) mcIU/mL Microbiology and Other Data: Assess/Plan/Problems-Billing Assessment: 65 yo F, [facility] resident , with h/o mental retardation, baseline dysphagia and recurrent aspirations, CKD stage 3, seizure disorder presents with decreased responsiveness and easy bruisability. Was noted to have UTI and thrombocytopenia, ?component of aspiration PNA as well - Patient Problems (1) Mental retardation Current Visit: No Status: Chronic Code(s): F79 - UNSPECIFIED INTELLECTUAL DISABILITIES SNOMED Code(s): 49341677 Comment: Profoundly delayed. (2) HTN (hypertension) Current Visit: No Status: Chronic Priority: Medium Code(s): I10 - ESSENTIAL (PRIMARY) HYPERTENSION SNOMED Code(s): 99113821 Comment: Amlodipine d/c'd. (3) Malnutrition Current Visit: No Status: Acute Code(s): E46 - UNSPECIFIED PROTEIN-CALORIE MALNUTRITION SNOMED Code(s): 5894461 Comment: Calorie counts ordered, BMP and prealbumin 09/06. (4) CUSTODIAL LABORER (ventriculoperitoneal) shunt status Current Visit: No Status: Chronic Comment: Shunt ending in left lateral ventricle noted CT scan 02/2015. (5) Seizure disorder Current Visit: No Status: Chronic Priority: Medium Code(s): G40.909 - EPILEPSY, UNSP, NOT INTRACTABLE, WITHOUT STATUS EPILEPTICUS SNOMED Code(s): 651561204 Comment: - Stable, continue IV valprooic acid. - Seizure precautions Status and Disposition: inpatient
[2016-09-05] MEDS: Latanoprost 0.005%* 2.5 ml BTL RIGHT EYE SCH (18:01)
[2016-09-06 08:06] LABS: BUN/Creatinine Ratio 8.8 (8-20); Calcium 9.8 mg/dL (8.6-10.3); EGFR African American 49.5 (>60); EGFR Non-African American 38.5 (>60); Potassium 3.7 mmol/L (3.5-5.0)
[2016-09-06] MEDS: Multivitamins/Minerals TAB PO SCH (09:27)
[2016-09-06] MEDS: NS 0.9% IVPB SCH ×2 (09:28→21:12)
[2016-09-06] MEDS: Famotidine TAB* 20 MG PO SCH (09:28)
[2016-09-06] MEDS: VALPROIC ACID IVPB SCH ×2 (09:28→21:12)
[2016-09-06] MEDS: Psyllium PAK PO SCH ×3 (09:28→21:26)
[2016-09-06] MEDS: Nystatin TOP POWDER* 15 GM BTL TOPICAL SCH ×2 (09:29→21:13)
--- NOTE | 2016-09-06 15:17 | PN ---
Subjective Date of Service: 09/06/16 Interval History: Patient not able to make her needs known. Family History: Unchanged from Admission Social History: Unchanged from Admission Past Medical History: Unchanged from Admission Objective Active Medications: Albuterol (Ventolin Hfa Inhaler*) 1 puff INH Q6H PRN PRN Reason: SHORTNESS OF BREATH Brimonidine Tartrate (Alphagan 0.2%) 1 drop BOTH EYES BID [facility] Last Admin: 09/06/16 09:28 Dose: 1 drop Docusate Sodium (Colace Cap*) 100 mg PO BID PRN PRN Reason: CONSTIPATION Famotidine (Pepcid Tab*) 20 mg PO QAM [facility] Last Admin: 09/06/16 09:28 Dose: 20 mg Valproic Acid 125 mg/ Sodium (Chloride) 101.25 mls @ 210 mls/hr IVPB BID [facility] Last Admin: 09/06/16 09:28 Dose: 210 mls/hr Latanoprost (Xalatan 0.005%*) 1 drop RIGHT EYE QPM [facility] Last Admin: 09/05/16 18:01 Dose: 1 drop Multivitamins/Minerals (Theragran/Minerals Tab*) 1 tab PO DAILY [facility] Last Admin: 09/06/16 09:27 Dose: 1 tab Nystatin (Nystatin Top Powder*) 1 applic TOPICAL BID [facility] Last Admin: 09/06/16 09:29 Dose: 1 applic Psyllium Hydrophilic Mucilloid (Metamucil Kailash*) 1 pkt PO BID [facility] Last Admin: 09/06/16 09:28 Dose: 1 pkt Senna (Senokot Tab*) 1 tab PO BID PRN PRN Reason: CONSTIPATION Vital Signs 09/05/16 09/05/16 09/05/16 20:00 20:20 23:38 Temperature 95.5 F Pulse Rate 78 57 Respiratory 17 20 Rate Blood Pressure (mmHg) O2 Sat by Pulse 100 Oximetry 09/06/16 09/06/16 09/06/16 04:10 06:00 08:00 Temperature 96.8 F 97.0 F Pulse Rate Respiratory 16 Rate Blood Pressure (mmHg) O2 Sat by Pulse Oximetry 09/06/16 09/06/16 08:11 09:00 Temperature 97.3 F Pulse Rate 109 Respiratory 16 Rate Blood Pressure 100/49 (mmHg) O2 Sat by Pulse Oximetry Oxygen Devices in Use Now: None Appearance: Partly up in bed, resting quietly. I did not try to interact with her as this always seemed to disturb her greatly. She looks comfortable at rest. Result Diagrams: 09/01/16 05:41 09/06/16 06:27 Additional Lab and Data: Lab Results 08/26/16 08/26/16 08/26/16 Range/Units 15:56 15:56 15:56 WBC 10.4 (3.5-10.8) 10^3/ul RBC 3.46 L (4.0-5.4) 10^6/ul Hgb 11.6 L (12.0-16.0) g/dl Hct 34 L (35-47) % MCV 98 H (80-97) fL MCH 34 H (27-31) pg MCHC 34 (31-36) g/dl RDW 16 H (10.5-15) % Plt Count 43 L (150-450) 10^3/ul MPV 10 (7.4-10.4) um3 Neut % (Auto) 86.2 H (38-83) % Lymph % (Auto) 7.9 L (25-47) % [place] % (Auto) 3.8 (1-9) % Eos % (Auto) 1.6 (0-6) % Baso % (Auto) 0.5 (0-2) % Absolute Neuts (auto) 8.9 H (1.5-7.7) 10^3/ul Absolute Lymphs (auto) 0.8 L (1.0-4.8) 10^3/ul Absolute Monos (auto) 0.4 (0-0.8) 10^3/ul Absolute Eos (auto) 0.2 (0-0.6) 10^3/ul Absolute Basos (auto) 0.1 (0-0.2) 10^3/ul Absolute Nucleated RBC 0.02 10^3/ul Nucleated RBC % 0.2 INR (Anticoag Therapy) 1.02 (0.89-1.11) APTT 40.8 H (26.0-36.3) seconds Fibrinogen Pending D-Dimer, Quantitative Pending Sodium 130 L (133-145) mmol/L Potassium 3.8 (3.5-5.0) mmol/L Chloride 97 L (101-111) mmol/L Carbon Dioxide 24 (22-32) mmol/L Anion Gap 9 (2-11) mmol/L BUN 45 H (6-24) mg/dL Creatinine 2.44 H (0.51-0.95) mg/dL Est GFR ( Amer) 25.4 (>60) Est GFR (Non-Af Amer) 19.8 (>60) BUN/Creatinine Ratio 18.4 (8-20) Glucose 101 H (70-100) mg/dL Lactic Acid (0.5-2.0) mmol/L Calcium 10.0 (8.6-10.3) mg/dL Total Bilirubin 0.30 (0.2-1.0) mg/dL AST 12 L (13-39) U/L ALT 12 (7-52) U/L Alkaline Phosphatase 122 H (34-104) U/L Ammonia (16-53) mol/L Total Creatine Kinase 19 (10-223) U/L CK-MB (CK-2) 7.1 H (0.6-6.3) ng/mL Troponin I 0.00 (<0.04) ng/mL C-Reactive Protein 72.99 H (< 5.00) mg/L B-Natriuretic Peptide ( - 100) pg/mL Total Protein 7.9 (6.4-8.9) g/dL Albumin 3.3 (3.2-5.2) g/dL Globulin 4.6 H (2-4) g/dL Albumin/Globulin Ratio 0.7 L (1-3) Lipase 24 (11.0-82.0) U/L TSH 3.63 (0.34-5.60) mcIU/mL 08/26/16 08/26/16 Range/Units 15:56 15:56 WBC (3.5-10.8) 10^3/ul RBC (4.0-5.4) 10^6/ul Hgb (12.0-16.0) g/dl Hct (35-47) % MCV (80-97) fL MCH (27-31) pg MCHC (31-36) g/dl RDW (10.5-15) % Plt Count (150-450) 10^3/ul MPV (7.4-10.4) um3 Neut % (Auto) (38-83) % Lymph % (Auto) (25-47) % [place] % (Auto) (1-9) % Eos % (Auto) (0-6) % Baso % (Auto) (0-2) % Absolute Neuts (auto) (1.5-7.7) 10^3/ul Absolute Lymphs (auto) (1.0-4.8) 10^3/ul Absolute Monos (auto) (0-0.8) 10^3/ul Absolute Eos (auto) (0-0.6) 10^3/ul Absolute Basos (auto) (0-0.2) 10^3/ul Absolute Nucleated RBC 10^3/ul Nucleated RBC % INR (Anticoag Therapy) (0.89-1.11) APTT (26.0-36.3) seconds Fibrinogen D-Dimer, Quantitative Sodium (133-145) mmol/L Potassium (3.5-5.0) mmol/L Chloride (101-111) mmol/L Carbon Dioxide (22-32) mmol/L Anion Gap (2-11) mmol/L BUN (6-24) mg/dL Creatinine (0.51-0.95) mg/dL Est GFR ( Amer) (>60) Est GFR (Non-Af Amer) (>60) BUN/Creatinine Ratio (8-20) Glucose (70-100) mg/dL Lactic Acid 1.8 (0.5-2.0) mmol/L Calcium (8.6-10.3) mg/dL Total Bilirubin (0.2-1.0) mg/dL AST (13-39) U/L ALT (7-52) U/L Alkaline Phosphatase (34-104) U/L Ammonia 46 (16-53) mol/L Total Creatine Kinase (10-223) U/L CK-MB (CK-2) (0.6-6.3) ng/mL Troponin I (<0.04) ng/mL C-Reactive Protein (< 5.00) mg/L B-Natriuretic Peptide 84 ( - 100) pg/mL Total Protein (6.4-8.9) g/dL Albumin (3.2-5.2) g/dL Globulin (2-4) g/dL Albumin/Globulin Ratio (1-3) Lipase (11.0-82.0) U/L TSH (0.34-5.60) mcIU/mL Microbiology and Other Data: Assess/Plan/Problems-Billing Assessment: 65 yo F, [facility] resident , with h/o mental retardation, baseline dysphagia and recurrent aspirations, CKD stage 3, seizure disorder presents with decreased responsiveness and easy bruisability. Was noted to have UTI and thrombocytopenia, ?component of aspiration PNA as well - Patient Problems (1) Mental retardation Current Visit: No Status: Chronic Code(s): F79 - UNSPECIFIED INTELLECTUAL DISABILITIES SNOMED Code(s): 36115567 Comment: Profoundly delayed. (2) HTN (hypertension) Current Visit: No Status: Chronic Priority: Medium Code(s): I10 - ESSENTIAL (PRIMARY) HYPERTENSION SNOMED Code(s): 88658474 Comment: Amlodipine d/c'd. (3) Malnutrition Current Visit: No Status: Acute Code(s): E46 - UNSPECIFIED PROTEIN-CALORIE MALNUTRITION SNOMED Code(s): 9760626 Comment: Calorie counts ordered, BMP and prealbumin 09/06. Oral intake poor, may not be able to keep herself hydrated. (4) STUDY LEAD (ventriculoperitoneal) shunt status Current Visit: No Status: Chronic Comment: Shunt ending in left lateral ventricle noted CT scan 02/2015. (5) Seizure disorder Current Visit: No Status: Chronic Priority: Medium Code(s): G40.909 - EPILEPSY, UNSP, NOT INTRACTABLE, WITHOUT STATUS EPILEPTICUS SNOMED Code(s): 629185972 Comment: - Stable, continue IV valprooic acid. - Seizure precautions Status and Disposition: inpatient
[2016-09-06] MEDS: Latanoprost 0.005%* 2.5 ml BTL RIGHT EYE SCH (18:02)
[2016-09-07] MEDS: Famotidine TAB* 20 MG PO SCH (09:07)
[2016-09-07] MEDS: Multivitamins/Minerals TAB PO SCH (09:08)
[2016-09-07] MEDS: Nystatin TOP POWDER* 15 GM BTL TOPICAL SCH ×2 (09:08→21:33)
[2016-09-07] MEDS: Psyllium PAK PO SCH ×3 (09:08→22:10)
[2016-09-07] MEDS: NS 0.9% IVPB SCH ×2 (09:21→21:33)
[2016-09-07] MEDS: VALPROIC ACID IVPB SCH ×2 (09:21→21:33)
--- NOTE | 2016-09-07 13:53 | PN ---
Progress Note - Progress Note Note: Palliative care follow up note. Patient remains with minimal PO. On my encounter she is awake and alert and was tolerating bites of food. I have asked the staff to bring in more food and attempt to feed her more. Michael had asked for DNR/DNI and to withhold artificial nutrition. [facility], Diego Sheth did not object to the DNI but did object to artificial nutrition. My concern is that she has been eating at home without any significant weight loss. Here in the hospital it seems that her intake occurs it is variable and limited. She gets upset and will flail her arms when anyone enters the room. My recommendation and I will notify the [facility] to see if a staff that Ruby Tyler is familiar with to come in and be proactive in feeding her often. If she is successful with this, then a feeding tube should be delayed. Otherwise medically she is stable for discharge. At this time she is not a hospice candidate. If she continues to decline in her nutritional status at home then revisiting her hospice eligibility is warranted.
[2016-09-07] MEDS: D5W 1/2 NS KCl 20 Meq 1000 ML* 1,000 ML IV SCH (13:59)
--- NOTE | 2016-09-07 14:30 | PN ---
Subjective Date of Service: 09/07/16 Interval History: Patient not able to make her needs known. Family History: Unchanged from Admission Social History: Unchanged from Admission Past Medical History: Unchanged from Admission Objective Active Medications: Albuterol (Ventolin Hfa Inhaler*) 1 puff INH Q6H PRN PRN Reason: SHORTNESS OF BREATH Brimonidine Tartrate (Alphagan 0.2%) 1 drop BOTH EYES BID [facility] Last Admin: 09/07/16 09:08 Dose: 1 drop Docusate Sodium (Colace Cap*) 100 mg PO BID PRN PRN Reason: CONSTIPATION Famotidine (Pepcid Tab*) 20 mg PO QAM [facility] Last Admin: 09/07/16 09:07 Dose: 20 mg Valproic Acid 125 mg/ Sodium (Chloride) 101.25 mls @ 210 mls/hr IVPB BID [facility] Last Admin: 09/07/16 09:21 Dose: 210 mls/hr Potassium Chloride/Dextrose (D5w 1/2 Ns Kcl 20 Meq 1000 Ml*) 1,000 mls @ 100 mls/hr IV PER RATE [facility] Last Admin: 09/07/16 13:59 Dose: 100 mls/hr Latanoprost (Xalatan 0.005%*) 1 drop RIGHT EYE QPM [facility] Last Admin: 09/06/16 18:02 Dose: 1 drop Multivitamins/Minerals (Theragran/Minerals Tab*) 1 tab PO DAILY [facility] Last Admin: 09/07/16 09:08 Dose: 1 tab Nystatin (Nystatin Top Powder*) 1 applic TOPICAL BID [facility] Last Admin: 09/07/16 09:08 Dose: 1 applic Psyllium Hydrophilic Mucilloid (Metamucil Kailash*) 1 pkt PO BID [facility] Last Admin: 09/07/16 09:08 Dose: 1 pkt Senna (Senokot Tab*) 1 tab PO BID PRN PRN Reason: CONSTIPATION Vital Signs 09/06/16 09/06/16 09/07/16 16:15 20:00 08:00 Temperature 97.7 F Pulse Rate 70 Respiratory 16 16 18 Rate Blood Pressure (mmHg) O2 Sat by Pulse 100 Oximetry 09/07/16 09:06 Temperature 98.1 F Pulse Rate 78 Respiratory 16 Rate Blood Pressure 95/58 (mmHg) O2 Sat by Pulse 91 Oximetry Oxygen Devices in Use Now: None Appearance: Alert, partly up in bed. In semifetal position. Occ thrashing movements of head and shoulders. Extremities: No Edema, No Clubbing, Cyanosis, - Skin: No Rash or Ulcers, No Nodules or Sclerosis, - Result Diagrams: 09/01/16 05:41 09/06/16 06:27 Additional Lab and Data: Lab Results 08/26/16 08/26/16 08/26/16 Range/Units 15:56 15:56 15:56 WBC 10.4 (3.5-10.8) 10^3/ul RBC 3.46 L (4.0-5.4) 10^6/ul Hgb 11.6 L (12.0-16.0) g/dl Hct 34 L (35-47) % MCV 98 H (80-97) fL MCH 34 H (27-31) pg MCHC 34 (31-36) g/dl RDW 16 H (10.5-15) % Plt Count 43 L (150-450) 10^3/ul MPV 10 (7.4-10.4) um3 Neut % (Auto) 86.2 H (38-83) % Lymph % (Auto) 7.9 L (25-47) % Porter % (Auto) 3.8 (1-9) % Eos % (Auto) 1.6 (0-6) % Baso % (Auto) 0.5 (0-2) % Absolute Neuts (auto) 8.9 H (1.5-7.7) 10^3/ul Absolute Lymphs (auto) 0.8 L (1.0-4.8) 10^3/ul Absolute Monos (auto) 0.4 (0-0.8) 10^3/ul Absolute Eos (auto) 0.2 (0-0.6) 10^3/ul Absolute Basos (auto) 0.1 (0-0.2) 10^3/ul Absolute Nucleated RBC 0.02 10^3/ul Nucleated RBC % 0.2 INR (Anticoag Therapy) 1.02 (0.89-1.11) APTT 40.8 H (26.0-36.3) seconds Fibrinogen Pending D-Dimer, Quantitative Pending Sodium 130 L (133-145) mmol/L Potassium 3.8 (3.5-5.0) mmol/L Chloride 97 L (101-111) mmol/L Carbon Dioxide 24 (22-32) mmol/L Anion Gap 9 (2-11) mmol/L BUN 45 H (6-24) mg/dL Creatinine 2.44 H (0.51-0.95) mg/dL Est GFR ( Amer) 25.4 (>60) Est GFR (Non-Af Amer) 19.8 (>60) BUN/Creatinine Ratio 18.4 (8-20) Glucose 101 H (70-100) mg/dL Lactic Acid (0.5-2.0) mmol/L Calcium 10.0 (8.6-10.3) mg/dL Total Bilirubin 0.30 (0.2-1.0) mg/dL AST 12 L (13-39) U/L ALT 12 (7-52) U/L Alkaline Phosphatase 122 H (34-104) U/L Ammonia (16-53) mol/L Total Creatine Kinase 19 (10-223) U/L CK-MB (CK-2) 7.1 H (0.6-6.3) ng/mL Troponin I 0.00 (<0.04) ng/mL C-Reactive Protein 72.99 H (< 5.00) mg/L B-Natriuretic Peptide ( - 100) pg/mL Total Protein 7.9 (6.4-8.9) g/dL Albumin 3.3 (3.2-5.2) g/dL Globulin 4.6 H (2-4) g/dL Albumin/Globulin Ratio 0.7 L (1-3) Lipase 24 (11.0-82.0) U/L TSH 3.63 (0.34-5.60) mcIU/mL 08/26/16 08/26/16 Range/Units 15:56 15:56 WBC (3.5-10.8) 10^3/ul RBC (4.0-5.4) 10^6/ul Hgb (12.0-16.0) g/dl Hct (35-47) % MCV (80-97) fL MCH (27-31) pg MCHC (31-36) g/dl RDW (10.5-15) % Plt Count (150-450) 10^3/ul MPV (7.4-10.4) um3 Neut % (Auto) (38-83) % Lymph % (Auto) (25-47) % Porter % (Auto) (1-9) % Eos % (Auto) (0-6) % Baso % (Auto) (0-2) % Absolute Neuts (auto) (1.5-7.7) 10^3/ul Absolute Lymphs (auto) (1.0-4.8) 10^3/ul Absolute Monos (auto) (0-0.8) 10^3/ul Absolute Eos (auto) (0-0.6) 10^3/ul Absolute Basos (auto) (0-0.2) 10^3/ul Absolute Nucleated RBC 10^3/ul Nucleated RBC % INR (Anticoag Therapy) (0.89-1.11) APTT (26.0-36.3) seconds Fibrinogen D-Dimer, Quantitative Sodium (133-145) mmol/L Potassium (3.5-5.0) mmol/L Chloride (101-111) mmol/L Carbon Dioxide (22-32) mmol/L Anion Gap (2-11) mmol/L BUN (6-24) mg/dL Creatinine (0.51-0.95) mg/dL Est GFR ( Amer) (>60) Est GFR (Non-Af Amer) (>60) BUN/Creatinine Ratio (8-20) Glucose (70-100) mg/dL Lactic Acid 1.8 (0.5-2.0) mmol/L Calcium (8.6-10.3) mg/dL Total Bilirubin (0.2-1.0) mg/dL AST (13-39) U/L ALT (7-52) U/L Alkaline Phosphatase (34-104) U/L Ammonia 46 (16-53) mol/L Total Creatine Kinase (10-223) U/L CK-MB (CK-2) (0.6-6.3) ng/mL Troponin I (<0.04) ng/mL C-Reactive Protein (< 5.00) mg/L B-Natriuretic Peptide 84 ( - 100) pg/mL Total Protein (6.4-8.9) g/dL Albumin (3.2-5.2) g/dL Globulin (2-4) g/dL Albumin/Globulin Ratio (1-3) Lipase (11.0-82.0) U/L TSH (0.34-5.60) mcIU/mL Microbiology and Other Data: Assess/Plan/Problems-Billing Assessment: 65 yo F, [facility] resident , with h/o mental retardation, baseline dysphagia and recurrent aspirations, CKD stage 3, seizure disorder presents with decreased responsiveness and easy bruisability. Was noted to have UTI and thrombocytopenia, ?component of aspiration PNA as well - Patient Problems (1) Mental retardation Current Visit: No Status: Chronic Code(s): F79 - UNSPECIFIED INTELLECTUAL DISABILITIES SNOMED Code(s): 61616631 Comment: Profoundly delayed. (2) HTN (hypertension) Current Visit: No Status: Chronic Priority: Medium Code(s): I10 - ESSENTIAL (PRIMARY) HYPERTENSION SNOMED Code(s): 23487399 Comment: Amlodipine d/c'd. (3) Malnutrition Current Visit: No Status: Acute Code(s): E46 - UNSPECIFIED PROTEIN-CALORIE MALNUTRITION SNOMED Code(s): 1335001 Comment: Calorie counts ordered, BMP and prealbumin 09/06. IV fluids started 09/07, BMP 09/08. Dr. Baxter to consult re possible feeding tube. (4) PRINTING AGENT (ventriculoperitoneal) shunt status Current Visit: No Status: Chronic Comment: Shunt ending in left lateral ventricle noted CT scan 02/2015. (5) Seizure disorder Current Visit: No Status: Chronic Priority: Medium Code(s): G40.909 - EPILEPSY, UNSP, NOT INTRACTABLE, WITHOUT STATUS EPILEPTICUS SNOMED Code(s): 216908560 Comment: - Stable, continue IV valprooic acid. - Seizure precautions Status and Disposition: inpatient
[2016-09-07] MEDS: Latanoprost 0.005%* 2.5 ml BTL RIGHT EYE SCH (21:33)
--- NOTE | 2016-09-07 22:05 | CONS ---
CC: Shelby Wilson NP CONSULTATION REPORT: DATE OF CONSULT: 09/07/16 REQUESTING PHYSICIAN: Dr. Oliva. INDICATION: Question of potential PEG tube. NARRATIVE: Ms. Armando is a pleasant 65-year-old female with a history of mental retardation, seizures, GERD, osteoporosis, ventriculoperitoneal shunt, hypertension, chronic kidney disease, glaucoma, dysphagia, who was admitted to the hospital on the for bruising and generalized weakness. The patient did have a Hematology consultation and the thrombocytopenia was felt to be the cause of her bruising. Thrombocytopenia was felt to be secondary to urinary sepsis. Her platelet count has improved. Also, during this hospitalization, she really has not been taking much oral nutrition or hydration. There is a concern that she is not able to maintain her hydration status and a request is made for a feeding tube. I did have detailed discussions with Dr. Charles and Dr. Oliva. Dr. Charles did feel that the patient may not be eating as much here because she is outside of her normal environment and did not notice that when the nurses had the time to sit with her and feed her that, she would take food and it may simply be an issue of when she gets back to her care home, her caregivers there will have extra time to spend with her trying to feed her. The patient is nonverbal. No history was able to be obtained from her. MEDICATIONS: Include: 1. Depakote. 2. Albuterol. 3. Benadryl. 4. Multivitamin. 5. Metamucil. 6. Eye drops. 7. Pepcid. 8. Aspirin. 9. Amlodipine. ALLERGIES: To PHENYTOIN and CARBAMAZEPINE. FAMILY HISTORY: Cannot obtain from the patient. SOCIAL HISTORY: She was at the [employer]. REVIEW OF SYSTEMS: Unable to obtain from the patient. PHYSICAL EXAM: Temperature is 98.1, blood pressure 95/58, pulse is 78. General : Well-appearing elderly female. She appears slightly older than her stated age. She is alert, nonverbal. HEENT: Dentition is poor. Neck is supple. Heart: Regular rate and rhythm. Lungs: Clear to auscultation. Abdomen is soft , nontender, nondistended. No hepatosplenomegaly, masses, rebound, or guarding. Skin is warm and dry. LABORATORY DATA: Of note, her platelets have increased to 129, white count is 5.6, hemoglobin is 9.0. Her INR is 1.02. Creatinine is 1.37. ASSESSMENT AND PLAN: This is a very pleasant 65-year-old female with mental retardation who was admitted for weakness and thrombocytopenia. The question is , is she able to maintain her hydration as the patient really does not take much by mouth. Dr. Charles has investigated this issue and feels that if the patient is able to have closer care from her caregivers, she believes that they may be able to have more time to get her to eat and drink. As she does appear to do both here in the hospital, it may simply be a question of being able to take the time to feed her and give her hydration. I think before we subject the patient to a PEG tube, we should allow her to return home and see how she does in her own environment with her own caregivers. This was the recommendation from Dr. Charles and I think that this is a very good recommendation and agree with it 100%. We will continue to follow along. [id number]/[facility] #: [id number] RYLIE
[2016-09-08] MEDS: D5W 1/2 NS KCl 20 Meq 1000 ML* 1,000 ML IV SCH (01:38)
[2016-09-08 07:01] LABS: Calcium 9.1 mg/dL (8.6-10.3); EGFR African American 46.7 (>60); EGFR Non-African American 36.3 (>60)
[2016-09-08 08:44] VITALS: BP 131/71
[2016-09-08] MEDS: Psyllium PAK PO SCH (09:59)
[2016-09-08] MEDS: VALPROIC ACID IVPB SCH (09:59)
[2016-09-08] MEDS: Famotidine TAB* 20 MG PO SCH (09:59)
[2016-09-08] MEDS: NS 0.9% IVPB SCH (09:59)
[2016-09-08] MEDS: Multivitamins/Minerals TAB PO SCH (10:00)
[2016-09-08] MEDS: Nystatin TOP POWDER* 15 GM BTL TOPICAL SCH (10:01)
--- NOTE | 2016-09-08 11:37 | DCNOTE ---
Subjective Family History: Unchanged from Admission Social History: Unchanged from Admission Past Medical History: Unchanged from Admission Objective Active Medications: Albuterol (Ventolin Hfa Inhaler*) 1 puff INH Q6H PRN PRN Reason: SHORTNESS OF BREATH Brimonidine Tartrate (Alphagan 0.2%) 1 drop BOTH EYES BID [facility] Last Admin: 09/08/16 10:00 Dose: 1 drop Docusate Sodium (Colace Cap*) 100 mg PO BID PRN PRN Reason: CONSTIPATION Famotidine (Pepcid Tab*) 20 mg PO QAM [facility] Last Admin: 09/08/16 09:59 Dose: 20 mg Valproic Acid 125 mg/ Sodium (Chloride) 101.25 mls @ 210 mls/hr IVPB BID [facility] Last Admin: 09/08/16 09:59 Dose: 210 mls/hr Latanoprost (Xalatan 0.005%*) 1 drop RIGHT EYE QPM [facility] Last Admin: 09/07/16 21:33 Dose: 1 drop Multivitamins/Minerals (Theragran/Minerals Tab*) 1 tab PO DAILY [facility] Last Admin: 09/08/16 10:00 Dose: 1 tab Nystatin (Nystatin Top Powder*) 1 applic TOPICAL BID [facility] Last Admin: 09/08/16 10:01 Dose: 1 applic Psyllium Hydrophilic Mucilloid (Metamucil Kailash*) 1 pkt PO BID [facility] Last Admin: 09/08/16 09:59 Dose: 1 pkt Senna (Senokot Tab*) 1 tab PO BID PRN PRN Reason: CONSTIPATION Vital Signs 09/07/16 09/07/16 09/07/16 15:16 20:00 23:52 Temperature 97.6 F Pulse Rate 58 60 Respiratory 16 16 19 Rate Blood Pressure 95/59 110/52 (mmHg) O2 Sat by Pulse 92 100 Oximetry 09/08/16 09/08/16 09/08/16 06:14 08:00 08:02 Temperature 96.9 F 96.2 F Pulse Rate 67 Respiratory 18 18 Rate Blood Pressure 131/71 (mmHg) O2 Sat by Pulse 100 Oximetry Oxygen Devices in Use Now: None Appearance: Alert, lying partly up right in bed. Neutral affect. Looks comfortable. Extremities: No Edema, No Clubbing, Cyanosis, - Skin: No Rash or Ulcers, No Nodules or Sclerosis, - Neurological: - - No tremor. Startles easily. In semifetal position. Result Diagrams: 09/01/16 05:41 09/08/16 06:12 Additional Lab and Data: Lab Results 08/26/16 08/26/16 08/26/16 Range/Units 15:56 15:56 15:56 WBC 10.4 (3.5-10.8) 10^3/ul RBC 3.46 L (4.0-5.4) 10^6/ul Hgb 11.6 L (12.0-16.0) g/dl Hct 34 L (35-47) % MCV 98 H (80-97) fL MCH 34 H (27-31) pg MCHC 34 (31-36) g/dl RDW 16 H (10.5-15) % Plt Count 43 L (150-450) 10^3/ul MPV 10 (7.4-10.4) um3 Neut % (Auto) 86.2 H (38-83) % Lymph % (Auto) 7.9 L (25-47) % Carbon % (Auto) 3.8 (1-9) % Eos % (Auto) 1.6 (0-6) % Baso % (Auto) 0.5 (0-2) % Absolute Neuts (auto) 8.9 H (1.5-7.7) 10^3/ul Absolute Lymphs (auto) 0.8 L (1.0-4.8) 10^3/ul Absolute Monos (auto) 0.4 (0-0.8) 10^3/ul Absolute Eos (auto) 0.2 (0-0.6) 10^3/ul Absolute Basos (auto) 0.1 (0-0.2) 10^3/ul Absolute Nucleated RBC 0.02 10^3/ul Nucleated RBC % 0.2 INR (Anticoag Therapy) 1.02 (0.89-1.11) APTT 40.8 H (26.0-36.3) seconds Fibrinogen Pending D-Dimer, Quantitative Pending Sodium 130 L (133-145) mmol/L Potassium 3.8 (3.5-5.0) mmol/L Chloride 97 L (101-111) mmol/L Carbon Dioxide 24 (22-32) mmol/L Anion Gap 9 (2-11) mmol/L BUN 45 H (6-24) mg/dL Creatinine 2.44 H (0.51-0.95) mg/dL Est GFR ( Amer) 25.4 (>60) Est GFR (Non-Af Amer) 19.8 (>60) BUN/Creatinine Ratio 18.4 (8-20) Glucose 101 H (70-100) mg/dL Lactic Acid (0.5-2.0) mmol/L Calcium 10.0 (8.6-10.3) mg/dL Total Bilirubin 0.30 (0.2-1.0) mg/dL AST 12 L (13-39) U/L ALT 12 (7-52) U/L Alkaline Phosphatase 122 H (34-104) U/L Ammonia (16-53) mol/L Total Creatine Kinase 19 (10-223) U/L CK-MB (CK-2) 7.1 H (0.6-6.3) ng/mL Troponin I 0.00 (<0.04) ng/mL C-Reactive Protein 72.99 H (< 5.00) mg/L B-Natriuretic Peptide ( - 100) pg/mL Total Protein 7.9 (6.4-8.9) g/dL Albumin 3.3 (3.2-5.2) g/dL Globulin 4.6 H (2-4) g/dL Albumin/Globulin Ratio 0.7 L (1-3) Lipase 24 (11.0-82.0) U/L TSH 3.63 (0.34-5.60) mcIU/mL 08/26/16 08/26/16 Range/Units 15:56 15:56 WBC (3.5-10.8) 10^3/ul RBC (4.0-5.4) 10^6/ul Hgb (12.0-16.0) g/dl Hct (35-47) % MCV (80-97) fL MCH (27-31) pg MCHC (31-36) g/dl RDW (10.5-15) % Plt Count (150-450) 10^3/ul MPV (7.4-10.4) um3 Neut % (Auto) (38-83) % Lymph % (Auto) (25-47) % Carbon % (Auto) (1-9) % Eos % (Auto) (0-6) % Baso % (Auto) (0-2) % Absolute Neuts (auto) (1.5-7.7) 10^3/ul Absolute Lymphs (auto) (1.0-4.8) 10^3/ul Absolute Monos (auto) (0-0.8) 10^3/ul Absolute Eos (auto) (0-0.6) 10^3/ul Absolute Basos (auto) (0-0.2) 10^3/ul Absolute Nucleated RBC 10^3/ul Nucleated RBC % INR (Anticoag Therapy) (0.89-1.11) APTT (26.0-36.3) seconds Fibrinogen D-Dimer, Quantitative Sodium (133-145) mmol/L Potassium (3.5-5.0) mmol/L Chloride (101-111) mmol/L Carbon Dioxide (22-32) mmol/L Anion Gap (2-11) mmol/L BUN (6-24) mg/dL Creatinine (0.51-0.95) mg/dL Est GFR ( Amer) (>60) Est GFR (Non-Af Amer) (>60) BUN/Creatinine Ratio (8-20) Glucose (70-100) mg/dL Lactic Acid 1.8 (0.5-2.0) mmol/L Calcium (8.6-10.3) mg/dL Total Bilirubin (0.2-1.0) mg/dL AST (13-39) U/L ALT (7-52) U/L Alkaline Phosphatase (34-104) U/L Ammonia 46 (16-53) mol/L Total Creatine Kinase (10-223) U/L CK-MB (CK-2) (0.6-6.3) ng/mL Troponin I (<0.04) ng/mL C-Reactive Protein (< 5.00) mg/L B-Natriuretic Peptide 84 ( - 100) pg/mL Total Protein (6.4-8.9) g/dL Albumin (3.2-5.2) g/dL Globulin (2-4) g/dL Albumin/Globulin Ratio (1-3) Lipase (11.0-82.0) U/L TSH (0.34-5.60) mcIU/mL Microbiology and Other Data: Assess/Plan/Problems-Billing Assessment: 65 yo F, [facility] resident , with h/o mental retardation, baseline dysphagia and recurrent aspirations, CKD stage 3, seizure disorder presents with decreased responsiveness and easy bruisability. Was noted to have UTI and thrombocytopenia, ?component of aspiration PNA as well - Patient Problems (1) Mental retardation Current Visit: No Status: Chronic Code(s): F79 - UNSPECIFIED INTELLECTUAL DISABILITIES SNOMED Code(s): 56023688 Comment: Profoundly delayed. (2) HTN (hypertension) Current Visit: No Status: Chronic Priority: Medium Code(s): I10 - ESSENTIAL (PRIMARY) HYPERTENSION SNOMED Code(s): 23222137 Comment: Amlodipine d/c'd. (3) Malnutrition Current Visit: No Status: Acute Code(s): E46 - UNSPECIFIED PROTEIN-CALORIE MALNUTRITION SNOMED Code(s): 8549345 Comment: Electrolytes wnl 2/28, BUN 13, creat 1.44 which is similar or better than most prior results. We hope she will be more accepting of food and drink at her shelter. BMP recommended 1 week after d/c. 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 (5) Seizure disorder Current Visit: No Status: Chronic Priority: Medium Code(s): G40.909 - EPILEPSY, UNSP, NOT INTRACTABLE, WITHOUT STATUS EPILEPTICUS SNOMED Code(s): 259747887 Comment: - Resume po valprooic acid as outpt. - Seizure precautions Status and Disposition: inpatient
--- NOTE | 2016-09-08 11:38 | PN ---
Progress Note - Progress Note Note: Time spent on discharge 45 minutes.
--- NOTE | 2016-09-09 02:09 | DS ---
DISCHARGE SUMMARY: DATE OF ADMISSION: DATE OF DISCHARGE: 09/08/16 HISTORY: This 65-year-old woman [facility] from a [facility] with complaints of weakness and lethargy. She was found to have a UTI. Her urine grew out E. coli resistant to quinolones and ampicillin, but sensitive to all other antibiotics tested. She was treated with appropriate antibiotics and she recovered well. She completed her course while here. I note she likely had severe sepsis where she had marked thrombocytopenia, which resolved. Her platelet count fell as low as 32,000; on 09/01/16, it was up to 129,000. I think this is indicative of her sepsis. She did not do very well with oral intake here. She had a swallowing evaluation. We have her on nectar thick liquids and pureed foods, but hope is that she will be more accepting of food and drink at her [facility] where the staff is familiar to her and possibly they will have more time available to feed her on a continuous basis throughout the day. I have recommended a BMP in 1 week after discharge. FINAL DIAGNOSES: 1. Sepsis due to urinary tract infection. 2. Mental retardation. 3. Hypertension. 4. Malnutrition. 5. Status post ventriculoperitoneal shunt. 6. Seizure disorder. DISCHARGE MEDICATIONS: 1. Brimonidine 0.25% one drop both eyes b.i.d. 2. Aspirin 81 mg daily. 3. Latanoprost 0.005% one drop right eye q.h.s. 4. Multivitamin with mineral 1 daily. 5. Divalproex sprinkle capsules 125 mg b.i.d. 6. Psyllium 1 packet twice daily. 7. Diphenhydramine 25 mg every 6 hours p.r.n. 8. Senna, docusate 1 tablet b.i.d. p.r.n. 9. Famotidine 20 mg daily. 10. Dorzolamide/timolol 1 drop both eyes b.i.d. 11. Nystatin powder apply twice daily to affected areas. 12. Albuterol inhaler 1 puff every 6 hours p.r.n. I note that her sodium was 141, BUN 13, creatinine 1.44 on the day of discharge. I recommend a repeat BMP in 1 week. [id number]/[facility] #: [id number] [facility]
== END 2016-09-08 14:25 | disposition home or self-care (01) | DRG 871 ==
LOC: ED 14:10 → MED 17:50
PROVIDERS: ADMIT Internal Medicine; ATTEND Internal Medicine
DX: A41.9 Sepsis, unspecified organism (principal); G93.41 Metabolic encephalopathy; N17.9 Acute kidney failure, unspecified; E46 Unspecified protein-calorie malnutrition; I95.9 Hypotension, unspecified; D69.6 Thrombocytopenia, unspecified; Z99.81 Dependence on supplemental oxygen; N18.3 Chronic kidney disease, stage 3 (moderate); N39.0 Urinary tract infection, site not specified; Z68.1 Body mass index [BMI] 19.9 or less, adult; R65.20 Severe sepsis without septic shock; B96.20 Unspecified Escherichia coli [E. coli] as the cause of diseases classified elsewhere; Z16.11 Resistance to penicillins; Z16.23 Resistance to quinolones and fluoroquinolones; F79 Unspecified intellectual disabilities; G40.909 Epilepsy, unspecified, not intractable, without status epilepticus; E86.0 Dehydration; K21.9 Gastro-esophageal reflux disease without esophagitis; M81.0 Age-related osteoporosis without current pathological fracture; R68.0 Hypothermia, not associated with low environmental temperature; I12.9 Hypertensive chronic kidney disease with stage 1 through stage 4 chronic kidney disease, or unspecified chronic kidney disease; J98.4 Other disorders of lung; H40.9 Unspecified glaucoma; Z66 Do not resuscitate; Z98.2 Presence of cerebrospinal fluid drainage device; Z79.82 Long term (current) use of aspirin; Z79.899 Other long term (current) drug therapy; Z88.8 Allergy status to other drugs, medicaments and biological substances; Z99.3 Dependence on wheelchair
CPT/HCPCS: 36415; 36600; 71010; 76775; 80048; 80053; 80164; 80202; 81003; 81015; 82140; 82247; 82550; 82553; 82803; 83010; 83605; 83615; 83690; 83880; 84134; 84443; 84484; 85025; 85027; 85379; 85384; 85610; 85730; 86022; 86140; 87040; 87077; 87086; 87186; 87502; 87641; 93005; 94760; 99223; A9270-GY; J0696; J3370; J3480; J3490

== ENCOUNTER 2016-09-28 11:02 | Emergency (ER) | payer MEDICARE, MEDICAID ==
[2016-09-28 13:12] LABS: Urine Bacteria Absent (Absent); Urine Bilirubin Negative (Negative); Urine Glucose Negative (Negative); Urine Nitrite Negative (Negative)
[2016-09-28 13:56] VITALS: BP 99/58
--- NOTE | 2016-09-28 15:50 | ED ---
GI/ HPI - HPI Summary HPI Summary: Patient arrives with e commerce developer. Psychometric Examiner states she pulled out her catheter at home and she consistently does this. Patient is minimal functioning individual and does not communicate. She was sent here for a catheter replacement. Patient takes several medications at baseline. She was hospitalized for PNA 2 months ago, but has not had problems since. Since patient does not communicate, ROS given by e commerce developer and limited with information. - History of Current Complaint Chief Complaint: EDUrogenitalProblems Time Seen by Provider: 09/28/16 11:42 Stated Complaint: cox catheter CAME OUT Hx Obtained From: Family/Psychometric Examiner Hx From Patient Unobtainable Due To: Other - low functioning, does not communicate Onset/Duration: Started Hours Ago Timing: Constant Severity: Moderate Current Severity: Moderate Pain Intensity: 0 - Risk Factors GI Bleed Risk Factor(s): Negative - Additional Pertinent History Primary Care Physician: LEATHA - Allergy/Home Medications Allergies/Adverse Reactions: Allergies Allergy/AdvReac Type Severity Reaction Status Date / Time Carbamazepine [From Tegretol] Allergy Unknown Verified 08/26/16 14:14 Reaction Details Phenytoin [From Dilantin] Allergy Unknown Verified 08/26/16 14:14 Reaction Details PMH/Surg Hx/FS Hx/Imm Hx Previously Healthy: No - HTN, CAD, PNA, GERD, Renal failure Cardiovascular History: Reports: Hx Hypertension, Other Cardiovascular Problems/ Disorders - METAL BOX MAKER Shunt Respiratory History: Reports: Hx Pneumonia GI History: Reports: Hx Gastroesophageal Reflux Disease History: Reports: Hx Chronic Renal Failure - stage 3, Other Problems/ Disorders - hx bilateral hydronephrosis Musculoskeletal History: Reports: Hx Osteoporosis, Other Musculoskeletal History - Contracted Sensory History: Reports: Hx Cataracts, Hx Glaucoma, Hx Vision Problem Opthamlomology History: Reports: Hx Cataracts, Hx Glaucoma, Hx Vision Problem Neurological History: Reports: Hx Developmental Delay, Hx Seizures, Other Neuro Impairments/Disorders - Parkinson's Disease Denies: Hx Dementia, Hx Headaches, Hx Migraine, Hx Nerve Disease, Hx Spinal Cord Injury, Hx Transient Ischemic Attacks (TIA) Psychiatric History: Reports: Hx Anxiety, Hx Post Traumatic Stress Disorder, Other Psychiatric Issues/Disorders - developmental delay - Surgical History Surgery Procedure, Year, and Place: METAL BOX MAKER SHUNT - Immunization History Date of Tetanus Vaccine: Up to Date Infectious Disease History: No Infectious Disease History: Reports: Hx of Known/Suspected MRSA Denies: Hx Clostridium Difficile, Hx Hepatitis, Hx Human Immunodeficiency Virus (HIV), Hx Shingles, Hx Tuberculosis, Hx Known/Suspected VRE, Hx Known/ Suspected VRSA, History Other Infectious Disease, Traveled Outside the [place] in Last 30 Days - Family History Known Family History: Positive: Unknown - The patient is a poor historian. Negative: Diabetes - Social History Occupation: Disabled [facility]: [facility] Alcohol Use: None Hx Substance Use: No Substance Use Type: Reports: None Hx Tobacco Use: No Smoking Status (MU): Never Smoked Tobacco Review of Systems - ROS Summary Review of Systems Summary: Unable to receive ROS d/t mental capacity of patient. Non-communicative Psychological: Normal All Other Systems Reviewed And Are Negative: Yes Physical Exam Triage Information Reviewed: Yes Vital Signs On Initial Exam: Initial Vitals Temp Pulse Resp BP Pulse Ox 96.4 F 60 20 104/45 94 09/28/16 11:22 09/28/16 11:22 09/28/16 11:22 09/28/16 11:22 09/28/16 11:22 Vital Signs Reviewed: Yes Appearance: Positive: Thin Skin: Positive: Skin Color Reflects Adequate Perfusion Eyes: Positive: EOMI, Conjunctiva Clear Neck: Positive: Supple, No Lymphadenopathy Respiratory/Lung Sounds: Positive: Clear to Auscultation, Breath Sounds Present Cardiovascular: Positive: RRR Pelvic Exam: Positive: external exam normal Musculoskeletal: Positive: Limited @ - atrophy of muscles. wheelchair bound Neurological: Positive: Other - unable to assess neuro function AVPU Assessment: Pain (Reponds To) - pain. responds to catheter placement Diagnostics - Vital Signs Vital Signs Temp Pulse Resp BP Pulse Ox 09/28/16 13:54 96 F 52 16 99/58 09/28/16 12:40 96.5 F 112 20 120/91 98 09/28/16 11:22 96.4 F 60 20 104/45 94 - Laboratory Lab Results: Lab Results 09/28/16 Range/Units 12:58 Urine Color Yellow Urine Appearance Clear Urine pH 7.0 (5-9) Ur Specific [place] 1.005 L (1.010-1.030) Urine Protein Negative (Negative) Urine Ketones Negative (Negative) Urine Blood Negative (Negative) Urine Nitrate Negative (Negative) Urine Bilirubin Negative (Negative) Urine Urobilinogen Negative (Negative) Ur Leukocyte Esterase 3+ H (Negative) Urine WBC (Auto) 2+(11-20/hpf) H (Absent) Urine RBC (Auto) Trace(0-2/hpf) (Absent) Urine Bacteria Absent (Absent) Urine Glucose Negative (Negative) Lab Statement: Any lab studies that have been ordered have been reviewed, and results considered in the medical decision making process. GIGU Course/Dx - Course Course Of Treatment: Patient ROS and PMH obtained by e commerce developer at care home. Urinary catheter placed. Patient tolerated well. UA sent. WBC and Leuks in urine. Rx for bactrim sent to pharmacy. - Diagnoses Differential Diagnoses - Female: Bladder Dysfunction, Urinary Tract Infection, Ureteral Calculi, Vaginitis Provider Diagnoses: URINARY TRACT INFECTION Discharge - Discharge Plan Condition: Stable Disposition: HOME Prescriptions: Sulfamethox/Trimethoprim DS* [Bactrim DS 800/160 TAB*] 1 tab PO BID #6 tab Patient Education Materials: Urinary Tract Infection in Women (ED) Referrals: Shelby Babcock NP [Primary Care Provider] - Additional Instructions: Follow up with PCP. Bactrim twice daily for 3 days. Tylenol as needed for discomfort.
== END 2016-09-28 13:54 | disposition home or self-care (01) ==
LOC: ED 11:02
DX: N39.0 Urinary tract infection, site not specified (principal)
CPT/HCPCS: 81003; 81015; 87086; 99282

== ENCOUNTER 2016-10-20 06:33 | Emergency (ER) | payer MEDICARE, MEDICAID ==
--- NOTE | 2016-10-20 07:23 | ED ---
GI/ HPI - HPI Summary HPI Summary: 65 female presents with staff from [facility] with complaint of pulling out her roche catheter upon waking this morning. Patient is a minimally functioning individual and does not communicate, Therefore history provided by control chemist. Patient has a roche catheter due to chronic UTI's and kidney failure. Patient and staff states no other complaints or symptoms at this time. She just needs a roche catheter put back in. She pulls out her roche catheter often. Denies UTI symptoms and other medical problems. - History of Current Complaint Chief Complaint: EDUrogenitalProblems Time Seen by Provider: 10/20/16 06:50 Stated Complaint: ROCHE ISSUE Hx Obtained From: Patient, Family/Tea Room Manager - noel staff at [facility] Onset/Duration: Started Hours Ago Timing: Constant Current Severity: None Pain Intensity: 0 - Additional Pertinent History Primary Care Physician: LEATHA - Allergy/Home Medications Allergies/Adverse Reactions: Allergies Allergy/AdvReac Type Severity Reaction Status Date / Time Carbamazepine [From Tegretol] Allergy Unknown Verified 10/20/16 06:45 Reaction Details Phenytoin [From Dilantin] Allergy Unknown Verified 10/20/16 06:45 Reaction Details PMH/Surg Hx/FS Hx/Imm Hx Cardiovascular History: Reports: Hx Hypertension, Other Cardiovascular Problems/ Disorders - 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 Respiratory History: Reports: Hx Pneumonia GI History: Reports: Hx Gastroesophageal Reflux Disease History: Reports: Hx Chronic Renal Failure - stage 3, Other Problems/ Disorders - hx bilateral hydronephrosis Musculoskeletal History: Reports: Hx Osteoporosis, Other Musculoskeletal History - Contracted Sensory History: Reports: Hx Cataracts, Hx Glaucoma, Hx Vision Problem Opthamlomology History: Reports: Hx Cataracts, Hx Glaucoma, Hx Vision Problem Neurological History: Reports: Hx Developmental Delay, Hx Seizures, Other Neuro Impairments/Disorders - Parkinson's Disease Denies: Hx Dementia, Hx Headaches, Hx Migraine, Hx Nerve Disease, Hx Spinal Cord Injury, Hx Transient Ischemic Attacks (TIA) Psychiatric History: Reports: Hx Anxiety, Hx Post Traumatic Stress Disorder, Other Psychiatric Issues/Disorders - developmental delay - Surgical History Surgery Procedure, Year, and Place: SPORTS ATTORNEY SHUNT - Immunization History Date of Tetanus Vaccine: Up to Date Infectious Disease History: Yes Infectious Disease History: Reports: Hx of Known/Suspected MRSA Denies: Hx Clostridium Difficile, Hx Hepatitis, Hx Human Immunodeficiency Virus (HIV), Hx Shingles, Hx Tuberculosis, Hx Known/Suspected VRE, Hx Known/ Suspected VRSA, History Other Infectious Disease, Traveled Outside the [place] in Last 30 Days - Family History Known Family History: Positive: Unknown - The patient is a poor historian. Negative: Diabetes - Social History Alcohol Use: None Hx Substance Use: No Substance Use Type: Reports: None Hx Tobacco Use: No Smoking Status (MU): Never Smoked Tobacco Review of Systems - ROS Summary Review of Systems Summary: unable to obtain due to patient's condition and unable to communicate. Positive: other - roche catheter replacement All Other Systems Reviewed And Are Negative: Yes Physical Exam Triage Information Reviewed: Yes Vital Signs On Initial Exam: Initial Vitals Temp Pulse Resp BP Pulse Ox 96.8 F 113 20 139/79 100 10/20/16 06:43 10/20/16 06:43 10/20/16 06:43 10/20/16 06:43 10/20/16 06:43 tachycardia noted, compared to previous this is patients normal HR. referred patient to follow up with PCP about slightly elevated BP. Vital Signs Reviewed: Yes Appearance: Positive: Well-Appearing - patient is acting appropriately for her norm, developmentally delayed, unable to communicate due to condition, No Pain Distress, Well-Nourished Skin: Positive: Warm, Skin Color Reflects Adequate Perfusion, Dry, Other Head/Face: Positive: Normal Head/Face Inspection Eyes: Positive: Conjunctiva Clear ENT: Positive: Normal ENT inspection, Hearing grossly normal Neck: Positive: Supple, Nontender, No Lymphadenopathy Respiratory/Lung Sounds: Positive: Clear to Auscultation, Breath Sounds Present Cardiovascular: Positive: Normal, RRR, Pulses are Symmetrical in both Upper and Lower Extremities Abdomen Description: Positive: Nontender, No Organomegaly, Soft Bowel Sounds: Positive: Present Musculoskeletal: Positive: Limited @ - atrophy of muscles, wheelchair bound Neurological: Positive: Other - unable to assess due to patient's condition AVPU Assessment: Pain (Reponds To) Diagnostics - Vital Signs Vital Signs Temp Pulse Resp BP Pulse Ox 10/20/16 06:43 96.8 F 113 20 139/79 100 - Laboratory Lab Statement: Any lab studies that have been ordered have been reviewed, and results considered in the medical decision making process. GIGU Course/Dx - Course Course Of Treatment: roche catheter was replaced by nurse Pichardo without complication. patient tolerated procedure well. UA sent to lab. history obtained through caregiver due to patien'ts mental capacity. - Diagnoses Differential Diagnoses - Female: Other Provider Diagnoses: Roche catheter problem, Encounter for Roche catheter replacement Discharge - Discharge Plan Condition: Stable Disposition: HOME Patient Education Materials: Roche Catheter Placement and Care (ED) Referrals: Shelby Babcock NP [Primary Care Provider] - Additional Instructions: Please continue appropriate care for roche catheter placement. If she develops symptoms of UTI or any problems with placement please return or seek medical attention.
[2016-10-20 11:37] VITALS: BP 132/70
== END 2016-10-20 11:35 | disposition home or self-care (01) ==
LOC: ED 06:33
DX: T83.091A Other mechanical complication of indwelling urethral catheter, initial encounter (principal)
CPT/HCPCS: 99281

== ENCOUNTER 2016-11-09 21:50 | Emergency (ER) | payer MEDICARE, MEDICAID ==
--- NOTE | 2016-11-09 22:40 | ED ---
GI/ HPI - HPI Summary HPI Summary: 65F presents with removing cox catheter and need for replacement cox. She has history of parkinson and developmental delays and frequently removes her cox. Her caregiver states she has not been acting any differently than before. She has the catheter due to getting frequent UTIs. Her caregiver denies any fevers. ROS limited due to patient condition. - History of Current Complaint Chief Complaint: EDUrogenitalProblems Time Seen by Provider: 11/09/16 22:22 Stated Complaint: CATH REPLACEMENT Pain Intensity: 0 - Additional Pertinent History Primary Care Physician: [id number] - Allergy/Home Medications Allergies/Adverse Reactions: Allergies Allergy/AdvReac Type Severity Reaction Status Date / Time Carbamazepine [From Tegretol] Allergy Unknown Verified 10/20/16 06:45 Reaction Details Phenytoin [From Dilantin] Allergy Unknown Verified 10/20/16 06:45 Reaction Details PMH/Surg Hx/FS Hx/Imm Hx Cardiovascular History: Reports: Hx Hypertension, Other Cardiovascular Problems/ Disorders - 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 PHYSICAL 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 Shunt Respiratory History: Reports: Hx Pneumonia GI History: Reports: Hx Gastroesophageal Reflux Disease History: Reports: Hx Chronic Renal Failure - stage 3, Other Problems/ Disorders - hx bilateral hydronephrosis Musculoskeletal History: Reports: Hx Osteoporosis, Other Musculoskeletal History - Contracted Sensory History: Reports: Hx Cataracts, Hx Glaucoma, Hx Vision Problem Opthamlomology History: Reports: Hx Cataracts, Hx Glaucoma, Hx Vision Problem Neurological History: Reports: Hx Developmental Delay, Hx Seizures, Other Neuro Impairments/Disorders - Parkinson's Disease Denies: Hx Dementia, Hx Headaches, Hx Migraine, Hx Nerve Disease, Hx Spinal Cord Injury, Hx Transient Ischemic Attacks (TIA) Psychiatric History: Reports: Hx Anxiety, Hx Post Traumatic Stress Disorder, Other Psychiatric Issues/Disorders - developmental delay - Surgical History Surgery Procedure, Year, and Place: 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 PHYSICAL THERAPIST SHUNT - Immunization History Date of Tetanus Vaccine: Up to Date Infectious Disease History: Reports: Hx of Known/Suspected MRSA Denies: Hx Clostridium Difficile, Hx Hepatitis, Hx Human Immunodeficiency Virus (HIV), Hx Shingles, Hx Tuberculosis, Hx Known/Suspected VRE, Hx Known/ Suspected VRSA, History Other Infectious Disease, Traveled Outside the [place] in Last 30 Days - Family History Known Family History: Positive: Unknown - The patient is a poor historian. Negative: Diabetes - Social History Alcohol Use: None Hx Substance Use: No Substance Use Type: Reports: None Hx Tobacco Use: No Smoking Status (MU): Never Smoked Tobacco Review of Systems Negative: Fever Positive: other - removed cox Negative: Rash All Other Systems Reviewed And Are Negative: Yes Physical Exam Triage Information Reviewed: Yes Vital Signs On Initial Exam: Initial Vitals Temp Pulse Resp 97.5 F 102 18 11/09/16 21:54 11/09/16 21:54 11/09/16 21:54 Vital Signs Reviewed: Yes Completion Of Physical Exam Limited Due To: Altered Mental Status Appearance: Positive: Well-Appearing Skin: Positive: Warm, Dry Head/Face: Positive: Normal Head/Face Inspection Eyes: Positive: Normal, Conjunctiva Clear Respiratory/Lung Sounds: Positive: Clear to Auscultation, Breath Sounds Present Cardiovascular: Positive: Normal, RRR Abdomen Description: Positive: Nontender, Soft Bowel Sounds: Positive: Present Diagnostics - Vital Signs Vital Signs Temp Pulse Resp 11/09/16 21:54 97.5 F 102 18 - Laboratory Lab Statement: Any lab studies that have been ordered have been reviewed, and results considered in the medical decision making process. GIGU Course/Dx - Course Course Of Treatment: 65F presents with cox replacement needed. She has multiple development delays and pulls out her catheter frequently. She does not see urology at this time. Her caregiver states that has not been acting any different. had cox replaced and will have follow up with urology. patient caregiver understands and agrees with plan - Diagnoses Differential Diagnoses - Female: Urinary Tract Infection, Other - cox replacement Provider Diagnoses: Encounter for Cox catheter replacement Discharge - Discharge Plan Condition: Good Disposition: HOME Patient Education Materials: Cox Catheter Placement and Care (ED) Referrals: Shelby Babcock NP [Primary Care Provider] - Oziel Grey MD [Medical Doctor] - Additional Instructions: Follow up with urology for care for catheter Return to ED if develop any new or worsening symptoms
== END 2016-11-09 22:49 | disposition home or self-care (01) ==
LOC: ED 21:50
DX: Z46.6 Encounter for fitting and adjustment of urinary device (principal)
CPT/HCPCS: 99281

== ENCOUNTER 2017-06-13 08:03 | Observation (INO) | payer MEDICARE, MEDICAID ==
[2017-06-13] MEDS ORDERED: NS 0.9% 1000 ML* 1,000 ML IV ONE ×2 (08:07→11:05)
[2017-06-13] MEDS ORDERED: Pantoprazole IV* 40 MG IV ONE (08:11)
--- NOTE | 2017-06-13 08:44 | RAD ---
INDICATION: Coffee-ground emesis COMPARISON: Similar examination dated March 28, 2015 TECHNIQUE: Supine and upright views of the abdomen were obtained. FINDINGS: Again seen is a catheter overlying the right upper quadrant with the tip terminating below the inferior margin of the right lobe of the liver. This is changed in position from the 1714 radiograph. There are prominent loops of partially air-filled small and large bowel. The small bowel measures up to 3 mm in diameter. There is no definite intraperitoneal free air. Stool is seen overlying the rectum. IMPRESSION: 1. Air-filled loops of small bowel measuring up to 3 cm in diameter similar in appearance to March 28, 2015 radiograph. Please correlate to symptoms of chronic bowel obstruction and/or dysmotility.
[2017-06-13 09:10] LABS: Hematocrit 40 % (35-47); Hemoglobin 13.7 g/dl (12.0-16.0); Mean Corpuscular HGB Conc 34 g/dl (31-36); Mean Corpuscular Hemoglobin 33 pg (27-31); Mean Corpuscular Volume 97 fL (80-97); Mean Platelet Volume 9 um3 (7.4-10.4); Red Blood Count 4.12 10^6/ul (4.0-5.4); Red Cell Distribution Width 13 % (10.5-15)
[2017-06-13 09:13] LABS: Add Diff/Slide Review? Slide Review Added; Comments Flag Yes
[2017-06-13 09:17] LABS: Urine Bacteria Absent (Absent); Urine Bilirubin Negative (Negative); Urine Glucose Negative (Negative); Urine Nitrite Negative (Negative)
[2017-06-13 09:24] LABS: Anion Gap 9 mmol/L (2-11); Blood Urea Nitrogen 38 mg/dL (6-24); CO2 Carbon Dioxide 22 mmol/L (22-32); Chloride 106 mmol/L (101-111); Glucose 115 mg/dL (70-100); Potassium 4.2 mmol/L (3.5-5.0); Sodium 137 mmol/L (133-145)
[2017-06-13 09:25] LABS: ALT 22 U/L (7-52); AST 24 U/L (13-39); Albumin 4.1 g/dL (3.2-5.2); Alkaline Phosphatase 85 U/L (34-104); BUN/Creatinine Ratio 28.1 (8-20); C Reactive Protein < 1.00 mg/L (< 5.00); Calcium 8.8 mg/dL (8.6-10.3); Creatine Kinase 27 U/L (10-223); EGFR African American 50.2 (>60); Globulin 5.1 g/dL (2-4); Lipase 59 U/L (11.0-82.0); Total Protein 9.2 g/dL (6.4-8.9)
[2017-06-13 09:29] LABS: B Type Natriuretic Peptide 101 pg/mL
[2017-06-13] MEDS ORDERED: cefTRIAXone VIAL(*) 1,000 MG in NS 0.9% 50 ML* 50 ML IVPB ONE (10:10)
[2017-06-13] MEDS ORDERED: Ondansetron INJ* 2 MG/ML VIAL IV ONE (10:10)
[2017-06-13] MEDS ORDERED: cefTRIAXone(*) 1 GM ADVAN/BAG ONE (10:14)
--- NOTE | 2017-06-13 12:14 | RAD ---
INDICATION: Vomiting in a patient with systemic inflammatory response syndrome (SIRS) COMPARISON: Most recent comparison chest x-rays dated August 29, 2016 TECHNIQUE: Single AP view of the chest was obtained. FINDINGS: The patient's right-sided ventriculoperitoneal shunt is partially visualized. There is mild cardiomegaly similar in appearance to the previous chest x-ray. There is hazy parenchymal density overlying the bilateral lungs. The pulmonary vasculature appears mildly engorged and indistinct. The diaphragm and costophrenic angles are well defined. IMPRESSION: CHEST X-RAY FINDINGS COULD BE SEEN IN THE SETTING OF PULMONARY EDEMA, PNEUMONITIS or ARDS.
--- NOTE | 2017-06-13 13:59 | HP ---
HISTORY AND PHYSICAL: DATE OF ADMISSION: 06/13/17 ADMITTING PROVIDER: Abhi Soto MD. PRIMARY CARE PROVIDER: Shelby Wilson NP. CHIEF COMPLAINT: Three episodes of vomiting, last with reported coffee-ground emesis. PAST MEDICAL HISTORY: Mental retardation (resident of [facility]); seizure disorder; GERD; osteoporosis; PRESSROOM FOREMAN shunt; hypertension; chronic kidney disease, recent baseline between 1.3 and 3 creatinine; glaucoma of the right eye; dysphagia on thick purred solid diet; bradycardia; malnutrition. HISTORY OF PRESENT ILLNESS: Darby Armando is a 66-year-old female, PMH as above; was unable to give history, but one of her caregivers, Odessa Caal of the [facility] reports the patient had two episodes of vomiting the day prior to admission and then on the morning of admission was found to have what looks like coffee-ground emesis on to her bed and over the side on to the floor. Previous episodes the day prior had been clear. The patient is unable to effectively communicate, does understand some commands such as "swallow." On presentation to the emergency room, had a leukocytosis of 19. Initial heart rates were in the 89s but lukas to the high 110s. Urinalysis was significant for 3+ leukocyte esterase, 2+ white count, 3+ blood. Temperature 99.1, blood pressure 163/98. Abdominal x-ray was obtained which showed 3 cm air-filled loops of small bowel, similar in appearance to 03/28/15 study. Fecal occult blood was reportedly negative in the ED and the patient has not vomited since presentation. She is being admitted for UTI, coffee- ground emesis, SIRS. MEDICATIONS: Currently include: 1. Norvasc 5 mg daily. 2. Pepcid 20 mg daily. 3. Ativan 0.5 mg twice a day. 4. Aspirin 81 mg daily. 5. Prolia 60 mg subcutaneous q. 6 months, unknown last dose. 6. Latanoprost 0.005% drop O.D. daily. 7. Multivitamin daily. 8. Depakote 125 mg b.i.d. 9. Reguloid psyllium 2 teaspoons b.i.d. 10. Dorzolamide/hydrochloride 2% eye drops O.D b.i.d. 11. Timolol maleate 0.5% eye drops O.D b.i.d. 12. Brimonidine 0.2% eye drops O.D b.i.d. 13. Resource 2.0 four ounces b.i.d. ALLERGIES: CARBAMAZEPINE, and PHENYTOIN. FAMILY HISTORY: Unable to be obtained given nonverbal. It is known that a sister recently . SOCIAL HISTORY: The patient is a [facility] resident. She is wheelchair bound with assistance. Surrogate decision maker is her brother, Jos Armando per EMR and recent MOLST. REVIEW OF SYSTEMS: Unable to be obtained. The patient is nonverbal. PHYSICAL EXAMINATION GENERAL APPEARANCE: Healthy appearing, no acute distress, found agitated with exam, blanket over her head. VITAL SIGNS: Initially 162/98, currently 135/88; heart rate initially 89, currently 90; temperature 99.1; satting 92% to 100% on room air. HEENT: Right cornea cloudy. Left pupil, round and reactive to light. Moist mucous membranes. No observed coffee-ground emesis or blood. NECK: Supple. RESPIRATORY: Limited exam due to the patient's cooperation but anteriorly clear to auscultation. No wheezing or rhonchi. CARDIOVASCULAR: Tachycardic. Normal S1, S2. No murmurs appreciated. ABDOMEN: Soft, nondistended, nontender. EXTREMITIES: Warm and well perfused. No peripheral edema. NEUROLOGICAL EXAM: Moving all extremities. Nonverbal. Did squeeze hands on the right perhaps, to command. No nasolabial droop noticed. SKIN: No lesions or rashes appreciated. LABORATORY DATA: White count 19.0, hemoglobin 13.7, hematocrit 40, platelets 260. INR 1.07. Sodium 137, potassium 4.2, chloride 106, carbon dioxide 22, BUN 38, creatinine 1.35, glucose 115. AST 24, ALT 22, alk phos 85, ammonia 40. CK 27. CRP less than 1. BNP 101. Total protein 9.2, albumin 4.1. Lipase 59. Urinalysis, 2+ protein, 1+ blood, 3+ leukocyte esterase, 2+ wbc's, 3+ rbc's, absent bacteria. IMAGING: Abdominal x-ray as per HPI. EKG, normal sinus rhythm, heart rate 95, T-wave inversions in V1 and V2, poor R - wave progression, QTc 448. ASSESSMENT AND PLAN: Darby Armando is a 66-year-old female with severe mental retardation, seizure disorder, chronic kidney disease, dysphagia, hypertension, status post ventricular shunt presenting with 3 episodes of vomiting, last with coffee-ground emesis, leukocytosis, evidence of urinary tract infection, is being admitted under observation status. 1. She is n.p.o. Protonix 40 mg IV was given, will be continued. There is no GI coverage today in the hospital. I have placed order for Dr. Ren to see tomorrow. She is status post 1 L of normal saline. I am giving another 100 cc of normal saline for the next 20 hours. A type and screen was obtained. If any evidence of hemodynamic stability, we will repeat H and H and consider blood transfusion as appropriate. 2. For potential urinary tract infection with SIRS (tachycardia, leukocytosis) , we will continue ceftriaxone. We will get urine culture, blood cultures. Procalcitonin was ordered. She does have a history of Escherichia coli urinary tract infection on August which was resistant to Cipro and Levaquin and ampicillin. 3. Hypertension. We will hold her home Norvasc in the setting of SIRS, potential sepsis. 4. For her mental retardation and agitation, continue her Ativan 0.5 mg twice a day. 5. For her history of glaucoma, continue her eye drops to the right eye. 6. For her seizure disorder, ammonia level was obtained, within normal limits. Continue her Depakote 125 mg b.i.d. 7. For her T-wave inversions in V1 and V2, troponin I was initially negative. Unable to say whether or not she has any chest pain. We will put her on telemetry overnight and consider an additional troponin in 6 hours. She is n.p.o. for now except sips with meds, on IV fluids. She is no CPR, but per MOLST would want intubation. Medical surrogate is her brother. She does have an elevated paraprotein gap with total protein 9.2, albumin 4.1. The serum protein electrophoresis and urine protein electrophoresis, does have 2+ protein in her urine. 8. We will give her SCDs given her coffee-ground emesis for DVT prophylaxis. [id number]/[facility] #: [id number] [facility] CENTERDileep
[2017-06-13] MEDS: Aspirin Low Dose CHEW TAB* 81 MG PO SCH (14:31)
[2017-06-13] MEDS: NS 0.9% 1000 ML* 1,000 ML IV SCH (16:55)
[2017-06-13] MEDS: Latanoprost 0.005%* 2.5 ml BTL RIGHT EYE SCH (18:15)
[2017-06-13] MEDS: PTO: Dorzolamide/Timolol OPTH (NF) 10 ML BOT BOTH EYES SCH (22:04)
[2017-06-13] MEDS: PTO: Brimonidine 0.2% 5 ML BTL BOTH EYES SCH (22:04)
[2017-06-13] MEDS: Psyllium PAK PO SCH (22:05)
[2017-06-13] MEDS: Divalproex Sprinkle CAP* 125 MG PO SCH (22:10)
[2017-06-14] MEDS: NS 0.9% 1000 ML* 1,000 ML IV SCH (03:04)
[2017-06-14 06:48] LABS: Hematocrit 36 % (35-47); Hemoglobin 11.9 g/dl (12.0-16.0); Mean Corpuscular HGB Conc 33 g/dl (31-36); Mean Corpuscular Hemoglobin 33 pg (27-31); Mean Corpuscular Volume 99 fL (80-97); Mean Platelet Volume 8 um3 (7.4-10.4); Red Blood Count 3.61 10^6/ul (4.0-5.4); Red Cell Distribution Width 12 % (10.5-15); White Blood Count 11.5 10^3/ul (3.5-10.8)
[2017-06-14 07:05] LABS: Calcium 7.7 mg/dL (8.6-10.3); EGFR African American 54.8 (>60); EGFR Non-African American 42.6 (>60); Magnesium 1.6 mg/dL (1.9-2.7); Potassium 4.1 mmol/L (3.5-5.0)
[2017-06-14] MEDS: PTO: Brimonidine 0.2% 5 ML BTL BOTH EYES SCH ×2 (10:29→22:18)
[2017-06-14] MEDS: PTO: Dorzolamide/Timolol OPTH (NF) 10 ML BOT BOTH EYES SCH ×2 (10:30→22:18)
[2017-06-14] MEDS: Multivitamins/Minerals TAB PO SCH (10:32)
[2017-06-14] MEDS: Divalproex Sprinkle CAP* 125 MG PO SCH ×2 (10:32→22:19)
[2017-06-14] MEDS: Psyllium PAK PO SCH ×2 (10:32→22:23)
[2017-06-14] MEDS: Pantoprazole IV* 40 MG IV SCH (10:32)
[2017-06-14] MEDS: Aspirin Low Dose CHEW TAB* 81 MG PO SCH (10:32)
--- NOTE | 2017-06-14 17:09 | DCNOTE ---
Subjective Date of Service: 06/14/17 Interval History: This is a 66 year old female patient with hx of mental retardation that reportedly had coffee ground emesis at her facility and was brought in for evaluation by staff. Cannot communicate needs, however, exam has been negative with no further vomiting, hemoglobin stable and was cleared by GI earlier today. She does appear to have e. coli UTI which she has had in the past which had resistence to several atbx. Objective Active Medications: Aspirin (Aspirin Low Dose Tab*) 81 mg PO DAILY [facility] Last Admin: 06/14/17 10:32 Dose: 81 mg Brimonidine Tartrate (Alphagan 0.2%) 1 drop BOTH EYES BID [facility] Last Admin: 06/14/17 10:29 Dose: Not Given Divalproex Sodium (Depakote Sprinkle Cap*) 125 mg PO BID [facility] Last Admin: 06/14/17 10:32 Dose: 125 mg Dorzolamide/Timolol (Cosopt (Nf)) 1 drop BOTH EYES BID [facility] PRN Reason: Protocol Last Admin: 06/14/17 10:30 Dose: Not Given Latanoprost (Xalatan 0.005%*) 1 drop RIGHT EYE QPM [facility] Last Admin: 06/13/17 18:15 Dose: 1 drop Multivitamins/Minerals (Theragran/Minerals Tab*) 1 tab PO DAILY [facility] Last Admin: 06/14/17 10:32 Dose: 1 tab Pantoprazole Sodium (Protonix Iv*) 40 mg IV DAILY [facility] Last Admin: 06/14/17 10:32 Dose: 40 mg Psyllium Hydrophilic Mucilloid (Metamucil Kailash*) 1 pkt PO BID [facility] Last Admin: 06/14/17 10:32 Dose: 1 pkt Vital Signs 06/13/17 06/13/17 06/13/17 20:39 22:15 23:17 Temperature 98.0 F 97.4 F Pulse Rate 92 109 84 Respiratory 18 17 Rate Blood Pressure 153/75 149/87 140/74 (mmHg) O2 Sat by Pulse 91 92 100 Oximetry 06/14/17 06/14/17 06/14/17 03:39 07:52 12:22 Temperature 98.4 F 98.8 F 99.4 F Pulse Rate 88 81 86 Respiratory 18 18 18 Rate Blood Pressure 143/83 147/69 133/83 (mmHg) O2 Sat by Pulse 99 99 99 Oximetry 06/14/17 15:40 Temperature 97.8 F Pulse Rate 81 Respiratory 20 Rate Blood Pressure 148/69 (mmHg) O2 Sat by Pulse 99 Oximetry Oxygen Devices in Use Now: None Eyes: No Scleral Icterus Ears/Nose/Mouth/Throat: Mucous Membranes Moist Neck: Trachea Midline Respiratory: Symmetrical Chest Expansion and Respiratory Effort, Clear to Auscultation Cardiovascular: NL Sounds; No Murmurs; No JVD Abdominal: No Hepatosplenomegaly, - - does not appear to be tender, no grimace noted Extremities: No Edema Result Diagrams: 06/14/17 06:35 06/14/17 06:35 Microbiology and Other Data: Microbiology 06/13/17 15:25 Nasal Screen MRSA (PCR)(PIEDAD) - Final Nasal Mrsa Negative Assess/Plan/Problems-Billing Assessment: - Patient Problems (1) Vomiting alone Code(s): R11.11 - VOMITING WITHOUT NAUSEA SNOMED Code(s): 739877109704342 Comment: - Per staff, coffee ground, not visualized here - Received protonix IV - Hemoccult negative - H&H stable - Cleared by GI - Does not appear to be GI bleeding (2) UTI (urinary tract infection) Comment: - E. Coli per urine cx - Resistance to multiple atbx in the past - currently on ceftriaxone, will DC on nitrofurantoin (based on last PIEDAD) for 10 days and follow susceptibility as it becomes available (3) CKD (chronic kidney disease) Code(s): N18.9 - CHRONIC KIDNEY DISEASE, UNSPECIFIED SNOMED Code(s): 740668387 Comment: - Stable stage 2 CKD (4) Glaucoma Current Visit: No Status: Chronic Code(s): H40.9 - UNSPECIFIED GLAUCOMA SNOMED Code(s): 88939891 (5) HTN (hypertension) Current Visit: No Status: Chronic Priority: Medium Code(s): I10 - ESSENTIAL (PRIMARY) HYPERTENSION SNOMED Code(s): 74041360 Comment: Amlodipine d/c'd. (6) Mental retardation Code(s): F79 - UNSPECIFIED INTELLECTUAL DISABILITIES SNOMED Code(s): 14094581 Comment: - At baseline, non-verbal (7) Seizure disorder Code(s): G40.909 - EPILEPSY, UNSP, NOT INTRACTABLE, WITHOUT STATUS EPILEPTICUS SNOMED Code(s): 449443989 Comment: - No seizure activity noted - continue home meds Status and Disposition: This is a 66 year old female patient with profound MR, UTI and vomiting yesterday. Hospital course has been stable. She has been seen by GI who feels she does not need inpatient endoscopy. H&H remain stable. Urine micro shows E.Coli, no susceptibility as yet. In the past, resistent to levaquin, cipro. At that time, appeared to be susceptible to nitrofurantoin. will DC on that for 10 days and follow susceptibilities in house. Will call residence if this needs to change. Stable for DC today. Counseling and/or Coordination of Care Minutes: coordinated with case management Attending: Abhi Soto
[2017-06-14] MEDS: Latanoprost 0.005%* 2.5 ml BTL RIGHT EYE SCH (20:12)
--- NOTE | 2017-06-14 21:42 | CONS ---
CC: Shelby Wilson NP * CONSULTATION REPORT: DATE OF CONSULT: 06/14/17 REQUESTING PHYSICIAN: Dr. Soto. INDICATION: Hematemesis. HISTORY OF PRESENT ILLNESS: Ms. Armando is a 66-year-old nonverbal female, who was brought in from her [facility] residence because of one episode of hematemesis. Unfortunately, the patient is nonverbal. She is not able to give any history. Her aides were not present at the bedside this afternoon. I did obtain all the history from the chart. There have been no further episodes of hematemesis. She just had that 1 episode. She appears to be having brown stools. Her hemoglobin did fall just a bit; however, it is still 11.9. She is on aspirin every day. 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 MEDICATIONS: Include: 1. Pepcid. 2. Aspirin. 3. Ativan. 4. Norvasc. 5. Prolia. 6. Depakote. ALLERGIES: To PHENYTOIN. FAMILY HISTORY: Unable to obtain from the patient. SOCIAL HISTORY: She lives at [facility], unable to obtain anything more. REVIEW OF SYSTEMS: Twelve systems were reviewed, other than that mentioned in the HPI were unremarkable. PHYSICAL EXAM: Temperature is 98.4, blood pressure is 143/83, pulse is 88. General: Well-appearing elderly female, lying flat in bed, covers up over her head. She awakens easily. HEENT: Mucous membranes are moist. Heart: Regular rate and rhythm. Lungs: Clear to auscultation. Abdomen: Positive bowel sounds, soft, nontender, nondistended. No hepatosplenomegaly, masses, rebound, or guarding. Skin: Warm and dry. LABORATORY DATA: Of note, white count is 11.5, hemoglobin is 11.9, platelets of 215. BUN is 20, creatinine is . ASSESSMENT AND PLAN: This is a pleasant 66-year-old female who had 1 episode of coffee-ground emesis. Her hemoglobin is pretty much normal at this point at 11.9. She does take an aspirin every day. She is on Pepcid. Very likely, she could have had a Lakshmi-Chapman tear. Usually these heal up pretty quickly on their own. Given the fact that her hemoglobin is in essence normal and she just had 1 episode, no further episodes, I would defer any workup at this point. We could perform an endoscopy if she continues to have hematemesis. [id number]/[facility] #: [id number] RYLIE
[2017-06-14] MEDS: Nitrofurantoin Macrocrystals* 50 MG CAP PO SCH (22:20)
[2017-06-15 06:15] LABS: Hematocrit 38 % (35-47); Hemoglobin 13.1 g/dl (12.0-16.0); Mean Corpuscular HGB Conc 34 g/dl (31-36); Mean Corpuscular Hemoglobin 34 pg (27-31); Mean Corpuscular Volume 98 fL (80-97); Mean Platelet Volume 8 um3 (7.4-10.4); Red Cell Distribution Width 13 % (10.5-15); White Blood Count 10.1 10^3/ul (3.5-10.8)
[2017-06-15 06:31] LABS: BUN/Creatinine Ratio 21.5 (8-20); Calcium 8.3 mg/dL (8.6-10.3); EGFR African American 52.4 (>60); EGFR Non-African American 40.7 (>60); Magnesium 1.8 mg/dL (1.9-2.7); Potassium 3.8 mmol/L (3.5-5.0)
--- NOTE | 2017-06-15 07:48 | ED ---
Daysi Rand Gabriel, scribed for Rao Dillon MD on 06/13/17 at 0810 . Complex/Multi-Sys Presentation - HPI Summary HPI Summary: This patient is a 66 year old F BIBA to [facility] after the staff found her covered in her brown emesis this morning. The staff states she has been vomiting for 3 days. LEVEL 5 CAVEAT: HPI limited due the patient being nonverbal. - History Of Current Complaint Hx Obtained From: Patient Onset/Duration: Still Present Timing: Intermittent, Lasting: Severity Currently: None - Allergies/Home Medications Allergies/Adverse Reactions: Allergies Allergy/AdvReac Type Severity Reaction Status Date / Time Carbamazepine [From Tegretol] Allergy Unknown Verified 10/20/16 06:45 Reaction Details Phenytoin [From Dilantin] Allergy Unknown Verified 10/20/16 06:45 Reaction Details Home Medications: Home Medications Denosumab(NF) [Prolia(NF)] 60 mg SC 06/13/17 [History] amLODIPine TAB* [Norvasc 5 mg TAB*] 5 mg PO DAILY 06/13/17 [History Confirmed ] PMH/Surg Hx/FS Hx/Imm Hx Previously Healthy: No Cardiovascular History: Reports: Hx Hypertension, Other Cardiovascular Problems/ 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 - 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 Respiratory History: Reports: Hx Pneumonia GI History: Reports: Hx Gastroesophageal Reflux Disease History: Reports: Hx Chronic Renal Failure - stage 3, Other Problems/ Disorders - hx bilateral hydronephrosis Musculoskeletal History: Reports: Hx Osteoporosis, Other Musculoskeletal History - Contracted Sensory History: Reports: Hx Cataracts, Hx Glaucoma, Hx Vision Problem Opthamlomology History: Reports: Hx Cataracts, Hx Glaucoma, 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, Hx Vision Problem Neurological History: Reports: Hx Developmental Delay, Hx Seizures, Other Neuro Impairments/Disorders - Parkinson's Disease Denies: Hx Dementia, Hx Headaches, Hx Migraine, Hx Nerve Disease, Hx Spinal Cord Injury, Hx Transient Ischemic Attacks (TIA) Psychiatric History: Reports: Hx Anxiety, Hx Post Traumatic Stress Disorder, Other Psychiatric Issues/Disorders - developmental delay - Surgical History Surgery Procedure, Year, and Place: STATISTICAL METHODS PROFESSOR SHUNT - Immunization History Date of Tetanus Vaccine: Up to Date Infectious Disease History: Reports: Hx of Known/Suspected MRSA Denies: Hx Clostridium Difficile, Hx Hepatitis, Hx Human Immunodeficiency Virus (HIV), Hx Shingles, Hx Tuberculosis, Hx Known/Suspected VRE, Hx Known/ Suspected VRSA, History Other Infectious Disease - Family History Known Family History: Positive: Unknown - The patient is a poor historian. Negative: Diabetes - Social History Alcohol Use: None Hx Substance Use: No Substance Use Type: Reports: None Hx Tobacco Use: No Smoking Status (MU): Never Smoked Tobacco Review of Systems Positive: Vomiting - coffee blood All Other Systems Reviewed And Are Negative: No - Comments Additional Review of Systems Comments: LEVEL 5 CAVEAT: ROS limited due the patient being nonverbal. Physical Exam - Summary Physical Exam Summary: VITAL SIGNS: Reviewed. GENERAL: ~Patient is a well-developed and nourished female who is lying comfortable in the stretcher. ~Patient is not in any acute respiratory distress. HEAD AND FACE: No signs of trauma. ~No ecchymosis, hematomas or skull depressions. No sinus tenderness. EYES: PERRLA, EOMI x 2, No injected conjunctiva, no nystagmus. EARS: Hearing grossly intact. Ear canals and tympanic membranes are within normal limits. MOUTH: Oropharynx within normal limits. NECK: Supple, trachea is midline, no adenopathy, no JVD, no carotid bruit, no c- spine tenderness, neck with full ROM. CHEST: Symmetric, no tenderness at palpation LUNGS: Clear to auscultation bilaterally. No wheezing or crackles. CVS: Regular rate and rhythm, S1 and S2 present, no murmurs or gallops appreciated. ABDOMEN: Soft, non-tender. No signs of distention. No rebound no guarding, and no masses palpated. Decreased bowel sounds Rectal: normal, no hemorrhoids, gross blood, or melena EXTREMITIES: FROM in all major joints, no edema, no cyanosis or clubbing. NEURO: Alert and oriented x 3. No acute neurological deficits. Speech is normal and follows commands. SKIN: Dry and warm Triage Information Reviewed: Yes Vital Signs On Initial Exam: Initial Vitals Temp Pulse Resp BP Pulse Ox 99.1 F 89 17 163/98 100 06/13/17 08:09 06/13/17 08:09 06/13/17 08:09 06/13/17 08:09 06/13/17 08:09 Vital Signs Reviewed: Yes Diagnostics - Vital Signs Vital Signs Temp Pulse Resp BP Pulse Ox 06/13/17 08:09 99.1 F 89 17 163/98 100 - Laboratory Result Diagrams: 06/13/17 08:56 06/13/17 08:56 Lab Statement: Any lab studies that have been ordered have been reviewed, and results considered in the medical decision making process. - Radiology ABD XRAY Radiology Interpretation Completed By: Radiologist - 1. Air-filled loops of small bowel measuring up to 3 cm in diameter similar in appearance to March 28, 2015 radiograph. Please correlate to symptoms of chronic bowel obstruction and/or dysmotility. ED physician has reviewed this radiology report and agrees. - EKG 08:17 Cardiac Rate: NL EKG Rhythm: Sinus Rhythm - at 95 BPM EKG Interpretation: Normanl axis, No ST elevations EKG Comparison: No Significant Change - Similar to EKG from 08/26/16 Complex Multi-Symp Course/Dx Assessment/Plan: This patient is a 66 year old F BIBA to [facility] after the staff found her covered in her brown emesis this morning. The staff states she has been vomiting for 3 days. Pt is nonverbal. Labs without any significant abnormalities except for WBC of 19 with a left shift, chronic renal insufficiency, UA positive for a UTI, and a negative occult blood. ABD XRAY reveals, per radiologist, 1. Air-filled loops of small bowel measuring up to 3 cm in diameter similar in appearance. to March 28, 2015 radiograph. Please correlate to symptoms of chronic bowel. obstruction and/or dysmotility. In the ED course an IV access was obtained. Pt was placed in a cardiac catheterization technologist. Pt was given Zofran for nausea, Protonix due to her history of emesis, and Rocephin for her UTI. Pt was started with IV fluids. We discussed patient care with Dr. Soto and they agreed to admit the patient. In the ED course, pt has been improving and is stable. Patient will be admitted to [facility]. Pt is hemodynamically stable. - Diagnoses Differential Diagnoses/HQI/PQRI: Other - Vomiting, Upper GI bleed, Gastritis, Esophageal varices, gastroenteritis, constipation Provider Diagnoses: UTI (urinary tract infection), Nausea, Coffee ground emesis - Physician Notifications Discussed Care Of Patient With: Abhi Soto Time Discussed With Above Provider: 10:15 Instructed by Provider To: Other - We discussed patient care with Dr. Soto and they agreed to admit the patient. Discharge - Discharge Plan Condition: Stable Disposition: ADMITTED TO [facility] documentation as recorded by the Daysi lyles Gabriel accurately reflects the service I personally performed and the decisions made by me, Rao Dillon MD.
[2017-06-15 07:52] VITALS: BP 143/52
[2017-06-15] MEDS: PTO: Dorzolamide/Timolol OPTH (NF) 10 ML BOT BOTH EYES SCH (09:02)
[2017-06-15] MEDS: Psyllium PAK PO SCH (09:02)
[2017-06-15] MEDS: Multivitamins/Minerals TAB PO SCH (09:02)
[2017-06-15] MEDS: Nitrofurantoin Macrocrystals* 50 MG CAP PO SCH ×2 (09:02→13:02)
[2017-06-15] MEDS: Aspirin Low Dose CHEW TAB* 81 MG PO SCH (09:02)
[2017-06-15] MEDS: Divalproex Sprinkle CAP* 125 MG PO SCH (09:02)
[2017-06-15] MEDS: PTO: Brimonidine 0.2% 5 ML BTL BOTH EYES SCH (09:03)
[2017-06-15] MEDS: Pantoprazole IV* 40 MG IV SCH (12:00)
[2017-06-15 15:01] LABS: Albumin 3.6 g/dL (3.4-4.7); Total Protein(PEP) 9.2 g/dL (6.3 - 7.9)
== END 2017-06-15 15:47 | disposition home or self-care (01) ==
LOC: ED 08:03 → MED 10:24
PROVIDERS: ADMIT Internal Medicine; ATTEND Internal Medicine
DX: R11.11 Vomiting without nausea (principal); N39.0 Urinary tract infection, site not specified; I12.9 Hypertensive chronic kidney disease with stage 1 through stage 4 chronic kidney disease, or unspecified chronic kidney disease; N18.9 Chronic kidney disease, unspecified; H40.9 Unspecified glaucoma; F79 Unspecified intellectual disabilities; G40.909 Epilepsy, unspecified, not intractable, without status epilepticus; Z79.899 Other long term (current) drug therapy; Z79.82 Long term (current) use of aspirin; Z88.8 Allergy status to other drugs, medicaments and biological substances; I51.7 Cardiomegaly
CPT/HCPCS: 36415; 71010; 74020; 80048; 80053; 81003; 81015; 82140; 82270; 82550; 83690; 83735; 83880; 84145; 84155; 84165; 84484; 85025; 85610; 85730; 86140; 86850; 86900; 86901; 87077; 87086; 87186; 87641; 93005; 96361; 96365; 96375; 99283; A9270-GY; G0378; J0696; J2405

== ENCOUNTER 2017-07-18 14:20 | Observation (INO) | payer MEDICARE, MEDICAID ==
[2017-07-18] MEDS ORDERED: NS 0.9% 1000 ML* 1,000 ML IV ONE (15:51)
--- NOTE | 2017-07-18 16:22 | RAD ---
INDICATION: Altered mental status. COMPARISON: Comparison is made with a prior CT of the brain from March 04, 2015. TECHNIQUE: Contiguous axial sections of the brain were obtained from the skull base to the vertex without contrast. FINDINGS: There is a ventricular peritoneal shunt catheter entering from the right frontal approach. The catheter extends through the frontal horn of the right lateral ventricle and the tip projects overlying the midline and appears unchanged from the prior study. The ventricles, cisterns and sulci are enlarged consistent with diffuse atrophy. No significant focal abnormality or mass effect is seen. There is no evidence for hemorrhage. There is mild mucosal thickening within the sphenoid sinus and ethmoid air cells the visualized portion of the paranasal sinuses and mastoid air cells otherwise appear clear. IMPRESSION: 1. NO EVIDENCE FOR ACUTE INTRACRANIAL ABNORMALITY. 2. DIFFUSE ATROPHY, UNCHANGED.
--- NOTE | 2017-07-18 16:40 | RAD ---
INDICATION: Altered mental status. COMPARISON: Comparison is made with a prior chest x-ray study from June 13, 2017. TECHNIQUE: A portable view of the chest was obtained. FINDINGS: The heart is within normal limits in size. The lungs are underinflated. There are small bibasilar infiltrates. No pleural effusion is seen. IMPRESSION: EXPIRATORY EXAM, SMALL BIBASILAR INFILTRATES.
[2017-07-18 17:03] LABS: Urine Appearance Cloudy; Urine Blood 1+ (Negative); Urine Color Yellow; Urine Ketones Negative (Negative); Urine Protein 1+(30 mg/dL) (Negative); Urine Specific Gravity 1.011 (1.010-1.030); Urine Urobilinogen Negative (Negative)
[2017-07-18 17:16] LABS: Hematocrit 38 % (35-47); Mean Corpuscular HGB Conc 34 g/dl (31-36); Mean Corpuscular Hemoglobin 34 pg (27-31); Mean Corpuscular Volume 99 fL (80-97); Mean Platelet Volume 10 um3 (7.4-10.4); Platelet Count 188 10^3/ul (150-450); Red Blood Count 3.87 10^6/ul (4.0-5.4); Red Cell Distribution Width 13 % (10.5-15); White Blood Count 15.7 10^3/ul (3.5-10.8)
[2017-07-18 17:28] LABS: EGFR Non-African American 38.7 (>60)
[2017-07-18 17:47] LABS: ABS Basophils 0.1 10^3/ul (0-0.2); ABS Eosinophils 0.2 10^3/ul (0-0.6); ABS Monocytes 1.7 10^3/ul (0-0.8); ABS Neutrophils 11.6 10^3/ul (1.5-7.7); ABS Nucleated RBC 0 10^3/ul; Eosinophil % 1.3 % (0-6); Lymphocyte % 12.8 % (25-47); Nucleated Red Blood Cells % 0
[2017-07-18] MEDS ORDERED: cefTRIAXone(*) 1 GM in NS 0.9% 50 ML* 50 ML IVPB ONE (18:03)
[2017-07-18] MEDS ORDERED: Acetaminophen TAB* 325 MG PO PRN (18:39)
[2017-07-18] MEDS ORDERED: Ondansetron INJ* 2 MG/ML VIAL IV PRN (18:39)
[2017-07-18] MEDS ORDERED: NS 0.9% 1000 ML* 1,000 ML IV SCH (18:45)
[2017-07-18] MEDS ORDERED: Albuterol 2.5 MG/3 ML NEB.SOL* (0.083%) INH PRN (18:48)
[2017-07-18] MEDS ORDERED: Magnesium Sulfate 2 GM IV* 2 GM/50 ML BAG IVPB ONE (18:50)
[2017-07-18] MEDS ORDERED: NS 0.9% 50 ML* 0 ML ONE (18:58)
[2017-07-18] MEDS ORDERED: Azithromycin IV(*) 500 MG in D5W 250 ML BAG* 250 ML IVPB SCH (19:00)
[2017-07-18] MEDS ORDERED: cefTRIAXone(*) 1 GM in D5W 50 ML BAG* 50 ML IVPB ONE (19:00)
--- NOTE | 2017-07-18 19:50 | ED ---
Sid Rand Natalie, scribed for Pito Carbajal MD on 07/18/17 at 1544 . Altered Mental Status - HPI Summary HPI Summary: The pt is a 66 y/o F presenting from [facility] to the ED per aide c/o AMS starting today. Per aide, the pt is normally yelling or being violent, so she was prescribed Ativan by her PCP. Today, the pt was unresponsive, so she was brought into the ED. Per aide, the pt has been out all day and she hasnt been eating, drinking, or urinating. She vomited twice last night. The pt is normally feisty as she is usually yelling or being violent. 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 Hx From Patient Unobtainable Due To: Other - hx from pt is unobtainable due to pt's developmental disorder Onset/Duration: Still Present Timing: Lasting Hours - starting this morning Severity Currently: Moderate Character: Responsiveness - not responsive Aggravating Factor(s): Nothing Alleviating Factor(s): Nothing Associated Signs And Symptoms: Positive: Vomiting, Weakness - Allergies/Home Medications Allergies/Adverse Reactions: Allergies Allergy/AdvReac Type Severity Reaction Status Date / Time Carbamazepine [From Tegretol] Allergy Unknown Verified 10/20/16 06:45 Reaction Details Phenytoin [From Dilantin] Allergy Unknown Verified 10/20/16 06:45 Reaction Details PMH/Surg Hx/FS Hx/Imm Hx Previously Healthy: No Cardiovascular History: Reports: Hx Hypertension, Other Cardiovascular Problems/ Disorders - 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 CAR 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 Respiratory History: Reports: Hx Pneumonia GI History: Reports: Hx Gastroesophageal Reflux Disease History: Reports: Hx Chronic Renal Failure - stage 3, Other Problems/ Disorders - hx bilateral hydronephrosis Musculoskeletal History: Reports: Hx Osteoporosis, Other Musculoskeletal History - Contracted Sensory History: Reports: Hx Cataracts, Hx Glaucoma, 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, Hx Vision Problem Denies: Hx Contacts or Glasses, Hx Hearing Aid Opthamlomology History: Reports: Hx Cataracts, Hx Glaucoma, 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, Hx Vision Problem Denies: Hx Contacts or Glasses Neurological History: Reports: Hx Developmental Delay, Hx Seizures, Other Neuro Impairments/Disorders - Parkinson's Disease Denies: Hx Dementia, Hx Headaches, Hx Migraine, Hx Nerve Disease, Hx Spinal Cord Injury, Hx Transient Ischemic Attacks (TIA) Psychiatric History: Reports: Hx Anxiety, Hx Post Traumatic Stress Disorder, Other Psychiatric Issues/Disorders - developmental delay - Surgical History Surgery Procedure, Year, and Place: ARMORED CAR DRIVER SHUNT - Immunization History Date of Tetanus Vaccine: Up to Date Date of Influenza Vaccine: 04/2017 Infectious Disease History: No Infectious Disease History: Reports: Hx of Known/Suspected MRSA Denies: Hx Clostridium Difficile, Hx Hepatitis, Hx Human Immunodeficiency Virus (HIV), Hx Shingles, Hx Tuberculosis, Hx Known/Suspected VRE, Hx Known/ Suspected VRSA, History Other Infectious Disease, Traveled Outside the [place] in Last 30 Days - Family History Known Family History: Positive: Unknown - The patient is a poor historian. Negative: Diabetes - Social History Alcohol Use: None Hx Substance Use: No Substance Use Type: Reports: None Hx Tobacco Use: No Smoking Status (MU): Never Smoked Tobacco Review of Systems Positive: Vomiting, Other - decreased eating and drinking Positive: frequency - decreased Neurological: Other - lethargy Positive: Weakness All Other Systems Reviewed And Are Negative: Yes Physical Exam - Summary Physical Exam Summary: Appearance: Tired appearing, Not currently at baseline according to manuscripts curator Skin: Warm, dry, No rashes Eyes: Cloudy right cornea consistent with baseline, Normal left cornea, Reactive to light brisk 3mm ENT: Normal, Mucus membranes moist Neck: Supple, nontender Respiratory: Coarse breath sounds over airway bilaterally Cardiovascular: Normal, No murmurs, Normal existing bilateral pulses Bowel: Present Musculoskeletal: Normal, Strength/ROM Intact Neurological: Unable to fully assess due to developmental delay Psychiatric: Normal Triage Information Reviewed: Yes Vital Signs On Initial Exam: Initial Vitals Temp Pulse Resp BP Pulse Ox 97.1 F 68 16 119/61 96 07/18/17 14:30 07/18/17 14:30 07/18/17 14:30 07/18/17 14:30 07/18/17 14:30 Vital Signs Reviewed: Yes - [place] Coma Scale Coma Scale Total: 7 Diagnostics - Vital Signs Vital Signs Temp Pulse Resp BP Pulse Ox 07/18/17 14:36 69 119/61 98 07/18/17 14:30 97.1 F 68 16 119/61 96 - Laboratory Lab Results: Lab Results 07/18/17 07/18/17 07/18/17 Range/Units 16:39 17:00 17:00 WBC 15.7 H (3.5-10.8) 10^3/ul RBC 3.87 L (4.0-5.4) 10^6/ul Hgb 13.0 (12.0-16.0) g/dl Hct 38 (35-47) % MCV 99 H (80-97) fL MCH 34 H (27-31) pg MCHC 34 (31-36) g/dl RDW 13 (10.5-15) % Plt Count 188 (150-450) 10^3/ul MPV 10 (7.4-10.4) um3 Neut % (Auto) 74.3 (38-83) % Lymph % (Auto) 12.8 L (25-47) % Howell % (Auto) 10.9 H (1-9) % Eos % (Auto) 1.3 (0-6) % Baso % (Auto) 0.7 (0-2) % Absolute Neuts (auto) 11.6 H (1.5-7.7) 10^3/ul Absolute Lymphs (auto) 2.0 (1.0-4.8) 10^3/ul Absolute Monos (auto) 1.7 H (0-0.8) 10^3/ul Absolute Eos (auto) 0.2 (0-0.6) 10^3/ul Absolute Basos (auto) 0.1 (0-0.2) 10^3/ul Absolute Nucleated RBC 0 10^3/ul Nucleated RBC % 0 Sodium 138 (133-145) mmol/L Potassium 3.9 (3.5-5.0) mmol/L Chloride 107 (101-111) mmol/L Carbon Dioxide 24 (22-32) mmol/L Anion Gap 7 (2-11) mmol/L BUN 23 (6-24) mg/dL Creatinine 1.36 H (0.51-0.95) mg/dL Est GFR ( Amer) 49.7 (>60) Est GFR (Non-Af Amer) 38.7 (>60) BUN/Creatinine Ratio 16.9 (8-20) Glucose 102 H (70-100) mg/dL Lactic Acid (0.5-2.0) mmol/L Calcium 8.4 L (8.6-10.3) mg/dL Magnesium 1.7 L (1.9-2.7) mg/dL Total Bilirubin 0.40 (0.2-1.0) mg/dL AST 9 L (13-39) U/L ALT 8 (7-52) U/L Alkaline Phosphatase 53 (34-104) U/L Troponin I 0.01 (<0.04) ng/mL Total Protein 7.0 (6.4-8.9) g/dL Albumin 3.4 (3.2-5.2) g/dL Globulin 3.6 (2-4) g/dL Albumin/Globulin Ratio 0.9 L (1-3) Lipase < 10 L (11.0-82.0) U/L Urine Color Yellow Urine Appearance Cloudy Urine pH 7.0 (5-9) Ur Specific Vale 1.011 (1.010-1.030) Urine Protein 1+(30 mg/dl) H (Negative) Urine Ketones Negative (Negative) Urine Blood 1+ H (Negative) Urine Nitrate Negative (Negative) Urine Bilirubin Negative (Negative) Urine Urobilinogen Negative (Negative) Ur Leukocyte Esterase 3+ H (Negative) Urine WBC (Auto) 3+(>20/hpf) H (Absent) Urine RBC (Auto) 2+(6-10/hpf) H (Absent) Urine Bacteria 1+ H (Absent) Urine Glucose 1+(50 mg/dl) H (Negative) Valproic Acid 31.0 L (50-100) mcg/mL 07/18/17 Range/Units 17:00 WBC (3.5-10.8) 10^3/ul RBC (4.0-5.4) 10^6/ul Hgb (12.0-16.0) g/dl Hct (35-47) % MCV (80-97) fL MCH (27-31) pg MCHC (31-36) g/dl RDW (10.5-15) % Plt Count (150-450) 10^3/ul MPV (7.4-10.4) um3 Neut % (Auto) (38-83) % Lymph % (Auto) (25-47) % Howell % (Auto) (1-9) % Eos % (Auto) (0-6) % Baso % (Auto) (0-2) % Absolute Neuts (auto) (1.5-7.7) 10^3/ul Absolute Lymphs (auto) (1.0-4.8) 10^3/ul Absolute Monos (auto) (0-0.8) 10^3/ul Absolute Eos (auto) (0-0.6) 10^3/ul Absolute Basos (auto) (0-0.2) 10^3/ul Absolute Nucleated RBC 10^3/ul Nucleated RBC % Sodium (133-145) mmol/L Potassium (3.5-5.0) mmol/L Chloride (101-111) mmol/L Carbon Dioxide (22-32) mmol/L Anion Gap (2-11) mmol/L BUN (6-24) mg/dL Creatinine (0.51-0.95) mg/dL Est GFR ( Amer) (>60) Est GFR (Non-Af Amer) (>60) BUN/Creatinine Ratio (8-20) Glucose (70-100) mg/dL Lactic Acid 1.3 (0.5-2.0) mmol/L Calcium (8.6-10.3) mg/dL Magnesium (1.9-2.7) mg/dL Total Bilirubin (0.2-1.0) mg/dL AST (13-39) U/L ALT (7-52) U/L Alkaline Phosphatase (34-104) U/L Troponin I (<0.04) ng/mL Total Protein (6.4-8.9) g/dL Albumin (3.2-5.2) g/dL Globulin (2-4) g/dL Albumin/Globulin Ratio (1-3) Lipase (11.0-82.0) U/L Urine Color Urine Appearance Urine pH (5-9) Ur Specific Vale (1.010-1.030) Urine Protein (Negative) Urine Ketones (Negative) Urine Blood (Negative) Urine Nitrate (Negative) Urine Bilirubin (Negative) Urine Urobilinogen (Negative) Ur Leukocyte Esterase (Negative) Urine WBC (Auto) (Absent) Urine RBC (Auto) (Absent) Urine Bacteria (Absent) Urine Glucose (Negative) Valproic Acid (50-100) mcg/mL Result Diagrams: 07/18/17 17:00 07/18/17 17:00 Lab Statement: Any lab studies that have been ordered have been reviewed, and results considered in the medical decision making process. - Radiology CXR Xray Interpretation: Positive (See Comments) - Expiratory exam, small bibasilar infiltrates. ED physician has reviewed this report. Radiology Interpretation Completed By: Radiologist - CT CT Brain CT Interpretation: No Acute Changes - 1. No evidence for acute intracranial abnormality. 2. Diffuse atrophy, unchanged. ED physician has reviewed this report. CT Interpretation Completed By: Radiologist Altered Mental Statu Course/Dx - Course Assessment/Plan: pt seen to have haziness of R lung and evidence of UTI on labs , admitted for further IV antibiotic treamtnet and futher monitoring of mental status. CT head negative for acute pathology; vital signs stable. - Diagnoses Discharge Diagnoses: UTI (urinary tract infection), Delirium Discharge - Discharge Plan Condition: Stable Disposition: ADMITTED TO [facility] The documentation as recorded by the Sid lyles Natalie accurately reflects the service I personally performed and the decisions made by , Pito Carbajal MD.
[2017-07-18] MEDS ORDERED: Azithromycin IV(*) 500 MG in NS 0.9% 250 ML* 250 ML IVPB SCH (20:00)
[2017-07-18] MEDS: Heparin VIAL(*) 5000 UNITS/ML VIAL (FIVE THOUSAND) SUBCUT SCH (23:27)
[2017-07-18] MEDS: Timolol 0.5% OPTH.SOL* BTL RIGHT EYE SCH (23:29)
[2017-07-18] MEDS: Famotidine TAB* 20 MG PO SCH (23:30)
[2017-07-18] MEDS: Divalproex Sprinkle CAP* 125 MG PO SCH (23:30)
[2017-07-18] MEDS: PTO: Brimonid/Timolol 0.2/0.5%(NF) 10 ML OPHTH.SOLN OPHTHALMIC SCH (23:31)
[2017-07-18] MEDS: PTO: Dorzolamide 2% OPTH (NF) 10 ML BTL RIGHT EYE SCH (23:32)
--- NOTE | 2017-07-19 04:39 | HP ---
CC: Shelby Wilson NP * HISTORY AND PHYSICAL: DATE OF ADMISSION: 07/18/17 PRIMARY CARE PROVIDER: Shelby Wilson. PHYSICIAN FROM HOSPITAL: Dr. Paz Castellon * (report being dictated by Kelby Walker NP). CHIEF COMPLAINT: Altered mental status. HISTORY OF PRESENT ILLNESS: I will preface the report by saying that the patient has a significant amount of underlying intellectual developmental delay. She is essentially nonverbal. She comes into the ED today. It was noted by [facility] Staff that appeared to be unresponsive, lethargic, drowsy. Of note, she recently was started on b.i.d. Ativan and she had been given a dose starting on . She was noted to be drowsy, not acting herself, acting lethargic. She had been coughing. There was concern that she may have an infection and she was brought in. The patient now is noted to be quite agitated but the patient really cannot give much history because she is again nonverbal. The staff at [facility] said that she has not been having any vomiting, diarrhea. There has been no choking on food. There have been no reports of recent sick contacts. No reports of fever. They were concerned because of her mentation, and we were asked to evaluate for admission. PAST MEDICAL HISTORY: Significant for: 1. Intellectual developmental delay. 2. Seizures. 3. GERD. 4. Osteoporosis. 5. Hypertension. 6. Glaucoma. 7. CKD. 8. Dysphagia. 9. History of bradycardia. 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 HOME MEDICATIONS: Include according to the list that was provided: 1. Amlodipine 5 mg daily. 2. Timolol 1 drop right eye b.i.d. 3. Fleet enema one enema p.r. daily as needed. 4. Saline nasal spray one spray both nares every 4 hours as needed. 5. Nystatin topical powder, one application topical b.i.d. as needed. 6. Nystatin cream one application topically daily as needed. 7. Bactroban one application topically b.i.d. as needed. 8. Milk of mag 30 cc p.o. every other day. 9. Latanoprost 1 drop right eye q.p.m. 10. Ativan 0.5 mg p.o. b.i.d. 11. Atrovent 0.5 mg inhaled every 4 hours as needed. 12. Guaifenesin 100 mg p.o. every 6 hours as needed. 13. Famotidine 20 mg p.o. b.i.d. 14. Trusopt 2% one drop right eye b.i.d. 15. Depakote sprinkles 125 mg p.o. t.i.d. 16. Aloe [place] skin cream 3% every eight hours as needed. 17. Prolia 60 mg every 6 months. 18. Combigan one drop right eye b.i.d. 19. Aspirin 81 mg daily. ALLERGIES: Allergies to medications include CARBAMAZEPINE and PHENYTOIN. FAMILY HISTORY: Unknown. SOCIAL HISTORY: Surrogate decision maker is her brother Jos. She does not smoke, does not drink. She resides at [facility]. REVIEW OF SYSTEMS: Unable to be obtained. PHYSICAL EXAMINATION GENERAL: At this time, Ms. Armando is a 66-year-old female patient. She is sitting in the ED stretcher. She appears to be agitated. She does not appear to be in acute distress. VITAL SIGNS: Blood pressure 100/61, pulse 80, respirations were 18, O2 sat 99% , temperature 97.1. HEENT: Head is atraumatic, normocephalic. Eyes: Sclerae is anicteric, pupils reactive to light. NECK: Supple. Throat: Oral mucosa appear to be moist. No oropharyngeal erythema. LUNGS: Diminished in the bases. Equal diaphragmatic expansion. HEART: Heart sounds S1, S2. Regular rate and rhythm. No murmurs, rubs or gallops. ABDOMEN: Soft, flat, nontender, bowel sounds are present. EXTREMITIES: She is grossly moving all 4 extremities, 5/5 strength. She has no peripheral edema. NEUROLOGIC: She is nonverbal. She has no gross focal deficits. She is awake and alert to herself only. SKIN: Intact. LABORATORY DATA: WBC of 15.7, RBC of 3.87, hemoglobin 13.0, hematocrit 38, platelet count of 188. The sodium was 138, potassium 3.9, chloride 107, bicarb 24, BUN 23, creatinine 1.3 which is near her baseline and glucose of 102, lactic 1.3, mag was 1.7, calcium 8.4. The total bili 0.4, AST 9, ALT 8, alk phos 53, troponin 0.01, albumin is 3.4, lipase less than 10. Urine showed 1+ protein, 1+ blood, 3+ leukocyte esterase, 3+ wbc, 2+ rbc, 1+ bacteria. Toxicology show low valproic acid. The patient did have a brain CT obtained today, which showed no evidence for acute intracranial abnormality, diffuse atrophy unchanged. She has chest x-ray obtained today which revealed expiratory exam small basilar infiltrates. She did have urine which showed again 1+ protein, 3+ blood, 3+ leukocyte esterase, 3+ wbc, 2+ rbc, 1+ bacteria. Old medical records were reviewed. ASSESSMENT AND PLAN: Ms. Armando is a 66-year-old female patient coming into the ED today with complaints of altered mental status and on evaluation found to have leukocytosis and UA that was concerning for urinary tract infection and possible pneumonia. We were asked to evaluate for admission under observatory status for: 1. Altered mental status: This is multifactorial. She certainly could have an underlying infection. It is hard to say as she is nonverbal. She is coughing now. My plan will be to get legionella, strep, pneumo antigen, a flu swab, sputum culture. We will get the urine culture, blood cultures as well, put her on Rocephin and azithromycin. She is going to get a liter of fluids here in the ED. We will go ahead and continue normal saline at 100 an hour for another liter and we will continue supportive care. We will see if any cultures come back. I am concerned with the white count of 15.8 that she certainly could have an underlying infection, so I will treat her with antibiotics. We will continue to follow her closely. 2. History of intellectual developmental delay: Continue supportive care. 3. History of seizure: I have ordered precautions. 4. Gastroesophageal reflux disease: Continue PPI therapy. 5. Osteoporosis: Continue current medical regimen. 6. History of hypertension: Continue meds as described. 7. Chronic kidney disease: She is at her baseline. 8. History of glaucoma: We will continue her eyedrops as prescribed. 9. Dysphagia: I have ordered a thickened diet. 10. History of bradycardia: Her heart rate now is around 90. 11. Code status: She is a DNR with a trial of intubation. 12. DVT prophylaxis: She will be placed on heparin subcu. 13. Fluids and nutrition: She can have a regular diet that is thickened. TIME SPENT: Time spent on the admission was 60 minutes, greater than half the time was spent [id number] with the patient obtaining history and physical, other half time was spent going over the plan of care with the patient and implementing the plan of care. I did discuss the plan of care with my attending, Dr. Castellon, she is in agreement. KELBY WALKER, JEREMÍAS [id number]/CPS #: [id number] MTDD
[2017-07-19] MEDS: Heparin VIAL(*) 5000 UNITS/ML VIAL (FIVE THOUSAND) SUBCUT SCH (06:35)
[2017-07-19 07:15] LABS: ABS Basophils 0.1 10^3/ul (0-0.2); ABS Eosinophils 0.6 10^3/ul (0-0.6); ABS Lymphocytes 1.5 10^3/ul (1.0-4.8); ABS Neutrophils 8.4 10^3/ul (1.5-7.7); ABS Nucleated RBC 0 10^3/ul; Eosinophil % 5.1 % (0-6); Hematocrit 38 % (35-47); Hemoglobin 12.9 g/dl (12.0-16.0); Lymphocyte % 13.1 % (25-47); Mean Corpuscular HGB Conc 34 g/dl (31-36); Mean Corpuscular Hemoglobin 34 pg (27-31); Mean Corpuscular Volume 99 fL (80-97); Mean Platelet Volume 10 um3 (7.4-10.4); Nucleated Red Blood Cells % 0; Platelet Count 189 10^3/ul (150-450); Red Blood Count 3.82 10^6/ul (4.0-5.4); Red Cell Distribution Width 13 % (10.5-15); White Blood Count 11.6 10^3/ul (3.5-10.8)
[2017-07-19 07:34] LABS: EGFR Non-African American 47.9 (>60)
[2017-07-19] MEDS: PTO: Dorzolamide 2% OPTH (NF) 10 ML BTL RIGHT EYE SCH (07:38)
[2017-07-19] MEDS: PTO: Brimonid/Timolol 0.2/0.5%(NF) 10 ML OPHTH.SOLN OPHTHALMIC SCH (07:38)
[2017-07-19] MEDS ORDERED: Aspirin Low Dose CHEW TAB* 81 MG PO SCH (09:00)
[2017-07-19] MEDS ORDERED: amLODIPine TAB* 5 MG PO SCH (09:00)
[2017-07-19] MEDS: Divalproex Sprinkle CAP* 125 MG PO SCH (09:20)
[2017-07-19] MEDS: Famotidine TAB* 20 MG PO SCH (09:20)
[2017-07-19] MEDS: Timolol 0.5% OPTH.SOL* BTL RIGHT EYE SCH (09:21)
[2017-07-19] MEDS ORDERED: Levofloxacin TAB* 500 MG PO ONE (12:22)
[2017-07-19 12:30] VITALS: BP 146/84
[2017-07-19] MEDS ORDERED: amLODIPine TAB* 5 MG PO ONE (12:45)
[2017-07-19] MEDS ORDERED: Latanoprost 0.005%* 2.5 ml BTL RIGHT EYE SCH (18:00)
[2017-07-19] MEDS ORDERED: cefTRIAXone(*) 1 GM in D5W 50 ML BAG* 50 ML IVPB SCH (18:00)
--- NOTE | 2017-07-20 11:32 | DS ---
CC: Shebly Wilson NP * DISCHARGE SUMMARY: DATE OF ADMISSION: 07/18/17 DATE OF DISCHARGE: 07/19/17 PRIMARY CARE PROVIDER: Shelby Wilson NP ATTENDING PHYSICIAN WHILE IN THE HOSPITAL: Dr. Igor Gibson * (report dictated by Kelby Walker NP). PRINCIPAL DIAGNOSIS: Includes altered mental status. SECONDARY DIAGNOSES: Include: 1. Possible pneumonia. 2. Urinary tract infection. 3. Intellectual developmental delay. 4. Seizure disorder. 5. Glaucoma. 6. Dysphagia. 7. Hypertension. 8. Osteoporosis. 9. Gastroesophageal reflux disease. HISTORY OF PRESENT ILLNESS: I would refer you to my H and P dictated yesterday for further details. In short, Ms. Armando is a 66-year-old female patient, who is a member at the [employer] and she presented yesterday with complaints , according to the [facility] staff, of her not acting herself, her being coming altered, drowsy, lethargic, not wanting to eat, just not acting like her typical self. Of note, she originally was prescribed Ativan b.i.d. She was noted to be drowsy and she had been coughing. There was concern that she may have an infection. She was brought into the ED. There were no reports of fevers, nausea, vomiting, or diarrhea. She was evaluated. Ultimately, there was concern for possible pneumonia, although the x-ray was an expiratory film which extremely limits that but she also did have what appeared to be a urinary tract infection. The patient was admitted. She was started on antibiotics. With IV hydration and antibiotics, her white count had trended down, she was back to her baseline according to the [facility] staff. It was today she was more agitated, which is her baseline. She was eating, she ate her entire breakfast. She did well, she had no episodes of choking and it was felt that she could be discharged out on p.o. antibiotics. It was noted based on her previous microbiology that she has grown out E. coli in her urine in the past that was yeh sensitive, so it was felt that she could be discharged home with a 7-day course of antibiotics. So, she will have 5 more days of p.o. Levaquin. STATUS DURING HOSPITALIZATION: Observation. CONDITION AT DISCHARGE: Stable. Complex medical case, refer to the medical chart for full details. PHYSICAL EXAM AT DISCHARGE: Blood pressure 146/84, pulse 79, respirations 22, O2 sat 100%, temperature 97.4. Generally, at this time, Ms. Armando is a 66- year- old female patient, she appears to be well nourished, well developed. She does not appear to be in any acute distress. She is sitting in the ED stretcher. She is sitting in the hospital bed. She is alert to herself only. HEENT: Head, atraumatic. Eyes, sclerae are anicteric. Throat: Oral mucosa appears to be moist. No oropharyngeal erythema. Neck: Supple. Lungs: Again , diminished at bases, but there are no wheezes, rales, or rhonchi. Heart: Sounds S1, S2. Regular rate and rhythm. No murmurs, rubs, or gallops. Abdomen : Soft, flat, nontender. Bowel sounds were present. Extremities: Moving all 4 extremities grossly. Neurologically, she is awake and she is alert to herself. No gross focal deficits. Skin is intact. DIAGNOSTIC STUDIES/LAB DATA: Labs at discharge reveal WBC 11.6, RBC 3.82, hemoglobin 12.9, hematocrit of 38, platelet count of 189. Sodium was 138, potassium was 3.8, chloride 109, bicarb 23, BUN 19, creatinine 1.13, glucose of 97. Urine which we obtained showed 1+ protein, 1+ blood, 2+ leukocyte esterase, 1+ bacteria, 3+ wbc's, 2+ rbc's. Valproic acid level was 31. Serology was negative for flu. She had a chest x-ray obtained, it showed expiratory exam, small basilar infiltrates. She had a brain CT, which showed no evidence for acute intracranial abnormality , diffuse atrophy, unchanged. DISCHARGE MEDICATIONS: Include new medications: 1. Levaquin 250 mg p.o. daily for 5 more days. 2. Amlodipine 5 mg daily. 3. Timolol 1 drop to right eye b.i.d. 4. Fleet Enema 1 bottle p.r. daily. 5. Saline 1 spray both nares q.4 p.r.n. 6. Nystatin topical powder 1 application topically b.i.d. as needed. 7. Nystatin cream 1 application topically daily as needed. 8. Mupirocin 1 application topically b.i.d. as needed. 9. Milk of mag 30 cc p.o. every other day. 10. Latanoprost 1 drop right eye q.p.m. 11. She is to discontinue her Ativan 0.5 mg p.o. b.i.d. as needed. 12. Atrovent 0.5 mg p.o. inhaler every 4 hours as needed. 13. Guaifenesin 100 mg every 6 hours as needed. 14. Famotidine 20 mg p.o. b.i.d. 15. Trusopt 1 drop right eye b.i.d. 16. Depakote 125 mg p.o. t.i.d. 17. Aloe [place] 3% externally q.8 hours as needed. 18. Prolia 60 mg as directed every 6 months. 19. Combigan 1 drop to the eyes b.i.d. 20. Aspirin 81 mg daily. ISSUES TO BE ADDRESSED IN FOLLOWUP: 1. Altered mental status:. Again, this is probably multifactorial, certainly she does have an underlying infection, but it could also be related to Ativan which I recommend discontinuing, continuing Levaquin for another 5 days for a 7- day course. She could have had a possible pneumonia, but again it is expiratory film, she certainly does have urinary tract infection, which could have caused altered mental status, but I would recommend discontinuing Ativan and giving her 5-day course of Levaquin and following with the primary. I would recommend , if benzos are needed for agitation, a small dose of Xanax. 2. Intellectual developmental delay: Follow with the primary. 3. Seizures: Continue meds as prescribed. 4. GERD: Continue PPI therapy. 5. Osteoporosis: Continue Prolia. 6. Hypertension: Continue amlodipine. 7. Glaucoma: Continue eye drops prescribed. 8. CKD: Follow with the primary. 9. Dysphagia: Continue with her pureed diet. 10. Code status: She is a DNR. Issues to return include, but not limited to, chest pain, shortness of breath, fever, chills, nausea, vomiting, altered mental status, or any other worrisome symptoms. TIME SPENT: On discharge was greater than 40 minutes, greater than half time spent going over the discharge plan, another half time spent implementing the discharge plan. I did discuss the discharge plan with my attending, Dr. Gibson; he is in agreement. KELBY WALKER NP [id number]/[facility] #: [id number] RYLIE
== END 2017-07-19 13:45 | disposition home or self-care (01) ==
LOC: ED 14:20 → MED 18:37
PROVIDERS: ADMIT Internal Medicine; ATTEND Internal Medicine
DX: R41.82 Altered mental status, unspecified (principal); N39.0 Urinary tract infection, site not specified; F81.9 Developmental disorder of scholastic skills, unspecified; G40.909 Epilepsy, unspecified, not intractable, without status epilepticus; H40.9 Unspecified glaucoma; R13.10 Dysphagia, unspecified; M81.0 Age-related osteoporosis without current pathological fracture; K21.9 Gastro-esophageal reflux disease without esophagitis; Z79.899 Other long term (current) drug therapy; Z79.82 Long term (current) use of aspirin; Z88.8 Allergy status to other drugs, medicaments and biological substances; I12.9 Hypertensive chronic kidney disease with stage 1 through stage 4 chronic kidney disease, or unspecified chronic kidney disease; N18.9 Chronic kidney disease, unspecified
CPT/HCPCS: 36415; 70450; 71045; 80048; 80053; 80164; 81003; 81015; 83605; 83690; 83735; 84484; 85025; 87040; 87077; 87086; 87186; 87502; 87641; 96365; 96372; 96376; 99284; A9270-GY; G0378; J0456; J0696; J1644; J3475

== ENCOUNTER 2017-08-03 18:55 | Emergency (ER) | payer MEDICARE, MEDICAID ==
--- NOTE | 2017-08-03 21:10 | ED ---
Lower Extremity - HPI Summary HPI Summary: 66 female brought in by staff, lives at [facility] and is disabled, non verbal. Noticed by staff a red, swollen left knee that was noticed this morning while changing her. No known trauma or injury. Patient does not like when knee is touched. Extensive PMHx. No other complaints. No medications. No fever/ chills or other signs of trauma. Filer And Sander since arrival the redness has significantly improved. Is moving left lower extremity/knee without difficulty. 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 from [facility] Mechanism Of Injury: Unknown Onset/Duration: Days Pain Intensity: 1 Pain Scale Used: 0-10 Numeric - with touch Location: Is Discrete @ - left knee Character Of Pain: Unable To Describe Associated Signs And Symptoms: Positive: Swelling, Redness Aggravating Factor(s): Other - touch Able to Bear Weight: No - unable to due to disability - Allergies/Home Medications Allergies/Adverse Reactions: Allergies Allergy/AdvReac Type Severity Reaction Status Date / Time Carbamazepine [From Tegretol] Allergy Unknown Verified 10/20/16 06:45 Reaction Details Phenytoin [From Dilantin] Allergy Unknown Verified 10/20/16 06:45 Reaction Details PMH/Surg Hx/FS Hx/Imm Hx Cardiovascular History: Reports: Hx Hypertension, 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 Respiratory History: Reports: Hx Pneumonia GI History: Reports: Hx Gastroesophageal Reflux Disease History: Reports: Hx Chronic Renal Failure - stage 3, Other Problems/ Disorders - hx bilateral hydronephrosis Musculoskeletal History: Reports: Hx Osteoporosis, Other Musculoskeletal History - Contracted Sensory History: Reports: Hx Cataracts, Hx Glaucoma, 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, Hx Vision Problem Denies: Hx Contacts or Glasses, Hx Hearing Aid Opthamlomology History: Reports: Hx Cataracts, Hx Glaucoma, 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, Hx Vision Problem Denies: Hx Contacts or Glasses Neurological History: Reports: Hx Developmental Delay, Hx Seizures, Other Neuro Impairments/Disorders - Parkinson's Disease Denies: Hx Dementia, Hx Headaches, Hx Migraine, Hx Nerve Disease, Hx Spinal Cord Injury, Hx Transient Ischemic Attacks (TIA) Psychiatric History: Reports: Hx Anxiety, Hx Post Traumatic Stress Disorder, Other Psychiatric Issues/Disorders - developmental delay - Surgical History Surgery Procedure, Year, and Place: 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 Negative: Diabetes - Social History Alcohol Use: None Hx Substance Use: No Substance Use Type: Reports: None Hx Tobacco Use: No Smoking Status (MU): Never Smoked Tobacco Review of Systems - ROS Summary Review of Systems Summary: obtained by assembler ping pong table as patient is non verbal Constitutional: Negative Cardiovascular: Negative Respiratory: Negative Musculoskeletal: Negative Positive: Arthralgia, Edema - left knee Positive: Other - left knee erythema All Other Systems Reviewed And Are Negative: Yes Physical Exam Triage Information Reviewed: Yes Vital Signs On Initial Exam: Initial Vitals Temp Pulse Resp BP Pulse Ox 97.3 F 74 20 134/82 96 08/03/17 19:20 08/03/17 19:20 08/03/17 19:20 08/03/17 19:20 08/03/17 19:20 Vital Signs Reviewed: Yes Appearance: Positive: Well-Appearing, No Pain Distress, Well-Nourished Skin: Positive: Warm, Skin Color Reflects Adequate Perfusion, Dry, Other - normal skin exam no signs of wounds or area of entry for infection, small contusion noted anterior left knee noted. Negative: Numb, Cyanosis @, Pale Eyes: Positive: Conjunctiva Clear Respiratory/Lung Sounds: Positive: Clear to Auscultation, Breath Sounds Present. Negative: Rales, Rhonchi, Wheezes Cardiovascular: Positive: Normal, RRR, Pulses are Symmetrical in both Upper and Lower Extremities - 2+ pedal b/l. Negative: Murmur, Rub Musculoskeletal: Positive: Normal, Strength/ROM Intact - moving knee without difficulty, Pain @ - on palption of left knee, potentially as patient yells upon palpation, some edema noted, minimally, no sign of erythema or obvious trauma/deformity, is warm compared to right, Edema Left - knee minimally when compared to right, Other - rest of msk exam normal. Negative: Limited @, Interruption @, Abnormal @ Neurological: Positive: Sensory/Motor Intact Diagnostics - Vital Signs Vital Signs Temp Pulse Resp BP Pulse Ox 08/03/17 19:20 97.3 F 74 20 134/82 96 - Laboratory Lab Statement: Any lab studies that have been ordered have been reviewed, and results considered in the medical decision making process. - Radiology left knee Xray Interpretation: No Acute Changes - Unremarkable left knee. Radiology Interpretation Completed By: Radiologist - and myself Re-Evaluation - Re-Evaluation First Eval Re-Evaluation Time: 21:26 Change: Unchanged - patient is not showing signs of pain, no changes to symptoms. updated on xray results and understand/agree plan. all questions answered. tylenol and ready to be d/c Lower Extremity Course/Dx - Course Course Of Treatment: xray obtained of left knee and negative for acute findings , no fluid or fracture noted. due to physical exam findings encouraged use of tylenol for symptoms and compression as due to kidney failure, avoid NSAIDs. Jake bandage applied. Ice. Follow up with PCP/ortho for further evaluation and work up. aware of worsening signs and symptoms to watch out for. assembler ping pong table understands and agrees. normal PE findings and vitals, afebrile and not tachy. - Diagnoses Differential Diagnosis/HQI/PQRI: Positive: Arthritis, Contusion, Gout, Infection , Sprain, Strain Provider Diagnoses: Pain and swelling of left knee Discharge - Discharge Plan Condition: Stable Disposition: HOME Patient Education Materials: Knee Pain (ED), Swollen Knee Joint (ED) Referrals: Shelby Babcock NP [Primary Care Provider] - Additional Instructions: Continue taking tylenol, apply jake wrap for compression to help with swelling. Rest and apply ice. Any new or worsening symptoms please seek medical attention promptly and return , as discussed (increased redness, swelling, pain, fever, etc). Follow up with PCP and Ortho for further evaluation and work up if symptoms persist/worsen.
--- NOTE | 2017-08-03 21:21 | RAD ---
Indication: Left knee swelling. 2 views of left knee demonstrates no fracture. No other bone or joint abnormality is noted. IMPRESSION: Unremarkable left knee.
[2017-08-03] MEDS ORDERED: Acetaminophen TAB* 325 MG PO ONE (21:27)
[2017-08-03 22:00] VITALS: BP 130/81
== END 2017-08-03 21:59 | disposition home or self-care (01) ==
LOC: ED 18:55
DX: M79.89 Other specified soft tissue disorders (principal); M25.562 Pain in left knee; Z88.8 Allergy status to other drugs, medicaments and biological substances
CPT/HCPCS: 99282; A9270-GY

== ENCOUNTER 2017-12-14 13:43 | Emergency (ER) | payer MEDICARE, MEDICAID ==
[2017-12-14 15:43] LABS: ABS Basophils 0.1 10^3/ul (0-0.2); ABS Eosinophils 0.6 10^3/ul (0-0.6); ABS Lymphocytes 2.4 10^3/ul (1.0-4.8); ABS Monocytes 1.2 10^3/ul (0-0.8); ABS Neutrophils 6.4 10^3/ul (1.5-7.7); ABS Nucleated RBC 0 10^3/ul; Eosinophil % 5.3 % (0-6); Hematocrit 39 % (35-47); Hemoglobin 13.3 g/dl (12.0-16.0); Lymphocyte % 22.8 % (25-47); Mean Corpuscular HGB Conc 35 g/dl (31-36); Mean Corpuscular Hemoglobin 34 pg (27-31); Mean Corpuscular Volume 97 fL (80-97); Mean Platelet Volume 9.7 um3 (7.4-10.4); Nucleated Red Blood Cells % 0.1; Platelet Count 184 10^3/ul (150-450); Red Blood Count 3.97 10^6/ul (4.0-5.4); Red Cell Distribution Width 12 % (10.5-15); White Blood Count 10.6 10^3/ul (3.5-10.8)
[2017-12-14 16:14] LABS: EGFR Non-African American 35.9 (>60)
[2017-12-14 16:54] LABS: Urine Appearance Cloudy; Urine Blood 1+ (Negative); Urine Color Yellow; Urine Ketones Negative (Negative); Urine Protein Negative (Negative); Urine Specific Gravity 1.008 (1.010-1.030); Urine Urobilinogen Negative (Negative)
--- NOTE | 2017-12-14 17:05 | ED ---
Psychiatric Complaint - HPI Summary HPI Summary: Patient from [facility] with history of MR complains of increased agitation and screaming x 1-2 weeks. Sent for evaluation of possible UTI as cause of agitation. History of increase in agitation with UTI. History of admission for UTI. Patient is nonverbal except for screaming cannot provide history of present illness. Caregiver denies any trauma, fever, cough, work of breathing, V/D, any other symptoms other than increase in agitation and screaming. Patient was seen by PCP but they could not straight cath her and so told [facility] to bring patient to ED. 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 - History Of Current Complaint Chief Complaint: EDGeneral Time Seen by Provider: 12/14/17 16:34 Hx Obtained From: Family/Physician Office Secretary Hx From Patient Unobtainable Due To: Other Onset/Duration: Lasting Weeks Timing: Constant Severity Initially: Mild Severity Currently: Moderate - Allergies/Home Medications Allergies/Adverse Reactions: Allergies Allergy/AdvReac Type Severity Reaction Status Date / Time carbamazepine Allergy Hives Verified 12/14/17 14:13 phenytoin [From Dilantin] Allergy Hives Verified 12/14/17 14:13 PMH/Surg Hx/FS Hx/Imm Hx Cardiovascular History: Reports: Hx Hypertension, 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 Respiratory History: Reports: Hx Pneumonia GI History: Reports: Hx Gastroesophageal Reflux Disease History: Reports: Hx Chronic Renal Failure - stage 3, Other Problems/ Disorders - hx bilateral hydronephrosis Musculoskeletal History: Reports: Hx Osteoporosis, Other Musculoskeletal History - Contracted Sensory History: Reports: Hx Cataracts, Hx Glaucoma, 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, Hx Vision Problem Denies: Hx Contacts or Glasses, Hx Hearing Aid Opthamlomology History: Reports: Hx Cataracts, Hx Glaucoma, 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, Hx Vision Problem Denies: Hx Contacts or Glasses Neurological History: Reports: Hx Developmental Delay, Hx Seizures, Other Neuro Impairments/Disorders - Parkinson's Disease Denies: Hx Dementia, Hx Headaches, Hx Migraine, Hx Nerve Disease, Hx Spinal Cord Injury, Hx Transient Ischemic Attacks (TIA) Psychiatric History: Reports: Hx Anxiety, Hx Post Traumatic Stress Disorder, Other Psychiatric Issues/Disorders - developmental delay - Surgical History Surgery Procedure, Year, and Place: 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 Negative: Diabetes - Social History Alcohol Use: None Hx Substance Use: No Substance Use Type: Reports: None Hx Tobacco Use: No Smoking Status (MU): Never Smoked Tobacco Review of Systems - ROS Summary Review of Systems Summary: Patient has history of MR not, nonverbal does not answer history of present illness questions. ROS limited to knowledge of [facility] staff accompanying patient Constitutional: Negative Positive: Other Respiratory: Negative Skin: Negative All Other Systems Reviewed And Are Negative: Yes Physical Exam - Summary Physical Exam Summary: No apparent tenderness to palpation of head, face, neck, back, chest wall, abdomen, bilateral upper extremities, bilateral lower extremity is, abdomen. Patient moves bilateral upper extremities and bilateral lower extremities without any indication of pain. Lung sounds CTAP. No focal deficits observed Triage Information Reviewed: Yes Vital Signs On Initial Exam: Initial Vitals Temp Pulse Resp BP Pulse Ox 97.9 F 89 16 167/79 99 12/14/17 14:08 12/14/17 14:08 12/14/17 14:08 12/14/17 14:08 12/14/17 14:08 Vital Signs Reviewed: Yes Completion Of Physical Exam Limited Due To: Other Appearance: Positive: Well-Appearing Skin: Positive: Warm Head/Face: Positive: Normal Head/Face Inspection Eyes: Positive: Normal, Other: ENT: Positive: Normal ENT inspection Neck: Positive: Supple Respiratory/Lung Sounds: Positive: Clear to Auscultation Cardiovascular: Positive: Normal Abdomen Description: Positive: Nontender Musculoskeletal: Positive: Normal Neurological: Positive: Normal Psychiatric: Positive: Normal AVPU Assessment: Alert - Gunter Coma Scale Best Eye Response: 4 - Spontaneous Best Motor Response: 5 - Purposeful Movement Best Verbal Response: 4 - Confused Coma Scale Total: 13 Diagnostics - Vital Signs Vital Signs Temp Pulse Resp BP Pulse Ox 12/14/17 14:08 97.9 F 89 16 167/79 99 - Laboratory Lab Results: Lab Results 12/14/17 12/14/17 12/14/17 Range/Units 15:38 15:38 16:41 WBC 10.6 (3.5-10.8) 10^3/ul RBC 3.97 L (4.0-5.4) 10^6/ul Hgb 13.3 (12.0-16.0) g/dl Hct 39 (35-47) % MCV 97 (80-97) fL MCH 34 H (27-31) pg MCHC 35 (31-36) g/dl RDW 12 (10.5-15) % Plt Count 184 (150-450) 10^3/ul MPV 9.7 (7.4-10.4) um3 Neut % (Auto) 60.1 (38-83) % Lymph % (Auto) 22.8 L (25-47) % Jenkins % (Auto) 11.0 H (0-7) % Eos % (Auto) 5.3 (0-6) % Baso % (Auto) 0.8 (0-2) % Absolute Neuts (auto) 6.4 (1.5-7.7) 10^3/ul Absolute Lymphs (auto) 2.4 (1.0-4.8) 10^3/ul Absolute Monos (auto) 1.2 H (0-0.8) 10^3/ul Absolute Eos (auto) 0.6 (0-0.6) 10^3/ul Absolute Basos (auto) 0.1 (0-0.2) 10^3/ul Absolute Nucleated RBC 0 10^3/ul Nucleated RBC % 0.1 Sodium 137 L (139-145) mmol/L Potassium 4.4 (3.5-5.0) mmol/L Chloride 107 (101-111) mmol/L Carbon Dioxide 22 (22-32) mmol/L Anion Gap 8 (2-11) mmol/L BUN 32 H (6-24) mg/dL Creatinine 1.45 H (0.51-0.95) mg/dL Est GFR ( Amer) 46.2 (>60) Est GFR (Non-Af Amer) 35.9 (>60) BUN/Creatinine Ratio 22.1 H (8-20) Glucose 104 H (70-100) mg/dL Calcium 8.3 L (8.6-10.3) mg/dL Total Bilirubin 0.30 (0.2-1.0) mg/dL AST 10 L (13-39) U/L ALT 8 (7-52) U/L Alkaline Phosphatase 54 (34-104) U/L C-Reactive Protein 54.58 H (< 5.00) mg/L Total Protein 7.4 (6.4-8.9) g/dL Albumin 3.5 (3.2-5.2) g/dL Globulin 3.9 (2-4) g/dL Albumin/Globulin Ratio 0.9 L (1-3) Urine Color Yellow Urine Appearance Cloudy Urine pH 7.0 (5-9) Ur Specific Henning 1.008 L (1.010-1.030) Urine Protein Negative (Negative) Urine Ketones Negative (Negative) Urine Blood 1+ A (Negative) Urine Nitrate Negative (Negative) Urine Bilirubin Negative (Negative) Urine Urobilinogen Negative (Negative) Ur Leukocyte Esterase 3+ A (Negative) Urine WBC (Auto) 3+(>20/hpf) A (Absent) Urine RBC (Auto) 3+(>10/hpf) A (Absent) Urine Bacteria Absent (Absent) Urine Glucose Negative (Negative) Urine Ascorbic Acid * A (Negative) Result Diagrams: 12/14/17 15:38 12/14/17 15:38 Lab Statement: Any lab studies that have been ordered have been reviewed, and results considered in the medical decision making process. Course/Dx - Course Course Of Treatment: Patient from [facility] with history of MR complains of increased agitation and screaming x 1-2 weeks. Sent for evaluation of possible UTI as cause of agitation. History of admission for UTI. Patient is nonverbal except for screaming cannot provide history of present illness. Caregiver denies any trauma, fever, cough, work of breathing , V/D, any other symptoms other than increase in agitation and screaming. Patient was seen by PCP but they could not straight cath her and so told [facility] to bring patient to ED. 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 No apparent tenderness to palpation of head, face, neck, back, chest wall, abdomen, bilateral upper extremities, bilateral lower extremity is, abdomen. Patient moves bilateral upper extremities and bilateral lower extremities without any indication of pain. Lung sounds CTAP. No focal deficits observed. UA positive for UTI. Vital signs within normal limits and stable. White count within normal limits. CR approximately baseline. CRP elevated. Started on Cipro 500 mg by mouth here Rx for same. - Differential Dx/Clinical Impression Provider Diagnosis: UTI (urinary tract infection), Agitation Discharge - Sign-Out/Discharge Documenting (check all that apply): Discharge/Admit/Transfer - Discharge Plan Condition: Stable Disposition: HOME Prescriptions: Ciprofloxacin HCl [Cipro] 500 mg PO BID 10 Days #20 tablet Patient Education Materials: Urinary Tract Infection in Women (ED) Referrals: No Primary Care Phys,NOPCP [Primary Care Provider] - Additional Instructions: Follow-up with primary care. Return to the ED for any new or worsening symptoms - Billing Disposition and Condition Condition: STABLE Disposition: Home
[2017-12-14] MEDS ORDERED: Ciprofloxacin TAB* 250 MG PO ONE (17:41)
[2017-12-14 18:06] VITALS: BP 000/00
--- NOTE | 2017-12-16 08:53 | ED ---
Progress - Progress Note Progress Note: Patient's final urine culture reveals greater than 100,000 MRSA. She was started on ciprofloxacin however this antibiotic does not appear to be effective against organism. Patient will be switched to doxycycline which is sensitive and will be prescribed to the [facility] [place]. Spoke with [facility] Patient's residential home. We will fax this progress note for clarification for patient's chart. Order #1 Stop ciprofloxacin Order #2 Start doxycycline 100 mg by mouth twice a day 7 days #14 no refills Caution: Avoid sun exposure while taking this medication. Do not take medication with calcium products. Note and lab results will be faxed by michelle Perez, to Course/Dx - Course Course Of Treatment: Patient from [facility] with history of MR complains of increased agitation and screaming x 1-2 weeks. Sent for evaluation of possible UTI as cause of agitation. History of admission for UTI. Patient is nonverbal except for screaming cannot provide history of present illness. Caregiver denies any trauma, fever, cough, work of breathing , V/D, any other symptoms other than increase in agitation and screaming. Patient was seen by PCP but they could not straight cath her and so told [facility]. 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 No apparent tenderness to palpation of head, face, neck, back, chest wall, abdomen, bilateral upper extremities, bilateral lower extremity is, abdomen. Patient moves bilateral upper extremities and bilateral lower extremities without any indication of pain. Lung sounds CTAP. No focal deficits observed. UA positive for UTI. Vital signs within normal limits and stable. White count within normal limits. CR approximately baseline. CRP elevated. Started on Cipro 500 mg by mouth here Rx for same. - Diagnoses Provider Diagnoses: UTI (urinary tract infection), Agitation Discharge - Sign-Out/Discharge Documenting (check all that apply): Post-Discharge Follow Up - Discharge Plan Condition: Stable Disposition: HOME Prescriptions: Ciprofloxacin HCl [Cipro] 500 mg PO BID 10 Days #20 tablet Patient Education Materials: Urinary Tract Infection in Women (ED) Referrals: No Primary Care Phys,NOPCP [Primary Care Provider] - Additional Instructions: Follow-up with primary care. Return to the ED for any new or worsening symptoms - Billing Disposition and Condition Condition: STABLE Disposition: Home
== END 2017-12-14 18:04 | disposition home or self-care (01) ==
LOC: ED 13:43
DX: N39.0 Urinary tract infection, site not specified (principal); B95.62 Methicillin resistant Staphylococcus aureus infection as the cause of diseases classified elsewhere; Z16.11 Resistance to penicillins; Z87.440 Personal history of urinary (tract) infections; R45.1 Restlessness and agitation; I12.9 Hypertensive chronic kidney disease with stage 1 through stage 4 chronic kidney disease, or unspecified chronic kidney disease; Z98.2 Presence of cerebrospinal fluid drainage device; K21.9 Gastro-esophageal reflux disease without esophagitis; R62.50 Unspecified lack of expected normal physiological development in childhood; R56.9 Unspecified convulsions; G20 Parkinson's disease; F41.9 Anxiety disorder, unspecified; F43.10 Post-traumatic stress disorder, unspecified; Z88.8 Allergy status to other drugs, medicaments and biological substances
CPT/HCPCS: 36415; 80053; 81003; 81015; 85025; 86140; 87077; 87086; 87186; 99281; A9270-GY

== ENCOUNTER 2018-08-23 22:48 | Emergency (ER) | payer MEDICARE, MEDICAID ==
[2018-08-23 23:56] LABS: ABS Basophils 0.1 10^3/ul (0-0.2); ABS Eosinophils 0.5 10^3/ul (0-0.6); ABS Lymphocytes 1.9 10^3/ul (1.0-4.8); ABS Monocytes 1.1 10^3/ul (0-0.8); ABS Neutrophils 1.9 10^3/ul (1.5-7.7); ABS Nucleated RBC 0 10^3/ul; Eosinophil % 9.4 %; Hematocrit 40 % (35-47); Hemoglobin 13.6 g/dl (12.0-16.0); Lymphocyte % 34.4 %; Mean Corpuscular HGB Conc 35 g/dl (31-36); Mean Corpuscular Hemoglobin 33 pg (27-31); Mean Corpuscular Volume 97 fL (80-97); Mean Platelet Volume 8.9 fL (7.4-10.4); Nucleated Red Blood Cells % 0.1; Platelet Count 241 10^3/ul (150-450); Red Blood Count 4.09 10^6/ul (4.00-5.40); Red Cell Distribution Width 12 % (10.5-15); White Blood Count 5.6 10^3/ul (3.5-10.8)
[2018-08-24 00:09] LABS: Urine Appearance Turbid; Urine Bacteria 2+ (Absent); Urine Bilirubin Negative (Negative); Urine Blood Negative (Negative); Urine Color Yellow; Urine Glucose Negative (Negative); Urine Ketones Negative (Negative); Urine Nitrite Positive (Negative); Urine Protein 1+(30 mg/dL) (Negative); Urine Red Blood Cell Absent (Absent); Urine Urobilinogen Negative (Negative); Urine White Blood Cell 3+(>20/hpf) (Absent)
[2018-08-24 00:15] LABS: Albumin 3.6 g/dL (3.2-5.2); Albumin/Globulin Ratio 0.8 (1-3); BUN/Creatinine Ratio 21.9 (8-20); C Reactive Protein 2.94 mg/L (<8.01); Calcium 9.8 mg/dL (8.6-10.3); EGFR African American 24.6 (>60); EGFR Non-African American 20.3 (>60); Globulin 4.5 g/dL (2-4); Potassium 4.3 mmol/L (3.5-5.0); Total Bilirubin 0.3 mg/dL (0.2-1.0); Total Protein 8.1 g/dL (6.4-8.9)
--- NOTE | 2018-08-24 00:16 | ED ---
Complex/Multi-Sys Presentation - HPI Summary HPI Summary: 67-year-old female presents from the [facility] for potential low BP. they are also concerned that she may have a UTI. she has history of kidney disease and uti. they also states that she had coffee ground stool. No blood was seen in the stool. No known fevers. Patient is nonverbal. Information is provided via phone call from [facility] as no aide was brought where her. patient is at baseline with MR. no cough. - History Of Current Complaint Chief Complaint: EDHypertension Time Seen by Provider: 08/23/18 23:14 - Allergies/Home Medications Allergies/Adverse Reactions: Allergies Allergy/AdvReac Type Severity Reaction Status Date / Time carbamazepine Allergy Hives Verified 12/14/17 14:13 phenytoin [From Dilantin] Allergy Hives Verified 12/14/17 14:13 Home Medications: Home Medications Acetaminophen TAB* [Tylenol TAB*] 650 mg PO Q4H PRN 08/24/18 [History Confirmed 08/24/18] Brimonidine P 0.15%(NF) [Alphagan P 0.15%(NF)] 1 drop RIGHT EYE BID 08/24/18 [ History Confirmed 08/24/18] Magnesium Oxide [Magnesium] 250 mg PO DAILY 08/24/18 [History Confirmed 08/24/18 ] Multivitamin [Multiple Vitamins] 1 tab PO DAILY 08/24/18 [History Confirmed ] Nutritional Supplement [Resource 2.0] 4 oz PO DAILY 08/24/18 [History Confirmed 08/24/18] Nystatin OINT* 1 applic TOPICAL BID PRN 08/24/18 [History Confirmed 08/24/18] diPHENhydraMINE PO* [Benadryl PO 25 MG TAB*] 25 mg PO Q6H PRN 08/24/18 [History Confirmed 08/24/18] guaiFENesin LIQ* [Robitussin*] 5 mg PO Q6HR PRN 08/24/18 [History Confirmed ] PMH/Surg Hx/FS Hx/Imm Hx Endocrine/Hematology History: Denies: Hx Anticoagulant Therapy Cardiovascular History: Reports: Hx Hypertension, Other Cardiovascular Problems/ Disorders - [employer] [facility] Respiratory History: Reports: Hx Pneumonia GI History: Reports: Hx Gastroesophageal Reflux Disease History: Reports: Hx Chronic Renal Failure - stage 3, Other Problems/ Disorders - hx bilateral hydronephrosis Musculoskeletal History: Reports: Hx Osteoporosis, Other Musculoskeletal History - Contracted Sensory History: Reports: Hx Cataracts, Hx Glaucoma, 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, Hx Vision Problem Denies: Hx Contacts or Glasses, Hx Hearing Aid Opthamlomology History: Reports: Hx Cataracts, Hx Glaucoma, 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, Hx Vision Problem Denies: Hx Contacts or Glasses Neurological History: Reports: Hx Developmental Delay, Hx Seizures, Other Neuro Impairments/Disorders - Parkinson's Disease Denies: Hx Dementia, Hx Headaches, Hx Migraine, Hx Nerve Disease, Hx Spinal Cord Injury, Hx Transient Ischemic Attacks (TIA) Psychiatric History: Reports: Hx Anxiety, Hx Post Traumatic Stress Disorder, Other Psychiatric Issues/Disorders - developmental delay - Surgical History Surgery Procedure, Year, and Place: [employer] [facility] - Immunization History Date of Tetanus Vaccine: Up to Date Date of Influenza Vaccine: 04/2017 Infectious Disease History: No Infectious Disease History: Reports: Hx of Known/Suspected MRSA Denies: Hx Clostridium Difficile, Hx Hepatitis, Hx Human Immunodeficiency Virus (HIV), Hx Shingles, Hx Tuberculosis, Hx Known/Suspected VRE, Hx Known/ Suspected VRSA, History Other Infectious Disease, Traveled Outside the [place] in Last 30 Days - Family History Known Family History: Positive: Unknown - The patient is a poor historian. Negative: Diabetes - Social History Alcohol Use: None Hx Substance Use: No Substance Use Type: Reports: None Hx Tobacco Use: No Smoking Status (MU): Never Smoked Tobacco Review of Systems Negative: Fever Negative: Chest Pain Negative: Shortness Of Breath Neurological: Other - low bp All Other Systems Reviewed And Are Negative: Yes Physical Exam Triage Information Reviewed: Yes Vital Signs On Initial Exam: Initial Vitals Temp Pulse Resp BP Pulse Ox 97.9 F 80 18 122/92 95 08/23/18 22:49 08/23/18 22:49 08/23/18 22:49 08/23/18 22:49 08/23/18 22:49 Vital Signs Reviewed: Yes Completion Of Physical Exam Limited Due To: Dementia Appearance: Positive: Well-Appearing Skin: Positive: Warm, Dry Head/Face: Positive: Normal Head/Face Inspection Eyes: Positive: Normal, Conjunctiva Clear ENT: Positive: Pharynx normal Respiratory/Lung Sounds: Positive: Clear to Auscultation, Breath Sounds Present Cardiovascular: Positive: Normal, RRR Abdomen Description: Positive: Nontender, Soft Bowel Sounds: Positive: Present Musculoskeletal: Positive: Other - moving all extremities Diagnostics - Vital Signs Vital Signs Temp Pulse Resp BP Pulse Ox 08/23/18 22:49 97.9 F 80 18 122/92 95 - Laboratory Lab Results: Lab Results 08/23/18 Range/Units 23:50 WBC 5.6 (3.5-10.8) 10^3/ul RBC 4.09 (4.00-5.40) 10^6/ul Hgb 13.6 (12.0-16.0) g/dl Hct 40 (35-47) % MCV 97 (80-97) fL MCH 33 H (27-31) pg MCHC 35 (31-36) g/dl RDW 12 (10.5-15) % Plt Count 241 (150-450) 10^3/ul MPV 8.9 (7.4-10.4) fL Neut % (Auto) 34.3 % Lymph % (Auto) 34.4 % [place] % (Auto) 20.3 % Eos % (Auto) 9.4 % Baso % (Auto) 1.6 % Absolute Neuts (auto) 1.9 (1.5-7.7) 10^3/ul Absolute Lymphs (auto) 1.9 (1.0-4.8) 10^3/ul Absolute Monos (auto) 1.1 H (0-0.8) 10^3/ul Absolute Eos (auto) 0.5 (0-0.6) 10^3/ul Absolute Basos (auto) 0.1 (0-0.2) 10^3/ul Absolute Nucleated RBC 0 10^3/ul Nucleated RBC % 0.1 Result Diagrams: 08/23/18 23:50 08/23/18 23:51 Lab Statement: Any lab studies that have been ordered have been reviewed, and results considered in the medical decision making process. Complex Multi-Symp Course/Dx Course Of Treatment: 67-year-old female presents from the [facility] for potential low BP. they are also concerned that she may have a UTI. she has history of kidney disease and uti. they also states that she had coffee ground stool. No blood was seen in the stool. No known fevers. Patient is nonverbal. Information is provided via phone call from [facility] as no aide was brought where her. patient is at baseline with MR. no cough. on exam nontender abd. patient has stool in diaper. hemoccult negative and stool is green. wbc normal. urine shows uti so will place on cipro. bp is normal here and has no fever. will discharge to [facility]. - Diagnoses Differential Diagnoses/HQI/PQRI: Metabolic Abnormality, Sepsis, Urinary Tract Infection Provider Diagnoses: UTI (urinary tract infection) Discharge - Sign-Out/Discharge Documenting (check all that apply): Patient Departure Patient Received Moderate/Deep Sedation with Procedure: No - Discharge Plan Condition: Good Disposition: HOME Prescriptions: Ciprofloxacin TAB* [Cipro 500 MG TAB*] 500 mg PO BID #9 tab Patient Education Materials: Urinary Tract Infection in Women (ED) Referrals: Bryce Bernal MD [Primary Care Provider] - Additional Instructions: take cipro twice a day for 5 days encourage fluids follow up with primary within 7 days Return to ED if develop fever or any new or worsening symptoms - Billing Disposition and Condition Condition: GOOD Disposition: Home
[2018-08-24] MEDS ORDERED: Ciprofloxacin TAB* 500 MG PO ONE (00:38)
[2018-08-24 00:54] VITALS: BP 102/82
== END 2018-08-24 01:16 | disposition home or self-care (01) ==
LOC: ED 22:48
DX: N39.0 Urinary tract infection, site not specified (principal); N18.3 Chronic kidney disease, stage 3 (moderate); R19.5 Other fecal abnormalities; Z88.8 Allergy status to other drugs, medicaments and biological substances
CPT/HCPCS: 36415; 80053; 81003; 81015; 82272; 83605; 85025; 86140; 87086; 99283; A9270-GY

== ENCOUNTER 2021-08-16 02:52 | Inpatient (IN) ==
[2021-08-16 03:51] LABS: Albumin 3.2 g/dL (3.2-5.2); Albumin/Globulin Ratio 0.8 (1-3); Calcium 8.5 mg/dL (8.6-10.3); Globulin 3.9 g/dL (2-4); Potassium 4.1 mmol/L (3.5-5.0); Total Bilirubin 0.5 mg/dL (0.2-1.0); Total Protein 7.1 g/dL (6.4-8.9); eGFR CKD-EPI 22.6 (>60)
[2021-08-16 03:54] LABS: ABS Lymphocytes 0.7 10^3/ul (1.0-4.8); ABS Monocytes 1.6 10^3/ul (0-0.8); ABS Neutrophils 11.9 10^3/ul (1.5-7.7); Eosinophil % 0.1 %; Hematocrit 37 % (35-47); Hemoglobin 12.4 g/dL (12.0-16.0); Lymphocyte % 4.8 %; Mean Corpuscular HGB Conc 34 g/dL (31-36); Mean Corpuscular Hemoglobin 34 pg (27-31); Mean Corpuscular Volume 99 fL (80-97); Mean Platelet Volume 8.9 fL (7.4-10.4); Platelet Count 185 10^3/uL (150-450); Red Blood Count 3.69 10^6 /uL (3.70-4.87); Red Cell Distribution Width 13 % (10-15); White Blood Count 14.3 10^3/uL (3.5-10.8)
[2021-08-16 03:54] LABS: Troponin I 0.01 ng/mL (<0.03)
[2021-08-16 04:10] LABS: Rapid COVID-19 Molecular Undetected (Undetected)
[2021-08-16] MEDS ORDERED: Lactated Ringers 1000 ml BAG 1,000 ML IV ONE (04:11)
[2021-08-16] MEDS ORDERED: guaiFENesin 100 mg/5 ml LIQ unit dose cup PO PRN (05:44)
[2021-08-16] MEDS ORDERED: Magnesium Hydroxide LIQ 30 ML UDC PO PRN (05:44)
[2021-08-16] MEDS ORDERED: diPHENhydraMINE 25 mg TAB PO PRN (05:44)
[2021-08-16 05:57] LABS: C Reactive Protein 157.79 mg/L (<8.01)
[2021-08-16] MEDS: Heparin 5000 UNITS/ML 1 mL VIAL SUBCUT SCH ×3 (06:23→22:07)
[2021-08-16 06:37] LABS: Urine Appearance Turbid; Urine Bilirubin Negative (Negative); Urine Blood 2+ (Negative); Urine Color Amber; Urine Glucose Negative (Negative); Urine Ketones Negative (Negative); Urine Nitrite Positive (Negative); Urine Protein 2+(100 mg/dL) (Negative); Urine Specific Gravity 1.009 (1.002-1.030); Urine Urobilinogen Negative (Negative)
[2021-08-16 06:41] LABS: Urine Creatinine Concentration 12.9 mg/dL
[2021-08-16] MEDS ORDERED: cefTRIAXone 1 gm/50 mL NS BAG 1 GM/50 ML BAG IVPB SCH (07:00)
[2021-08-16] MEDS ORDERED: NS 0.9% 1000 ml BAG 1,000 ML IV SCH (07:00)
[2021-08-16 07:05] LABS: Urine Bacteria 1+ (Absent); Urine Red Blood Cell 3+(>10/hpf) (Absent); Urine White Blood Cell 3+(>20/hpf) (Absent)
[2021-08-16] MEDS ORDERED: Azithromycin 500 mg/250 ml NS 500 MG/250 ML BAG IVPB SCH ×2 (08:00→10:00)
[2021-08-16] MEDS: Dorzolamide 2% OPTH (NF) 10 ML BTL BOTH EYES SCH ×2 (12:36→22:07)
[2021-08-16] MEDS: Timolol 0.5% OPTH.SOL BTL BOTH EYES SCH ×2 (12:36→22:07)
[2021-08-16] MEDS: Brimonidine P 0.15%(NF) OPH SOL 5 ML BTL BOTH EYES SCH ×2 (12:37→22:07)
[2021-08-16] MEDS ORDERED: Piperacillin/Tazobac ADVAN 3.375 GM in NS 0.9% 100 ml BAG 100 ML IV ONE (17:28)
[2021-08-16] MEDS ORDERED: Zosyn per Pharmacy NOTE FOLLOW UP SCH (18:00)
[2021-08-16] MEDS: NS 0.9% 1000 ml BAG 1,000 ML IV SCH (19:34)
[2021-08-16] MEDS: Latanoprost 0.005% 2.5 ml BTL BOTH EYES SCH (22:07)
[2021-08-17] MEDS: ZOSYN 3.375 GM Q12H per EXTENDED INFUSION IV SCH ×2 (02:00→12:37)
[2021-08-17] MEDS: Heparin 5000 UNITS/ML 1 mL VIAL SUBCUT SCH ×3 (05:26→20:02)
[2021-08-17 08:47] LABS: Hematocrit 37 % (35-47); Hemoglobin 12.6 g/dL (12.0-16.0); Mean Corpuscular HGB Conc 34 g/dL (31-36); Mean Corpuscular Hemoglobin 34 pg (27-31); Mean Corpuscular Volume 100 fL (80-97); Mean Platelet Volume 9.1 fL (7.4-10.4); Platelet Count 165 10^3/uL (150-450); Red Cell Distribution Width 13 % (10-15); White Blood Count 7.4 10^3/uL (3.5-10.8)
[2021-08-17 09:08] LABS: Calcium 8.5 mg/dL (8.6-10.3); eGFR CKD-EPI 28.2 (>60)
[2021-08-17] MEDS: NS 0.9% 1000 ml BAG 1,000 ML IV SCH (10:18)
[2021-08-17] MEDS: Timolol 0.5% OPTH.SOL BTL BOTH EYES SCH ×2 (11:20→19:58)
[2021-08-17] MEDS: Dorzolamide 2% OPTH (NF) 10 ML BTL BOTH EYES SCH ×2 (11:20→19:58)
[2021-08-17] MEDS: Brimonidine P 0.15%(NF) OPH SOL 5 ML BTL BOTH EYES SCH ×2 (11:21→19:58)
[2021-08-17] MEDS: cefTRIAXone 1 gm/50 mL NS BAG 1 GM/50 ML BAG IVPB SCH (18:21)
[2021-08-17] MEDS: Latanoprost 0.005% 2.5 ml BTL BOTH EYES SCH (19:59)
[2021-08-18] MEDS: Dorzolamide 2% OPTH (NF) 10 ML BTL BOTH EYES SCH ×3 (01:30→20:00)
[2021-08-18] MEDS: Brimonidine P 0.15%(NF) OPH SOL 5 ML BTL BOTH EYES SCH ×3 (01:30→20:00)
[2021-08-18] MEDS: Timolol 0.5% OPTH.SOL BTL BOTH EYES SCH ×3 (01:31→20:00)
[2021-08-18] MEDS: Latanoprost 0.005% 2.5 ml BTL BOTH EYES SCH ×2 (01:31→20:00)
[2021-08-18] MEDS: Heparin 5000 UNITS/ML 1 mL VIAL SUBCUT SCH ×3 (05:02→20:03)
[2021-08-18] MEDS: NS 0.9% 1000 ml BAG 1,000 ML IV SCH ×2 (06:22→17:31)
[2021-08-18] MEDS: cefTRIAXone 1 gm/50 mL NS BAG 1 GM/50 ML BAG IVPB SCH (17:30)
[2021-08-18] MEDS ORDERED: NS 0.9% 1000 ml BAG 1,000 ML IV ONE (19:30)
[2021-08-19] MEDS: NS 0.9% 1000 ml BAG 1,000 ML IV SCH (02:10)
[2021-08-19] MEDS: Heparin 5000 UNITS/ML 1 mL VIAL SUBCUT SCH ×3 (05:08→22:37)
[2021-08-19 07:04] LABS: ABS Eosinophils 0.3 10^3/ul (0-0.6); ABS Lymphocytes 1.2 10^3/ul (1.0-4.8); ABS Monocytes 1.1 10^3/ul (0-0.8); ABS Neutrophils 3.6 10^3/ul (1.5-7.7); Eosinophil % 4.7 %; Hematocrit 40 % (35-47); Hemoglobin 13.3 g/dL (12.0-16.0); Lymphocyte % 19.3 %; Mean Corpuscular HGB Conc 34 g/dL (31-36); Mean Corpuscular Hemoglobin 34 pg (27-31); Mean Corpuscular Volume 100 fL (80-97); Mean Platelet Volume 8.5 fL (7.4-10.4); Platelet Count 222 10^3/uL (150-450); Red Blood Count 3.97 10^6 /uL (3.70-4.87); Red Cell Distribution Width 13 % (10-15); White Blood Count 6.3 10^3/uL (3.5-10.8)
[2021-08-19 07:19] LABS: Potassium 3.7 mmol/L (3.5-5.0); eGFR CKD-EPI 34.3 (>60)
[2021-08-19] MEDS: Dorzolamide 2% OPTH (NF) 10 ML BTL BOTH EYES SCH ×2 (09:27→22:46)
[2021-08-19] MEDS: Timolol 0.5% OPTH.SOL BTL BOTH EYES SCH ×2 (09:28→22:46)
[2021-08-19] MEDS: Brimonidine P 0.15%(NF) OPH SOL 5 ML BTL BOTH EYES SCH ×2 (09:28→22:45)
[2021-08-19 14:05] LABS: Calcium 9.1 mg/dL (8.6-10.3); Potassium 3.8 mmol/L (3.5-5.0); eGFR CKD-EPI 33.3 (>60)
[2021-08-19] MEDS ORDERED: D5W 1000 ml BAG 1,000 ML IV SCH (15:00)
[2021-08-19] MEDS: cefTRIAXone 1 gm/50 mL NS BAG 1 GM/50 ML BAG IVPB SCH (16:35)
[2021-08-19 18:25] LABS: Calcium 8.8 mg/dL (8.6-10.3); Potassium 4.1 mmol/L (3.5-5.0)
[2021-08-19] MEDS: Latanoprost 0.005% 2.5 ml BTL BOTH EYES SCH (22:45)
[2021-08-20] MEDS: Heparin 5000 UNITS/ML 1 mL VIAL SUBCUT SCH (06:15)
[2021-08-20 06:40] LABS: Calcium 9.2 mg/dL (8.6-10.3); Potassium 3.7 mmol/L (3.5-5.0)
[2021-08-20 06:45] LABS: eGFR CKD-EPI 33.6 (>60)
[2021-08-20 07:56] VITALS: BP 124/84
[2021-08-20] MEDS ORDERED: Amoxicillin/Clavul 500/125 TAB (Augmentin 500 mg tab) PO SCH (09:00)
[2021-08-20] MEDS: Dorzolamide 2% OPTH (NF) 10 ML BTL BOTH EYES SCH (11:32)
[2021-08-20] MEDS: Brimonidine P 0.15%(NF) OPH SOL 5 ML BTL BOTH EYES SCH (11:32)
[2021-08-20] MEDS: Timolol 0.5% OPTH.SOL BTL BOTH EYES SCH (11:33)
== END 2021-08-20 13:10 | disposition home or self-care (01) | DRG 872 ==
LOC: ED 02:52 → EDHOLD 02:52 → SUATTDRO 07:25 → MED 09:00
PROVIDERS: ADMIT Internal Medicine; ATTEND Internal Medicine

== ENCOUNTER 2023-12-23 11:34 | Inpatient (IN) ==
[2023-12-23] MEDS: LACTATED RINGERS IV ONE (15:02)
[2023-12-23] MEDS: Piperacillin/Tazobac 3.375 BAG 3.375 GM/100 ML BAG IV ONE (15:06)
[2023-12-23] MEDS: Acetaminophen IV 1 GM/100ML 650 MG/65 ML BAG IV ONE (15:06)
[2023-12-23 15:27] LABS: Hematocrit 38.8 % (35-45); Hemoglobin 12.7 g/dL (11.5-14.3); Mean Corpuscular Hemoglobin 33.6 pg (27-33); Mean Corpuscular Hgb Conc 32.8 g/dL (31-36); Mean Corpuscular Volume 102.6 fL (80-97); Mean Platelet Volume 9.1 fL (7.5-11.2); Platelet Count 232 10^3/uL (150-450); Red Blood Count 3.78 10^6/uL (3.63-4.92); Red Cell Distribution Width 13.1 % (12-17)
[2023-12-23] MEDS ORDERED: Norepinephrine 4 MG/250mL D5W 4,000 MCG/250 ML BAG IV ONE (15:30)
[2023-12-23] MEDS: methylPREDNISolone SOD SUCC 125 mg 2 ML VIAL IV ONE (15:39)
[2023-12-23] MEDS: Norepinephrine 4 MG/250mL D5W 4,000 MCG/250 ML BAG IV SCH ×2 (15:39→22:05)
[2023-12-23 16:02] LABS: ALT 14 U/L (7-52); Albumin 2.8 g/dL (3.2-5.2); Albumin/Globulin Ratio 0.7 (1-3); Alkaline Phosphatase 105 U/L (35-149); Blood Urea Nitrogen 82 mg/dL (6-24); C Reactive Protein 296.85 mg/L (<8.01); CO2 Carbon Dioxide 16 mmol/L (22-32); Calcium 7.5 mg/dL (8.6-10.3); Chloride 112 mmol/L (101-111); Creatine Kinase 1560 U/L (10-223); Creatinine, Serum 4.26 mg/dL (0.51-0.95); Globulin 3.8 g/dL (2-4); Glucose 85 mg/dL (70-100); Lipase < 10 U/L (11.0-82.0); Sodium 145 mmol/L (135-145); Total Bilirubin 0.4 mg/dL (0.2-1.0); Total Protein 6.6 g/dL (6.4-8.9); eGFR CKD-EPI 10.3 (>60)
[2023-12-23] MEDS: Vancomycin 750 MG in NS 0.9% 250 ml 250 ML IVPB ONE (16:27)
[2023-12-23 16:31] LABS: Venous Bicarbonate HCO3 14.4 mmol/L (24-28)
[2023-12-23 16:34] LABS: AST 29 U/L (13-39); Anion Gap 17 mmol/L (2-16); Potassium 4.8 mmol/L (3.5-5.0)
[2023-12-23 17:22] LABS: ABS Lymphocytes 0.4 10^3/uL (1.0-4.8); ABS Monocytes 1.6 10^3/uL (0.0-0.9); ABS Nucleated RBC 0.03 10^3/ul; Lymphocyte % 1.5 %; Nucleated Red Blood Cells % 0.1 %/100WBC (0.0-0.8)
[2023-12-23 17:23] LABS: Dohle Bodies Present; Macrocytosis 1+
[2023-12-23] MEDS: Lactated Ringers 1000 ml BAG 1,000 ML IV ONE (18:08)
[2023-12-23 18:16] LABS: Urine Appearance Extra Turbid; Urine Bilirubin Negative (Negative); Urine Blood 3+ (Negative); Urine Glucose Negative (Negative); Urine Ketones Negative (Negative); Urine Nitrite Negative (Negative); Urine Protein 2+ (>=100 mg/dL) (Negative); Urine Specific Gravity 1.008 (1.002-1.030); Urine Urobilinogen Negative (Negative)
[2023-12-23 18:29] LABS: PCO2 Arterial 26 mmHg (35-45); PO2 Arterial 177 mmHg (80-100)
[2023-12-23 18:53] LABS: Urine Bacteria 2+ /HPF (Absent); Urine Red Blood Cell 3+(>10/hpf) /HPF (0-Trace); Urine White Blood Cell 3+(>20/hpf) /HPF (0-Trace)
[2023-12-23 19:06] LABS: High Sensitivity Troponin 1 Hr 31 pg/mL (<15)
[2023-12-23 19:08] LABS: Urine Color Light-Yellow
[2023-12-23] MEDS ORDERED: Vancomycin per Pharmacy 1 EA NOTE FOLLOW UP SCH (20:00)
[2023-12-23] MEDS ORDERED: Zosyn per Pharmacy NOTE FOLLOW UP SCH (20:00)
[2023-12-24] MEDS: Haloperidol 5 mg/ml SDV IV/IM 5 MG/ML AMP IV SLOW PU ONE (02:10)
[2023-12-24] MEDS: ZOSYN 3.375 GM Q12H per EXTENDED INFUSION IV SCH ×2 (04:39→05:58)
[2023-12-24 04:56] LABS: PCO2 Arterial 31 mmHg (35-45); PO2 Arterial 131 mmHg (80-100)
[2023-12-24 05:03] LABS: Hematocrit 32.2 % (35-45); Hemoglobin 10.5 g/dL (11.5-14.3); Mean Corpuscular Hgb Conc 32.5 g/dL (31-36); Mean Corpuscular Volume 101.7 fL (80-97); Mean Platelet Volume 8.7 fL (7.5-11.2); Platelet Count 229 10^3/uL (150-450); Red Blood Count 3.17 10^6/uL (3.63-4.92); Red Cell Distribution Width 12.9 % (12-17)
[2023-12-24 05:19] LABS: Albumin 2.4 g/dL (3.2-5.2); Albumin/Globulin Ratio 0.7 (1-3); Calcium 6.8 mg/dL (8.6-10.3); Creatinine, Serum 3.26 mg/dL (0.51-0.95); Globulin 3.3 g/dL (2-4); Magnesium 2.1 mg/dL (1.9-2.7); Potassium 4.7 mmol/L (3.5-5.0); Total Bilirubin 0.3 mg/dL (0.2-1.0); Total Protein 5.7 g/dL (6.4-8.9); Vancomycin Random 12.2 mcg/mL; eGFR CKD-EPI 14.2 (>60)
[2023-12-24] MEDS: Lactated Ringers 1000 ml BAG 1,000 ML IV ONE (05:38)
[2023-12-24] MEDS: Lidocaine 1% VIAL 10 MG/ML 30 ML VIAL INJ ONE (05:58)
[2023-12-24] MEDS ORDERED: Vancomycin Random Level NOTE FOLLOW UP ONE (06:00)
[2023-12-24 07:01] LABS: ABS Lymphocytes 0.7 10^3/uL (1.0-4.8); ABS Monocytes 0.6 10^3/uL (0.0-0.9); ABS Neutrophils 24.7 10^3/uL (1.5-7.6); ABS Nucleated RBC 0.01 10^3/ul; Eosinophil % 0.2 %; Lymphocyte % 2.5 %
[2023-12-24] MEDS: VALPROIC ACID IVPB SCH (09:52)
[2023-12-24] MEDS: NS 0.9% IVPB SCH (09:52)
[2023-12-24] MEDS: Heparin 5000 UNITS/ML 1 mL VIAL SUBCUT SCH (10:43)
[2023-12-24] MEDS: Famotidine IV 10 MG/ML 2 ml VIAL (20 mg) IV SLOW PU SCH (10:44)
[2023-12-24] MEDS: Timolol 0.5% OPTH.SOL BTL BOTH EYES SCH (10:55)
[2023-12-24] MEDS: CMCS: Brimonidine P 0.15%(NF) OPH SOL 5 ML BTL RIGHT EYE SCH (10:56)
[2023-12-24] MEDS: DORZOLAMIDE 2% BOTH EYES SCH (11:52)
[2023-12-24] MEDS: prednisoLONE 1% OPHTH.SUSP 5 ML OPHTH.SUSP LEFT EYE SCH (11:52)
[2023-12-24] MEDS: OPTH BOTH EYES SCH (11:52)
[2023-12-24] MEDS: Latanoprost 0.005% 2.5 ml BTL BOTH EYES SCH (21:01)
[2023-12-25 04:37] LABS: Hematocrit 33.8 % (35-45); Hemoglobin 11.3 g/dL (11.5-14.3); Mean Corpuscular Hgb Conc 33.4 g/dL (31-36); Mean Corpuscular Volume 101.9 fL (80-97); Mean Platelet Volume 8.5 fL (7.5-11.2); Platelet Count 188 10^3/uL (150-450); Red Blood Count 3.31 10^6/uL (3.63-4.92); White Blood Count 26.9 10^3/uL (3.8-11.8)
[2023-12-25 05:01] LABS: ABS Basophils 0.1 10^3/uL (0.0-0.1); ABS Lymphocytes 1.2 10^3/uL (1.0-4.8); ABS Monocytes 1.4 10^3/uL (0.0-0.9); ABS Neutrophils 24.2 10^3/uL (1.5-7.6); ABS Nucleated RBC 0.01 10^3/ul; Eosinophil % 0.1 %; Lymphocyte % 4.4 %
[2023-12-25 06:03] LABS: Albumin 2.5 g/dL (3.2-5.2); Albumin/Globulin Ratio 0.8 (1-3); Calcium 6.9 mg/dL (8.6-10.3); Creatinine, Serum 2.9 mg/dL (0.51-0.95); Globulin 3.3 g/dL (2-4); Magnesium 2.1 mg/dL (1.9-2.7); Potassium 4.1 mmol/L (3.5-5.0); Total Bilirubin 0.3 mg/dL (0.2-1.0); Total Protein 5.8 g/dL (6.4-8.9); eGFR CKD-EPI 16.4 (>60)
[2023-12-25] MEDS: D5W 1000 ml BAG 1,000 ML IV SCH (08:00)
[2023-12-25 15:50] LABS: Creatinine, Serum 2.59 mg/dL (0.51-0.95); eGFR CKD-EPI 18.8 (>60)
[2023-12-26 07:34] LABS: ABS Lymphocytes 1.1 10^3/uL (1.0-4.8); ABS Monocytes 1.1 10^3/uL (0.0-0.9); ABS Neutrophils 13.8 10^3/uL (1.5-7.6); Eosinophil % 0.1 %; Hematocrit 39.4 % (35-45); Hemoglobin 13.1 g/dL (11.5-14.3); Lymphocyte % 6.9 %; Mean Corpuscular Hemoglobin 33.8 pg (27-33); Mean Corpuscular Hgb Conc 33.1 g/dL (31-36); Mean Corpuscular Volume 102.1 fL (80-97); Mean Platelet Volume 9.1 fL (7.5-11.2); Platelet Count 183 10^3/uL (150-450); Red Blood Count 3.86 10^6/uL (3.63-4.92); Red Cell Distribution Width 13.1 % (12-17)
[2023-12-26 07:45] LABS: Albumin 2.6 g/dL (3.2-5.2); Albumin/Globulin Ratio 0.7 (1-3); Calcium 7.1 mg/dL (8.6-10.3); Creatinine, Serum 2.54 mg/dL (0.51-0.95); Globulin 3.7 g/dL (2-4); Magnesium 1.9 mg/dL (1.9-2.7); Total Bilirubin 0.4 mg/dL (0.2-1.0); Total Protein 6.3 g/dL (6.4-8.9); eGFR CKD-EPI 19.2 (>60)
[2023-12-26] MEDS: ZOSYN 3.375 GM Q12H per EXTENDED INFUSION IV SCH (10:04)
[2023-12-26] MEDS: D5W 1000 ml BAG 1,000 ML IV SCH (10:51)
[2023-12-26] MEDS ORDERED: CEPHALEXIN 250 MG/5 ML PO SCH ×2 (13:00→18:00)
[2023-12-26] MEDS: Cephalexin SUSP ORALSYR 50 MG/ML PO SCH (17:31)
[2023-12-27 05:47] LABS: Calcium 7.5 mg/dL (8.6-10.3); Creatinine, Serum 2.48 mg/dL (0.51-0.95); Potassium 3.8 mmol/L (3.5-5.0); eGFR CKD-EPI 19.8 (>60)
[2023-12-27] MEDS: D5W 1/4 NS 1000 ml BAG 1,000 ML IV SCH (12:49)
[2023-12-28 07:42] LABS: ABS Eosinophils 0.3 10^3/uL (0.0-0.5); ABS Monocytes 0.9 10^3/uL (0.0-0.9); ABS Neutrophils 9.3 10^3/uL (1.5-7.6); ABS Nucleated RBC 0.01 10^3/ul; Eosinophil % 2.2 %; Hematocrit 43.7 % (35-45); Hemoglobin 14.4 g/dL (11.5-14.3); Lymphocyte % 8.4 %; Mean Corpuscular Hemoglobin 33.8 pg (27-33); Mean Corpuscular Hgb Conc 32.8 g/dL (31-36); Mean Corpuscular Volume 102.8 fL (80-97); Mean Platelet Volume 9.2 fL (7.5-11.2); Nucleated Red Blood Cells % 0.1 %/100WBC (0.0-0.8); Platelet Count 132 10^3/uL (150-450); Red Blood Count 4.25 10^6/uL (3.63-4.92); Red Cell Distribution Width 13.5 % (12-17); White Blood Count 11.5 10^3/uL (3.8-11.8)
[2023-12-28 08:43] LABS: Calcium 7.4 mg/dL (8.6-10.3); Creatinine, Serum 2.37 mg/dL (0.51-0.95); Potassium 3.5 mmol/L (3.5-5.0); eGFR CKD-EPI 20.9 (>60)
[2023-12-28] MEDS: D5W 1000 ml BAG 1,000 ML IV SCH (10:01)
[2023-12-29] MEDS: D5LR 1000 ml BAG 1,000 ML IV SCH (07:56)
[2023-12-30 09:05] LABS: Calcium 7.9 mg/dL (8.6-10.3); Creatinine, Serum 1.73 mg/dL (0.51-0.95); Potassium 3.3 mmol/L (3.5-5.0); eGFR CKD-EPI 30.4 (>60)
[2023-12-30 10:02] LABS: Magnesium 1.5 mg/dL (1.9-2.7)
[2023-12-30] MEDS: Potassium Chloride LIQUID 20 MEQ/15 ML LIQUID PO ONE (12:44)
[2023-12-30] MEDS: Magnesium Sulfate 2 gm BAG 2 GM/50 ML BAG IVPB ONE (13:40)
[2023-12-30] MEDS: Magnesium Sulfate IV 1GM/100ML 1 GM/100 ML BAG IV ONE (15:49)
[2023-12-31 09:21] LABS: Calcium 7.9 mg/dL (8.6-10.3); Creatinine, Serum 1.92 mg/dL (0.51-0.95); Magnesium 2.9 mg/dL (1.9-2.7); Potassium 3.6 mmol/L (3.5-5.0); eGFR CKD-EPI 26.9 (>60)
[2023-12-31 09:29] VITALS: BP 109/67
== END 2023-12-31 12:50 | disposition home or self-care (01) | DRG 871 ==
LOC: ED 11:34 → SUATTDRO 19:58 → EDHOLD 19:58 → ICU 21:13 → MED 12-25 15:38
PROVIDERS: ADMIT Surgery Surgical Critical Care; ATTEND Student in an Organized Health Care Education/Training Program

== ENCOUNTER 2024-02-19 12:54 | Inpatient (IN) ==
[2024-02-19] MEDS: Lactated Ringers 1000 ml BAG IV.FLUID IV ONE ×2 (13:42→17:01)
[2024-02-19 13:46] LABS: ABS Eosinophils 0.3 10^3/uL (0.0-0.5); ABS Monocytes 0.9 10^3/uL (0.0-0.9); ABS Neutrophils 6.8 10^3/uL (1.5-7.6); ABS Nucleated RBC 0.02 10^3/ul; Eosinophil % 3.4 %; Hematocrit 34.4 % (35-45); Hemoglobin 11.3 g/dL (11.5-14.3); Lymphocyte % 19.6 %; Mean Corpuscular Hemoglobin 32.3 pg (27-33); Mean Corpuscular Hgb Conc 32.8 g/dL (31-36); Mean Corpuscular Volume 98.4 fL (80-97); Nucleated Red Blood Cells % 0.2 %/100WBC (0.0-0.8); Platelet Count 149 10^3/uL (150-450); Red Blood Count 3.49 10^6/uL (3.63-4.92); Red Cell Distribution Width 14.7 % (12-17)
[2024-02-19 14:28] LABS: Albumin 3.3 g/dL (3.2-5.2); Albumin/Globulin Ratio 0.8 (1-3); C Reactive Protein 22.65 mg/L (<8.01); Calcium 9.6 mg/dL (8.6-10.3); Creatinine, Serum 4.17 mg/dL (0.51-0.95); Globulin 4.4 g/dL (2-4); Magnesium 3.3 mg/dL (1.9-2.7); Phosphorus 8.1 mg/dL (2.5-5.0); Potassium 4.4 mmol/L (3.5-5.0); Total Bilirubin 0.3 mg/dL (0.2-1.0); Total Protein 7.7 g/dL (6.4-8.9); eGFR CKD-EPI 10.6 (>60)
[2024-02-19 15:14] LABS: High Sensitivity Troponin 1 Hr 9 pg/mL (<15)
[2024-02-19 15:27] LABS: Urine Appearance Turbid; Urine Bilirubin Negative (Negative); Urine Blood 3+ (Negative); Urine Color Light-Yellow; Urine Glucose Negative (Negative); Urine Ketones Negative (Negative); Urine Nitrite Negative (Negative); Urine Protein 1+ (>=30 mg/dL) (Negative); Urine Specific Gravity 1.014 (1.002-1.030); Urine Urobilinogen Negative (Negative)
[2024-02-19 15:31] LABS: Urine Bacteria Absent /HPF (Absent); Urine Red Blood Cell 3+(>10/hpf) /HPF (0-Trace); Urine White Blood Cell 3+(>20/hpf) /HPF (0-Trace)
[2024-02-19] MEDS: Lactated Ringers 1000 ml BAG 1,000 ML IV SCH ×2 (15:37→17:06)
[2024-02-19] MEDS: cefTRIAXone 2 gm/50 mL D5W 2 GM/50 ML BAG IV ONE (16:18)
[2024-02-19] MEDS: cefTRIAXone 2 GM ADDV.VIAL 2 GM in NS 0.9% 100 ml BAG 100 ML IV ONE (16:22)
[2024-02-19] MEDS: Denosumab 60 MG/ML SYRINGE SCH (17:15)
[2024-02-19] MEDS ORDERED: Saline NASAL SPRAY 0.65% BTL BOTH NARES PRN (18:08)
[2024-02-19] MEDS: D5LR 1000 ml BAG 1,000 ML IV SCH ×2 (18:34→21:01)
[2024-02-19] MEDS: Enoxaparin 30 MG/0.3 ML SYR SUBCUT SCH (18:35)
[2024-02-19] MEDS ORDERED: D5LR 1000 ml BAG 1,000 ML IV SCH ×3 (19:00)
[2024-02-19] MEDS: CMC:Brimonidine P 0.15%(NF) OPH SOL 5 ML BTL RIGHT EYE SCH (20:47)
[2024-02-19] MEDS: prednisoLONE 1% OPHTH.SUSP 5 ML OPHTH.SUSP LEFT EYE SCH (20:49)
[2024-02-19] MEDS: Heparin 5000 UNITS/ML 1 mL VIAL SUBCUT SCH (21:06)
[2024-02-19] MEDS: CMC:Dorzolamide 2% OPTH (NF) 10 ML BTL BOTH EYES SCH (21:08)
[2024-02-19] MEDS: Latanoprost 0.005% 2.5 ml BTL BOTH EYES SCH (21:14)
[2024-02-19] MEDS: Timolol 0.5% OPTH.SOL BTL BOTH EYES SCH (21:22)
[2024-02-19] MEDS ORDERED: D5LR 1000 ml BAG 1,000 ML IV ONE (23:00)
[2024-02-19 23:04] LABS: Calcium 8.8 mg/dL (8.6-10.3); Creatinine, Serum 3.63 mg/dL (0.51-0.95); Potassium 3.9 mmol/L (3.5-5.0); eGFR CKD-EPI 12.5 (>60)
[2024-02-20 08:25] LABS: ABS Eosinophils 0.4 10^3/uL (0.0-0.5); ABS Lymphocytes 1.2 10^3/uL (1.0-4.8); ABS Monocytes 0.8 10^3/uL (0.0-0.9); ABS Neutrophils 3.8 10^3/uL (1.5-7.6); ABS Nucleated RBC 0.01 10^3/ul; Eosinophil % 6.2 %; Hematocrit 32.8 % (35-45); Hemoglobin 10.9 g/dL (11.5-14.3); Lymphocyte % 19.6 %; Mean Corpuscular Hemoglobin 32.5 pg (27-33); Mean Corpuscular Hgb Conc 33.4 g/dL (31-36); Mean Corpuscular Volume 97.3 fL (80-97); Mean Platelet Volume 9.8 fL (7.5-11.2); Nucleated Red Blood Cells % 0.2 %/100WBC (0.0-0.8); Platelet Count 125 10^3/uL (150-450); Red Blood Count 3.37 10^6/uL (3.63-4.92); Red Cell Distribution Width 14.8 % (12-17); White Blood Count 6.3 10^3/uL (3.8-11.8)
[2024-02-20 08:40] LABS: Calcium 9.5 mg/dL (8.6-10.3); Creatinine, Serum 3.49 mg/dL (0.51-0.95); Magnesium 2.6 mg/dL (1.9-2.7); Potassium 4.3 mmol/L (3.5-5.0); eGFR CKD-EPI 13.1 (>60)
[2024-02-20] MEDS: Famotidine IV 10 MG/ML 2 ml VIAL (20 mg) IV SLOW PU SCH (09:59)
[2024-02-20] MEDS: cefTRIAXone 1 gm/50 mL D5W 1 GM/50 ML BAG IV SCH (16:00)
[2024-02-20] MEDS ORDERED: cefTRIAXone 1 gm/50 mL D5W 1 GM/50 ML BAG IV SCH (16:02)
[2024-02-20] MEDS: D5W 1/2 NS 1000 ml BAG 1,000 ML IV SCH (17:27)
[2024-02-20] MEDS: Scopolamine 1 mg/72hr PATCH TRANSDERM SCH (19:50)
[2024-02-21 14:16] LABS: ABS Eosinophils 0.6 10^3/uL (0.0-0.5); ABS Lymphocytes 1.7 10^3/uL (1.0-4.8); ABS Monocytes 0.7 10^3/uL (0.0-0.9); Eosinophil % 10.1 %; Hematocrit 33.3 % (35-45); Hemoglobin 10.8 g/dL (11.5-14.3); Lymphocyte % 28.1 %; Mean Corpuscular Hemoglobin 33.2 pg (27-33); Mean Corpuscular Hgb Conc 32.5 g/dL (31-36); Mean Platelet Volume 9.8 fL (7.5-11.2); Nucleated Red Blood Cells % 0.1 %/100WBC (0.0-0.8); Platelet Count 103 10^3/uL (150-450); Red Blood Count 3.27 10^6/uL (3.63-4.92); Red Cell Distribution Width 15.6 % (12-17)
[2024-02-21 14:53] LABS: Anion Gap 10 mmol/L (2-16); Blood Urea Nitrogen 49 mg/dL (6-24); CO2 Carbon Dioxide 19 mmol/L (22-32); Calcium 9.5 mg/dL (8.6-10.3); Chloride 116 mmol/L (101-111); Creatinine, Serum 3.07 mg/dL (0.51-0.95); Glucose 111 mg/dL (70-100); Sodium 145 mmol/L (135-145); eGFR CKD-EPI 15.3 (>60)
[2024-02-21] MEDS: D5W 1/2 NS 1000 ml BAG 1,000 ML IV SCH (17:25)
[2024-02-22] MEDS: D5LR 1000 ml BAG 1,000 ML IV SCH (15:45)
[2024-02-22] MEDS: VALPROIC ACID IVPB SCH (18:28)
[2024-02-22] MEDS: NS 0.9% IVPB SCH (18:28)
[2024-02-23 05:58] LABS: ABS Eosinophils 0.8 10^3/uL (0.0-0.5); ABS Lymphocytes 2.2 10^3/uL (1.0-4.8); ABS Neutrophils 2.8 10^3/uL (1.5-7.6); Eosinophil % 11.2 %; Hematocrit 31.4 % (35-45); Hemoglobin 10.4 g/dL (11.5-14.3); Lymphocyte % 32.3 %; Mean Corpuscular Hemoglobin 32.6 pg (27-33); Mean Corpuscular Hgb Conc 33.3 g/dL (31-36); Mean Corpuscular Volume 98.2 fL (80-97); Mean Platelet Volume 9.5 fL (7.5-11.2); Platelet Count 104 10^3/uL (150-450); Red Cell Distribution Width 14.5 % (12-17); White Blood Count 6.8 10^3/uL (3.8-11.8)
[2024-02-23 06:25] LABS: Creatinine, Serum 3.09 mg/dL (0.51-0.95); Potassium 3.5 mmol/L (3.5-5.0); eGFR CKD-EPI 15.2 (>60)
[2024-02-24] MEDS: NS 0.9% 1000 ml BAG 500 ML IV ONE (11:09)
[2024-02-24 11:27] LABS: ABS Basophils 0.1 10^3/uL (0.0-0.1); ABS Eosinophils 0.6 10^3/uL (0.0-0.5); ABS Lymphocytes 1.6 10^3/uL (1.0-4.8); ABS Monocytes 0.7 10^3/uL (0.0-0.9); ABS Neutrophils 3.6 10^3/uL (1.5-7.6); ABS Nucleated RBC 0.01 10^3/ul; Eosinophil % 9.4 %; Hematocrit 26.8 % (35-45); Hemoglobin 9.1 g/dL (11.5-14.3); Lymphocyte % 24.5 %; Mean Corpuscular Hemoglobin 33.2 pg (27-33); Mean Corpuscular Hgb Conc 34.1 g/dL (31-36); Mean Corpuscular Volume 97.4 fL (80-97); Mean Platelet Volume 9.2 fL (7.5-11.2); Nucleated Red Blood Cells % 0.2 %/100WBC (0.0-0.8); Platelet Count 115 10^3/uL (150-450); Red Blood Count 2.75 10^6/uL (3.63-4.92); Red Cell Distribution Width 14.8 % (12-17); White Blood Count 6.6 10^3/uL (3.8-11.8)
[2024-02-24 13:16] LABS: Creatinine, Serum 2.95 mg/dL (0.51-0.95); Potassium 3.8 mmol/L (3.5-5.0)
[2024-02-25 12:15] LABS: ABS Basophils 0.1 10^3/uL (0.0-0.1); ABS Eosinophils 0.7 10^3/uL (0.0-0.5); ABS Lymphocytes 2.6 10^3/uL (1.0-4.8); ABS Neutrophils 3.1 10^3/uL (1.5-7.6); Eosinophil % 9.2 %; Hematocrit 28.3 % (35-45); Hemoglobin 9.7 g/dL (11.5-14.3); Lymphocyte % 34.6 %; Mean Corpuscular Hemoglobin 33.5 pg (27-33); Mean Corpuscular Hgb Conc 34.2 g/dL (31-36); Mean Corpuscular Volume 97.9 fL (80-97); Mean Platelet Volume 9.5 fL (7.5-11.2); Nucleated Red Blood Cells % 0.1 %/100WBC (0.0-0.8); Platelet Count 135 10^3/uL (150-450); Red Blood Count 2.89 10^6/uL (3.63-4.92); White Blood Count 7.5 10^3/uL (3.8-11.8)
[2024-02-25 12:52] LABS: Albumin 2.7 g/dL (3.2-5.2); Albumin/Globulin Ratio 0.8 (1-3); Calcium 10.1 mg/dL (8.6-10.3); Creatinine, Serum 2.84 mg/dL (0.51-0.95); Globulin 3.6 g/dL (2-4); Potassium 3.4 mmol/L (3.5-5.0); Total Bilirubin 0.4 mg/dL (0.2-1.0); Total Protein 6.3 g/dL (6.4-8.9); eGFR CKD-EPI 16.8 (>60)
[2024-02-25] MEDS: KCL 10 MEQ/50 ML IVPREMIX 10 MEQ/50 ML BAG IV ONE (16:10)
[2024-02-26 07:56] LABS: Albumin 2.7 g/dL (3.2-5.2); Albumin/Globulin Ratio 0.8 (1-3); Calcium 10.2 mg/dL (8.6-10.3); Creatinine, Serum 2.54 mg/dL (0.51-0.95); Globulin 3.5 g/dL (2-4); Magnesium 1.3 mg/dL (1.9-2.7); Potassium 3.6 mmol/L (3.5-5.0); Total Bilirubin 0.4 mg/dL (0.2-1.0); Total Protein 6.2 g/dL (6.4-8.9); eGFR CKD-EPI 19.2 (>60)
[2024-02-26] MEDS: Magnesium Sulfate 2 gm BAG 2 GM/50 ML BAG IVPB ONE (18:06)
[2024-02-27 10:37] LABS: Calcium 10.5 mg/dL (8.6-10.3); Creatinine, Serum 2.47 mg/dL (0.51-0.95); Potassium 3.5 mmol/L (3.5-5.0); eGFR CKD-EPI 19.9 (>60)
[2024-02-27] MEDS: Lactated Ringers 1000 ml BAG 1,000 ML IV ONE (14:54)
[2024-02-29 09:57] VITALS: BP 127/68
[2024-03-01] MEDS: Morphine ORAL CONCENTRATE 5 MG/0.25 ML ORAL.SYRIN SL PRN (12:54)
[2024-03-02] MEDS: Atropine 1% (ORAL/SL) 15 ML BTL SL PRN (11:15)
== END 2024-03-05 09:11 | disposition expired | DRG 92 ==
LOC: ED 12:54 → EDHOLD 12:54 → MED 16:53 → SUATTDRO 02-20 16:00
PROVIDERS: ADMIT Internal Medicine; ATTEND Internal Medicine